=== PATIENT | male | born 1970 | race African-American/Black ===

== ENCOUNTER 2022-05-31 23:26 | Inpatient (IN) | payer MEDICAID ==
[~2022-05-31] VITALS: Ht 175.3 cm; Wt 104.0 kg
[2022-05-31 23:54] LABS: Basophils # (auto) 0.1 10 ^3/uL (0-0.2); Basophils % (auto) 0.9 % (0.0-2.0); Eosinophils # (auto) 0.1 10 ^3/uL (0-0.8); Eosinophils % (auto) 1.3 % (0.0-7.0); Hematocrit 43.2 % (41.0-53.0); Hemoglobin 13.6 g/dL (13.5-17.5); Lymphocytes # (auto) 1.2 10 ^3/uL (0.4-5.4); Mean Corpuscular Hemoglobin 28.4 pg (28.0-32.0); Mean Corpuscular Hgb Conc. 31.5 g/dL (32.0-36.0); Mean Corpuscular Volume 90.3 fL (80.0-100.0); Monocytes # (auto) 0.7 10 ^3/uL (0-1.3); Monocytes % (auto) 11.2 % (0.0-12.0); Neutrophils % (auto) 66.6 % (37.0-80.0); Nucleated Red Blood Cells % 0.3 %; Red Blood Cells 4.78 10^6/uL (4.5-5.90); Red Cell Distribution Width 15.8 % (11.8-14.3)
[2022-06-01 00:12] LABS: Albumin 2.9 g/dL (3.4-5.0); BUN/Creatinine Ratio 11.8; Calcium 8.4 mg/dL (8.5-10.1); Magnesium 2.1 mg/dL (1.6-2.6); Potassium 3.9 mmol/L (3.5-5.1)
[2022-06-01 00:13] LABS: INR 1.19 (0.9-1.15); Partial Thromboplastin Time 27.5 sec (24.6-33.4)
[2022-06-01 00:15] LABS: Bilirubin, Total 0.7 mg/dL (0.2-1.0); Total Protein 6.4 g/dL (6.4-8.2)
[2022-06-01] MEDS ORDERED: ASPirin 81 mg TAB PO ONE (00:45)
[2022-06-01] MEDS ORDERED: HEPARIN SODIUM (PORCINE) 5000 UNITS/ML 1ML VIAL IV ONE (00:45)
[2022-06-01] MEDS ORDERED: HEPARIN DRIP/D5W 100UNITS/ML 250 ML IV SCH ×3 (00:45→21:15)
[2022-06-01] MEDS ORDERED: ALBUTEROL MEDNEB 2.5 mg/3ml NEB ONE ×2 (01:40→21:07)
[2022-06-01] MEDS ORDERED: ALBUTEROL SULF 2.5 MG/0.5ML(0.5%) NEB SOLN NEB ONE (01:45)
[2022-06-01] MEDS ORDERED: methylPREDNISolone SOD SUCC 125 MG/2 ML VL IV ONE (01:45)
[2022-06-01] MEDS ORDERED: IPRATROPIUM BROM 0.5 MG/2.5ML INH SOL NEB ONE (01:45)
[2022-06-01 02:33] LABS: Basophils # (auto) 0.1 10 ^3/uL (0-0.2); Basophils % (auto) 1.8 % (0.0-2.0); Eosinophils # (auto) 0.2 10 ^3/uL (0-0.8); Eosinophils % (auto) 2.9 % (0.0-7.0); Hemoglobin 13.8 g/dL (13.5-17.5); Lymphocytes # (auto) 1.6 10 ^3/uL (0.4-5.4); Lymphocytes % (auto) 24.7 % (10.0-50.0); Mean Corpuscular Hemoglobin 28.9 pg (28.0-32.0); Mean Corpuscular Hgb Conc. 32.1 g/dL (32.0-36.0); Monocytes # (auto) 0.8 10 ^3/uL (0-1.3); Neutrophils # (auto) 3.7 10 ^3/uL (1.6-8.6); Neutrophils % (auto) 58.6 % (37.0-80.0); Nucleated Red Blood Cells % 0.1 %; Red Blood Cells 4.78 10^6/uL (4.5-5.90); Red Cell Distribution Width 15.8 % (11.8-14.3); White Blood Cell 6.3 10^3/uL (4.4-10.8)
[2022-06-01 02:41] LABS: INR 1.17 (0.9-1.15); Partial Thromboplastin Time 27.6 sec (24.6-33.4)
[2022-06-01] MEDS ORDERED: ACETAMINOPHEN 325 MG TAB PO PRN (04:45)
[2022-06-01] MEDS ORDERED: ALBUTEROL SULF 2.5 MG/0.5ML(0.5%) NEB SOLN NEB PRN (04:45)
[2022-06-01] MEDS ORDERED: IPRATROPIUM BROM 0.5 MG/2.5ML INH SOL NEB PRN (04:45)
[2022-06-01] MEDS ORDERED: ONDANSETRON HCL 4 MG/2 ML VIAL IV PRN (04:45)
[2022-06-01 09:15] LABS: INR 1.21 (0.9-1.15)
[2022-06-01] MEDS ORDERED: FUROSEMIDE 40 MG TAB PO SCH (10:00)
[2022-06-01] MEDS: ASPirin 81 mg TAB PO SCH (10:14)
[2022-06-01] MEDS: ISOSORBIDE MONONITRATE ER 60 MG TAB PO SCH (10:16)
[2022-06-01] MEDS: LISINOPRIL 20 MG TAB PO SCH ×2 (10:17→22:15)
[2022-06-01] MEDS: hydrALAZINE HCL 25 MG TAB PO SCH ×2 (10:19→22:19)
[2022-06-01] MEDS: CARVEDILOL 12.5 MG TAB PO SCH ×2 (10:20→22:14)
[2022-06-01] MEDS: PANTOPRAZOLE 40 MG TAB PO SCH (10:21)
[2022-06-01] MEDS ORDERED: LORazepam 2MG/ML-1ML VIAL IV ONE (11:15)
[2022-06-01 19:28] LABS: INR 1.14 (0.9-1.15); Partial Thromboplastin Time 46.7 sec (24.6-33.4)
[2022-06-01] MEDS: LORazepam 2MG/ML-1ML VIAL IV PRN (19:33)
[2022-06-01] MEDS: FUROSEMIDE 40 MG TAB PO SCH (22:15)
[2022-06-01] MEDS: MIRTAZAPINE 30 MG TAB PO SCH (22:19)
[2022-06-02] VITALS (7 sets, daily range): BP systolic 116–148; BP diastolic 67–106
[2022-06-02] MEDS: LORazepam 2MG/ML-1ML VIAL IV PRN ×2 (03:26→09:36)
[2022-06-02 03:47] LABS: Basophils # (auto) 0 10 ^3/uL (0-0.2); Basophils % (auto) 0.7 % (0.0-2.0); Eosinophils # (auto) 0.1 10 ^3/uL (0-0.8); Eosinophils % (auto) 2.6 % (0.0-7.0); Hematocrit 43.3 % (41.0-53.0); Hemoglobin 13.7 g/dL (13.5-17.5); Lymphocytes # (auto) 1.1 10 ^3/uL (0.4-5.4); Lymphocytes % (auto) 21.4 % (10.0-50.0); Mean Corpuscular Hemoglobin 28.5 pg (28.0-32.0); Mean Corpuscular Hgb Conc. 31.6 g/dL (32.0-36.0); Mean Corpuscular Volume 90.2 fL (80.0-100.0); Monocytes # (auto) 0.6 10 ^3/uL (0-1.3); Monocytes % (auto) 11.2 % (0.0-12.0); Neutrophils # (auto) 3.2 10 ^3/uL (1.6-8.6); Neutrophils % (auto) 64.1 % (37.0-80.0); Nucleated Red Blood Cells % 0.1 %; Red Blood Cells 4.81 10^6/uL (4.5-5.90); Red Cell Distribution Width 15.8 % (11.8-14.3)
[2022-06-02 03:59] LABS: Albumin 2.7 g/dL (3.4-5.0); BUN/Creatinine Ratio 12.4; Calcium 8.6 mg/dL (8.5-10.1); Potassium 4.3 mmol/L (3.5-5.1)
[2022-06-02 04:02] LABS: Bilirubin, Total 0.7 mg/dL (0.2-1.0); Total Protein 6.5 g/dL (6.4-8.2)
[2022-06-02 04:06] LABS: INR 1.18 (0.9-1.15); Partial Thromboplastin Time 55.2 sec (24.6-33.4)
[2022-06-02 07:02] LABS: Urine WBC None Seen /hpf (0 - 3)
[2022-06-02 07:24] LABS: Urine Bacteria NONE SEEN /hpf (None Seen); Urine Blood Negative /uL (Negative); Urine Specific Gravity 1.009 (1.001-1.035)
[2022-06-02] MEDS: PANTOPRAZOLE 40 MG TAB PO SCH (09:26)
[2022-06-02] MEDS: ASPirin 81 mg TAB PO SCH (09:26)
[2022-06-02] MEDS: FUROSEMIDE 40 MG TAB PO SCH ×2 (09:27→22:00)
[2022-06-02] MEDS: hydrALAZINE HCL 25 MG TAB PO SCH ×2 (09:27→22:14)
[2022-06-02] MEDS: ISOSORBIDE MONONITRATE ER 60 MG TAB PO SCH (09:27)
[2022-06-02] MEDS: CARVEDILOL 12.5 MG TAB PO SCH ×2 (09:28→22:07)
[2022-06-02] MEDS: LISINOPRIL 20 MG TAB PO SCH ×2 (09:28→22:15)
[2022-06-02 09:52] LABS: INR 1.21 (0.9-1.15); Partial Thromboplastin Time 58.1 sec (24.6-33.4)
[2022-06-02] MEDS ORDERED: LIDOCAINE 2%HCL (LOCAL ANESTH.) INJ 20ML MDV ONE (14:31)
[2022-06-02] MEDS ORDERED: IODIXANOL 320MG/ML 100ML BTL IV ONE (14:31)
[2022-06-02] MEDS ORDERED: ANGIOMAX 250 MG VIAL IV ONE (14:59)
[2022-06-02] MEDS ORDERED: VERAPAMIL 2.5MG/ML INJ 2ML VIAL IV ONE (14:59)
[2022-06-02] MEDS ORDERED: SODIUM CHL 0.9% 0 ML ONE (15:00)
[2022-06-02] MEDS ORDERED: ATORVASTATIN 20 MG TAB PO SCH (22:00)
[2022-06-02] MEDS: MIRTAZAPINE 30 MG TAB PO SCH (22:08)
[2022-06-03 04:54] VITALS: BP 138/83
[2022-06-03] MEDS: LORazepam 2MG/ML-1ML VIAL IV PRN (05:47)
[2022-06-03] MEDS ORDERED: EMPAGLIFLOZIN 10 MG TAB PO SCH (07:00)
[2022-06-03 09:00] VITALS: BP 131/94
[2022-06-03] MEDS: PANTOPRAZOLE 40 MG TAB PO SCH (09:19)
[2022-06-03] MEDS: ASPirin 81 mg TAB PO SCH (09:20)
[2022-06-03] MEDS: FUROSEMIDE 40 MG TAB PO SCH (09:20)
[2022-06-03] MEDS: CARVEDILOL 12.5 MG TAB PO SCH (09:20)
[2022-06-03] MEDS: LISINOPRIL 20 MG TAB PO SCH (09:21)
[2022-06-03] MEDS: hydrALAZINE HCL 25 MG TAB PO SCH (09:21)
[2022-06-03] MEDS ORDERED: ISOSORBIDE MONONITRATE ER 60 MG TAB PO SCH (10:00)
[2022-06-03] MEDS ORDERED: ISO60SRT PO (13:04)
[2022-06-03] MEDS ORDERED: EMPA1TAB PO (13:04)
[2022-06-03] MEDS ORDERED: LISI20TA28 PO (13:04)
[2022-06-03] MEDS ORDERED: FURO40TA4 PO (13:04)
[2022-06-03] MEDS ORDERED: ASPI-325 PO (13:05)
[2022-06-03] MEDS ORDERED: CAR125T PO (13:05)
[2022-06-03] MEDS ORDERED: ATOR20TA50 PO (13:05)
[2022-06-03 13:28] VITALS: BP 131/90
== END 2022-06-03 14:00 | disposition home or self-care (01) | DRG 192 ==
LOC: EDBD 23:26 → EDUNIT# 23:26 → ER 23:33 → TELE 06-01 04:45 → TELE-EAST 06-02 16:08
PROVIDERS: ADMIT Nurse Practitioner; ATTEND Student in an Organized Health Care Education/Training Program
PROC: 4A023N7 Measurement of Cardiac Sampling and Pressure, Left Heart, Percutaneous Approach (ICD-10-PCS; principal; 2022-06-02)
PROC: B211YZZ Fluoroscopy of Multiple Coronary Arteries using Other Contrast (ICD-10-PCS; 2022-06-02)
PROC: B215YZZ Fluoroscopy of Left Heart using Other Contrast (ICD-10-PCS; 2022-06-02)
DX: I13.0 Hypertensive heart and chronic kidney disease with heart failure and stage 1 through stage 4 chronic kidney disease, or unspecified chronic kidney disease (principal); I21.A1 Myocardial infarction type 2; I42.0 Dilated cardiomyopathy; I50.23 Acute on chronic systolic (congestive) heart failure; F17.210 Nicotine dependence, cigarettes, uncomplicated; F20.9 Schizophrenia, unspecified; F41.9 Anxiety disorder, unspecified; J44.9 Chronic obstructive pulmonary disease, unspecified; I25.10 Atherosclerotic heart disease of native coronary artery without angina pectoris; N18.31 Chronic kidney disease, stage 3a; G47.33 Obstructive sleep apnea (adult) (pediatric); Z20.822 Contact with and (suspected) exposure to COVID-19; F10.10 Alcohol abuse, uncomplicated; Z91.14 Patient's other noncompliance with medication regimen; Z95.810 Presence of automatic (implantable) cardiac defibrillator; Z98.61 Coronary angioplasty status
CPT/HCPCS: 36415; 71045; 80053; 81001; 83735; 83880; 84484; 85025; 85610; 85730; 87426; 93005; 93306; 93457; 94640; 96365; 96375; 99152; 99291; G0378; Q9967

== ENCOUNTER 2022-07-05 16:20 | Inpatient (IN) | payer MEDICAID ==
[~2022-07-05] VITALS: Ht 188 cm; Wt 109.7 kg
[~2022-07-05 16:20] MED LIST: ASPI-325 PO; ATOR20TA50 PO; CAR125T PO; EMPA1TAB PO; FURO40TA4 PO; ISO60SRT PO; LISI20TA28 PO
[2022-07-05] MEDS ORDERED: FUROSEMIDE 40 MG/4 ML VIAL IV ONE (17:00)
[2022-07-05 17:56] LABS: Albumin 2.6 g/dL (3.4-5.0); Calcium 8.5 mg/dL (8.5-10.1); Potassium 3.8 mmol/L (3.5-5.1)
[2022-07-05 17:57] LABS: Basophils # (auto) 0 10 ^3/uL (0-0.2); Basophils % (auto) 0.4 % (0.0-2.0); Eosinophils # (auto) 0.1 10 ^3/uL (0-0.8); Eosinophils % (auto) 2.6 % (0.0-7.0); Hematocrit 37.6 % (41.0-53.0); Hemoglobin 12.7 g/dL (13.5-17.5); Lymphocytes # (auto) 1.2 10 ^3/uL (0.4-5.4); Lymphocytes % (auto) 20.5 % (10.0-50.0); Mean Corpuscular Hemoglobin 31.2 pg (28.0-32.0); Mean Corpuscular Hgb Conc. 33.8 g/dL (32.0-36.0); Mean Corpuscular Volume 92.3 fL (80.0-100.0); Monocytes # (auto) 0.8 10 ^3/uL (0-1.3); Monocytes % (auto) 13.2 % (0.0-12.0); Neutrophils # (auto) 3.6 10 ^3/uL (1.6-8.6); Neutrophils % (auto) 63.3 % (37.0-80.0); Nucleated Red Blood Cells % 0.1 %; Red Blood Cells 4.07 10^6/uL (4.5-5.90); Red Cell Distribution Width 16.3 % (11.8-14.3); White Blood Cell 5.7 10^3/uL (4.4-10.8)
[2022-07-05 17:58] LABS: BUN/Creatinine Ratio 10.8
[2022-07-05 18:01] LABS: Bilirubin, Total 0.7 mg/dL (0.2-1.0); Total Protein 6.5 g/dL (6.4-8.2)
[2022-07-05] MEDS ORDERED: ONDANSETRON HCL 4 MG/2 ML VIAL IV PRN (21:30)
[2022-07-05] MEDS ORDERED: NITROGLYCERIN 0.4 MG SL TAB SL PRN (21:30)
[2022-07-05] MEDS ORDERED: MORPHINE SULFATE INJ 2 MG/ml SYRG IV PRN (21:30)
[2022-07-05] MEDS ORDERED: ACETAMINOPHEN 325 MG TAB PO PRN (21:30)
[2022-07-05] MEDS: hydrALAZINE HCL 25 MG TAB PO SCH (22:43)
[2022-07-05] MEDS: CARVEDILOL 12.5 MG TAB PO SCH (22:44)
[2022-07-05] MEDS: ATORVASTATIN 20 MG TAB PO SCH (22:44)
[2022-07-05] MEDS: MIRTAZAPINE 30 MG TAB PO SCH (22:45)
[2022-07-05] MEDS: LISINOPRIL 20 MG TAB PO SCH (22:45)
[2022-07-05 22:51] LABS: Potassium 3.7 mmol/L (3.5-5.1)
[2022-07-06] MEDS: FUROSEMIDE 20 MG/2 ML VIAL IV SCH ×2 (06:48→18:19)
[2022-07-06 08:24] LABS: Urine WBC None Seen /hpf (0 - 3)
[2022-07-06 08:37] LABS: Alcohol, Urine < 3.0 mg/dL (0-10); Amphetamine Screen, Urine POSITIVE (NEGATIVE); Barbiturate Scree,Urine NEGATIVE (NEGATIVE); Benzodiazephine Screen, Urine NEGATIVE (NEGATIVE); Cannabinoid Screen, Urine POSITIVE (NEGATIVE); Cocaine Screen, Urine NEGATIVE (NEGATIVE); Phencyclidine Screen, Urine NEGATIVE (NEGATIVE); Urine Bacteria NONE SEEN /hpf (None Seen); Urine Blood Negative /uL (Negative); Urine Specific Gravity 1.005 (1.001-1.035)
[2022-07-06 08:44] LABS: Opiate Scree,Urine NEGATIVE (NEGATIVE)
[2022-07-06] MEDS: ENOXAPARIN SOD 40 MG/0.4 ML SYRINGE SC SCH (11:48)
[2022-07-06] MEDS: NICOTINE 14 MG/24HR TOPICAL PATCH TD SCH (11:49)
[2022-07-06] MEDS: ASPirin 81 mg TAB PO SCH (11:56)
[2022-07-06] MEDS: ISOSORBIDE MONONITRATE ER 60 MG TAB PO SCH (11:57)
[2022-07-06] MEDS: PANTOPRAZOLE 40 MG TAB PO SCH (11:58)
[2022-07-06] MEDS: LISINOPRIL 20 MG TAB PO SCH ×2 (11:58→21:53)
[2022-07-06] MEDS: CARVEDILOL 12.5 MG TAB PO SCH ×2 (11:59→21:53)
[2022-07-06] MEDS: hydrALAZINE HCL 25 MG TAB PO SCH ×2 (11:59→21:53)
[2022-07-06 17:57] LABS: Basophils # (auto) 0 10 ^3/uL (0-0.2); Basophils % (auto) 0.6 % (0.0-2.0); Eosinophils # (auto) 0.1 10 ^3/uL (0-0.8); Eosinophils % (auto) 2.3 % (0.0-7.0); Hematocrit 39.1 % (41.0-53.0); Lymphocytes # (auto) 1.4 10 ^3/uL (0.4-5.4); Lymphocytes % (auto) 23.6 % (10.0-50.0); Mean Corpuscular Hemoglobin 29.7 pg (28.0-32.0); Mean Corpuscular Hgb Conc. 33.2 g/dL (32.0-36.0); Mean Corpuscular Volume 89.4 fL (80.0-100.0); Monocytes # (auto) 0.7 10 ^3/uL (0-1.3); Monocytes % (auto) 12.8 % (0.0-12.0); Neutrophils # (auto) 3.5 10 ^3/uL (1.6-8.6); Neutrophils % (auto) 60.7 % (37.0-80.0); Red Blood Cells 4.37 10^6/uL (4.5-5.90); Red Cell Distribution Width 16.6 % (11.8-14.3); White Blood Cell 5.7 10^3/uL (4.4-10.8)
[2022-07-06] MEDS: ATORVASTATIN 20 MG TAB PO SCH (21:52)
[2022-07-06] MEDS: MIRTAZAPINE 30 MG TAB PO SCH (21:53)
[2022-07-06 22:57] VITALS: BP 137/83
[2022-07-06 23:10] VITALS: BP 137/83
[2022-07-06] MEDS ORDERED: PERCOT PO (23:28)
[2022-07-07 05:00] VITALS: BP 146/95
[2022-07-07] MEDS: FUROSEMIDE 20 MG/2 ML VIAL IV SCH ×2 (05:25→16:57)
[2022-07-07] MEDS: LISINOPRIL 20 MG TAB PO SCH ×2 (10:52→22:03)
[2022-07-07] MEDS: ASPirin 81 mg TAB PO SCH (10:53)
[2022-07-07] MEDS: CARVEDILOL 12.5 MG TAB PO SCH ×2 (10:53→22:05)
[2022-07-07] MEDS: hydrALAZINE HCL 25 MG TAB PO SCH ×2 (10:53→22:04)
[2022-07-07] MEDS: PANTOPRAZOLE 40 MG TAB PO SCH (10:53)
[2022-07-07] MEDS: ISOSORBIDE MONONITRATE ER 60 MG TAB PO SCH (10:53)
[2022-07-07] MEDS: ENOXAPARIN SOD 40 MG/0.4 ML SYRINGE SC SCH (10:54)
[2022-07-07] MEDS: NICOTINE 14 MG/24HR TOPICAL PATCH TD SCH (10:56)
[2022-07-07] MEDS: OXYCODONE W/ ACETAMINOPHEN 5/325MG TABLET PO PRN ×2 (16:57→23:06)
[2022-07-07 22:00] VITALS: BP 142/90
[2022-07-07] MEDS: ATORVASTATIN 20 MG TAB PO SCH (22:03)
[2022-07-07] MEDS: MIRTAZAPINE 30 MG TAB PO SCH (22:04)
[2022-07-08 05:00] VITALS: BP 132/99
[2022-07-08] MEDS: FUROSEMIDE 20 MG/2 ML VIAL IV SCH (05:56)
[2022-07-08 06:47] LABS: BUN/Creatinine Ratio 13.8; Calcium 8.1 mg/dL (8.5-10.1); Magnesium 2.1 mg/dL (1.6-2.6); Potassium 3.9 mmol/L (3.5-5.1)
[2022-07-08 06:49] LABS: Basophils # (auto) 0 10 ^3/uL (0-0.2); Basophils % (auto) 0.7 % (0.0-2.0); Eosinophils # (auto) 0.1 10 ^3/uL (0-0.8); Eosinophils % (auto) 2.8 % (0.0-7.0); Hematocrit 38.3 % (41.0-53.0); Hemoglobin 12.7 g/dL (13.5-17.5); Lymphocytes # (auto) 1.3 10 ^3/uL (0.4-5.4); Lymphocytes % (auto) 28.2 % (10.0-50.0); Mean Corpuscular Hemoglobin 30.5 pg (28.0-32.0); Mean Corpuscular Hgb Conc. 33.3 g/dL (32.0-36.0); Mean Corpuscular Volume 91.7 fL (80.0-100.0); Monocytes # (auto) 0.6 10 ^3/uL (0-1.3); Monocytes % (auto) 11.8 % (0.0-12.0); Neutrophils # (auto) 2.7 10 ^3/uL (1.6-8.6); Neutrophils % (auto) 56.5 % (37.0-80.0); Nucleated Red Blood Cells % 0.2 %; Red Blood Cells 4.17 10^6/uL (4.5-5.90); Red Cell Distribution Width 16.4 % (11.8-14.3); White Blood Cell 4.7 10^3/uL (4.4-10.8)
[2022-07-08] MEDS: PANTOPRAZOLE 40 MG TAB PO SCH (10:14)
[2022-07-08] MEDS: ISOSORBIDE MONONITRATE ER 60 MG TAB PO SCH (10:14)
[2022-07-08] MEDS: LISINOPRIL 20 MG TAB PO SCH (10:14)
[2022-07-08] MEDS: CARVEDILOL 12.5 MG TAB PO SCH (10:14)
[2022-07-08] MEDS: hydrALAZINE HCL 25 MG TAB PO SCH (10:15)
[2022-07-08] MEDS: ASPirin 81 mg TAB PO SCH (10:15)
[2022-07-08] MEDS: ENOXAPARIN SOD 40 MG/0.4 ML SYRINGE SC SCH (10:15)
[2022-07-08] MEDS: NICOTINE 14 MG/24HR TOPICAL PATCH TD SCH (10:18)
[2022-07-08 12:42] VITALS: BP 144/93
[2022-07-08 14:45] VITALS: BP 152/96
== END 2022-07-08 15:25 | disposition home health service (06) | DRG 194 ==
LOC: ER 16:20 → EDBD 16:20 → TELE 21:28 → TELE-WESTW 22:43
PROVIDERS: ADMIT Nurse Practitioner; ATTEND Internal Medicine
DX: I13.0 Hypertensive heart and chronic kidney disease with heart failure and stage 1 through stage 4 chronic kidney disease, or unspecified chronic kidney disease (principal); N17.0 Acute kidney failure with tubular necrosis; I21.A1 Myocardial infarction type 2; I42.0 Dilated cardiomyopathy; I50.43 Acute on chronic combined systolic (congestive) and diastolic (congestive) heart failure; I42.7 Cardiomyopathy due to drug and external agent; E11.22 Type 2 diabetes mellitus with diabetic chronic kidney disease; F15.10 Other stimulant abuse, uncomplicated; Z20.822 Contact with and (suspected) exposure to COVID-19; E78.5 Hyperlipidemia, unspecified; F20.9 Schizophrenia, unspecified; J44.9 Chronic obstructive pulmonary disease, unspecified; Z91.199 Patient's noncompliance with other medical treatment and regimen due to unspecified reason; Z95.5 Presence of coronary angioplasty implant and graft; Z95.810 Presence of automatic (implantable) cardiac defibrillator; Z72.0 Tobacco use
CPT/HCPCS: 36415; 71046; 74176; 80048; 80053; 80307; 81001; 82962; 83735; 83880; 84484; 85025; 85379; 87426; 93005; 96374; 97163; G0378

== ENCOUNTER 2022-07-10 12:40 | Inpatient (IN) | payer MEDICAID ==
[~2022-07-10] VITALS: Ht 177.8 cm; Wt 108.5 kg
[~2022-07-10 12:40] MED LIST changes: +PERCOT PO
[2022-07-10] MEDS ORDERED: FUROSEMIDE 40 MG/4 ML VIAL IV ONE ×2 (13:15→15:15)
[2022-07-10 13:56] LABS: Basophils # (auto) 0.1 10 ^3/uL (0-0.2); Basophils % (auto) 1.3 % (0.0-2.0); Eosinophils # (auto) 0.1 10 ^3/uL (0-0.8); Eosinophils % (auto) 1.3 % (0.0-7.0); Hematocrit 41.6 % (41.0-53.0); Hemoglobin 13.9 g/dL (13.5-17.5); Lymphocytes # (auto) 1.1 10 ^3/uL (0.4-5.4); Lymphocytes % (auto) 20.6 % (10.0-50.0); Mean Corpuscular Hemoglobin 29.9 pg (28.0-32.0); Mean Corpuscular Hgb Conc. 33.4 g/dL (32.0-36.0); Mean Corpuscular Volume 89.7 fL (80.0-100.0); Monocytes # (auto) 0.7 10 ^3/uL (0-1.3); Monocytes % (auto) 13.5 % (0.0-12.0); Neutrophils # (auto) 3.3 10 ^3/uL (1.6-8.6); Neutrophils % (auto) 63.3 % (37.0-80.0); Nucleated Red Blood Cells % 0.3 %; Red Blood Cells 4.63 10^6/uL (4.5-5.90); Red Cell Distribution Width 16.7 % (11.8-14.3); White Blood Cell 5.1 10^3/uL (4.4-10.8)
[2022-07-10 14:28] LABS: Albumin 3.2 g/dL (3.4-5.0); BUN/Creatinine Ratio 16.6; Bilirubin, Total 0.9 mg/dL (0.2-1.0); Calcium 8.3 mg/dL (8.5-10.1); Magnesium 2.5 mg/dL (1.6-2.6); Potassium 4.3 mmol/L (3.5-5.1)
[2022-07-10] MEDS ORDERED: LORazepam 2MG/ML-1ML VIAL IV ONE (21:00)
[2022-07-10 21:20] LABS: Albumin 2.9 g/dL (3.4-5.0); Calcium 8.3 mg/dL (8.5-10.1); Potassium 4.2 mmol/L (3.5-5.1)
[2022-07-10 21:21] LABS: BUN/Creatinine Ratio 16.3
[2022-07-10 21:24] LABS: Bilirubin, Total 0.8 mg/dL (0.2-1.0); Total Protein 7.4 g/dL (6.4-8.2)
[2022-07-10 21:40] LABS: Basophils # (auto) 0 10 ^3/uL (0-0.2); Basophils % (auto) 0.7 % (0.0-2.0); Eosinophils # (auto) 0.1 10 ^3/uL (0-0.8); Eosinophils % (auto) 2.3 % (0.0-7.0); Hematocrit 42.2 % (41.0-53.0); Lymphocytes # (auto) 1.3 10 ^3/uL (0.4-5.4); Lymphocytes % (auto) 25.7 % (10.0-50.0); Mean Corpuscular Hemoglobin 30.4 pg (28.0-32.0); Mean Corpuscular Hgb Conc. 33.1 g/dL (32.0-36.0); Mean Corpuscular Volume 91.7 fL (80.0-100.0); Monocytes # (auto) 0.9 10 ^3/uL (0-1.3); Neutrophils # (auto) 2.8 10 ^3/uL (1.6-8.6); Neutrophils % (auto) 54.3 % (37.0-80.0); Nucleated Red Blood Cells % 0.1 %; Red Blood Cells 4.61 10^6/uL (4.5-5.90); Red Cell Distribution Width 16.7 % (11.8-14.3); White Blood Cell 5.2 10^3/uL (4.4-10.8)
[2022-07-10 22:08] LABS: Urine Bacteria NONE SEEN /hpf (None Seen); Urine Blood Negative /uL (Negative); Urine Specific Gravity 1.011 (1.001-1.035); Urine WBC <1 /hpf (0 - 3)
[2022-07-10 22:26] LABS: Alcohol, Urine < 3.0 mg/dL (0-10); Amphetamine Screen, Urine POSITIVE (NEGATIVE); Barbiturate Scree,Urine NEGATIVE (NEGATIVE); Benzodiazephine Screen, Urine NEGATIVE (NEGATIVE); Cannabinoid Screen, Urine POSITIVE (NEGATIVE); Cocaine Screen, Urine NEGATIVE (NEGATIVE)
[2022-07-10 22:34] LABS: Opiate Scree,Urine NEGATIVE (NEGATIVE); Phencyclidine Screen, Urine NEGATIVE (NEGATIVE)
[2022-07-11] VITALS (8 sets, daily range): BP systolic 137–153; BP diastolic 53–104
[2022-07-11] MEDS ORDERED: HYDROcodone-ACET 5/325MG TAB PO PRN
[2022-07-11] MEDS ORDERED: NITROGLYCERIN 0.4 MG SL TAB SL PRN
[2022-07-11] MEDS ORDERED: DEXTROSE (50%) 50ML SYRG IV PRN
[2022-07-11] MEDS ORDERED: hydrALAZINE HCL 20 MG/ML VL IV PRN
[2022-07-11] MEDS ORDERED: IBUPROFEN 600 MG TAB PO PRN
[2022-07-11] MEDS ORDERED: MORPHINE SULFATE INJ 2 MG/ml SYRG IV PRN
[2022-07-11] MEDS ORDERED: DOCUSATE SOD 100 MG CAP PO PRN
[2022-07-11] MEDS ORDERED: ONDANSETRON HCL 4 MG/2 ML VIAL IV PRN
[2022-07-11] MEDS: InsuLIN REG 1unit/0.01ml Soln (100units/ml) SC SCH ×4 (07:00→22:12)
[2022-07-11] MEDS: ACCU-CHEK COMFORT CURVE STRIP VI SCH ×4 (07:09→22:11)
[2022-07-11] MEDS: SODIUM CHLOR 0.9% PF (SALINE LOCK) 10ML VIAL/SYR IV SCH ×3 (07:11→23:27)
[2022-07-11 09:13] LABS: Basophils # (auto) 0.1 10 ^3/uL (0-0.2); Eosinophils # (auto) 0.1 10 ^3/uL (0-0.8); Eosinophils % (auto) 1.2 % (0.0-7.0); Hematocrit 43.1 % (41.0-53.0); Hemoglobin 14.2 g/dL (13.5-17.5); Lymphocytes # (auto) 1.3 10 ^3/uL (0.4-5.4); Lymphocytes % (auto) 24.5 % (10.0-50.0); Mean Corpuscular Hemoglobin 29.8 pg (28.0-32.0); Mean Corpuscular Hgb Conc. 32.8 g/dL (32.0-36.0); Mean Corpuscular Volume 90.7 fL (80.0-100.0); Monocytes # (auto) 0.7 10 ^3/uL (0-1.3); Monocytes % (auto) 13.5 % (0.0-12.0); Neutrophils # (auto) 3.3 10 ^3/uL (1.6-8.6); Neutrophils % (auto) 59.8 % (37.0-80.0); Nucleated Red Blood Cells % 0.1 %; Red Blood Cells 4.75 10^6/uL (4.5-5.90); Red Cell Distribution Width 16.8 % (11.8-14.3); White Blood Cell 5.5 10^3/uL (4.4-10.8)
[2022-07-11] MEDS: ASPirin 81 mg TAB PO SCH (09:29)
[2022-07-11 09:32] LABS: Albumin 3.1 g/dL (3.4-5.0); Calcium 8.5 mg/dL (8.5-10.1)
[2022-07-11] MEDS: CARVEDILOL 12.5 MG TAB PO SCH ×2 (09:33→22:09)
[2022-07-11 09:38] LABS: BUN/Creatinine Ratio 14.7; Bilirubin, Total 1.1 mg/dL (0.2-1.0); Total Protein 7.2 g/dL (6.4-8.2)
[2022-07-11] MEDS ORDERED: FUROSEMIDE 40 MG/4 ML VIAL IV SCH ×2 (09:45→10:00)
[2022-07-11] MEDS: HEPARIN SODIUM (PORCINE) 5000 UNITS/ML 1ML VIAL SC SCH ×2 (09:49→22:11)
[2022-07-11] MEDS ORDERED: LISINOPRIL 20 MG TAB PO SCH (10:00)
[2022-07-11] MEDS ORDERED: SPIRONOLACTONE 25 MG TAB PO SCH (10:00)
[2022-07-11] MEDS: LORazepam 2MG/ML-1ML VIAL IV PRN (14:24)
[2022-07-11] MEDS: FUROSEMIDE 40 MG/4 ML VIAL IV SCH (18:38)
[2022-07-11] MEDS ORDERED: ATORVASTATIN 20 MG TAB PO SCH (22:00)
[2022-07-12 05:00] VITALS: BP 138/86
[2022-07-12] MEDS: LORazepam 2MG/ML-1ML VIAL IV PRN (05:03)
[2022-07-12 05:12] LABS: Urine Blood Negative /uL (Negative); Urine Specific Gravity 1.016 (1.001-1.035)
[2022-07-12] MEDS: FUROSEMIDE 40 MG/4 ML VIAL IV SCH ×2 (06:01→18:12)
[2022-07-12] MEDS: SODIUM CHLOR 0.9% PF (SALINE LOCK) 10ML VIAL/SYR IV SCH ×3 (06:01→22:41)
[2022-07-12 06:03] LABS: Protein, Urine 24.9 mg/dL (0.0-11.9)
[2022-07-12] MEDS: InsuLIN REG 1unit/0.01ml Soln (100units/ml) SC SCH ×4 (06:03→21:50)
[2022-07-12] MEDS: ACCU-CHEK COMFORT CURVE STRIP VI SCH ×4 (06:03→21:50)
[2022-07-12 06:15] LABS: BUN/Creatinine Ratio 16.6; Calcium 8.3 mg/dL (8.5-10.1); Phosphorus 4.1 mg/dL (2.5-4.90); Potassium 3.9 mmol/L (3.5-5.1); Uric Acid 10.4 mg/dL (3.5-7.2)
[2022-07-12 07:30] VITALS: BP 166/106
[2022-07-12 08:45] VITALS: BP 166/106
[2022-07-12] MEDS: ASPirin 81 mg TAB PO SCH (09:44)
[2022-07-12] MEDS: metOLazone 5 MG TAB PO SCH (09:45)
[2022-07-12] MEDS: CARVEDILOL 12.5 MG TAB PO SCH ×2 (09:46→21:54)
[2022-07-12] MEDS: HEPARIN SODIUM (PORCINE) 5000 UNITS/ML 1ML VIAL SC SCH ×2 (09:48→21:49)
[2022-07-12 12:59] VITALS: BP 134/92
[2022-07-12] MEDS ORDERED: LORazepam 2MG/ML-1ML VIAL IV PRN (15:30)
[2022-07-12 20:00] VITALS: BP 153/96
[2022-07-12] MEDS: LORazepam 0.5 MG TAB PO SCH (21:50)
[2022-07-12 22:00] VITALS: BP 153/96
[2022-07-13 05:00] VITALS: BP 109/66
[2022-07-13] MEDS: FUROSEMIDE 40 MG/4 ML VIAL IV SCH (06:23)
[2022-07-13] MEDS: SODIUM CHLOR 0.9% PF (SALINE LOCK) 10ML VIAL/SYR IV SCH ×2 (06:24→13:06)
[2022-07-13 06:55] LABS: BUN/Creatinine Ratio 17.1; Calcium 8.4 mg/dL (8.5-10.1); Potassium 3.6 mmol/L (3.5-5.1)
[2022-07-13] MEDS: InsuLIN REG 1unit/0.01ml Soln (100units/ml) SC SCH ×3 (07:00→17:00)
[2022-07-13] MEDS: ACCU-CHEK COMFORT CURVE STRIP VI SCH ×3 (07:00→17:00)
[2022-07-13 08:30] VITALS: BP 145/99
[2022-07-13] MEDS: CARVEDILOL 12.5 MG TAB PO SCH (10:09)
[2022-07-13] MEDS: LORazepam 0.5 MG TAB PO SCH (10:09)
[2022-07-13] MEDS: metOLazone 5 MG TAB PO SCH (10:09)
[2022-07-13] MEDS: ASPirin 81 mg TAB PO SCH (10:09)
[2022-07-13] MEDS: HEPARIN SODIUM (PORCINE) 5000 UNITS/ML 1ML VIAL SC SCH (10:15)
[2022-07-13 14:31] VITALS: BP 125/85
[2022-07-13] MEDS ORDERED: FURO40TA4 PO (15:18)
[2022-07-13] MEDS ORDERED: CAR125T PO (15:18)
[2022-07-13] MEDS ORDERED: SACU1TAB PO (15:18)
[2022-07-13] MEDS ORDERED: EMPA1TAB PO (15:18)
[2022-07-13] MEDS ORDERED: ISO60SRT PO (15:18)
== END 2022-07-13 17:12 | disposition home or self-care (01) | DRG 194 ==
LOC: ER 12:40 → EDUNIT# 12:40 → EDBD 12:40 → TELE 07-11 00:02 → TELE-WESTW 07-11 03:30
PROVIDERS: ADMIT Nurse Practitioner Family; ATTEND Hospitalist
DX: I13.0 Hypertensive heart and chronic kidney disease with heart failure and stage 1 through stage 4 chronic kidney disease, or unspecified chronic kidney disease (principal); N17.0 Acute kidney failure with tubular necrosis; I50.43 Acute on chronic combined systolic (congestive) and diastolic (congestive) heart failure; R09.02 Hypoxemia; E11.22 Type 2 diabetes mellitus with diabetic chronic kidney disease; N18.31 Chronic kidney disease, stage 3a; F15.10 Other stimulant abuse, uncomplicated; Z20.822 Contact with and (suspected) exposure to COVID-19; F41.9 Anxiety disorder, unspecified; R79.89 Other specified abnormal findings of blood chemistry; I42.8 Other cardiomyopathies; E78.5 Hyperlipidemia, unspecified; F17.210 Nicotine dependence, cigarettes, uncomplicated; F20.9 Schizophrenia, unspecified; J44.9 Chronic obstructive pulmonary disease, unspecified; Z82.49 Family history of ischemic heart disease and other diseases of the circulatory system; Z83.3 Family history of diabetes mellitus; I25.2 Old myocardial infarction; Z91.199 Patient's noncompliance with other medical treatment and regimen due to unspecified reason; Z95.0 Presence of cardiac pacemaker
CPT/HCPCS: 36415; 71045; 80048; 80053; 81003; 82306; 82570; 82962; 84100; 84156; 84300; 84443; 84484; 84550; 85025; 87081; 93971; 96374; 96375; G0378; J1815

== ENCOUNTER 2022-08-21 12:48 | Inpatient (IN) | payer MEDICAID ==
[~2022-08-21] VITALS: Ht 175.3 cm; Wt 104.1 kg
[~2022-08-21 12:48] MED LIST changes: -LISI20TA28 PO; +SACU1TAB PO
[2022-08-21 13:13] LABS: Basophils # (auto) 0.1 10 ^3/uL (0-0.2); Basophils % (auto) 1.2 % (0.0-2.0); Eosinophils # (auto) 0.1 10 ^3/uL (0-0.8); Eosinophils % (auto) 1.1 % (0.0-7.0); Hemoglobin 13.9 g/dL (13.5-17.5); Lymphocytes # (auto) 1.3 10 ^3/uL (0.4-5.4); Lymphocytes % (auto) 17.7 % (10.0-50.0); Mean Corpuscular Hemoglobin 29.1 pg (28.0-32.0); Mean Corpuscular Hgb Conc. 32.4 g/dL (32.0-36.0); Mean Corpuscular Volume 89.9 fL (80.0-100.0); Monocytes # (auto) 0.7 10 ^3/uL (0-1.3); Monocytes % (auto) 9.8 % (0.0-12.0); Neutrophils # (auto) 5.1 10 ^3/uL (1.6-8.6); Neutrophils % (auto) 70.2 % (37.0-80.0); Nucleated Red Blood Cells % 0.2 %; Red Blood Cells 4.78 10^6/uL (4.5-5.90); Red Cell Distribution Width 19.1 % (11.8-14.3); White Blood Cell 7.3 10^3/uL (4.4-10.8)
[2022-08-21 13:38] LABS: INR 1.23 (0.9-1.15); Partial Thromboplastin Time 27.8 sec (24.6-33.4)
[2022-08-21 14:13] LABS: Albumin 3.1 g/dL (3.4-5.0); BUN/Creatinine Ratio 12.3 (10.0-20.0); Bilirubin, Total 1.3 mg/dL (0.2-1.0); Calcium 8.5 mg/dL (8.5-10.1); Potassium 4.2 mmol/L (3.5-5.1); Total Protein 6.8 g/dL (6.4-8.2)
[2022-08-21 14:14] LABS: Magnesium 2.2 mg/dL (1.6-2.6)
[2022-08-21] MEDS ORDERED: FUROSEMIDE 100 MG/10ML VIAL IV ONE (14:45)
[2022-08-21] MEDS ORDERED: ASPirin 325 MG TAB PO ONE (14:45)
[2022-08-21] MEDS ORDERED: DEXTROSE (50%) 50ML SYRG IV PRN (18:15)
[2022-08-21] MEDS ORDERED: IPRATROPIUM BROM 0.5 MG/2.5ML INH SOL NEB PRN (18:15)
[2022-08-21] MEDS ORDERED: ALBUTEROL SULF 2.5 MG/0.5ML(0.5%) NEB SOLN NEB PRN (18:15)
[2022-08-21 19:36] VITALS: BP 168/70
[2022-08-21] MEDS ORDERED: ONDANSETRON HCL 4 MG/2 ML VIAL IV PRN (20:15)
[2022-08-21] MEDS ORDERED: NITROGLYCERIN 0.4 MG SL TAB SL PRN (20:15)
[2022-08-21] MEDS ORDERED: MORPHINE SULFATE 4 MG/ML SYR/VIAL IV PRN (20:15)
[2022-08-21] MEDS: FUROSEMIDE 20 MG/2 ML VIAL IV SCH (22:00)
[2022-08-21] MEDS: InsuLIN REG 1unit/0.01ml Soln (100units/ml) SC SCH (22:00)
[2022-08-21] MEDS: SACUBITRIL-VALSARTAN 24mg/26mg TAB PO SCH (22:12)
[2022-08-21] MEDS: ATORVASTATIN 20 MG TAB PO SCH (22:21)
[2022-08-21] MEDS: CARVEDILOL 12.5 MG TAB PO SCH (22:26)
[2022-08-21] MEDS: ACCU-CHEK COMFORT CURVE STRIP VI SCH (22:26)
[2022-08-21] MEDS ORDERED: cloNIDine HCL 0.1 MG TAB PO ONE (23:00)
[2022-08-22 01:29] LABS: Urine Bacteria NONE SEEN /hpf (None Seen); Urine Blood Negative /uL (Negative); Urine Specific Gravity 1.005 (1.001-1.035); Urine WBC <1 /hpf (0 - 3)
[2022-08-22] MEDS: LORazepam 2MG/ML-1ML VIAL IV PRN ×3 (02:12→14:29)
[2022-08-22 04:48] LABS: Basophils # (auto) 0.1 10 ^3/uL (0-0.2); Eosinophils # (auto) 0.2 10 ^3/uL (0-0.8); Eosinophils % (auto) 2.3 % (0.0-7.0); Hematocrit 41.2 % (41.0-53.0); Hemoglobin 13.6 g/dL (13.5-17.5); Lymphocytes # (auto) 1.3 10 ^3/uL (0.4-5.4); Mean Corpuscular Hemoglobin 29.4 pg (28.0-32.0); Mean Corpuscular Hgb Conc. 33.1 g/dL (32.0-36.0); Mean Corpuscular Volume 88.9 fL (80.0-100.0); Monocytes # (auto) 0.9 10 ^3/uL (0-1.3); Monocytes % (auto) 12.8 % (0.0-12.0); Neutrophils # (auto) 4.5 10 ^3/uL (1.6-8.6); Neutrophils % (auto) 64.9 % (37.0-80.0); Nucleated Red Blood Cells % 0.1 %; Red Blood Cells 4.64 10^6/uL (4.5-5.90); Red Cell Distribution Width 18.7 % (11.8-14.3); White Blood Cell 6.9 10^3/uL (4.4-10.8)
[2022-08-22 05:06] LABS: Albumin 2.9 g/dL (3.4-5.0); Calcium 8.6 mg/dL (8.5-10.1); Potassium 3.7 mmol/L (3.5-5.1)
[2022-08-22 05:08] LABS: BUN/Creatinine Ratio 13.4 (10.0-20.0)
[2022-08-22 05:11] LABS: Bilirubin, Total 0.9 mg/dL (0.2-1.0)
[2022-08-22] MEDS: ACCU-CHEK COMFORT CURVE STRIP VI SCH ×4 (07:05→22:33)
[2022-08-22] MEDS: InsuLIN REG 1unit/0.01ml Soln (100units/ml) SC SCH ×4 (07:10→22:00)
[2022-08-22] MEDS: hydrALAZINE HCL 20 MG/ML VL IV PRN ×2 (07:12→17:47)
[2022-08-22 08:00] VITALS: BP 138/86
[2022-08-22 09:00] VITALS: BP 138/86
[2022-08-22] MEDS: PANTOPRAZOLE 40 MG/10 ML VIAL INJ IV SCH ×2 (10:00→10:20)
[2022-08-22] MEDS: ASPirin-EC 81 mg tab PO SCH (10:04)
[2022-08-22] MEDS: FUROSEMIDE 20 MG/2 ML VIAL IV SCH ×2 (10:05→22:00)
[2022-08-22] MEDS: CARVEDILOL 12.5 MG TAB PO SCH ×2 (10:05→22:00)
[2022-08-22] MEDS: ISOSORBIDE MONONITRATE ER 60 MG TAB PO SCH (10:06)
[2022-08-22] MEDS ORDERED: MIRT1TAB40 PO (10:23)
[2022-08-22] MEDS ORDERED: PROM2SYP2 PO (10:23)
[2022-08-22] MEDS ORDERED: ISOS1TAB28 PO (10:23)
[2022-08-22] MEDS ORDERED: LISI20TA28 PO (10:23)
[2022-08-22] MEDS ORDERED: ALBU108A5 PO (10:23)
[2022-08-22] MEDS ORDERED: HYDR50TA15 PO (10:23)
[2022-08-22] MEDS ORDERED: TIOTCAP INH (10:23)
[2022-08-22] MEDS ORDERED: TAMS0.4C36 PO (10:23)
[2022-08-22] MEDS ORDERED: HYDR25TA87 PO (10:23)
[2022-08-22] MEDS ORDERED: FIN5T PO (10:23)
[2022-08-22] MEDS ORDERED: AZIT250T9 PO (10:23)
[2022-08-22] MEDS ORDERED: CARV12.544 PO (10:23)
[2022-08-22] MEDS ORDERED: BENA20TA14 PO (10:23)
[2022-08-22] MEDS ORDERED: [UNRECOGNIZED DRUG - CODE] IN (10:23)
[2022-08-22] MEDS ORDERED: PRED20TA2 PO (10:23)
[2022-08-22] MEDS ORDERED: POTA-264 (10:23)
[2022-08-22] MEDS ORDERED: ASPI1TAB37 PO (10:23)
[2022-08-22] MEDS ORDERED: TRAZ100T3 PO (10:23)
[2022-08-22] MEDS: ENOXAPARIN SOD 40 MG/0.4 ML SYRINGE SC SCH (10:29)
[2022-08-22] MEDS: SACUBITRIL-VALSARTAN 24mg/26mg TAB PO SCH ×2 (10:29→22:00)
[2022-08-22 12:00] VITALS: BP 119/72
[2022-08-22] MEDS ORDERED: ALPR0.5T PO (18:38)
[2022-08-22] MEDS: HYDROcodone-ACET 5/325MG TAB PO PRN (19:37)
[2022-08-22 20:50] LABS: Alcohol, Urine < 3.0 mg/dL (0-10); Amphetamine Screen, Urine POSITIVE (NEGATIVE); Barbiturate Scree,Urine NEGATIVE (NEGATIVE); Benzodiazephine Screen, Urine NEGATIVE (NEGATIVE); Cocaine Screen, Urine POSITIVE (NEGATIVE); Phencyclidine Screen, Urine NEGATIVE (NEGATIVE)
[2022-08-22 20:58] LABS: Cannabinoid Screen, Urine POSITIVE (NEGATIVE); Opiate Scree,Urine NEGATIVE (NEGATIVE)
[2022-08-22 22:00] VITALS: BP 103/47
[2022-08-22] MEDS: ATORVASTATIN 20 MG TAB PO SCH (22:00)
[2022-08-23 05:00] VITALS: BP 120/75
[2022-08-23] MEDS: ACCU-CHEK COMFORT CURVE STRIP VI SCH ×4 (06:06→22:09)
[2022-08-23] MEDS: InsuLIN REG 1unit/0.01ml Soln (100units/ml) SC SCH ×4 (06:06→22:09)
[2022-08-23 06:56] LABS: Anion Gap 9 (5-15); Blood Urea Nitrogen 21 mg/dL (7-18); Calcium 8.5 mg/dL (8.5-10.1); Carbon Dioxide 26 mmol/L (21-32); Chloride 104 mmol/L (98-107); GFR African American 58 mL/min; GFR Non-African American 48 mL/min; Glucose 134 mg/dL (74-106); Potassium 3.5 mmol/L (3.5-5.1); Sodium 139 mmol/L (136-145)
[2022-08-23 09:00] VITALS: BP 148/98
[2022-08-23] MEDS: FUROSEMIDE 20 MG/2 ML VIAL IV SCH (09:35)
[2022-08-23] MEDS: PANTOPRAZOLE 40 MG/10 ML VIAL INJ IV SCH (09:35)
[2022-08-23] MEDS: ISOSORBIDE MONONITRATE ER 60 MG TAB PO SCH (09:36)
[2022-08-23] MEDS: ENOXAPARIN SOD 40 MG/0.4 ML SYRINGE SC SCH (09:36)
[2022-08-23] MEDS: CARVEDILOL 12.5 MG TAB PO SCH ×2 (09:37→22:11)
[2022-08-23] MEDS: SACUBITRIL-VALSARTAN 24mg/26mg TAB PO SCH ×2 (09:37→22:10)
[2022-08-23] MEDS: ASPirin-EC 81 mg tab PO SCH (10:00)
[2022-08-23 13:00] VITALS: BP 124/62
[2022-08-23 17:00] VITALS: BP 145/87
[2022-08-23] MEDS: FUROSEMIDE 40 MG TAB PO SCH (18:01)
[2022-08-23] MEDS: HYDROcodone-ACET 5/325MG TAB PO PRN (20:21)
[2022-08-23 22:00] VITALS: BP 121/78
[2022-08-23] MEDS: LORazepam 2MG/ML-1ML VIAL IV PRN (22:09)
[2022-08-23] MEDS: ATORVASTATIN 20 MG TAB PO SCH (22:10)
[2022-08-24 05:00] VITALS: BP 135/87
[2022-08-24] MEDS: FUROSEMIDE 40 MG TAB PO SCH (06:05)
[2022-08-24] MEDS: ACCU-CHEK COMFORT CURVE STRIP VI SCH ×2 (06:06→11:55)
[2022-08-24] MEDS: LORazepam 2MG/ML-1ML VIAL IV PRN (06:06)
[2022-08-24] MEDS: InsuLIN REG 1unit/0.01ml Soln (100units/ml) SC SCH ×2 (06:08→11:53)
[2022-08-24 07:20] LABS: BUN/Creatinine Ratio 13.5 (10.0-20.0); Calcium 8.5 mg/dL (8.5-10.1)
[2022-08-24 08:00] VITALS: BP 137/97
[2022-08-24 09:00] VITALS: BP 143/99
[2022-08-24] MEDS: ASPirin-EC 81 mg tab PO SCH (09:29)
[2022-08-24] MEDS: CARVEDILOL 12.5 MG TAB PO SCH (09:29)
[2022-08-24] MEDS: HYDROcodone-ACET 5/325MG TAB PO PRN (09:29)
[2022-08-24] MEDS: ISOSORBIDE MONONITRATE ER 60 MG TAB PO SCH (09:30)
[2022-08-24] MEDS: ENOXAPARIN SOD 40 MG/0.4 ML SYRINGE SC SCH (09:30)
[2022-08-24] MEDS: SACUBITRIL-VALSARTAN 24mg/26mg TAB PO SCH (10:14)
[2022-08-24 13:00] VITALS: BP 137/97
[2022-08-24 13:09] VITALS: BP 146/103
== END 2022-08-24 13:00 | disposition home or self-care (01) | DRG 194 ==
LOC: ER 12:48 → TELE 17:53 → TELE-CENTR 08-22 08:45 → CENTRAL 08-23 16:02
PROVIDERS: ADMIT Nurse Practitioner Family; ATTEND Hospitalist
DX: I11.0 Hypertensive heart disease with heart failure (principal); E44.1 Mild protein-calorie malnutrition; N17.9 Acute kidney failure, unspecified; I42.8 Other cardiomyopathies; I24.9 Acute ischemic heart disease, unspecified; F17.210 Nicotine dependence, cigarettes, uncomplicated; F15.10 Other stimulant abuse, uncomplicated; F20.9 Schizophrenia, unspecified; E11.65 Type 2 diabetes mellitus with hyperglycemia; J44.9 Chronic obstructive pulmonary disease, unspecified; I50.43 Acute on chronic combined systolic (congestive) and diastolic (congestive) heart failure; E78.5 Hyperlipidemia, unspecified; R77.8 Other specified abnormalities of plasma proteins; Z20.822 Contact with and (suspected) exposure to COVID-19; Z68.33 Body mass index [BMI] 33.0-33.9, adult; Z95.0 Presence of cardiac pacemaker; Z79.899 Other long term (current) drug therapy
CPT/HCPCS: 36415; 71045; 80048; 80053; 80307; 81001; 82962; 83735; 83880; 84484; 85025; 85610; 85730; 87426; 93005; 96374; 99291; C9113; G0378; J1815; J2405

== ENCOUNTER 2022-10-08 00:39 | Inpatient (IN) | payer MEDICAID ==
[~2022-10-08] VITALS: Ht 175.3 cm; Wt 109.6 kg
[~2022-10-08 00:39] MED LIST changes: +ALBU108A5 PO; +ALPR0.5T PO; +ASPI-628 PO; +BENA-36 PO; +CARV12.544 PO; +FIN5T PO; +HYDR-4297 PO; +HYDR25TA87 PO; +ISOS1TAB28 PO; +LISI20TA56 PO; +MIRT1TAB40 PO; +POTA-264; +PROM2SYP2 PO; +TAMS0.4C36 PO; +TIOTCAP INH; +TRAZ-228 PO; +[UNRECOGNIZED DRUG - CODE] IN
[2022-10-08] MEDS ORDERED: cloNIDine HCL 0.1 MG TAB PO ONE (01:00)
[2022-10-08 01:10] LABS: Basophils # (auto) 0.1 10 ^3/uL (0-0.2); Basophils % (auto) 0.8 % (0.0-2.0); Eosinophils # (auto) 0.1 10 ^3/uL (0-0.8); Eosinophils % (auto) 1.7 % (0.0-7.0); Hematocrit 42.7 % (41.0-53.0); Hemoglobin 14.4 g/dL (13.5-17.5); Lymphocytes # (auto) 1.2 10 ^3/uL (0.4-5.4); Lymphocytes % (auto) 18.1 % (10.0-50.0); Mean Corpuscular Hemoglobin 30.7 pg (28.0-32.0); Mean Corpuscular Hgb Conc. 33.7 g/dL (32.0-36.0); Mean Corpuscular Volume 91.1 fL (80.0-100.0); Monocytes # (auto) 0.8 10 ^3/uL (0-1.3); Neutrophils # (auto) 4.4 10 ^3/uL (1.6-8.6); Neutrophils % (auto) 67.4 % (37.0-80.0); Nucleated Red Blood Cells % 0.1 %; Red Blood Cells 4.69 10^6/uL (4.5-5.90); Red Cell Distribution Width 18.6 % (11.8-14.3); White Blood Cell 6.5 10^3/uL (4.4-10.8)
[2022-10-08 01:31] LABS: BUN/Creatinine Ratio 11.4 (10.0-20.0); Calcium 8.6 mg/dL (8.5-10.1); Potassium 3.6 mmol/L (3.5-5.1)
[2022-10-08 01:33] LABS: Bilirubin, Total 0.9 mg/dL (0.2-1.0)
[2022-10-08] MEDS ORDERED: HEPARIN SODIUM (PORCINE) 5000 UNITS/ML 1ML VIAL IV ONE (03:30)
[2022-10-08] MEDS ORDERED: ASPirin 325 MG TAB PO ONE (03:30)
[2022-10-08 03:47] LABS: INR 1.13 (0.9-1.15); Partial Thromboplastin Time 27.2 sec (24.6-33.4)
[2022-10-08] MEDS ORDERED: HEPARIN DRIP/D5W 100UNITS/ML 250 ML IV SCH (04:00)
[2022-10-08] MEDS ORDERED: MORPHINE SULFATE INJ 2 MG/ml SYRG IV PRN (06:00)
[2022-10-08] MEDS ORDERED: ONDANSETRON HCL 4 MG/2 ML VIAL IV PRN (06:00)
[2022-10-08] MEDS ORDERED: DEXTROSE (50%) 50ML SYRG IV PRN (06:00)
[2022-10-08] MEDS ORDERED: NITROGLYCERIN 0.4 MG SL TAB SL PRN (06:00)
[2022-10-08] MEDS ORDERED: FUROSEMIDE 20 MG/2 ML VIAL IV SCH ×2 (06:00)
[2022-10-08] MEDS ORDERED: ACETAMINOPHEN 325 MG TAB PO PRN (06:00)
[2022-10-08] MEDS: InsuLIN REG 1unit/0.01ml Soln (100units/ml) SC SCH ×4 (07:00→22:00)
[2022-10-08] MEDS: ACCU-CHEK COMFORT CURVE STRIP VI SCH ×4 (07:40→22:00)
[2022-10-08] MEDS: ASPirin 81 mg TAB PO SCH (09:34)
[2022-10-08] MEDS: hydrALAZINE HCL 25 MG TAB PO SCH ×3 (09:34→22:00)
[2022-10-08] MEDS: PANTOPRAZOLE 40 MG TAB PO SCH (09:35)
[2022-10-08] MEDS: ISOSORBIDE MONONITRATE ER 60 MG TAB PO SCH (09:35)
[2022-10-08] MEDS: CARVEDILOL 12.5 MG TAB PO SCH ×2 (09:35→22:00)
[2022-10-08] MEDS ORDERED: SACUBITRIL-VALSARTAN 24mg/26mg TAB PO SCH (10:00)
[2022-10-08 10:20] LABS: Urine Bacteria NONE SEEN /hpf (None Seen); Urine Blood Negative /uL (Negative); Urine Specific Gravity 1.013 (1.001-1.035); Urine WBC 1 /hpf (0 - 3)
[2022-10-08] MEDS ORDERED: ENOXAPARIN SOD 40 MG/0.4 ML SYRINGE SC ONE (11:30)
[2022-10-08 12:06] LABS: Alcohol, Urine < 3.0 mg/dL (0-10); Amphetamine Screen, Urine POSITIVE (NEGATIVE); Barbiturate Scree,Urine NEGATIVE (NEGATIVE); Benzodiazephine Screen, Urine POSITIVE (NEGATIVE); Cannabinoid Screen, Urine POSITIVE (NEGATIVE); Cocaine Screen, Urine POSITIVE (NEGATIVE); Phencyclidine Screen, Urine NEGATIVE (NEGATIVE)
[2022-10-08 12:25] LABS: Opiate Scree,Urine NEGATIVE (NEGATIVE)
[2022-10-08] MEDS: FUROSEMIDE 20 MG/2 ML VIAL IV SCH (18:08)
[2022-10-08] MEDS: TAMSULOSIN HYDROCHLORIDE 0.4 MG CAP PO SCH (18:08)
[2022-10-08 21:55] VITALS: BP 133/91
[2022-10-08] MEDS: ATORVASTATIN 20 MG TAB PO SCH (22:00)
[2022-10-08] MEDS: HYDROcodone-ACET 5/325MG TAB PO PRN (23:12)
[2022-10-09 00:25] VITALS: BP 133/91
[2022-10-09 05:00] VITALS: BP 134/81
[2022-10-09 06:03] LABS: Calcium 8.3 mg/dL (8.5-10.1); Potassium 3.7 mmol/L (3.5-5.1)
[2022-10-09] MEDS: hydrALAZINE HCL 25 MG TAB PO SCH ×3 (06:25→23:00)
[2022-10-09] MEDS: ACCU-CHEK COMFORT CURVE STRIP VI SCH ×4 (06:25→22:00)
[2022-10-09] MEDS: FUROSEMIDE 20 MG/2 ML VIAL IV SCH ×2 (06:25→18:00)
[2022-10-09] MEDS: InsuLIN REG 1unit/0.01ml Soln (100units/ml) SC SCH ×4 (06:33→22:00)
[2022-10-09] MEDS: HYDROcodone-ACET 5/325MG TAB PO PRN ×2 (06:35→23:01)
[2022-10-09 08:53] VITALS: BP 111/84
[2022-10-09] MEDS: PANTOPRAZOLE 40 MG TAB PO SCH (09:56)
[2022-10-09] MEDS: ISOSORBIDE MONONITRATE ER 60 MG TAB PO SCH (09:56)
[2022-10-09] MEDS: ASPirin 81 mg TAB PO SCH (09:56)
[2022-10-09] MEDS: CARVEDILOL 12.5 MG TAB PO SCH ×2 (09:56→22:59)
[2022-10-09] MEDS: ENOXAPARIN SOD 40 MG/0.4 ML SYRINGE SC SCH (09:57)
[2022-10-09 17:10] VITALS: BP 106/55
[2022-10-09] MEDS: TAMSULOSIN HYDROCHLORIDE 0.4 MG CAP PO SCH (18:06)
[2022-10-09 22:00] VITALS: BP 140/90
[2022-10-09] MEDS: ATORVASTATIN 20 MG TAB PO SCH (22:00)
[2022-10-10 05:00] VITALS: BP 130/76
[2022-10-10] MEDS: FUROSEMIDE 20 MG/2 ML VIAL IV SCH (05:38)
[2022-10-10] MEDS: hydrALAZINE HCL 25 MG TAB PO SCH (05:47)
[2022-10-10] MEDS: InsuLIN REG 1unit/0.01ml Soln (100units/ml) SC SCH ×2 (05:47→11:30)
[2022-10-10] MEDS: ACCU-CHEK COMFORT CURVE STRIP VI SCH ×2 (05:47→11:30)
[2022-10-10 08:05] VITALS: BP 139/86
[2022-10-10] MEDS ORDERED: CLON0.2T PO ×2 (09:55)
[2022-10-10] MEDS: ENOXAPARIN SOD 40 MG/0.4 ML SYRINGE SC SCH (10:00)
[2022-10-10] MEDS: ASPirin 81 mg TAB PO SCH (10:25)
[2022-10-10] MEDS: ISOSORBIDE MONONITRATE ER 60 MG TAB PO SCH (10:26)
[2022-10-10] MEDS: CARVEDILOL 12.5 MG TAB PO SCH ×2 (10:27→11:27)
[2022-10-10] MEDS: PANTOPRAZOLE 40 MG TAB PO SCH (10:27)
[2022-10-10 10:29] VITALS: BP 138/63
== END 2022-10-10 11:20 | disposition home or self-care (01) | DRG 194 ==
LOC: ER 00:39 → TELE 06:10 → TELE-WESTW 21:49
PROVIDERS: ADMIT Nurse Practitioner; ATTEND Family Medicine
DX: I13.0 Hypertensive heart and chronic kidney disease with heart failure and stage 1 through stage 4 chronic kidney disease, or unspecified chronic kidney disease (principal); I21.A1 Myocardial infarction type 2; I42.7 Cardiomyopathy due to drug and external agent; I16.0 Hypertensive urgency; I50.43 Acute on chronic combined systolic (congestive) and diastolic (congestive) heart failure; E11.22 Type 2 diabetes mellitus with diabetic chronic kidney disease; E78.00 Pure hypercholesterolemia, unspecified; F14.10 Cocaine abuse, uncomplicated; F15.10 Other stimulant abuse, uncomplicated; F17.210 Nicotine dependence, cigarettes, uncomplicated; J44.9 Chronic obstructive pulmonary disease, unspecified; N40.0 Benign prostatic hyperplasia without lower urinary tract symptoms; Z83.3 Family history of diabetes mellitus; Z91.199 Patient's noncompliance with other medical treatment and regimen due to unspecified reason; Z82.49 Family history of ischemic heart disease and other diseases of the circulatory system; Z95.810 Presence of automatic (implantable) cardiac defibrillator; Z71.6 Tobacco abuse counseling; N18.31 Chronic kidney disease, stage 3a
CPT/HCPCS: 36415; 71045; 80048; 80053; 80307; 81001; 82962; 83880; 84484; 85025; 85610; 85730; 93005; 96374; 96375; 99291; G0378; J1815; J2405

== ENCOUNTER 2022-10-28 14:28 | Inpatient (IN) | payer MEDICAID ==
[~2022-10-28] VITALS: Ht 175.3 cm; Wt 89.0 kg
[~2022-10-28 14:28] MED LIST changes: -ALPR0.5T PO; -BENA-36 PO; -CARV12.544 PO; +CLON0.2T PO; -FIN5T PO; -HYDR25TA87 PO; -ISOS1TAB28 PO
[2022-10-28 15:01] LABS: Basophils # (auto) 0 10 ^3/uL (0-0.2); Basophils % (auto) 0.7 % (0.0-2.0); Eosinophils # (auto) 0.1 10 ^3/uL (0-0.8); Hematocrit 43.4 % (41.0-53.0); Hemoglobin 14.4 g/dL (13.5-17.5); Lymphocytes # (auto) 1.3 10 ^3/uL (0.4-5.4); Lymphocytes % (auto) 21.8 % (10.0-50.0); Mean Corpuscular Hemoglobin 30.1 pg (28.0-32.0); Mean Corpuscular Hgb Conc. 33.1 g/dL (32.0-36.0); Mean Corpuscular Volume 90.8 fL (80.0-100.0); Monocytes # (auto) 0.7 10 ^3/uL (0-1.3); Monocytes % (auto) 12.9 % (0.0-12.0); Neutrophils # (auto) 3.6 10 ^3/uL (1.6-8.6); Neutrophils % (auto) 62.6 % (37.0-80.0); Red Blood Cells 4.78 10^6/uL (4.5-5.90); Red Cell Distribution Width 17.7 % (11.8-14.3); White Blood Cell 5.8 10^3/uL (4.4-10.8)
[2022-10-28 15:24] LABS: Albumin 3.3 g/dL (3.4-5.0); Calcium 7.9 mg/dL (8.5-10.1); Magnesium 2.4 mg/dL (1.6-2.6); Potassium 3.9 mmol/L (3.5-5.1)
[2022-10-28 15:28] LABS: BUN/Creatinine Ratio 9.1 (10.0-20.0); Bilirubin, Total 0.7 mg/dL (0.2-1.0)
[2022-10-28] MEDS ORDERED: ASPirin 325 MG TAB PO ONE ×2 (17:15→21:00)
[2022-10-28] MEDS ORDERED: IPRATROPIUM BROM 0.5 MG/2.5ML INH SOL NEB PRN (21:00)
[2022-10-28] MEDS ORDERED: ALBUTEROL SULF 2.5 MG/0.5ML(0.5%) NEB SOLN NEB PRN (21:00)
[2022-10-28] MEDS ORDERED: NITROGLYCERIN 0.4 MG SL TAB SL PRN (21:00)
[2022-10-28] MEDS ORDERED: ONDANSETRON HCL 4 MG/2 ML VIAL IV PRN (21:00)
[2022-10-28] MEDS ORDERED: MORPHINE SULFATE 4 MG/ML SYR/VIAL IV PRN (21:00)
[2022-10-28] MEDS ORDERED: ACETAMINOPHEN 325 MG TAB PO PRN (21:00)
[2022-10-28] MEDS ORDERED: hydrALAZINE HCL 25 MG TAB PO SCH (22:00)
[2022-10-28] MEDS: FUROSEMIDE 40 MG TAB PO SCH (22:00)
[2022-10-28 22:22] LABS: INR 1.08 (0.9-1.15)
[2022-10-28] MEDS: ALBUTEROL SULF 2.5 MG/0.5ML(0.5%) NEB SOLN NEB SCH (22:23)
[2022-10-28] MEDS: IPRATROPIUM BROM 0.5 MG/2.5ML INH SOL NEB SCH (22:23)
[2022-10-28 22:40] VITALS: BP 147/90
[2022-10-28] MEDS: FUROSEMIDE 100 MG/10ML VIAL IV ONE (23:12)
[2022-10-29] MEDS: IPRATROPIUM BROM 0.5 MG/2.5ML INH SOL NEB SCH ×6 (02:00→22:18)
[2022-10-29] MEDS: ALBUTEROL SULF 2.5 MG/0.5ML(0.5%) NEB SOLN NEB SCH ×6 (02:00→22:18)
[2022-10-29 02:55] LABS: Urine Bacteria NONE SEEN /hpf (None Seen); Urine Blood Negative /uL (Negative); Urine Hyaline Cast FEW /lpf (0 - 2); Urine Specific Gravity 1.014 (1.001-1.035); Urine WBC 1 /hpf (0 - 3)
[2022-10-29 02:57] LABS: Alcohol, Urine < 3.0 mg/dL (0-10); Amphetamine Screen, Urine POSITIVE (NEGATIVE); Barbiturate Scree,Urine NEGATIVE (NEGATIVE); Benzodiazephine Screen, Urine NEGATIVE (NEGATIVE); Cannabinoid Screen, Urine POSITIVE (NEGATIVE); Cocaine Screen, Urine POSITIVE (NEGATIVE)
[2022-10-29 02:58] LABS: Creatinine, Urine 177 mg/dL (30.0-125.0); Sodium Urine 33 mmol/L (40-220)
[2022-10-29 03:06] LABS: Opiate Scree,Urine NEGATIVE (NEGATIVE); Phencyclidine Screen, Urine NEGATIVE (NEGATIVE)
[2022-10-29] MEDS: CARVEDILOL 12.5 MG TAB PO SCH ×4 (03:35→23:42)
[2022-10-29] MEDS: FUROSEMIDE 100 MG/10ML VIAL IV ONE (03:35)
[2022-10-29] MEDS: cloNIDine HCL 0.1 MG TAB PO SCH ×4 (03:36→22:00)
[2022-10-29] MEDS: LISINOPRIL 20 MG TAB PO SCH ×4 (03:36→23:35)
[2022-10-29] MEDS: ATORVASTATIN 20 MG TAB PO SCH ×2 (03:37→23:36)
[2022-10-29] MEDS: InsuLIN REG 1unit/0.01ml Soln (100units/ml) SC SCH ×3 (06:00→18:00)
[2022-10-29] MEDS ORDERED: DEXTROSE (50%) 50ML SYRG IV PRN (06:00)
[2022-10-29] MEDS: ACCU-CHEK COMFORT CURVE STRIP VI SCH ×3 (06:13→18:00)
[2022-10-29] MEDS: traZODone HCL 50 MG TAB PO SCH ×2 (06:15→23:42)
[2022-10-29] MEDS: MIRTAZAPINE 30 MG TAB PO SCH ×2 (06:16→23:39)
[2022-10-29 09:28] LABS: Basophils # (auto) 0.1 10 ^3/uL (0-0.2); Basophils % (auto) 0.9 % (0.0-2.0); Eosinophils # (auto) 0.1 10 ^3/uL (0-0.8); Eosinophils % (auto) 1.7 % (0.0-7.0); Hematocrit 44.2 % (41.0-53.0); Hemoglobin 14.4 g/dL (13.5-17.5); Lymphocytes # (auto) 1.1 10 ^3/uL (0.4-5.4); Lymphocytes % (auto) 19.2 % (10.0-50.0); Mean Corpuscular Hemoglobin 29.7 pg (28.0-32.0); Mean Corpuscular Hgb Conc. 32.6 g/dL (32.0-36.0); Mean Corpuscular Volume 90.9 fL (80.0-100.0); Monocytes # (auto) 0.8 10 ^3/uL (0-1.3); Monocytes % (auto) 13.4 % (0.0-12.0); Neutrophils # (auto) 3.9 10 ^3/uL (1.6-8.6); Neutrophils % (auto) 64.8 % (37.0-80.0); Red Blood Cells 4.86 10^6/uL (4.5-5.90); Red Cell Distribution Width 17.4 % (11.8-14.3)
[2022-10-29 09:55] LABS: Albumin 3.2 g/dL (3.4-5.0); Calcium 8.4 mg/dL (8.5-10.1)
[2022-10-29 10:00] LABS: BUN/Creatinine Ratio 9.4 (10.0-20.0); Bilirubin, Total 1.1 mg/dL (0.2-1.0); Total Protein 6.9 g/dL (6.4-8.2)
[2022-10-29] MEDS: DOCUSATE SOD 100 MG CAP PO SCH ×2 (10:00→11:07)
[2022-10-29] MEDS: POTASSIUM CHL 10 Meq TABLET PO SCH ×2 (10:00→11:07)
[2022-10-29] MEDS: FUROSEMIDE 40 MG TAB PO SCH ×3 (10:00→23:39)
[2022-10-29] MEDS: ASPirin 81 mg TAB PO SCH ×2 (10:00→11:09)
[2022-10-29] MEDS: TAMSULOSIN HYDROCHLORIDE 0.4 MG CAP PO SCH ×2 (10:00→11:07)
[2022-10-29] MEDS: TIOTROPIUM BROMIDE MONOHYDRATE IN SCH (10:00)
[2022-10-29] MEDS: ISOSORBIDE MONONITRATE ER 60 MG TAB PO SCH ×2 (10:00→11:07)
[2022-10-29] MEDS: hydrALAZINE HCL 25 MG TAB PO SCH ×2 (13:16→20:07)
[2022-10-29] MEDS: ALPRAZolam 0.5 MG TAB PO PRN (21:36)
[2022-10-30] MEDS: InsuLIN REG 1unit/0.01ml Soln (100units/ml) SC SCH ×4 (00:02→19:29)
[2022-10-30] MEDS: ACCU-CHEK COMFORT CURVE STRIP VI SCH ×4 (00:02→19:19)
[2022-10-30] MEDS: ALBUTEROL SULF 2.5 MG/0.5ML(0.5%) NEB SOLN NEB SCH ×2 (02:00→06:00)
[2022-10-30] MEDS: IPRATROPIUM BROM 0.5 MG/2.5ML INH SOL NEB SCH ×2 (02:00→06:00)
[2022-10-30] MEDS: hydrALAZINE HCL 25 MG TAB PO SCH ×3 (05:35→20:34)
[2022-10-30 05:52] LABS: BUN/Creatinine Ratio 16.1 (10.0-20.0); Calcium 8.4 mg/dL (8.5-10.1); Potassium 3.9 mmol/L (3.5-5.1)
[2022-10-30] MEDS: cloNIDine HCL 0.1 MG TAB PO SCH ×3 (07:00→22:25)
[2022-10-30] MEDS: TIOTROPIUM BROMIDE MONOHYDRATE IN SCH (10:00)
[2022-10-30] MEDS: CARVEDILOL 12.5 MG TAB PO SCH ×2 (10:06→22:24)
[2022-10-30] MEDS: LISINOPRIL 20 MG TAB PO SCH ×2 (10:07→22:24)
[2022-10-30] MEDS: ISOSORBIDE MONONITRATE ER 60 MG TAB PO SCH (10:07)
[2022-10-30] MEDS: TAMSULOSIN HYDROCHLORIDE 0.4 MG CAP PO SCH (10:07)
[2022-10-30] MEDS: FUROSEMIDE 40 MG TAB PO SCH ×2 (10:07→22:24)
[2022-10-30] MEDS: ALPRAZolam 0.5 MG TAB PO PRN (10:08)
[2022-10-30] MEDS: POTASSIUM CHL 10 Meq TABLET PO SCH (10:08)
[2022-10-30] MEDS: ASPirin 81 mg TAB PO SCH (12:58)
[2022-10-30] MEDS: DOCUSATE SOD 100 MG CAP PO SCH (12:58)
[2022-10-30] MEDS ORDERED: amLODIPine BESYLATE 5 MG TAB PO ONE (13:45)
[2022-10-30] MEDS: ATORVASTATIN 20 MG TAB PO SCH (22:23)
[2022-10-30] MEDS: traZODone HCL 50 MG TAB PO SCH (22:24)
[2022-10-30] MEDS: MIRTAZAPINE 30 MG TAB PO SCH (22:25)
[2022-10-31] MEDS: ACCU-CHEK COMFORT CURVE STRIP VI SCH ×2 (06:44)
[2022-10-31] MEDS: InsuLIN REG 1unit/0.01ml Soln (100units/ml) SC SCH ×3 (06:50→06:55)
[2022-10-31] MEDS: cloNIDine HCL 0.1 MG TAB PO SCH (06:52)
[2022-10-31] MEDS: hydrALAZINE HCL 25 MG TAB PO SCH (06:52)
[2022-10-31 06:59] VITALS: BP 132/74
[2022-10-31 07:28] LABS: Potassium 3.9 mmol/L (3.5-5.1)
[2022-10-31 07:33] LABS: BUN/Creatinine Ratio 15.4 (10.0-20.0)
[2022-10-31] MEDS ORDERED: amLODIPine BESYLATE 5 MG TAB PO SCH (10:00)
== END 2022-10-31 10:49 | disposition left against medical advice (07) | DRG 140 ==
LOC: ER 14:28 → TELE 21:00
PROVIDERS: ADMIT Nurse Practitioner Family; ATTEND Internal Medicine Geriatric Medicine
DX: J44.1 Chronic obstructive pulmonary disease with (acute) exacerbation (principal); N17.9 Acute kidney failure, unspecified; I24.9 Acute ischemic heart disease, unspecified; I13.0 Hypertensive heart and chronic kidney disease with heart failure and stage 1 through stage 4 chronic kidney disease, or unspecified chronic kidney disease; I42.7 Cardiomyopathy due to drug and external agent; I50.9 Heart failure, unspecified; E11.22 Type 2 diabetes mellitus with diabetic chronic kidney disease; E78.5 Hyperlipidemia, unspecified; F20.9 Schizophrenia, unspecified; F31.9 Bipolar disorder, unspecified; F41.9 Anxiety disorder, unspecified; N18.9 Chronic kidney disease, unspecified; Z53.29 Procedure and treatment not carried out because of patient's decision for other reasons; F17.210 Nicotine dependence, cigarettes, uncomplicated; Z95.810 Presence of automatic (implantable) cardiac defibrillator; Z71.6 Tobacco abuse counseling; T50.905A Adverse effect of unspecified drugs, medicaments and biological substances, initial encounter; Y92.89 Other specified places as the place of occurrence of the external cause
CPT/HCPCS: 36415; 71045; 80048; 80053; 80061; 80307; 81001; 82570; 82962; 83605; 83735; 83880; 84300; 84484; 85025; 85610; 93005; 93306; 94640; 99291; G0378; J1815

== ENCOUNTER 2023-04-13 03:02 | Inpatient (IN) | payer MEDICAID ==
[~2023-04-13] VITALS: Ht 175.3 cm; Wt 65.3 kg
[2023-04-13 03:34] LABS: Basophils # (auto) 0 10 ^3/uL (0-0.2); Basophils % (auto) 0.6 % (0.0-2.0); Eosinophils # (auto) 0.1 10 ^3/uL (0-0.8); Eosinophils % (auto) 1.3 % (0.0-7.0); Hemoglobin 14.2 g/dL (13.5-17.5); Lymphocytes # (auto) 0.7 10 ^3/uL (0.4-5.4); Lymphocytes % (auto) 9.9 % (10.0-50.0); Mean Corpuscular Hemoglobin 30.6 pg (28.0-32.0); Mean Corpuscular Hgb Conc. 32.2 g/dL (32.0-36.0); Mean Corpuscular Volume 94.9 fL (80.0-100.0); Monocytes # (auto) 0.6 10 ^3/uL (0-1.3); Monocytes % (auto) 9.4 % (0.0-12.0); Neutrophils # (auto) 5.3 10 ^3/uL (1.6-8.6); Neutrophils % (auto) 78.8 % (37.0-80.0); Red Blood Cells 4.64 10^6/uL (4.5-5.90); Red Cell Distribution Width 16.3 % (11.8-14.3); White Blood Cell 6.7 10^3/uL (4.4-10.8)
[2023-04-13 03:38] LABS: Alanine Aminotransferase 53 U/L (7-40); Albumin 3.8 g/dL (3.2-4.8); Alkaline Phosphatase 169 U/L (46-116); Anion Gap 7 (5-15); Aspartate Aminotransferase 85 U/L (13-40); BUN/Creatinine Ratio 11.2 (10.0-20.0); Blood Urea Nitrogen 19 mg/dL (9-23); Calcium 8.5 mg/dL (8.7-10.4); Carbon Dioxide 25 mmol/L (20-30); Chloride 106 mmol/L (98-107); Sodium 138 mmol/L (136-145)
[2023-04-13 03:39] LABS: Bilirubin, Total 1.2 mg/dL (0.2-1.0); Total Protein 6.9 g/dL (5.7-8.2)
[2023-04-13 03:49] LABS: Glucose 127 mg/dL (74-106)
[2023-04-13] MEDS ORDERED: FUROSEMIDE 100 MG/10ML VIAL IV ONE (04:00)
[2023-04-13] MEDS ORDERED: ASPirin 325 MG TAB PO ONE (04:00)
[2023-04-13] MEDS ORDERED: hydrALAZINE HCL 20 MG/ML VL IV ONE (04:00)
[2023-04-13 04:43] LABS: INR 1.23 (0.9-1.15); Partial Thromboplastin Time 27.4 SEC (24.5-34.5); Prothrombin Time 12.7 sec (9.3-11.8)
[2023-04-13] MEDS ORDERED: MORPHINE SULFATE INJ 2 MG/ml SYRG IV PRN (06:15)
[2023-04-13] MEDS ORDERED: ACETAMINOPHEN 325 MG TAB PO PRN (06:15)
[2023-04-13] MEDS ORDERED: ALBUTEROL MEDNEB 2.5 mg/3ml NEB NEB PRN (06:15)
[2023-04-13] MEDS ORDERED: ONDANSETRON HCL 4 MG/2 ML VIAL IV PRN (06:15)
[2023-04-13] MEDS ORDERED: NITROGLYCERIN 0.4 MG SL TAB SL PRN (06:15)
[2023-04-13] MEDS ORDERED: TEMAZEPAM 15 MG CAP PO PRN (06:15)
[2023-04-13 06:54] VITALS: PULSE 74; RESP 18; O2SAT 100
[2023-04-13 07:36] LABS: Amphetamine Screen, Urine Pos (NEGATIVE); Barbiturate Scree,Urine Neg (NEGATIVE); Benzodiazephine Screen, Urine Neg (NEGATIVE); Cocaine Screen, Urine Neg (NEGATIVE); Opiate Scree,Urine Neg (NEGATIVE); Phencyclidine Screen, Urine Neg (NEGATIVE)
[2023-04-13 07:46] VITALS: PULSE 66; RESP 20; O2SAT 99
[2023-04-13 07:46] LABS: Cannabinoid Screen, Urine Pos (NEGATIVE)
[2023-04-13] MEDS: cloNIDine HCL 0.1 MG TAB PO SCH ×2 (08:39→10:47)
[2023-04-13] MEDS: ISOSORBIDE MONONITRATE ER 60 MG TAB PO SCH (08:39)
[2023-04-13] MEDS ORDERED: SACUBITRIL-VALSARTAN 24mg/26mg TAB PO SCH (10:00)
[2023-04-13] MEDS: CARVEDILOL 12.5 MG TAB PO SCH ×2 (10:46→22:00)
[2023-04-13 14:02] VITALS: BP 111/57; PULSE 81; RESP 18; O2SAT 98
[2023-04-13 18:05] VITALS: O2SAT 96
[2023-04-13] MEDS: FUROSEMIDE 20 MG/2 ML VIAL IV SCH (18:07)
[2023-04-13 20:00] VITALS: PULSE 71; RESP 16; O2SAT 96
[2023-04-13] MEDS: ATORVASTATIN 20 MG TAB PO SCH (22:13)
[2023-04-14 05:35] LABS: Alanine Aminotransferase 46 U/L (7-40); Albumin 3.1 g/dL (3.2-4.8); Alkaline Phosphatase 156 U/L (46-116); Anion Gap 10 (5-15); Aspartate Aminotransferase 47 U/L (13-40); BUN/Creatinine Ratio 15.6 (10.0-20.0); Blood Urea Nitrogen 25 mg/dL (9-23); Carbon Dioxide 27 mmol/L (20-30); Chloride 104 mmol/L (98-107); Magnesium 1.8 mg/dL (1.6-2.6); Sodium 141 mmol/L (136-145)
[2023-04-14 05:36] LABS: Bilirubin, Total 1.2 mg/dL (0.2-1.0); Total Protein 5.6 g/dL (5.7-8.2)
[2023-04-14 05:51] LABS: Basophils # (auto) 0 10 ^3/uL (0-0.2); Basophils % (auto) 0.3 % (0.0-2.0); Eosinophils # (auto) 0.2 10 ^3/uL (0-0.8); Eosinophils % (auto) 2.4 % (0.0-7.0); Hematocrit 41.4 % (41.0-53.0); Hemoglobin 13.6 g/dL (13.5-17.5); Lymphocytes # (auto) 0.8 10 ^3/uL (0.4-5.4); Lymphocytes % (auto) 12.3 % (10.0-50.0); Mean Corpuscular Hemoglobin 30.5 pg (28.0-32.0); Mean Corpuscular Hgb Conc. 32.8 g/dL (32.0-36.0); Monocytes # (auto) 0.8 10 ^3/uL (0-1.3); Monocytes % (auto) 12.7 % (0.0-12.0); Neutrophils # (auto) 4.7 10 ^3/uL (1.6-8.6); Neutrophils % (auto) 72.3 % (37.0-80.0); Nucleated Red Blood Cells % 0.1 %; Red Blood Cells 4.45 10^6/uL (4.5-5.90); Red Cell Distribution Width 15.5 % (11.8-14.3); White Blood Cell 6.4 10^3/uL (4.4-10.8)
[2023-04-14 05:54] LABS: Cholesterol 113 mg/dL (< 200); Glucose 101 mg/dL (74-106)
[2023-04-14 05:55] LABS: Triglycerides 141 mg/dL (< 150)
[2023-04-14 06:00] LABS: LDL Cholesterol 76 mg/dL (< 100)
[2023-04-14] MEDS: FUROSEMIDE 20 MG/2 ML VIAL IV SCH ×2 (06:24→17:54)
[2023-04-14 06:37] LABS: HDL Cholesterol 28 mg/dL (40-59)
[2023-04-14 06:52] VITALS: PULSE 90; RESP 20; O2SAT 99
[2023-04-14 06:57] VITALS: PULSE 80; RESP 20; O2SAT 100
[2023-04-14 08:30] VITALS: BP 135/84; PULSE 91; RESP 17; TEMP 97.7; O2SAT 100
[2023-04-14] MEDS ORDERED: MAGNESIUM SULFATE 1GM/100ML 100 ML IV ONE (09:45)
[2023-04-14] MEDS: CARVEDILOL 12.5 MG TAB PO SCH ×2 (11:16→22:16)
[2023-04-14] MEDS: ENOXAPARIN SOD 30 MG/0.3 ML SYRINGE SC SCH (11:16)
[2023-04-14] MEDS: ISOSORBIDE MONONITRATE ER 60 MG TAB PO SCH (11:16)
[2023-04-14 16:50] VITALS: BP 135/90; PULSE 81; RESP 18; TEMP 97.2; O2SAT 98
[2023-04-14 20:00] VITALS: PULSE 78; RESP 20
[2023-04-14 22:00] VITALS: BP 134/70; PULSE 78; RESP 20; TEMP 98.1; O2SAT 99
[2023-04-14] MEDS: ATORVASTATIN 20 MG TAB PO SCH (22:14)
[2023-04-15 05:00] VITALS: BP 138/76; PULSE 83; RESP 20; TEMP 97.9; O2SAT 99
[2023-04-15] MEDS: FUROSEMIDE 20 MG/2 ML VIAL IV SCH (05:27)
[2023-04-15 06:56] LABS: Basophils # (auto) 0 10 ^3/uL (0-0.2); Basophils % (auto) 0.7 % (0.0-2.0); Eosinophils # (auto) 0.1 10 ^3/uL (0-0.8); Eosinophils % (auto) 1.9 % (0.0-7.0); Hematocrit 41.4 % (41.0-53.0); Hemoglobin 13.4 g/dL (13.5-17.5); Lymphocytes # (auto) 0.9 10 ^3/uL (0.4-5.4); Mean Corpuscular Hemoglobin 30.1 pg (28.0-32.0); Mean Corpuscular Hgb Conc. 32.3 g/dL (32.0-36.0); Mean Corpuscular Volume 93.1 fL (80.0-100.0); Monocytes # (auto) 0.9 10 ^3/uL (0-1.3); Neutrophils # (auto) 4.5 10 ^3/uL (1.6-8.6); Neutrophils % (auto) 69.4 % (37.0-80.0); Red Blood Cells 4.44 10^6/uL (4.5-5.90); Red Cell Distribution Width 15.7 % (11.8-14.3); White Blood Cell 6.5 10^3/uL (4.4-10.8)
[2023-04-15 07:19] LABS: Alanine Aminotransferase 43 U/L (7-40); Alkaline Phosphatase 158 U/L (46-116); Anion Gap 8 (5-15); BUN/Creatinine Ratio 13.2 (10.0-20.0); Blood Urea Nitrogen 22 mg/dL (9-23); Calcium 8.7 mg/dL (8.5-10.1); Carbon Dioxide 27 mmol/L (20-30); Chloride 105 mmol/L (98-107); Glucose 129 mg/dL (74-106); Sodium 140 mmol/L (136-145)
[2023-04-15 07:20] LABS: Albumin 3.4 g/dL (3.2-4.8); Aspartate Aminotransferase 42 U/L (13-40); Bilirubin, Total 0.6 mg/dL (0.2-1.0); Total Protein 6.2 g/dL (5.7-8.2)
[2023-04-15 08:00] VITALS: PULSE 83; RESP 18; O2SAT 98
[2023-04-15] MEDS: ISOSORBIDE MONONITRATE ER 60 MG TAB PO SCH (10:07)
[2023-04-15] MEDS: ENOXAPARIN SOD 30 MG/0.3 ML SYRINGE SC SCH (10:07)
[2023-04-15] MEDS: CARVEDILOL 12.5 MG TAB PO SCH (10:08)
[2023-04-15 12:48] VITALS: BP 123/81; PULSE 75; RESP 19; TEMP 97.4; O2SAT 96
[2023-04-15] MEDS ORDERED: FURO1TAB31 PO (14:28)
[2023-04-15] MEDS ORDERED: EMPA1TAB PO (14:28)
[2023-04-15] MEDS ORDERED: ISO60SRT PO ×2 (14:28)
[2023-04-15] MEDS ORDERED: ATOR40TA52 PO (14:28)
[2023-04-15] MEDS ORDERED: SACU1TAB PO (14:28)
[2023-04-15] MEDS ORDERED: CAR125T PO (14:28)
[2023-04-15] MEDS ORDERED: ASPI1TAB20 PO (14:28)
== END 2023-04-15 14:53 | disposition home or self-care (01) | DRG 194 ==
LOC: ER 03:02 → TELE 06:06 → TELE-CENTR 04-14 08:15 → CENTRAL 04-14 13:00
PROVIDERS: ADMIT Internal Medicine Pulmonary Disease; ATTEND Student in an Organized Health Care Education/Training Program
DX: I13.0 Hypertensive heart and chronic kidney disease with heart failure and stage 1 through stage 4 chronic kidney disease, or unspecified chronic kidney disease (principal); J96.21 Acute and chronic respiratory failure with hypoxia; I21.A1 Myocardial infarction type 2; I27.20 Pulmonary hypertension, unspecified; I42.7 Cardiomyopathy due to drug and external agent; I50.23 Acute on chronic systolic (congestive) heart failure; I42.0 Dilated cardiomyopathy; F12.10 Cannabis abuse, uncomplicated; F14.10 Cocaine abuse, uncomplicated; F15.10 Other stimulant abuse, uncomplicated; I16.0 Hypertensive urgency; R74.01 Elevation of levels of liver transaminase levels; I25.10 Atherosclerotic heart disease of native coronary artery without angina pectoris; F17.210 Nicotine dependence, cigarettes, uncomplicated; F20.9 Schizophrenia, unspecified; E66.9 Obesity, unspecified; E78.5 Hyperlipidemia, unspecified; E83.42 Hypomagnesemia; F19.10 Other psychoactive substance abuse, uncomplicated; N18.31 Chronic kidney disease, stage 3a; T50.905A Adverse effect of unspecified drugs, medicaments and biological substances, initial encounter; E11.22 Type 2 diabetes mellitus with diabetic chronic kidney disease; F31.9 Bipolar disorder, unspecified; J44.9 Chronic obstructive pulmonary disease, unspecified; Z82.49 Family history of ischemic heart disease and other diseases of the circulatory system; Z91.199 Patient's noncompliance with other medical treatment and regimen due to unspecified reason; Z95.810 Presence of automatic (implantable) cardiac defibrillator; Z91.148 Patient's other noncompliance with medication regimen for other reason; Y92.89 Other specified places as the place of occurrence of the external cause; Z68.32 Body mass index [BMI] 32.0-32.9, adult
CPT/HCPCS: 36415; 36600; 70450; 71045; 80053; 80061; 80307; 82805; 83735; 83880; 84443; 84484; 85025; 85610; 85730; 93005; 94640; 96374; 96375; 99291; G0378

== ENCOUNTER 2023-04-29 04:56 | Inpatient (IN) | payer MEDICAID ==
[~2023-04-29] VITALS: Ht 177.8 cm; Wt 116.9 kg
[2023-04-29] VITALS (10 sets, daily range): BP systolic 185; BP diastolic 106; PULSE 96–111; RESP 14–28; TEMP 97.6; O2SAT 96–100
[~2023-04-29 04:56] MED LIST changes: +ASPI1TAB20 PO; +ATOR40TA52 PO; +FURO1TAB31 PO
[2023-04-29] MEDS ORDERED: FUROSEMIDE 40 MG/4 ML VIAL IV ONE (05:00)
[2023-04-29] MEDS ORDERED: NITROGLYCERIN 0.4 MG SL TAB SL ONE (05:00)
[2023-04-29 05:27] LABS: Basophils # (auto) 0 10 ^3/uL (0-0.2); Basophils % (auto) 0.6 % (0.0-2.0); Eosinophils # (auto) 0.1 10 ^3/uL (0-0.8); Eosinophils % (auto) 1.9 % (0.0-7.0); Hematocrit 41.3 % (41.0-53.0); Hemoglobin 13.3 g/dL (13.5-17.5); Lymphocytes # (auto) 0.7 10 ^3/uL (0.4-5.4); Lymphocytes % (auto) 10.7 % (10.0-50.0); Mean Corpuscular Hemoglobin 30.3 pg (28.0-32.0); Mean Corpuscular Hgb Conc. 32.2 g/dL (32.0-36.0); Mean Corpuscular Volume 94.2 fL (80.0-100.0); Monocytes # (auto) 0.7 10 ^3/uL (0-1.3); Monocytes % (auto) 11.2 % (0.0-12.0); Neutrophils % (auto) 75.6 % (37.0-80.0); Nucleated Red Blood Cells % 0.1 %; Red Blood Cells 4.39 10^6/uL (4.5-5.90); Red Cell Distribution Width 16.4 % (11.8-14.3); White Blood Cell 6.5 10^3/uL (4.4-10.8)
[2023-04-29 05:38] LABS: Alanine Aminotransferase 38 U/L (7-40); Alkaline Phosphatase 173 U/L (46-116); Anion Gap 8 (5-15); BUN/Creatinine Ratio 11.3 (10.0-20.0); Blood Urea Nitrogen 15 mg/dL (9-23); Calcium 8.4 mg/dL (8.7-10.4); Carbon Dioxide 24 mmol/L (20-30); Chloride 107 mmol/L (98-107); Glucose 129 mg/dL (74-106); Magnesium 2.1 mg/dL (1.6-2.6); Sodium 139 mmol/L (136-145)
[2023-04-29 05:39] LABS: Albumin 3.7 g/dL (3.2-4.8); Aspartate Aminotransferase 38 U/L (13-40); Bilirubin, Total 1.1 mg/dL (0.2-1.0); Total Protein 6.9 g/dL (5.7-8.2)
[2023-04-29 08:01] LABS: Urine Bacteria NONE SEEN /hpf (None Seen); Urine Blood Negative /uL (Negative); Urine Clarity Clear (Clear); Urine Protein, UAD Negative (Negative); Urine Specific Gravity 1.009 (1.001-1.035); Urine Urobilinogen Normal (Negative); Urine WBC <1 /hpf (0 - 3)
[2023-04-29 08:02] LABS: Urine Color Yellow (Yellow)
[2023-04-29 08:21] LABS: Amphetamine Screen, Urine Pos (NEGATIVE)
[2023-04-29 08:23] LABS: Barbiturate Scree,Urine Neg (NEGATIVE); Benzodiazephine Screen, Urine Neg (NEGATIVE); Cannabinoid Screen, Urine Pos (NEGATIVE); Cocaine Screen, Urine Neg (NEGATIVE); Opiate Scree,Urine Neg (NEGATIVE); Phencyclidine Screen, Urine Neg (NEGATIVE)
[2023-04-29] MEDS ORDERED: DEXTROSE (50%) 50ML SYRG IV PRN (09:15)
[2023-04-29] MEDS ORDERED: NITROGLYCERIN 0.4 MG SL TAB SL PRN (09:15)
[2023-04-29] MEDS ORDERED: ONDANSETRON HCL 4 MG/2 ML VIAL IV PRN (09:15)
[2023-04-29] MEDS ORDERED: ALBUTEROL SULF 2.5 MG/0.5ML(0.5%) NEB SOLN NEB PRN (09:15)
[2023-04-29] MEDS ORDERED: MORPHINE SULFATE INJ 2 MG/ml SYRG IV PRN (09:15)
[2023-04-29] MEDS ORDERED: hydrALAZINE HCL 20 MG/ML VL IV PRN (09:15)
[2023-04-29 09:33] LABS: LDL Cholesterol 76 mg/dL (< 100); Triglycerides 46 mg/dL (< 150)
[2023-04-29 09:34] LABS: HDL Cholesterol 33 mg/dL (40-59)
[2023-04-29 09:35] LABS: Cholesterol 112 mg/dL (< 200)
[2023-04-29] MEDS ORDERED: CARVEDILOL 12.5 MG TAB PO SCH (10:00)
[2023-04-29] MEDS ORDERED: cloNIDine HCL 0.1 MG TAB PO SCH (10:00)
[2023-04-29] MEDS ORDERED: SACUBITRIL-VALSARTAN 24mg/26mg TAB PO SCH ×2 (10:00→22:00)
[2023-04-29] MEDS ORDERED: FUROSEMIDE 20 MG/2 ML VIAL IV SCH (10:00)
[2023-04-29] MEDS: ASPirin-EC 81 mg tab PO SCH (10:00)
[2023-04-29] MEDS ORDERED: LISINOPRIL 20 MG TAB PO SCH (10:00)
[2023-04-29] MEDS: ALBUTEROL SULF 2.5 MG/0.5ML(0.5%) NEB SOLN NEB SCH ×4 (10:13→22:35)
[2023-04-29] MEDS: IPRATROPIUM BROM 0.5 MG/2.5ML INH SOL NEB SCH ×4 (10:13→22:35)
[2023-04-29] MEDS: InsuLIN REG 1unit/0.01ml Soln (100units/ml) SC SCH ×3 (11:30→22:29)
[2023-04-29] MEDS: ACCU-CHEK COMFORT CURVE STRIP VI SCH ×3 (11:30→22:27)
[2023-04-29] MEDS: POTASSIUM CHL 10 Meq TABLET PO SCH (16:47)
[2023-04-29] MEDS: TAMSULOSIN HYDROCHLORIDE 0.4 MG CAP PO SCH (16:47)
[2023-04-29] MEDS: ISOSORBIDE MONONITRATE ER 60 MG TAB PO SCH (16:48)
[2023-04-29] MEDS: EMPAGLIFLOZIN 10 MG TAB PO SCH (16:49)
[2023-04-29] MEDS: FUROSEMIDE 20 MG/2 ML VIAL IV SCH (18:00)
[2023-04-29] MEDS: ALPRAZolam 0.5 MG TAB PO SCH ×2 (20:00→22:00)
[2023-04-29] MEDS: ATORVASTATIN 20 MG TAB PO SCH (22:28)
[2023-04-29] MEDS: CARVEDILOL 12.5 MG TAB PO SCH (22:28)
[2023-04-29 22:30] LABS: COVID19 ANTIGEN SOFIA FIA NEGATIVE (NEGATIVE); Rapid Influenza A Negative (Negative); Rapid Influenza B Negative (Negative)
[2023-04-30] VITALS (17 sets, daily range): BP systolic 115–146; BP diastolic 69–89; PULSE 63–108; RESP 16–24; TEMP 96.5–98.7; O2SAT 91–100
[2023-04-30] MEDS ORDERED: ALPRAZolam 0.5 MG TAB ONE ×2 (03:19→22:09)
[2023-04-30] MEDS: IPRATROPIUM BROM 0.5 MG/2.5ML INH SOL NEB SCH ×6 (03:25→22:47)
[2023-04-30] MEDS: ALBUTEROL SULF 2.5 MG/0.5ML(0.5%) NEB SOLN NEB SCH ×6 (03:26→22:47)
[2023-04-30] MEDS ORDERED: FUROSEMIDE 40 MG/4 ML VIAL ONE (05:53)
[2023-04-30] MEDS: FUROSEMIDE 20 MG/2 ML VIAL IV SCH ×2 (05:56→18:52)
[2023-04-30] MEDS: ACCU-CHEK COMFORT CURVE STRIP VI SCH ×4 (06:00→22:20)
[2023-04-30 06:08] LABS: Basophils # (auto) 0 10 ^3/uL (0-0.2); Basophils % (auto) 0.7 % (0.0-2.0); Eosinophils # (auto) 0.1 10 ^3/uL (0-0.8); Eosinophils % (auto) 2.5 % (0.0-7.0); Hemoglobin 12.3 g/dL (13.5-17.5); Lymphocytes # (auto) 0.6 10 ^3/uL (0.4-5.4); Lymphocytes % (auto) 10.1 % (10.0-50.0); Mean Corpuscular Hemoglobin 30.3 pg (28.0-32.0); Mean Corpuscular Hgb Conc. 32.5 g/dL (32.0-36.0); Mean Corpuscular Volume 93.4 fL (80.0-100.0); Monocytes # (auto) 0.7 10 ^3/uL (0-1.3); Monocytes % (auto) 12.4 % (0.0-12.0); Neutrophils # (auto) 4.2 10 ^3/uL (1.6-8.6); Neutrophils % (auto) 74.3 % (37.0-80.0); Red Blood Cells 4.07 10^6/uL (4.5-5.90); Red Cell Distribution Width 16.3 % (11.8-14.3); White Blood Cell 5.6 10^3/uL (4.4-10.8)
[2023-04-30 06:21] LABS: Alanine Aminotransferase 35 U/L (7-40); Albumin 3.4 g/dL (3.2-4.8); Alkaline Phosphatase 164 U/L (46-116); Anion Gap 7 (5-15); Aspartate Aminotransferase 40 U/L (13-40); BUN/Creatinine Ratio 10.3 (10.0-20.0); Blood Urea Nitrogen 15 mg/dL (9-23); Calcium 8.5 mg/dL (8.5-10.1); Carbon Dioxide 27 mmol/L (20-30); Chloride 106 mmol/L (98-107); Glucose 120 mg/dL (74-106); Sodium 140 mmol/L (136-145)
[2023-04-30 06:22] LABS: Bilirubin, Total 0.9 mg/dL (0.2-1.0); Total Protein 6.2 g/dL (5.7-8.2)
[2023-04-30] MEDS: InsuLIN REG 1unit/0.01ml Soln (100units/ml) SC SCH ×4 (06:56→22:52)
[2023-04-30] MEDS: ASPirin-EC 81 mg tab PO SCH (12:32)
[2023-04-30] MEDS: EMPAGLIFLOZIN 10 MG TAB PO SCH (12:35)
[2023-04-30] MEDS: POTASSIUM CHL 10 Meq TABLET PO SCH (12:35)
[2023-04-30] MEDS: ISOSORBIDE MONONITRATE ER 60 MG TAB PO SCH (12:35)
[2023-04-30] MEDS: TAMSULOSIN HYDROCHLORIDE 0.4 MG CAP PO SCH (12:35)
[2023-04-30] MEDS: CARVEDILOL 12.5 MG TAB PO SCH ×2 (12:37→22:20)
[2023-04-30] MEDS: SPIRONOLACTONE 25 MG TAB PO SCH (12:38)
[2023-04-30] MEDS: ALPRAZolam 0.5 MG TAB PO SCH (22:19)
[2023-04-30] MEDS: ATORVASTATIN 20 MG TAB PO SCH (22:20)
[2023-05-01] VITALS (17 sets, daily range): BP systolic 106–150; BP diastolic 73–92; PULSE 60–99; RESP 16–26; TEMP 97.9–98.8; O2SAT 90–100
[2023-05-01] MEDS: ALBUTEROL SULF 2.5 MG/0.5ML(0.5%) NEB SOLN NEB SCH ×6 (02:50→22:00)
[2023-05-01] MEDS: IPRATROPIUM BROM 0.5 MG/2.5ML INH SOL NEB SCH ×6 (02:50→22:00)
[2023-05-01] MEDS ORDERED: FUROSEMIDE 20 MG/2 ML VIAL ONE (05:44)
[2023-05-01] MEDS: FUROSEMIDE 20 MG/2 ML VIAL IV SCH ×2 (05:49→18:42)
[2023-05-01] MEDS: InsuLIN REG 1unit/0.01ml Soln (100units/ml) SC SCH ×4 (06:09→23:10)
[2023-05-01] MEDS ORDERED: levoFLOXacin 500MG 100 ML IV ONE ×2 (10:15→11:04)
[2023-05-01] MEDS ORDERED: TAMSULOSIN HYDROCHLORIDE 0.4 MG CAP PO ONE (11:02)
[2023-05-01] MEDS ORDERED: SPIRONOLACTONE 25 MG TAB ONE (11:02)
[2023-05-01] MEDS ORDERED: POTASSIUM CHL 10 Meq TABLET PO ONE (11:02)
[2023-05-01] MEDS ORDERED: ISOSORBIDE MONONITRATE ER 60 MG TAB PO ONE (11:03)
[2023-05-01] MEDS ORDERED: ASPirin 81 mg TAB ONE (11:03)
[2023-05-01] MEDS ORDERED: CARVEDILOL 12.5 MG TAB ONE (11:03)
[2023-05-01] MEDS: EMPAGLIFLOZIN 10 MG TAB PO SCH (11:26)
[2023-05-01] MEDS: CARVEDILOL 12.5 MG TAB PO SCH ×2 (11:26→21:02)
[2023-05-01] MEDS: ISOSORBIDE MONONITRATE ER 60 MG TAB PO SCH (11:27)
[2023-05-01] MEDS: POTASSIUM CHL 10 Meq TABLET PO SCH (11:27)
[2023-05-01] MEDS: SPIRONOLACTONE 25 MG TAB PO SCH (11:27)
[2023-05-01] MEDS: TAMSULOSIN HYDROCHLORIDE 0.4 MG CAP PO SCH (11:27)
[2023-05-01] MEDS: ASPirin-EC 81 mg tab PO SCH (11:28)
[2023-05-01] MEDS ORDERED: guaiFENesin-DM 100/10mg/5ml SYR ONE ×2 (14:23→18:08)
[2023-05-01] MEDS: guaiFENesin-DM 100/10mg/5ml SYR PO PRN ×2 (14:31→18:28)
[2023-05-01] MEDS ORDERED: FUROSEMIDE 40 MG/4 ML VIAL ONE (18:07)
[2023-05-01] MEDS ORDERED: MELATONIN 5 MG TAB ONE (20:48)
[2023-05-01] MEDS ORDERED: ALPRAZolam 0.5 MG TAB ONE (20:49)
[2023-05-01] MEDS: MELATONIN 5 MG TAB PO SCH (21:03)
[2023-05-01] MEDS: ACCU-CHEK COMFORT CURVE STRIP VI SCH (21:03)
[2023-05-01] MEDS: ATORVASTATIN 20 MG TAB PO SCH (21:03)
[2023-05-01] MEDS: ALPRAZolam 0.5 MG TAB PO SCH (23:05)
[2023-05-02] VITALS (17 sets, daily range): BP systolic 99–132; BP diastolic 59–79; PULSE 60–92; RESP 18–28; TEMP 97.8–98.8; O2SAT 92–100
[2023-05-02] MEDS: IPRATROPIUM BROM 0.5 MG/2.5ML INH SOL NEB SCH ×6 (02:12→21:52)
[2023-05-02] MEDS: ALBUTEROL SULF 2.5 MG/0.5ML(0.5%) NEB SOLN NEB SCH ×6 (02:12→21:52)
[2023-05-02] MEDS: ACETAMINOPHEN 325 MG TAB PO PRN (05:20)
[2023-05-02] MEDS: FUROSEMIDE 20 MG/2 ML VIAL IV SCH ×2 (05:23→18:00)
[2023-05-02] MEDS: InsuLIN REG 1unit/0.01ml Soln (100units/ml) SC SCH ×4 (06:12→21:17)
[2023-05-02] MEDS: ACCU-CHEK COMFORT CURVE STRIP VI SCH ×4 (06:12→21:15)
[2023-05-02] MEDS: guaiFENesin-DM 100/10mg/5ml SYR PO PRN (09:59)
[2023-05-02] MEDS: TAMSULOSIN HYDROCHLORIDE 0.4 MG CAP PO SCH (10:00)
[2023-05-02] MEDS: ISOSORBIDE MONONITRATE ER 60 MG TAB PO SCH (10:00)
[2023-05-02] MEDS: EMPAGLIFLOZIN 10 MG TAB PO SCH (10:00)
[2023-05-02] MEDS: POTASSIUM CHL 10 Meq TABLET PO SCH (10:00)
[2023-05-02] MEDS: ASPirin-EC 81 mg tab PO SCH (10:00)
[2023-05-02] MEDS: CARVEDILOL 12.5 MG TAB PO SCH ×2 (10:01→21:05)
[2023-05-02] MEDS: levoFLOXacin 500MG 100 ML IV SCH (10:01)
[2023-05-02] MEDS: SPIRONOLACTONE 25 MG TAB PO SCH (10:01)
[2023-05-02] MEDS: ATORVASTATIN 20 MG TAB PO SCH (21:04)
[2023-05-02] MEDS: MELATONIN 5 MG TAB PO SCH (21:04)
[2023-05-02] MEDS: ALPRAZolam 0.5 MG TAB PO SCH (21:04)
[2023-05-03] VITALS (10 sets, daily range): BP systolic 91–109; BP diastolic 40–58; PULSE 63–78; RESP 18–20; TEMP 97.9–98; O2SAT 95–100
[2023-05-03] MEDS: guaiFENesin-DM 100/10mg/5ml SYR PO PRN (00:56)
[2023-05-03] MEDS: ACETAMINOPHEN 325 MG TAB PO PRN (00:57)
[2023-05-03] MEDS: IPRATROPIUM BROM 0.5 MG/2.5ML INH SOL NEB SCH ×3 (02:09→09:42)
[2023-05-03] MEDS: ALBUTEROL SULF 2.5 MG/0.5ML(0.5%) NEB SOLN NEB SCH ×3 (02:09→09:42)
[2023-05-03] MEDS: FUROSEMIDE 20 MG/2 ML VIAL IV SCH (06:00)
[2023-05-03] MEDS: ACCU-CHEK COMFORT CURVE STRIP VI SCH (06:34)
[2023-05-03] MEDS: InsuLIN REG 1unit/0.01ml Soln (100units/ml) SC SCH (06:35)
[2023-05-03] MEDS: CARVEDILOL 12.5 MG TAB PO SCH (10:15)
[2023-05-03] MEDS: SPIRONOLACTONE 25 MG TAB PO SCH (10:15)
[2023-05-03] MEDS: ASPirin-EC 81 mg tab PO SCH (10:15)
[2023-05-03] MEDS: ISOSORBIDE MONONITRATE ER 60 MG TAB PO SCH (10:16)
[2023-05-03] MEDS: EMPAGLIFLOZIN 10 MG TAB PO SCH (10:16)
[2023-05-03] MEDS: POTASSIUM CHL 10 Meq TABLET PO SCH (10:16)
[2023-05-03] MEDS: TAMSULOSIN HYDROCHLORIDE 0.4 MG CAP PO SCH (10:16)
[2023-05-03] MEDS: levoFLOXacin 500MG 100 ML IV SCH (10:17)
[2023-05-03] MEDS ORDERED: LEVO500T91 PO (11:06)
== END 2023-05-03 13:15 | disposition home or self-care (01) | DRG 137 ==
LOC: ER 04:56 → EDBD 04:56 → EDUNIT# 04:56 → TELE 09:03 → TELE-WESTW 09:08
PROVIDERS: ADMIT Nurse Practitioner Family; ATTEND Family Medicine
DX: J15.69 Pneumonia due to other Gram-negative bacteria (principal); I21.A1 Myocardial infarction type 2; I50.23 Acute on chronic systolic (congestive) heart failure; I42.0 Dilated cardiomyopathy; I13.0 Hypertensive heart and chronic kidney disease with heart failure and stage 1 through stage 4 chronic kidney disease, or unspecified chronic kidney disease; E11.22 Type 2 diabetes mellitus with diabetic chronic kidney disease; N18.9 Chronic kidney disease, unspecified; F17.210 Nicotine dependence, cigarettes, uncomplicated; F20.9 Schizophrenia, unspecified; J44.0 Chronic obstructive pulmonary disease with (acute) lower respiratory infection; Z20.822 Contact with and (suspected) exposure to COVID-19; E78.5 Hyperlipidemia, unspecified; E66.01 Morbid (severe) obesity due to excess calories; F15.10 Other stimulant abuse, uncomplicated; F12.10 Cannabis abuse, uncomplicated; I16.0 Hypertensive urgency; Z95.810 Presence of automatic (implantable) cardiac defibrillator; Z91.148 Patient's other noncompliance with medication regimen for other reason; Z68.37 Body mass index [BMI] 37.0-37.9, adult; Z91.199 Patient's noncompliance with other medical treatment and regimen due to unspecified reason; Z83.3 Family history of diabetes mellitus; Z82.49 Family history of ischemic heart disease and other diseases of the circulatory system; J15.9 Unspecified bacterial pneumonia
CPT/HCPCS: 36415; 71045; 78582; 80053; 80061; 80307; 81001; 82962; 83036; 83735; 83880; 84443; 84484; 85025; 85379; 87081; 87426; 87804; 93005; 93306; 94640; 96372; 96374; 99291; G0378; J1815; J1956

== ENCOUNTER 2023-05-03 23:21 | Inpatient (IN) | payer MEDICAID ==
[~2023-05-03] VITALS: Ht 175.3 cm; Wt 102.5 kg
[~2023-05-03 23:21] MED LIST changes: -ASPI-325 PO; -ASPI-628 PO; -ATOR40TA52 PO; +EMPAGLIFLOZIN 10 MG TAB ONE; -FURO40TA4 PO; +InsuLIN REG 1unit/0.01ml Soln (100units/ml) ONE; +LEVO500T91 PO
[2023-05-04] MEDS ORDERED: FUROSEMIDE 40 MG/4 ML VIAL IV ONE ×2 (00:30→10:30)
[2023-05-04] MEDS ORDERED: ASPirin 81 mg TAB PO ONE (00:30)
[2023-05-04] MEDS ORDERED: ONDANSETRON HCL 4 MG/2 ML VIAL IV ONE (00:30)
[2023-05-04 01:08] LABS: Basophils # (auto) 0 10 ^3/uL (0-0.2); Basophils % (auto) 0.7 % (0.0-2.0); Eosinophils # (auto) 0.1 10 ^3/uL (0-0.8); Eosinophils % (auto) 1.6 % (0.0-7.0); Hemoglobin 12.6 g/dL (13.5-17.5); Lymphocytes # (auto) 0.6 10 ^3/uL (0.4-5.4); Mean Corpuscular Hemoglobin 30.9 pg (28.0-32.0); Mean Corpuscular Hgb Conc. 33.1 g/dL (32.0-36.0); Mean Corpuscular Volume 93.3 fL (80.0-100.0); Monocytes # (auto) 0.7 10 ^3/uL (0-1.3); Monocytes % (auto) 12.5 % (0.0-12.0); Neutrophils # (auto) 3.9 10 ^3/uL (1.6-8.6); Neutrophils % (auto) 73.2 % (37.0-80.0); Red Blood Cells 4.08 10^6/uL (4.5-5.90); Red Cell Distribution Width 16.2 % (11.8-14.3); White Blood Cell 5.4 10^3/uL (4.4-10.8)
[2023-05-04 01:19] LABS: Alanine Aminotransferase 40 U/L (7-40); Albumin 3.5 g/dL (3.2-4.8); Alkaline Phosphatase 148 U/L (46-116); Anion Gap 5 (5-15); Aspartate Aminotransferase 36 U/L (13-40); BUN/Creatinine Ratio 9.2 (10.0-20.0); Bilirubin, Total 0.7 mg/dL (0.2-1.0); Blood Urea Nitrogen 16 mg/dL (9-23); Calcium 8.2 mg/dL (8.7-10.4); Carbon Dioxide 27 mmol/L (20-30); Chloride 106 mmol/L (98-107); Glucose 118 mg/dL (74-106); Potassium 4.5 mmol/L (3.5-5.1); Sodium 138 mmol/L (136-145); Total Protein 6.5 g/dL (5.7-8.2)
[2023-05-04 01:38] LABS: INR 1.27 (0.9-1.15); Partial Thromboplastin Time 26.5 SEC (24.5-34.5); Prothrombin Time 13.1 sec (9.3-11.8)
[2023-05-04] MEDS ORDERED: ENOXAPARIN SOD 100 MG/1 ML SYRINGE SC ONE (03:00)
[2023-05-04] MEDS ORDERED: ASPirin-EC 325mg tab PO ONE (03:00)
[2023-05-04 04:05] LABS: Urine WBC None Seen /hpf (0 - 3)
[2023-05-04 04:21] LABS: Amphetamine Screen, Urine Neg (NEGATIVE); Barbiturate Scree,Urine Neg (NEGATIVE); Benzodiazephine Screen, Urine Neg (NEGATIVE); Cannabinoid Screen, Urine Pos (NEGATIVE); Cocaine Screen, Urine Neg (NEGATIVE); Opiate Scree,Urine Neg (NEGATIVE); Phencyclidine Screen, Urine Neg (NEGATIVE)
[2023-05-04 04:29] LABS: Urine Bacteria NONE SEEN /hpf (None Seen); Urine Blood Negative /uL (Negative); Urine Clarity Clear (Clear); Urine Color Colorless (Yellow); Urine Protein, UAD Negative (Negative); Urine Specific Gravity 1.006 (1.001-1.035); Urine Urobilinogen Normal (Negative)
[2023-05-04] MEDS ORDERED: MORPHINE SULFATE INJ 2 MG/ml SYRG IV PRN ×2 (10:30)
[2023-05-04] MEDS ORDERED: METOCLOPRAMIDE HCL 5MG/ml INJ 2ml VIAL IV PRN ×2 (10:30→15:00)
[2023-05-04] MEDS ORDERED: DOCUSATE SOD 100 MG CAP PO PRN (10:30)
[2023-05-04] MEDS ORDERED: TEMAZEPAM 15 MG CAP PO PRN (10:30)
[2023-05-04] MEDS ORDERED: ACETAMINOPHEN 325 MG TAB PO PRN (10:30)
[2023-05-04] MEDS ORDERED: NITROGLYCERIN 0.4 MG SL TAB SL PRN (10:30)
[2023-05-04 11:34] LABS: Basophils # (auto) 0 10 ^3/uL (0-0.2); Basophils % (auto) 0.5 % (0.0-2.0); Eosinophils # (auto) 0.1 10 ^3/uL (0-0.8); Hematocrit 39.4 % (41.0-53.0); Hemoglobin 12.5 g/dL (13.5-17.5); Lymphocytes # (auto) 0.8 10 ^3/uL (0.4-5.4); Lymphocytes % (auto) 18.4 % (10.0-50.0); Mean Corpuscular Hemoglobin 29.5 pg (28.0-32.0); Mean Corpuscular Hgb Conc. 31.6 g/dL (32.0-36.0); Mean Corpuscular Volume 93.3 fL (80.0-100.0); Monocytes # (auto) 0.7 10 ^3/uL (0-1.3); Monocytes % (auto) 16.2 % (0.0-12.0); Neutrophils # (auto) 2.8 10 ^3/uL (1.6-8.6); Neutrophils % (auto) 62.9 % (37.0-80.0); Nucleated Red Blood Cells % 0.1 %; Red Blood Cells 4.22 10^6/uL (4.5-5.90); Red Cell Distribution Width 15.9 % (11.8-14.3); White Blood Cell 4.5 10^3/uL (4.4-10.8)
[2023-05-04 11:50] LABS: Alanine Aminotransferase 40 U/L (7-40); Alkaline Phosphatase 143 U/L (46-116); Anion Gap 5 (5-15); Aspartate Aminotransferase 34 U/L (13-40); Blood Urea Nitrogen 19 mg/dL (9-23); CRP High Sensitivity 0.66 mg/dL (<1.0); Calcium 8.7 mg/dL (8.5-10.1); Carbon Dioxide 28 mmol/L (20-30); Chloride 106 mmol/L (98-107); Glucose 94 mg/dL (74-106); LDL Cholesterol 49 mg/dL (< 100); Potassium 4.4 mmol/L (3.5-5.1); Sodium 139 mmol/L (136-145); Triglycerides 39 mg/dL (< 150)
[2023-05-04 11:51] LABS: Bilirubin, Total 0.7 mg/dL (0.2-1.0); Cholesterol 87 mg/dL (< 200); HDL Cholesterol 32 mg/dL (40-59); Total Protein 6.2 g/dL (5.7-8.2)
[2023-05-04 12:00] LABS: INR 1.29 (0.9-1.15); Prothrombin Time 13.3 sec (9.3-11.8)
[2023-05-04 12:09] LABS: Albumin 3.4 g/dL (3.2-4.8)
[2023-05-04] MEDS ORDERED: PANTOPRAZOLE 40 MG/10 ML VIAL INJ IV ONE (13:15)
[2023-05-04] MEDS: FUROSEMIDE 40 MG/4 ML VIAL IV SCH ×2 (15:39→19:23)
[2023-05-04] MEDS ORDERED: FUROSEMIDE 40 MG/4 ML VIAL IV SCH (18:00)
[2023-05-04] MEDS ORDERED: ERGOCALCIFEROL 50,000 UNIT(1.25MG) CAP PO SCH (20:30)
[2023-05-04] MEDS ORDERED: LORazepam 2MG/ML-1ML VIAL IV ONE (21:00)
[2023-05-04] MEDS ORDERED: ENOXAPARIN SOD 100 MG/1 ML SYRINGE SC SCH (22:00)
[2023-05-04] MEDS: MIRTAZAPINE 30 MG TAB PO SCH (22:30)
[2023-05-04] MEDS: CARVEDILOL 3.125 MG TAB PO SCH (22:31)
[2023-05-04] MEDS: traZODone HCL 50 MG TAB PO SCH (22:32)
[2023-05-04] MEDS: ATORVASTATIN 20 MG TAB PO SCH (22:32)
[2023-05-04 22:50] VITALS: BP 139/89; PULSE 74; RESP 18; RESP 20; TEMP 97.9; O2SAT 90
[2023-05-05] VITALS (7 sets, daily range): BP systolic 116–157; BP diastolic 49–81; PULSE 71–81; RESP 18–22; TEMP 97.5–98.4; O2SAT 94–100
[2023-05-05 06:03] LABS: Hematocrit 39.6 % (41.0-53.0); Mean Corpuscular Hemoglobin 30.3 pg (28.0-32.0); Mean Corpuscular Hgb Conc. 32.9 g/dL (32.0-36.0); Mean Corpuscular Volume 92.1 fL (80.0-100.0); Red Cell Distribution Width 15.6 % (11.8-14.3); White Blood Cell 5.1 10^3/uL (4.4-10.8)
[2023-05-05 06:25] LABS: Alanine Aminotransferase 40 U/L (7-40); Albumin 3.5 g/dL (3.2-4.8); Alkaline Phosphatase 145 U/L (46-116); Anion Gap 6 (5-15); Aspartate Aminotransferase 35 U/L (13-40); BUN/Creatinine Ratio 11.3 (10.0-20.0); Bilirubin, Total 0.7 mg/dL (0.2-1.0); Blood Urea Nitrogen 22 mg/dL (9-23); Calcium 8.4 mg/dL (8.7-10.4); Carbon Dioxide 31 mmol/L (20-30); Chloride 103 mmol/L (98-107); Glucose 106 mg/dL (74-106); Potassium 4.2 mmol/L (3.5-5.1); Sodium 140 mmol/L (136-145); Total Protein 6.4 g/dL (5.7-8.2)
[2023-05-05 06:32] LABS: Band Neutrophils % (manual) 0; Basophils % (manual) 0 (0.0-2.0); Blast Cells 0; Metamyelocytes % 0; Myelocytes % 0; Promyelocytes % 0; Reactive Lymphocytes 0
[2023-05-05] MEDS: EMPAGLIFLOZIN 10 MG TAB PO SCH (06:39)
[2023-05-05] MEDS: FUROSEMIDE 40 MG/4 ML VIAL IV SCH ×4 (06:40→21:50)
[2023-05-05] MEDS: ASPirin 81 mg TAB PO SCH (08:33)
[2023-05-05] MEDS: ENOXAPARIN SOD 40 MG/0.4 ML SYRINGE SC SCH (08:33)
[2023-05-05] MEDS: CARVEDILOL 3.125 MG TAB PO SCH ×2 (08:34→21:50)
[2023-05-05 09:47] LABS: Eosinophils % (manual) 3 (0-7); Lymphocytes % (manual) 19 (10.0-50.0); Monocytes % (manual) 21 (0-12); Platelet Estimate Adequate
[2023-05-05] MEDS ORDERED: ENOXAPARIN SOD 40 MG/0.4 ML SYRINGE SC SCH (10:00)
[2023-05-05] MEDS ORDERED: PANTOPRAZOLE 40 MG/10 ML VIAL INJ IV SCH (10:00)
[2023-05-05] MEDS: TAMSULOSIN HYDROCHLORIDE 0.4 MG CAP PO SCH (17:06)
[2023-05-05] MEDS: MIRTAZAPINE 30 MG TAB PO SCH (21:49)
[2023-05-05] MEDS: traZODone HCL 50 MG TAB PO SCH (21:50)
[2023-05-05] MEDS: ATORVASTATIN 20 MG TAB PO SCH (21:50)
[2023-05-06] VITALS (7 sets, daily range): BP systolic 112–158; BP diastolic 45–77; PULSE 65–86; RESP 16–20; TEMP 97.4–98.6; O2SAT 92–99
[2023-05-06] MEDS: EMPAGLIFLOZIN 10 MG TAB PO SCH (05:51)
[2023-05-06 06:51] LABS: Anion Gap 6 (5-15); Carbon Dioxide 34 mmol/L (20-30); Chloride 101 mmol/L (98-107); Potassium 4.1 mmol/L (3.5-5.1); Sodium 141 mmol/L (136-145)
[2023-05-06 06:52] LABS: Calcium 8.9 mg/dL (8.5-10.1)
[2023-05-06 06:57] LABS: BUN/Creatinine Ratio 10.2 (10.0-20.0); Blood Urea Nitrogen 19 mg/dL (9-23); Glucose 114 mg/dL (74-106)
[2023-05-06] MEDS: ENOXAPARIN SOD 40 MG/0.4 ML SYRINGE SC SCH (08:28)
[2023-05-06] MEDS: ASPirin 81 mg TAB PO SCH (08:28)
[2023-05-06] MEDS: FUROSEMIDE 40 MG/4 ML VIAL IV SCH ×2 (08:28→21:16)
[2023-05-06] MEDS: PANTOPRAZOLE 40 MG TAB PO SCH (08:29)
[2023-05-06] MEDS: CARVEDILOL 3.125 MG TAB PO SCH ×2 (08:29→21:15)
[2023-05-06] MEDS ORDERED: metOLazone 5 MG TAB PO ONE (15:15)
[2023-05-06] MEDS: traZODone HCL 50 MG TAB PO SCH (21:12)
[2023-05-06] MEDS: MIRTAZAPINE 30 MG TAB PO SCH (21:13)
[2023-05-06] MEDS: ATORVASTATIN 20 MG TAB PO SCH (21:13)
[2023-05-07 05:00] VITALS: BP 114/62; PULSE 57; RESP 16; TEMP 98.2; O2SAT 95
[2023-05-07] MEDS: EMPAGLIFLOZIN 10 MG TAB PO SCH (06:29)
[2023-05-07 08:00] VITALS: PULSE 91
[2023-05-07] MEDS: TAMSULOSIN HYDROCHLORIDE 0.4 MG CAP PO SCH (08:23)
[2023-05-07] MEDS: ENOXAPARIN SOD 40 MG/0.4 ML SYRINGE SC SCH (08:34)
[2023-05-07] MEDS: ASPirin 81 mg TAB PO SCH (08:34)
[2023-05-07] MEDS: FUROSEMIDE 40 MG/4 ML VIAL IV SCH (08:34)
[2023-05-07] MEDS: PANTOPRAZOLE 40 MG TAB PO SCH (08:35)
[2023-05-07] MEDS: CARVEDILOL 3.125 MG TAB PO SCH (08:35)
[2023-05-07 08:39] VITALS: BP 109/56; PULSE 69; RESP 16; TEMP 98.1; O2SAT 96
[2023-05-07 13:00] VITALS: BP 100/65; PULSE 74; RESP 18; TEMP 97.6; O2SAT 100
[2023-05-07] MEDS ORDERED: TRAZ-227 PO (13:16)
[2023-05-07] MEDS ORDERED: ATOR20TA50 PO (13:16)
[2023-05-07] MEDS ORDERED: FURO1TAB31 PO (13:16)
[2023-05-07] MEDS ORDERED: ISOS1TAB28 PO (13:16)
[2023-05-07] MEDS ORDERED: TAMS-35 PO (13:16)
[2023-05-07] MEDS ORDERED: ASPI-325 PO (13:16)
[2023-05-07] MEDS ORDERED: HYDR-4297 PO (13:16)
[2023-05-07] MEDS ORDERED: CAR3125T PO (13:16)
[2023-05-07] MEDS ORDERED: ALPR0.5T PO (13:29)
[2023-05-07 17:00] VITALS: BP 131/85; PULSE 88; RESP 18; TEMP 97.8; O2SAT 96
== END 2023-05-07 18:16 | disposition home or self-care (01) | DRG 133 ==
LOC: ER 23:21 → EDBD 23:21 → TELE 05-04 10:21 → TELE-WESTW 05-04 22:02
PROVIDERS: ADMIT Internal Medicine; ATTEND Internal Medicine
DX: J96.00 Acute respiratory failure, unspecified whether with hypoxia or hypercapnia (principal); I21.A1 Myocardial infarction type 2; I50.43 Acute on chronic combined systolic (congestive) and diastolic (congestive) heart failure; I42.9 Cardiomyopathy, unspecified; I13.0 Hypertensive heart and chronic kidney disease with heart failure and stage 1 through stage 4 chronic kidney disease, or unspecified chronic kidney disease; E11.22 Type 2 diabetes mellitus with diabetic chronic kidney disease; F20.9 Schizophrenia, unspecified; E66.9 Obesity, unspecified; E78.5 Hyperlipidemia, unspecified; J44.9 Chronic obstructive pulmonary disease, unspecified; N18.31 Chronic kidney disease, stage 3a; F15.10 Other stimulant abuse, uncomplicated; F17.210 Nicotine dependence, cigarettes, uncomplicated; F19.10 Other psychoactive substance abuse, uncomplicated; Z79.82 Long term (current) use of aspirin; Z99.81 Dependence on supplemental oxygen; Z68.33 Body mass index [BMI] 33.0-33.9, adult; Z79.899 Other long term (current) drug therapy; Z80.9 Family history of malignant neoplasm, unspecified; Z82.49 Family history of ischemic heart disease and other diseases of the circulatory system; Z83.3 Family history of diabetes mellitus; Z91.199 Patient's noncompliance with other medical treatment and regimen due to unspecified reason; Z71.6 Tobacco abuse counseling; Z95.810 Presence of automatic (implantable) cardiac defibrillator
CPT/HCPCS: 36415; 71045; 80048; 80053; 80061; 80307; 81001; 82306; 82607; 83735; 83880; 84443; 84484; 85007; 85025; 85027; 85379; 85610; 85730; 86141; 87081; 96372; 96374; 96375; 99291; C9113; G0378; J2405

== ENCOUNTER 2023-09-20 00:11 | Emergency (ER) | payer MEDICAID ==
[~2023-09-20] VITALS: Ht 175.3 cm; Wt 110.0 kg
[~2023-09-20 00:11] MED LIST changes: +ALPR0.5T PO; +ASPI-325 PO; -CAR125T PO; +CARV-214 PO; +CARV-216 PO; -EMPAGLIFLOZIN 10 MG TAB ONE; -HYDR-4297 PO; +HYDR50TA47 PO; +ISOS1TAB28 PO; -InsuLIN REG 1unit/0.01ml Soln (100units/ml) ONE; +TAMS-35 PO; +TRAZ-227 PO
[2023-09-20 00:35] VITALS: BP 156/93; PULSE 90; RESP 18; O2SAT 98
[2023-09-20 02:43] LABS: Basophils # (auto) 0.1 10 ^3/uL (0-0.2); Basophils % (auto) 0.7 % (0.0-2.0); Eosinophils # (auto) 0.1 10 ^3/uL (0-0.8); Eosinophils % (auto) 1.8 % (0.0-7.0); Hematocrit 38.8 % (41.0-53.0); Hemoglobin 12.6 g/dL (13.5-17.5); Lymphocytes # (auto) 0.8 10 ^3/uL (0.4-5.4); Lymphocytes % (auto) 10.8 % (10.0-50.0); Mean Corpuscular Hemoglobin 28.7 pg (28.0-32.0); Mean Corpuscular Hgb Conc. 32.4 g/dL (32.0-36.0); Mean Corpuscular Volume 88.5 fL (80.0-100.0); Monocytes % (auto) 12.5 % (0.0-12.0); Neutrophils # (auto) 5.8 10 ^3/uL (1.6-8.6); Neutrophils % (auto) 74.2 % (37.0-80.0); Red Blood Cells 4.39 10^6/uL (4.5-5.90); Red Cell Distribution Width 15.9 % (11.8-14.3); White Blood Cell 7.8 10^3/uL (4.4-10.8)
[2023-09-20 03:30] LABS: Chloride 107 mmol/L (98-107); Potassium 3.5 mmol/L (3.5-5.1); Sodium 140 mmol/L (136-145)
[2023-09-20 03:31] LABS: Anion Gap 7 (5-15); Carbon Dioxide 26 mmol/L (20-30)
[2023-09-20 03:32] LABS: Calcium 8.7 mg/dL (8.5-10.1)
[2023-09-20 03:36] LABS: Glucose 155 mg/dL (74-106)
[2023-09-20 03:37] LABS: BUN/Creatinine Ratio 8.9 (10.0-20.0); Blood Urea Nitrogen 14 mg/dL (9-23)
[2023-09-20] MEDS ORDERED: FUROSEMIDE 100 MG/10ML VIAL IV ONE (03:45)
== END 2023-09-20 06:26 | disposition left against medical advice (07) ==
LOC: ER 00:11
DX: E11.22 Type 2 diabetes mellitus with diabetic chronic kidney disease (principal); I13.0 Hypertensive heart and chronic kidney disease with heart failure and stage 1 through stage 4 chronic kidney disease, or unspecified chronic kidney disease; N18.9 Chronic kidney disease, unspecified; R60.1 Generalized edema; R79.89 Other specified abnormal findings of blood chemistry; R60.0 Localized edema; F17.210 Nicotine dependence, cigarettes, uncomplicated; F12.10 Cannabis abuse, uncomplicated; F15.10 Other stimulant abuse, uncomplicated; F14.10 Cocaine abuse, uncomplicated; E78.5 Hyperlipidemia, unspecified
CPT/HCPCS: 36415; 71045; 80048; 83880; 84484; 85025

== ENCOUNTER 2023-12-07 23:39 | Inpatient (IN) | payer MEDICAID, OTHER ==
[~2023-12-07] VITALS: Ht 175.3 cm; Wt 104.5 kg
[~2023-12-07 23:39] MED LIST changes: +FURO40TA4 PO; -LISI20TA56 PO
[2023-12-08] VITALS (13 sets, daily range): BP systolic 104–205; BP diastolic 61–135; PULSE 99–132; RESP 19–31; O2SAT 93–100
[2023-12-08 00:08] LABS: Basophils # (auto) 0 10 ^3/uL (0-0.2); Basophils % (auto) 0.9 % (0.0-2.0); Eosinophils # (auto) 0.1 10 ^3/uL (0-0.8); Eosinophils % (auto) 1.7 % (0.0-7.0); Hematocrit 38.2 % (41.0-53.0); Hemoglobin 12.4 g/dL (13.5-17.5); Lymphocytes # (auto) 1.2 10 ^3/uL (0.4-5.4); Lymphocytes % (auto) 20.8 % (10.0-50.0); Mean Corpuscular Hemoglobin 28.8 pg (28.0-32.0); Mean Corpuscular Hgb Conc. 32.4 g/dL (32.0-36.0); Mean Corpuscular Volume 88.9 fL (80.0-100.0); Monocytes # (auto) 0.8 10 ^3/uL (0-1.3); Monocytes % (auto) 13.7 % (0.0-12.0); Neutrophils # (auto) 3.6 10 ^3/uL (1.6-8.6); Neutrophils % (auto) 62.9 % (37.0-80.0); Nucleated Red Blood Cells % 0.2 %; Red Cell Distribution Width 19.1 % (11.8-14.3); White Blood Cell 5.7 10^3/uL (4.4-10.8)
[2023-12-08 00:26] LABS: Blood Alcohol < 3.0 mg/dL (<10)
[2023-12-08] MEDS: LORazepam 2MG/ML-1ML VIAL IV ONE ×2 (00:27→01:42)
[2023-12-08] MEDS: FUROSEMIDE 40 MG/4 ML VIAL IV ONE (00:29)
[2023-12-08 00:30] LABS: INR 1.34 (0.9-1.15); Partial Thromboplastin Time 25.8 SEC (24.5-34.5); Prothrombin Time 13.9 sec (9.3-11.8)
[2023-12-08] MEDS: diphenhdrAMINE HCL 50 MG/1 ML VL IM ONE (01:42)
[2023-12-08] MEDS: HALOPERIDOL LACTATE 5 MG/ML INJ VIAL IM ONE (01:43)
[2023-12-08 01:52] LABS: Urine Bacteria None Seen /hpf (None Seen); Urine WBC None Seen /hpf (0 - 3)
[2023-12-08 02:14] LABS: Amphetamine Screen, Urine Pos (NEGATIVE); Barbiturate Scree,Urine Neg (NEGATIVE); Benzodiazephine Screen, Urine Neg (NEGATIVE); Cannabinoid Screen, Urine Pos (NEGATIVE); Cocaine Screen, Urine Neg (NEGATIVE); Opiate Scree,Urine Neg (NEGATIVE); Phencyclidine Screen, Urine Pos (NEGATIVE)
[2023-12-08 02:22] LABS: Urine Blood Negative /uL (Negative); Urine Clarity Clear (Clear); Urine Color Light-Yellow (Yellow); Urine Hyaline Cast FEW /lpf (0 - 2); Urine Mucus FEW (None Seen); Urine Protein, UAD TRACE (Negative); Urine Specific Gravity 1.011 (1.001-1.035); Urine Urobilinogen Normal (Negative); Urine pH 5.5 (5.0-9.0)
[2023-12-08 02:58] LABS: Base Excess -2.1 mmol/L (-2.0-2.0)
[2023-12-08] MEDS: IOHEXOL 350 MG/ML 100ML IJ ONE (04:56)
[2023-12-08 06:09] LABS: Alanine Aminotransferase 52 U/L (7-40); Albumin 3.4 g/dL (3.2-4.8); Alkaline Phosphatase 193 U/L (46-116); Anion Gap 10 (5-15); Aspartate Aminotransferase 49 U/L (13-40); BUN/Creatinine Ratio 10.1 (10.0-20.0); Bilirubin, Total 0.9 mg/dL (0.2-1.0); Blood Urea Nitrogen 17 mg/dL (9-23); Calcium 8.3 mg/dL (8.7-10.4); Carbon Dioxide 21 mmol/L (20-30); Chloride 108 mmol/L (98-107); Glucose 106 mg/dL (74-106); Potassium 3.8 mmol/L (3.5-5.1); Sodium 139 mmol/L (136-145); Total Protein 6.5 g/dL (5.7-8.2)
[2023-12-08] MEDS: NALOXONE HCL 1MG/ML 2ML SYRINGE IV ONE (09:02)
[2023-12-08] MEDS: MIDAZOLAM HCL 5 MG/ML-1ML VIAL IV ONE (09:12)
[2023-12-08] MEDS ORDERED: NITROGLYCERIN 0.4 MG SL TAB SL PRN (09:15)
[2023-12-08] MEDS ORDERED: MORPHINE SULFATE INJ 2 MG/ml SYRG IV PRN (09:15)
[2023-12-08] MEDS ORDERED: ACETAMINOPHEN 325 MG TAB PO PRN (09:15)
[2023-12-08] MEDS: SUCCINYLCHOLINE CHLORIDE 20 MG/ML 10ML VIAL IV ONE ×2 (09:19→09:20)
[2023-12-08 09:20] LABS: Base Excess -1.6 mmol/L (-2.0-2.0)
[2023-12-08] MEDS: MIDAZOLAM DRIP 50 mg/50mL 50 ML IV SCH (09:45)
[2023-12-08] MEDS ORDERED: DEXTROSE (50%) 50ML SYRG IV PRN (09:45)
[2023-12-08] MEDS: ALBUTEROL SULF 2.5 MG/0.5ML(0.5%) NEB SOLN NEB SCH (10:01)
[2023-12-08] MEDS: IPRATROPIUM BROM 0.5 MG/2.5ML INH SOL NEB SCH (10:01)
[2023-12-08 10:37] LABS: Lactic Acid w/Reflex 5.4 mmol/L (0.4-2.0)
[2023-12-08 11:09] LABS: Triglycerides 55 mg/dL (< 150)
[2023-12-08 11:10] LABS: LDL Cholesterol 101 mg/dL (< 100)
[2023-12-08 11:11] LABS: Cholesterol 147 mg/dL (< 200); HDL Cholesterol 43 mg/dL (40-59)
[2023-12-08] MEDS: InsuLIN REG 1unit/0.01ml Soln (100units/ml) SC SCH (11:30)
[2023-12-08] MEDS: ACCU-CHEK COMFORT CURVE STRIP VI SCH (11:49)
[2023-12-08] MEDS: ENOXAPARIN SOD 100 MG/1 ML SYRINGE SC ONE (11:51)
[2023-12-08] MEDS: PROPOFOL 100 ML IV SCH (12:39)
[2023-12-08] MEDS: FUROSEMIDE INJECTION 100 MG in SODIUM CHL 0.9% 100 ML IV SCH (12:56)
[2023-12-08] MEDS: NITROGLYCERIN 50MG/250ML 250 ML IV SCH (12:56)
[2023-12-08] MEDS: NALOXONE HCL 1MG/ML 2ML SYRINGE ONE (12:57)
[2023-12-08] MEDS: MIDAZOLAM HCL 5 MG/ML-1ML VIAL ONE (12:57)
[2023-12-08] MEDS ORDERED: AMIODARONE BOLUS KIT 100 ML IV ONE (13:30)
[2023-12-08] MEDS ORDERED: AMIODARONE 450mg/250ml AE 250 ML IV SCH ×2 (13:30→19:30)
[2023-12-08] MEDS ORDERED: LABETALOL HCL 20 MG/4 ML VL IV PRN (13:30)
[2023-12-08] MEDS: LIDOCAINE 1% (LOCAL ANESTH.) PF 5ml SDV ID ONE (14:09)
[2023-12-08] MEDS: fentaNYL Drip 2500mCg/250mlNS 250 ML IV SCH (15:00)
[2023-12-08 15:33] LABS: Base Excess -1.8 mmol/L (-2.0-2.0)
[2023-12-08] MEDS: PANTOPRAZOLE 40 MG/10 ML VIAL INJ IV ONE (16:03)
[2023-12-08] MEDS: cefTRIAXone 1GM/50ML D5W 50 ML IV ONE (16:03)
[2023-12-08 16:16] LABS: Urine Bacteria None Seen /hpf (None Seen)
[2023-12-08 16:30] LABS: Urine Blood TRACE /uL (Negative); Urine Clarity Clear (Clear); Urine Color Yellow (Yellow); Urine Hyaline Cast FEW /lpf (0 - 2); Urine Mucus FEW (None Seen); Urine Protein, UAD 2+ (Negative); Urine Specific Gravity 1.015 (1.001-1.035); Urine Urobilinogen Normal (Negative); Urine WBC 3 /hpf (0 - 3); Urine pH 5.5 (5.0-9.0)
[2023-12-08] MEDS ORDERED: AZITHROMYCIN 500MG/ 250ML 250 ML IV ONE (17:45)
[2023-12-08] MEDS ORDERED: ENOXAPARIN SOD 60 MG/0.6 ML SYRINGE SC ONE (18:00)
[2023-12-08] MEDS ORDERED: DOXYCYCLINE 100MG/250ML 250 ML IV ONE (18:00)
[2023-12-08] MEDS: FUROSEMIDE 40 MG/4 ML VIAL IV SCH (18:10)
[2023-12-08] MEDS: DOXYCYCLINE 100MG/250ML 250 ML IV SCH (18:10)
[2023-12-08 20:07] LABS: COVID19 ANTIGEN SOFIA FIA NEGATIVE (NEGATIVE)
[2023-12-08 20:10] LABS: Rapid Influenza A Positive (Negative); Rapid Influenza B Negative (Negative)
[2023-12-08] MEDS ORDERED: ENOXAPARIN SOD 100 MG/1 ML SYRINGE SC SCH (22:00)
[2023-12-08 22:26] LABS: Protein, Urine 43.9 mg/dL (0.0-11.9)
[2023-12-08 22:29] LABS: Creatinine, Urine 80.52 mg/dL (30.0-125.0)
[2023-12-08] MEDS: SODIUM CHLOR 0.9% PF (SALINE LOCK) 10ML VIAL/SYR IV SCH (22:36)
[2023-12-09] VITALS (14 sets, daily range): BP systolic 119–168; BP diastolic 62–99; PULSE 123–127; RESP 16–20; O2SAT 98–100
[2023-12-09] MEDS: OSELTAMIVIR 75 MG CAP PO ONE (00:15)
[2023-12-09 05:33] LABS: Basophils # (auto) 0 10 ^3/uL (0-0.2); Basophils % (auto) 0.5 % (0.0-2.0); Eosinophils # (auto) 0.1 10 ^3/uL (0-0.8); Eosinophils % (auto) 1.3 % (0.0-7.0); Hematocrit 39.1 % (41.0-53.0); Hemoglobin 12.9 g/dL (13.5-17.5); Lymphocytes # (auto) 0.8 10 ^3/uL (0.4-5.4); Lymphocytes % (auto) 11.6 % (10.0-50.0); Mean Corpuscular Hemoglobin 29.7 pg (28.0-32.0); Mean Corpuscular Volume 90.1 fL (80.0-100.0); Monocytes # (auto) 0.8 10 ^3/uL (0-1.3); Monocytes % (auto) 12.1 % (0.0-12.0); Neutrophils % (auto) 74.5 % (37.0-80.0); Red Blood Cells 4.34 10^6/uL (4.5-5.90); Red Cell Distribution Width 18.9 % (11.8-14.3); White Blood Cell 6.7 10^3/uL (4.4-10.8)
[2023-12-09 05:38] LABS: Alanine Aminotransferase 52 U/L (7-40); Albumin 3.1 g/dL (3.2-4.8); Alkaline Phosphatase 168 U/L (46-116); Anion Gap 10 (5-15); Aspartate Aminotransferase 48 U/L (13-40); BUN/Creatinine Ratio 12.3 (10.0-20.0); Bilirubin, Total 1.1 mg/dL (0.2-1.0); Blood Urea Nitrogen 21 mg/dL (9-23); Calcium 8.3 mg/dL (8.7-10.4); Carbon Dioxide 27 mmol/L (20-30); Chloride 106 mmol/L (98-107); Glucose 90 mg/dL (74-106); Magnesium 1.9 mg/dL (1.6-2.6); Potassium 3.9 mmol/L (3.5-5.1); Sodium 143 mmol/L (136-145); Total Protein 5.9 g/dL (5.7-8.2); Uric Acid 7.9 mg/dL (3.7-9.2)
[2023-12-09 05:40] LABS: Folate (Folic Acid) 13.9 ng/mL (>5.38); Free T3 2.21 pg/mL (2.3-4.2); Free T4 (Free Thyroxine) 1.22 ng/dL (0.89-1.76)
[2023-12-09 06:39] LABS: Base Excess 1.3 mmol/L (-2.0-2.0)
[2023-12-09] MEDS: IOHEXOL 350 MG/ML 100ML IJ ONE (08:21)
[2023-12-09 08:49] LABS: Hepatitis B Surface Antigen Negative (Negative)
[2023-12-09 09:09] LABS: Hepatitis A Ab IgM Negative
[2023-12-09 09:10] LABS: Hepatitis B Core IgM Negative
[2023-12-09 09:11] LABS: Hepatitis C Antibody Negative (Negative)
[2023-12-09] MEDS: cefTRIAXone 1GM/50ML D5W 50 ML IV SCH (09:17)
[2023-12-09] MEDS ORDERED: AZITHROMYCIN 500MG/ 250ML 250 ML IV SCH (10:00)
[2023-12-09] MEDS ORDERED: ENOXAPARIN SOD 30 MG/0.3 ML SYRINGE SC SCH (10:00)
[2023-12-09] MEDS ORDERED: OSELTAMIVIR 75 MG CAP PO SCH (10:00)
[2023-12-09] MEDS: ENOXAPARIN SOD 40 MG/0.4 ML SYRINGE SC SCH (10:08)
[2023-12-09] MEDS: PANTOPRAZOLE 40 MG/10 ML VIAL INJ IV SCH (10:08)
[2023-12-09] MEDS: OSELTAMIVIR 75MG/5ML ORAL SUSP GT SCH (11:07)
[2023-12-09] MEDS: hydrALAZINE HCL 20 MG/ML VL IV PRN (14:06)
[2023-12-09] MEDS ORDERED: Jevity 1.2 Cal/Fiber 1 Liter GT SCH (16:00)
[2023-12-09] MEDS: OSELTAMIVIR 30MG/5ML ORAL SUSP GT SCH (22:00)
[2023-12-10] VITALS (14 sets, daily range): BP systolic 131–149; BP diastolic 74–95; PULSE 117–125; RESP 15–23; O2SAT 92–100
[2023-12-10 05:20] LABS: Basophils # (auto) 0 10 ^3/uL (0-0.2); Basophils % (auto) 0.6 % (0.0-2.0); Eosinophils # (auto) 0.1 10 ^3/uL (0-0.8); Eosinophils % (auto) 1.3 % (0.0-7.0); Hematocrit 37.2 % (41.0-53.0); Hemoglobin 12.6 g/dL (13.5-17.5); Lymphocytes # (auto) 0.7 10 ^3/uL (0.4-5.4); Lymphocytes % (auto) 12.3 % (10.0-50.0); Mean Corpuscular Hemoglobin 30.5 pg (28.0-32.0); Mean Corpuscular Hgb Conc. 33.9 g/dL (32.0-36.0); Mean Corpuscular Volume 90.1 fL (80.0-100.0); Monocytes % (auto) 16.8 % (0.0-12.0); Nucleated Red Blood Cells % 0.3 %; Red Blood Cells 4.13 10^6/uL (4.5-5.90); Red Cell Distribution Width 19.2 % (11.8-14.3); White Blood Cell 5.8 10^3/uL (4.4-10.8)
[2023-12-10 05:33] LABS: Alanine Aminotransferase 43 U/L (7-40); Alkaline Phosphatase 151 U/L (46-116); Anion Gap 8 (5-15); Aspartate Aminotransferase 44 U/L (13-40); Blood Urea Nitrogen 17 mg/dL (9-23); Calcium 8.4 mg/dL (8.7-10.4); Carbon Dioxide 30 mmol/L (20-30); Chloride 102 mmol/L (98-107); Glucose 89 mg/dL (74-106); Magnesium 1.9 mg/dL (1.6-2.6); Potassium 3.6 mmol/L (3.5-5.1); Sodium 140 mmol/L (136-145)
[2023-12-10 05:34] LABS: Bilirubin, Total 0.9 mg/dL (0.2-1.0); Total Protein 5.8 g/dL (5.7-8.2)
[2023-12-10 06:53] LABS: Base Excess 5.3 mmol/L (-2.0-2.0)
[2023-12-10] MEDS: fentaNYL CITRATE 100 MCG/2 ML VL IV ONE ×2 (09:30)
[2023-12-10] MEDS: fentaNYL CITRATE 5 ML ONE (09:31)
[2023-12-10 13:56] LABS: Base Excess 6.3 mmol/L (-2.0-2.0)
[2023-12-10] MEDS: CARVEDILOL 3.125 MG TAB PO SCH (22:00)
[2023-12-10] MEDS: OSELTAMIVIR 75MG/5ML ORAL SUSP GT SCH (22:00)
[2023-12-10] MEDS: LORazepam 2MG/ML-1ML VIAL IV PRN (22:45)
[2023-12-11] VITALS (9 sets, daily range): BP systolic 135–154; BP diastolic 77–106; PULSE 120–126; RESP 16–24; TEMP 98.3; O2SAT 94–100
[2023-12-11] MEDS ORDERED: METOPROLOL TARTRATE 1MG/1ML-5ML VIAL IV PRN
[2023-12-11] MEDS: METOPROLOL TARTRATE 1MG/1ML-5ML VIAL IV ONE (00:07)
[2023-12-11 05:58] LABS: Basophils # (auto) 0 10 ^3/uL (0-0.2); Basophils % (auto) 0.7 % (0.0-2.0); Eosinophils # (auto) 0.1 10 ^3/uL (0-0.8); Eosinophils % (auto) 1.2 % (0.0-7.0); Hematocrit 39.6 % (41.0-53.0); Hemoglobin 13.3 g/dL (13.5-17.5); Lymphocytes # (auto) 0.8 10 ^3/uL (0.4-5.4); Lymphocytes % (auto) 14.4 % (10.0-50.0); Mean Corpuscular Hemoglobin 30.5 pg (28.0-32.0); Mean Corpuscular Hgb Conc. 33.7 g/dL (32.0-36.0); Mean Corpuscular Volume 90.4 fL (80.0-100.0); Monocytes # (auto) 0.9 10 ^3/uL (0-1.3); Monocytes % (auto) 15.4 % (0.0-12.0); Neutrophils # (auto) 3.8 10 ^3/uL (1.6-8.6); Neutrophils % (auto) 68.3 % (37.0-80.0); Nucleated Red Blood Cells % 0.2 %; Red Blood Cells 4.38 10^6/uL (4.5-5.90); Red Cell Distribution Width 18.3 % (11.8-14.3); White Blood Cell 5.6 10^3/uL (4.4-10.8)
[2023-12-11 06:17] LABS: Alanine Aminotransferase 40 U/L (7-40); Alkaline Phosphatase 157 U/L (46-116); Anion Gap 12 (5-15); BUN/Creatinine Ratio 10.5 (10.0-20.0); Blood Urea Nitrogen 14 mg/dL (9-23); Calcium 8.9 mg/dL (8.7-10.4); Carbon Dioxide 30 mmol/L (20-30); Chloride 100 mmol/L (98-107); Glucose 90 mg/dL (74-106); Magnesium 1.8 mg/dL (1.6-2.6); Potassium 3.2 mmol/L (3.5-5.1); Sodium 142 mmol/L (136-145)
[2023-12-11 06:19] LABS: Albumin 3.3 g/dL (3.2-4.8); Aspartate Aminotransferase 45 U/L (13-40); Bilirubin, Total 1.3 mg/dL (0.2-1.0); Total Protein 6.5 g/dL (5.7-8.2)
[2023-12-11] MEDS: MORPHINE SULFATE 4 MG/ML SYR/VIAL IV PRN (06:19)
[2023-12-11] MEDS: POTASSIUM CHL 20MEQ/100ML 100 ML IV SCH (09:30)
[2023-12-11] MEDS: MAGNESIUM SULFATE 1GM/100ML 100 ML IV ONE (09:30)
[2023-12-11] MEDS: FUROSEMIDE 20 MG/2 ML VIAL IV ONE (12:22)
[2023-12-11] MEDS ORDERED: LORazepam 2MG/ML-1ML VIAL IV PRN (13:15)
[2023-12-11] MEDS ORDERED: NITROGLYCERIN 50MG/250ML 250 ML IV SCH (13:15)
[2023-12-11] MEDS ORDERED: HALOPERIDOL LACTATE 5 MG/ML INJ VIAL IV PRN (13:15)
[2023-12-11] MEDS: cloNIDine 0.1 mg/24hr 7 DAY PATCH TD ONE (13:49)
[2023-12-11] MEDS: cloNIDine HCL 0.1 MG TAB PO PRN (16:44)
[2023-12-11] MEDS: FUROSEMIDE 100 MG/10ML VIAL IV SCH (17:50)
[2023-12-11] MEDS: ATORVASTATIN 20 MG TAB PO SCH (22:56)
[2023-12-11] MEDS: hydrALAZINE HCL 25 MG TAB PO SCH (22:56)
[2023-12-12] VITALS (8 sets, daily range): BP systolic 132–157; BP diastolic 72–116; PULSE 60–124; RESP 18–24; TEMP 98–98.7; O2SAT 95–100
[2023-12-12 09:59] LABS: Anion Gap 7 (5-15); Carbon Dioxide 33 mmol/L (20-30); Chloride 100 mmol/L (98-107); Potassium 3.4 mmol/L (3.5-5.1); Sodium 140 mmol/L (136-145)
[2023-12-12 10:00] LABS: Calcium 9.3 mg/dL (8.7-10.4)
[2023-12-12 10:05] LABS: BUN/Creatinine Ratio 10.9 (10.0-20.0); Blood Urea Nitrogen 15 mg/dL (9-23); Glucose 155 mg/dL (74-106); Magnesium 1.6 mg/dL (1.6-2.6)
[2023-12-12] MEDS ORDERED: LISI20TA56 PO (10:23)
[2023-12-12] MEDS: EMPAGLIFLOZIN 10 MG TAB PO SCH (10:31)
[2023-12-12] MEDS: LISINOPRIL 20 MG TAB PO SCH (10:31)
[2023-12-12] MEDS: ASPirin-EC 81 mg tab PO SCH (10:31)
[2023-12-13] MEDS ORDERED: FUROSEMIDE 100 MG/10ML VIAL IV SCH (10:00)
[2023-12-18] MEDS ORDERED: cloNIDine 0.1 mg/24hr 7 DAY PATCH TD SCH (13:15)
== END 2023-12-12 12:48 | disposition left against medical advice (07) | DRG 194 ==
LOC: ER 23:39 → EDUNIT# 12-08 09:08 → TELE 12-08 09:08 → TELE-EAST 12-11 22:07
PROVIDERS: ADMIT Internal Medicine Pulmonary Disease; ATTEND Internal Medicine Pulmonary Disease
PROC: 5A1945Z Respiratory Ventilation, 24-96 Consecutive Hours (ICD-10-PCS; principal; 2023-12-08)
PROC: 0BH17EZ Insertion of Endotracheal Airway into Trachea, Via Natural or Artificial Opening (ICD-10-PCS; 2023-12-08)
PROC: 02HV33Z Insertion of Infusion Device into Superior Vena Cava, Percutaneous Approach (ICD-10-PCS; 2023-12-08)
PROC: B548ZZA Ultrasonography of Superior Vena Cava, Guidance (ICD-10-PCS; 2023-12-08)
PROC: 5A09357 Assistance with Respiratory Ventilation, Less than 24 Consecutive Hours, Continuous Positive Airway Pressure (ICD-10-PCS; 2023-12-08)
PROC: B24BZZ4 Ultrasonography of Heart with Aorta, Transesophageal (ICD-10-PCS; 2023-12-10)
DX: I13.0 Hypertensive heart and chronic kidney disease with heart failure and stage 1 through stage 4 chronic kidney disease, or unspecified chronic kidney disease (principal); J96.01 Acute respiratory failure with hypoxia; N17.0 Acute kidney failure with tubular necrosis; I21.A1 Myocardial infarction type 2; J11.00 Influenza due to unidentified influenza virus with unspecified type of pneumonia; D68.8 Other specified coagulation defects; E87.20 Acidosis, unspecified; I50.43 Acute on chronic combined systolic (congestive) and diastolic (congestive) heart failure; I42.0 Dilated cardiomyopathy; R18.8 Other ascites; I42.7 Cardiomyopathy due to drug and external agent; E11.22 Type 2 diabetes mellitus with diabetic chronic kidney disease; Z53.29 Procedure and treatment not carried out because of patient's decision for other reasons; E66.01 Morbid (severe) obesity due to excess calories; F15.10 Other stimulant abuse, uncomplicated; F20.9 Schizophrenia, unspecified; F41.9 Anxiety disorder, unspecified; D64.9 Anemia, unspecified; N18.32 Chronic kidney disease, stage 3b; K74.60 Unspecified cirrhosis of liver; I25.10 Atherosclerotic heart disease of native coronary artery without angina pectoris; F17.210 Nicotine dependence, cigarettes, uncomplicated; E78.5 Hyperlipidemia, unspecified; J44.0 Chronic obstructive pulmonary disease with (acute) lower respiratory infection; I48.91 Unspecified atrial fibrillation; T50.995A Adverse effect of other drugs, medicaments and biological substances, initial encounter; Z98.61 Coronary angioplasty status; Z95.810 Presence of automatic (implantable) cardiac defibrillator; Z91.199 Patient's noncompliance with other medical treatment and regimen due to unspecified reason; Z79.84 Long term (current) use of oral hypoglycemic drugs; Z68.34 Body mass index [BMI] 34.0-34.9, adult; Y92.89 Other specified places as the place of occurrence of the external cause
CPT/HCPCS: 36415; 36569; 36600; 70450; 71045; 71275; 76705; 80048; 80053; 80061; 80074; 80307; 80320; 81001; 82140; 82570; 82607; 82746; 82805; 82962; 83036; 83605; 83735; 83880; 83930; 84156; 84300; 84439; 84443; 84481; 84484; 84550; 85025; 85379; 85610; 85730; 86703; 87070; 87081; 87086; 87205; 87426; 87804; 92610; 93005; 93306; 93312; 93970; 94002; 94003; 94640; 94660; 96372; 96374; 96375; 96376; 97163; 99291; G0378; G9035; J0330; J2250; J2470; J2704; J3480; J3490; J7060

== ENCOUNTER 2023-12-13 19:41 | Inpatient (IN) | payer MEDICAID ==
[~2023-12-13] VITALS: Ht 175.3 cm; Wt 95.4 kg
[~2023-12-13 19:41] MED LIST changes: +LISI20TA56 PO
[2023-12-13 19:58] LABS: Basophils # (auto) 0.1 10 ^3/uL (0-0.2); Basophils % (auto) 1.5 % (0.0-2.0); Eosinophils # (auto) 0.2 10 ^3/uL (0-0.8); Eosinophils % (auto) 4.2 % (0.0-7.0); Hematocrit 40.6 % (41.0-53.0); Hemoglobin 13.4 g/dL (13.5-17.5); Lymphocytes # (auto) 1.3 10 ^3/uL (0.4-5.4); Mean Corpuscular Hemoglobin 28.9 pg (28.0-32.0); Mean Corpuscular Volume 87.6 fL (80.0-100.0); Monocytes # (auto) 0.6 10 ^3/uL (0-1.3); Monocytes % (auto) 13.7 % (0.0-12.0); Neutrophils # (auto) 2.2 10 ^3/uL (1.6-8.6); Neutrophils % (auto) 50.6 % (37.0-80.0); Nucleated Red Blood Cells % 0.2 %; Red Blood Cells 4.63 10^6/uL (4.5-5.90); Red Cell Distribution Width 18.2 % (11.8-14.3); White Blood Cell 4.3 10^3/uL (4.4-10.8)
[2023-12-13 20:08] LABS: Chloride 103 mmol/L (98-107); Sodium 141 mmol/L (136-145)
[2023-12-13 20:09] LABS: Anion Gap 7 (5-15); Calcium 8.6 mg/dL (8.7-10.4); Carbon Dioxide 31 mmol/L (20-30)
[2023-12-13 20:14] LABS: Glucose 152 mg/dL (74-106)
[2023-12-13 20:15] LABS: Blood Urea Nitrogen 16 mg/dL (9-23); Magnesium 1.8 mg/dL (1.6-2.6)
[2023-12-13] MEDS: POTASSIUM CHL 20 Meq TABLET PO ONE (21:00)
[2023-12-13] MEDS ORDERED: ACETAMINOPHEN 325 MG TAB PO PRN (21:00)
[2023-12-13] MEDS ORDERED: DEXTROSE (50%) 50ML SYRG IV PRN (21:00)
[2023-12-13] MEDS ORDERED: DOCUSATE SOD 100 MG CAP PO PRN (21:00)
[2023-12-13] MEDS ORDERED: hydrALAZINE HCL 20 MG/ML VL IV PRN (21:00)
[2023-12-13] MEDS ORDERED: MORPHINE SULFATE INJ 2 MG/ml SYRG IV PRN ×2 (21:00→22:15)
[2023-12-13] MEDS ORDERED: ONDANSETRON HCL 4 MG/2 ML VIAL IV PRN (21:00)
[2023-12-13] MEDS ORDERED: ALBUTEROL SULF 2.5 MG/0.5ML(0.5%) NEB SOLN NEB PRN (21:15)
[2023-12-13 21:21] VITALS: BP 156/110; PULSE 107; RESP 20; TEMP 99.1; O2SAT 97
[2023-12-13] MEDS: ACCU-CHEK COMFORT CURVE STRIP VI SCH (22:00)
[2023-12-13] MEDS: ATORVASTATIN 20 MG TAB PO SCH (22:00)
[2023-12-13] MEDS: InsuLIN REG 1unit/0.01ml Soln (100units/ml) SC SCH (22:00)
[2023-12-13] MEDS: SODIUM CHLOR 0.9% PF (SALINE LOCK) 10ML VIAL/SYR IV SCH (22:00)
[2023-12-13] MEDS: CARVEDILOL 12.5 MG TAB PO SCH (22:00)
[2023-12-13] MEDS ORDERED: NITROGLYCERIN 0.4 MG SL TAB SL PRN (22:15)
[2023-12-13] MEDS: ASPirin 81 mg TAB PO ONE (23:12)
[2023-12-13 23:57] VITALS: PULSE 108; RESP 17; O2SAT 100
[2023-12-14] VITALS (12 sets, daily range): BP systolic 101–143; BP diastolic 72–99; PULSE 76–86; RESP 16–20; TEMP 97.5–98.2; O2SAT 94–100
[2023-12-14 02:01] LABS: Amphetamine Screen, Urine Pos (NEGATIVE); Barbiturate Scree,Urine Neg (NEGATIVE); Benzodiazephine Screen, Urine Pos (NEGATIVE); Cannabinoid Screen, Urine Pos (NEGATIVE); Cocaine Screen, Urine Neg (NEGATIVE); Opiate Scree,Urine Neg (NEGATIVE); Phencyclidine Screen, Urine Pos (NEGATIVE)
[2023-12-14] MEDS ORDERED: ALPR2TAB2 PO (03:33)
[2023-12-14] MEDS ORDERED: GUAI100S6 PO (03:33)
[2023-12-14 06:33] LABS: Basophils # (auto) 0 10 ^3/uL (0-0.2); Basophils % (auto) 1.1 % (0.0-2.0); Eosinophils # (auto) 0.2 10 ^3/uL (0-0.8); Eosinophils % (auto) 4.5 % (0.0-7.0); Hematocrit 40.8 % (41.0-53.0); Hemoglobin 12.9 g/dL (13.5-17.5); Lymphocytes % (auto) 24.2 % (10.0-50.0); Mean Corpuscular Hemoglobin 28.7 pg (28.0-32.0); Mean Corpuscular Hgb Conc. 31.7 g/dL (32.0-36.0); Mean Corpuscular Volume 90.6 fL (80.0-100.0); Monocytes # (auto) 0.5 10 ^3/uL (0-1.3); Monocytes % (auto) 13.4 % (0.0-12.0); Neutrophils # (auto) 2.3 10 ^3/uL (1.6-8.6); Neutrophils % (auto) 56.8 % (37.0-80.0); Nucleated Red Blood Cells % 0.2 %; Red Cell Distribution Width 19.2 % (11.8-14.3); White Blood Cell 4.1 10^3/uL (4.4-10.8)
[2023-12-14 06:34] LABS: Alanine Aminotransferase 31 U/L (7-40); Albumin 3.2 g/dL (3.2-4.8); Alkaline Phosphatase 132 U/L (46-116); Anion Gap 9 (5-15); Aspartate Aminotransferase 43 U/L (13-40); BUN/Creatinine Ratio 10.4 (10.0-20.0); Bilirubin, Total 0.8 mg/dL (0.2-1.0); Blood Urea Nitrogen 15 mg/dL (9-23); Calcium 8.8 mg/dL (8.7-10.4); Carbon Dioxide 26 mmol/L (20-30); Chloride 104 mmol/L (98-107); Glucose 127 mg/dL (74-106); Potassium 3.7 mmol/L (3.5-5.1); Sodium 139 mmol/L (136-145)
[2023-12-14] MEDS: ASPirin 81 mg TAB PO SCH (10:21)
[2023-12-14 12:17] LABS: Urine Bacteria None Seen /hpf (None Seen)
[2023-12-14 12:34] LABS: Urine Blood 3+ /uL (Negative); Urine Clarity Ex.Turbid (Clear); Urine Color Dark-Brown (Yellow); Urine Protein, UAD 2+ (Negative); Urine Specific Gravity 1.031 (1.001-1.035); Urine Urobilinogen 2 mg/dL (Negative); Urine WBC 2 /hpf (0 - 3); Urine pH 5.5 (5.0-9.0)
[2023-12-14] MEDS: POTASSIUM CHL 10 Meq TABLET PO ONE (12:45)
[2023-12-14] MEDS: MAGNESIUM OXIDE 400 MG TAB PO ONE (12:45)
[2023-12-14] MEDS: SPIRONOLACTONE 25 MG TAB PO ONE (12:46)
[2023-12-14] MEDS: FUROSEMIDE 40 MG TAB PO SCH (22:09)
[2023-12-14] MEDS: traZODone HCL 50 MG TAB PO SCH (22:09)
[2023-12-14] MEDS: SACUBITRIL-VALSARTAN 24mg/26mg TAB PO SCH (22:18)
[2023-12-15] VITALS (10 sets, daily range): BP systolic 125–139; BP diastolic 61–100; PULSE 77–83; RESP 18–24; TEMP 97.5–98.4; O2SAT 93–100
[2023-12-15 06:53] LABS: Basophils # (auto) 0 10 ^3/uL (0-0.2); Eosinophils # (auto) 0.2 10 ^3/uL (0-0.8); Eosinophils % (auto) 4.3 % (0.0-7.0); Hematocrit 40.2 % (41.0-53.0); Hemoglobin 13.1 g/dL (13.5-17.5); Lymphocytes # (auto) 1.4 10 ^3/uL (0.4-5.4); Lymphocytes % (auto) 28.5 % (10.0-50.0); Mean Corpuscular Hemoglobin 28.8 pg (28.0-32.0); Mean Corpuscular Hgb Conc. 32.6 g/dL (32.0-36.0); Mean Corpuscular Volume 88.4 fL (80.0-100.0); Monocytes # (auto) 0.7 10 ^3/uL (0-1.3); Monocytes % (auto) 14.6 % (0.0-12.0); Neutrophils # (auto) 2.5 10 ^3/uL (1.6-8.6); Neutrophils % (auto) 51.6 % (37.0-80.0); Nucleated Red Blood Cells % 0.1 %; Red Blood Cells 4.55 10^6/uL (4.5-5.90); Red Cell Distribution Width 18.1 % (11.8-14.3); White Blood Cell 4.8 10^3/uL (4.4-10.8)
[2023-12-15 07:10] LABS: INR 1.22 (0.9-1.15); Partial Thromboplastin Time 26.4 SEC (24.5-34.5); Prothrombin Time 12.7 sec (9.3-11.8)
[2023-12-15 07:14] LABS: Alanine Aminotransferase 44 U/L (7-40); Alkaline Phosphatase 132 U/L (46-116); Anion Gap 10 (5-15); BUN/Creatinine Ratio 14.3 (10.0-20.0); Blood Urea Nitrogen 21 mg/dL (9-23); Calcium 8.9 mg/dL (8.7-10.4); Carbon Dioxide 28 mmol/L (20-30); Chloride 100 mmol/L (98-107); Glucose 125 mg/dL (74-106); Potassium 3.3 mmol/L (3.5-5.1); Sodium 138 mmol/L (136-145)
[2023-12-15 07:15] LABS: Albumin 3.3 g/dL (3.2-4.8); Aspartate Aminotransferase 49 U/L (13-40); Bilirubin, Total 0.8 mg/dL (0.2-1.0); Total Protein 6.3 g/dL (5.7-8.2)
[2023-12-15] MEDS: EMPAGLIFLOZIN 10 MG TAB PO SCH (10:10)
[2023-12-15] MEDS: ISOSORBIDE MONONITRATE ER 60 MG TAB PO SCH (10:12)
[2023-12-15] MEDS: SPIRONOLACTONE 25 MG TAB PO SCH (10:13)
[2023-12-15] MEDS: HYDROcodone-ACET 5/325MG TAB PO PRN (10:23)
[2023-12-15] MEDS ORDERED: ASPI81CH59 PO (12:05)
[2023-12-15] MEDS ORDERED: TRAZ-228 PO (12:14)
[2023-12-15] MEDS: NICOTINE 21MG/24 HR TOPICAL PATCH TD ONE (12:28)
[2023-12-15] MEDS ORDERED: POTA1080 PO (13:58)
[2023-12-15] MEDS ORDERED: DOCU-94 PO (13:58)
[2023-12-15] MEDS ORDERED: GABA-1250 PO (14:02)
[2023-12-15] MEDS: POTASSIUM CHL 20 Meq TABLET PO ONE (16:09)
[2023-12-16 00:17] VITALS: O2SAT 98
[2023-12-16 01:00] VITALS: BP 129/80; PULSE 75; RESP 20; TEMP 97.9; O2SAT 97
[2023-12-16 05:00] VITALS: BP 107/71; PULSE 70; RESP 20; TEMP 97.4; O2SAT 99
[2023-12-16 06:43] LABS: Basophils # (auto) 0 10 ^3/uL (0-0.2); Basophils % (auto) 0.8 % (0.0-2.0); Eosinophils # (auto) 0.1 10 ^3/uL (0-0.8); Eosinophils % (auto) 2.6 % (0.0-7.0); Hematocrit 39.3 % (41.0-53.0); Hemoglobin 12.8 g/dL (13.5-17.5); Lymphocytes # (auto) 1.2 10 ^3/uL (0.4-5.4); Lymphocytes % (auto) 24.5 % (10.0-50.0); Mean Corpuscular Hemoglobin 28.8 pg (28.0-32.0); Mean Corpuscular Hgb Conc. 32.5 g/dL (32.0-36.0); Mean Corpuscular Volume 88.6 fL (80.0-100.0); Monocytes # (auto) 0.7 10 ^3/uL (0-1.3); Monocytes % (auto) 14.2 % (0.0-12.0); Neutrophils # (auto) 2.7 10 ^3/uL (1.6-8.6); Neutrophils % (auto) 57.9 % (37.0-80.0); Red Blood Cells 4.44 10^6/uL (4.5-5.90); Red Cell Distribution Width 18.2 % (11.8-14.3); White Blood Cell 4.7 10^3/uL (4.4-10.8)
[2023-12-16 06:48] LABS: Alanine Aminotransferase 45 U/L (7-40); Alkaline Phosphatase 132 U/L (46-116); Anion Gap 6 (5-15); Aspartate Aminotransferase 44 U/L (13-40); BUN/Creatinine Ratio 14.9 (10.0-20.0); Blood Urea Nitrogen 23 mg/dL (9-23); Calcium 8.6 mg/dL (8.7-10.4); Carbon Dioxide 29 mmol/L (20-30); Chloride 103 mmol/L (98-107); Glucose 107 mg/dL (74-106); Potassium 4.1 mmol/L (3.5-5.1); Sodium 138 mmol/L (136-145)
[2023-12-16 06:49] LABS: Albumin 3.3 g/dL (3.2-4.8); Bilirubin, Total 0.7 mg/dL (0.2-1.0); Total Protein 6.1 g/dL (5.7-8.2)
[2023-12-16 08:26] VITALS: BP 127/76; PULSE 79; RESP 20; TEMP 97.9; O2SAT 97
[2023-12-16] MEDS ORDERED: NICOTINE 21MG/24 HR TOPICAL PATCH TD SCH (10:00)
== END 2023-12-16 09:09 | disposition left against medical advice (07) | DRG 812 ==
LOC: ER 19:41 → EDBD 19:41 → TELE 22:01 → TELE-WESTW 12-14 01:55
PROVIDERS: ADMIT Internal Medicine Pulmonary Disease; ATTEND Emergency Medicine
DX: T40.411A Poisoning by fentanyl or fentanyl analogs, accidental (unintentional), initial encounter (principal); I21.A1 Myocardial infarction type 2; D68.9 Coagulation defect, unspecified; I42.8 Other cardiomyopathies; I13.0 Hypertensive heart and chronic kidney disease with heart failure and stage 1 through stage 4 chronic kidney disease, or unspecified chronic kidney disease; I50.22 Chronic systolic (congestive) heart failure; N17.9 Acute kidney failure, unspecified; T42.4X1A Poisoning by benzodiazepines, accidental (unintentional), initial encounter; T40.721A Poisoning by synthetic cannabinoids, accidental (unintentional), initial encounter; T40.991A Poisoning by other psychodysleptics [hallucinogens], accidental (unintentional), initial encounter; E11.22 Type 2 diabetes mellitus with diabetic chronic kidney disease; E11.65 Type 2 diabetes mellitus with hyperglycemia; E87.6 Hypokalemia; N18.2 Chronic kidney disease, stage 2 (mild); R31.9 Hematuria, unspecified; Z53.29 Procedure and treatment not carried out because of patient's decision for other reasons; F14.10 Cocaine abuse, uncomplicated; J44.9 Chronic obstructive pulmonary disease, unspecified; E78.5 Hyperlipidemia, unspecified; F17.210 Nicotine dependence, cigarettes, uncomplicated; F15.10 Other stimulant abuse, uncomplicated; F12.10 Cannabis abuse, uncomplicated; I25.10 Atherosclerotic heart disease of native coronary artery without angina pectoris; K74.60 Unspecified cirrhosis of liver; Z79.899 Other long term (current) drug therapy; Y92.89 Other specified places as the place of occurrence of the external cause; Z79.82 Long term (current) use of aspirin; Z82.49 Family history of ischemic heart disease and other diseases of the circulatory system; Z83.3 Family history of diabetes mellitus; Z95.810 Presence of automatic (implantable) cardiac defibrillator; Z79.84 Long term (current) use of oral hypoglycemic drugs; Z91.199 Patient's noncompliance with other medical treatment and regimen due to unspecified reason
CPT/HCPCS: 36415; 71045; 76775; 80048; 80053; 80307; 81001; 82962; 83735; 83880; 84443; 84484; 85025; 85610; 85730; 87081; 87086; 93005; 99291; G0378; J1815

== ENCOUNTER 2024-04-27 11:29 | Inpatient (IN) | payer MEDICAID ==
[~2024-04-27] VITALS: Ht 180.3 cm; Wt 113.6 kg
[~2024-04-27 11:29] MED LIST changes: +ALBU108A5 INH; +ALPR1TAB7 PO; +ALPR2TAB2 PO; -ASPI1TAB20 PO; +ASPI81CH59 PO; -CARV-214 PO; +CARV12.544 PO; +DOCU-265 PO; +DOCU-94 PO; -FURO1TAB31 PO; +GABA-1250 PO; +GUAI-41 PO; +GUAI100S6 PO; -ISOS1TAB28 PO; -LEVO500T91 PO; +OXYC15TA PO; -POTA-264; +POTA-264 PO; +POTA1080 PO; +SILV1CRE TOP; -TAMS-35 PO; -TAMS0.4C36 PO; +TAMS0.4C39 PO; -TRAZ-227 PO
--- NOTE | 2024-04-27 12:21 | ED.PDOC ---
SOB-HPI HPI Comments 54y M who presents to the ED via EMS for chief complaint of flu-like symptoms. Pt states he has been having fever, cough, chills, congestion, body aches and headache for the past 2 days. Pt states he called EMS after he started having exacerbation of his symptoms with new associated chest pain. Pt states the chest pain is constant, L side of chest, non-radiating, with no associated exacerbating or relieving factors. Pt otherwise has noted history of COPD and is currently on 2 L via ok, with associated history of CHF, HTN, Dm and prior MS. Pt states he is drug user and states he recently has taken marijuana, PCP, and METH and states he is daily vodka drinker. Pt otherwise has noted temp of 100.1F and BP of 163/81 with normal 02 sat of 97% on room air and all other vitals in normal range. Pt otherwise denies any other symptoms at this time. 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 Information Source: Patient, Emergency Med Personnel Mode of Arrival: EMS Brought in by: EMS Severity: Moderate Timing: Days Duration: Since onset Context: At Rest, With Light Exertion PE Risk Factors: None History of: COPD, CHF Prehospital treatment: None Modifying Factors: Nothing Associated Signs and Symptoms: Cough Quality: Pressure Radiation: No Radiation Location: Chest (L) If cough with SOB: Non-Productive Past Medical History PAST MEDICAL HISTORY: CHF, CKF, COPD, DM, High Lipids, HTN, MS, Schizophrenia Surgical History: Pacemaker, PTCA Family History Family History: Family hx of DM, Family hx of Cancer, Family hx of heart navid, Family hx of HTN Social History Smoker: Cigarettes Alcohol: Occasionally Drugs: Cocaine, Marijuana, Methamphetamine Lives In: Home Constitutional: reports: chills, fatigue, weakness; denies: diaphoresis, fever, malaise, sweats, others EENTM: denies: blurred vision, double vision, ear bleeding, ear discharge, ear drainage, ear pain, ear ringing, eye pain, eye redness, hearing loss, mouth pain, mouth swelling, nasal discharge, nose bleeding, nose congestion, nose pain, photophobia, tearing, throat pain, throat swelling, voice changes, others Respiratory: reports: shortness of breath; denies: cough, hemoptysis, orthopnea, SOB at rest, SOB with excertion, stridor, wheezing, others Cardiovascular: reports: chest pain; denies: dizzy spells, diaphoresis, Dyspnea on exertion, edema, irregular heart beat, left arm pain, lightheadedness, palpitations, PND, syncope, others Gastrointestinal: denies: abdomen distended, abdominal pain, blood streaked bowels, constipated, diarrhea, dysphagia, difficulty swallowing, hematemesis, melena, nausea, poor appetite, poor fluid intake, rectal bleeding, rectal pain, vomiting, others Genitourinary: denies: burning, dysuria, flank pain, frequency, hematuria, i ncontinence, penile discharge, penile sore, pain, testicle pain, testicle swelling, urgency, others Neurological: denies: dizziness, fainting, headache, left sided numbness, left sided weakness, numbness, paresthesia, pre-existing deficit, right sided numbness, right sided weakness, seizure, speech problems, tingling, tremors, weakness, others Musculoskeletal: denies: back pain, gout, joint pain, joint swelling, muscle pain, muscle stiffness, neck pain, others Integumetry: denies: bruises, change in color, change in hair/nails, dryness, laceration, lesions, lumps, rash, wounds, others Allergic/Immunocompromised: denies: Difficulty Healing, Frequent Infections, Hives, Itching, others Hematologic/Lymphatic: denies: anemia, blood clots, easy bleeding, easy bruising, swollen glands, others Endocrine: denies: excessive hunger, excessive sweating, excessive thirst, excessive urination, flushing, intolerance to cold, intolerance to heat, unexplained weight gain, unexplained weight loss, others Psychiatric: denies: anxiety, bipolar disorder, depression, hopeless, panic disorder, schizophrenia, sleepless, suicidal, others All Other Systems: Reviewed and Negative Physical Exam General Appearance: Moderate Distress HEENT: Normal ENT Inspection, Pharynx Normal, TMs Normal Neck: Full Range of Motion, Non-Tender, Normal, Normal Inspection Respiratory: Chest Non-Tender, Lungs Clear, No Accessory Muscle Use, No Respiratory Distress, Normal Breath Sounds Cardiovascular: No Edema, No JVD, No Murmur, No Gallop, Normal Peripheral Pulses, Regular Rate/Rhythm Breast Exam: Deferred Gastrointestinal: No Organomegaly, Non Tender, No Pulsatile Mass, Normal Bowel Sounds, Soft Genitalia: Deferred Pelvic: Deferred Rectal: Deferred Extremities: No calf tenderness, Normal capillary refill, Pedal edema Musculoskeletal : Apperance: Normal Neurologic: Alert, framing specialist II-XII nml as Tested, Motor Weakness, Normal Affect, Normal Mood, No Sensory Deficits Cerebellar Function: Normal Reflexes: Normal Skin: Dry, Normal Color, Warm Lymphatic: No Adenopathy EKG EKG : Pulse Rate (adult): 67 [place]: Normal Cardiac Rhythm: NSR Block: None Hypertrophy: None ST: Normal Was a procedure done? Was a procedure done?: No Differential Dx Differential Diagnosis: Asthma, Bronchitis, CHF, COPD, Myocardial infarction, Pneumonia, Pulmonary Embolism, Respiratory Distress, URI X-Ray, Labs, Meds, VS Vital Signs Date Time Temp Pulse Resp B/P (MAP) Pulse Ox O2 Delivery O2 Flow Rate FiO2 04/27/24 12:24 68 18 100 Room Air 04/27/24 12:24 68 18 140/92 (108) 100 04/27/24 12:21 67 04/27/24 11:37 67 04/27/24 11:31 97.1 79 24 162/107 (125) 98 Lab Test 04/27/24 12:37 04/27/24 12:03 Range/Units Troponin I High Sensitivity 48 48 </=54 ng/L White Blood Count 5.2 4.4-10.8 10^3/uL Red Blood Count 4.24 L 4.5-5.90 10^6/uL Hemoglobin 11.8 L 13.5-17.5 g/dL Hematocrit 36.9 L 41.0-53.0 % Mean Corpuscular Volume 86.9 80.0-100.0 fL Mean Corpuscular Hemoglobin 27.8 L 28.0-32.0 pg Mean Corpuscular Hemoglobin Concent 32.0 32.0-36.0 g/dL Red Cell Distribution Width 20.1 H 11.8-14.3 % Platelet Count 159 140-450 10^3/uL Mean Platelet Volume 8.3 6.9-10.8 fL Neutrophils (%) (Auto) 71.6 37.0-80.0 % Lymphocytes (%) (Auto) 14.8 10.0-50.0 % Monocytes (%) (Auto) 11.3 0.0-12.0 % Eosinophils (%) (Auto) 1.6 0.0-7.0 % Basophils (%) (Auto) 0.7 0.0-2.0 % Neutrophils # (Auto) 3.7 1.6-8.6 10 ^3/uL Lymphocytes # (Auto) 0.8 0.4-5.4 10 ^3/uL Monocytes # (Auto) 0.6 0-1.3 10 ^3/uL Eosinophils # (Auto) 0.1 0-0.8 10 ^3/uL Basophils # (Auto) 0 0-0.2 10 ^3/uL Nucleated Red Blood Cells 0.1 % Sodium Level 142 136-145 mmol/L Potassium Level 4.1 3.5-5.1 mmol/L Chloride Level 108 H 98-107 mmol/L Carbon Dioxide Level 29 20-31 mmol/L Anion Gap 5 5-15 Blood Urea Nitrogen 19 9-23 mg/dL Creatinine 1.38 H 0.700-1.30 mg/dL Glomerular Filtration Rate Calc 61 >90 mL/min BUN/Creatinine Ratio 13.8 10.0-20.0 Serum Glucose 170 H 74-106 mg/dL Calcium Level 8.9 8.7-10.4 mg/dL B-Type Natriuretic Peptide 737.78 0-100 pg/mL PROCEDURE(s): CXRP - CHEST PORTABLE IMPRESSION: Mild cardiomegaly with very mild prominence of the central pulmonary vasculature. The patient's CBC is within normal limits The chemistry panel is within normal limits. The BNP is elevated at 737.78 The patient was being placed on Lasix 40 mg IV push At this time, the patient was being admitted to the hospitalist A cardiology consult will be obtained Images Reviewed?: Images reviewed and evaluated by me Time of 1ST Reevaluation: 12:45 Reevaluation 1ST: Unchanged Patient Education/Counseling: Diagnosis, Treatment Family Education/Counseling: No Family Present Additional Information - I reviewed the following notes from patient's past medical encounters: - The following tests were ordered, and results were reviewed by me: CBC, chest x-ray, BNP, troponin x3, EKG x3, BMP, - Additional information was gathered from interviewing the following independe nt Historian: EMS - I reviewed and agreed with the following test results read by other provider: radiologist - I discussed treatments and results with medical personnel and: patient Departure 1 Departure Time of Disposition: 13:18 Impression: Primary Impression: Acute coronary syndrome Additional Impressions: Acute on chronic diastolic heart failure Methamphetamine use Poorly-controlled hypertension Disposition: ADMITTED INPATIENT Admit to: Tele Condition: Fair Critical Care Note Critical Care Time?: Yes (35 min-critical care time only) Stability Stability form required: Yes Unstable for transfer: Telemetry monitoring (Telemetry monitoring required), ED Physician Assesment (Clinical assesment) Heart Score Heart Score: Heart Score Response (Comments) Value History Moderate Suspicious 1 EKG Normal 0 Age 45-64 1 Risk Factors >3 or Hx ASHD 2 Troponin Normal limit 0 Total 4 I personally scribed for MEY MATTSON MD ([email or web address]) on 04/27/24 at 12:21. Electronically submitted by Zayda Rothman ([email or web address]). I personally scribed for MEY MATTSON MD ([email or web address]) on 04/27/24 at 13:02. Electronically submitted by Zayda Rothman ([email or web address]). MEY MATTSON MD Apr 27, 2024 12:21
--- NOTE | 2024-04-27 12:33 | DVH ---
EXAM: XY CHEST PORTABLE CLINICAL HISTORY: cp TECHNIQUE: Single AP view of the chest WID: COMPARISON: XY CHEST PORTABLE on DOS: 12/13/23 FINDINGS: Lines and tubes: Left-sided single lead AICD Chest: Cardiomegaly with mild prominence of the central pulmonary vasculature. No pleural effusion, pneumothorax, or consolidation. The osseous structures are grossly intact. Mild degenerative changes of the bilateral shoulders. IMPRESSION: Mild cardiomegaly with very mild prominence of the central pulmonary vasculature.
[2024-04-27 12:36] LABS: Basophils # (auto) 0 10 ^3/uL (0-0.2); Basophils % (auto) 0.7 % (0.0-2.0); Eosinophils # (auto) 0.1 10 ^3/uL (0-0.8); Eosinophils % (auto) 1.6 % (0.0-7.0); Hematocrit 36.9 % (41.0-53.0); Hemoglobin 11.8 g/dL (13.5-17.5); Lymphocytes # (auto) 0.8 10 ^3/uL (0.4-5.4); Lymphocytes % (auto) 14.8 % (10.0-50.0); Mean Corpuscular Hemoglobin 27.8 pg (28.0-32.0); Mean Corpuscular Volume 86.9 fL (80.0-100.0); Monocytes # (auto) 0.6 10 ^3/uL (0-1.3); Monocytes % (auto) 11.3 % (0.0-12.0); Neutrophils # (auto) 3.7 10 ^3/uL (1.6-8.6); Neutrophils % (auto) 71.6 % (37.0-80.0); Nucleated Red Blood Cells % 0.1 %; Platelet Count (auto) 159 10^3/uL (140-450); Red Blood Cells 4.24 10^6/uL (4.5-5.90); Red Cell Distribution Width 20.1 % (11.8-14.3); White Blood Cell 5.2 10^3/uL (4.4-10.8)
[2024-04-27 12:46] LABS: Potassium 4.1 mmol/L (3.5-5.1); Sodium 142 mmol/L (136-145)
[2024-04-27 12:47] LABS: Anion Gap 5 (5-15); Carbon Dioxide 29 mmol/L (20-31)
[2024-04-27 12:48] LABS: Calcium 8.9 mg/dL (8.7-10.4)
[2024-04-27 12:53] LABS: BUN/Creatinine Ratio 13.8 (10.0-20.0); Blood Urea Nitrogen 19 mg/dL (9-23)
[2024-04-27 12:55] LABS: Chloride 108 mmol/L (98-107); Glucose 170 mg/dL (74-106)
[2024-04-27] MEDS: FUROSEMIDE 40 MG/4 ML VIAL IV ONE (13:30)
[2024-04-27] MEDS ORDERED: ALBUTEROL SULF 2.5 MG/0.5ML(0.5%) NEB SOLN NEB PRN (16:15)
[2024-04-27] MEDS ORDERED: TEMAZEPAM 15 MG CAP PO PRN (16:15)
[2024-04-27] MEDS ORDERED: IPRATROPIUM BROM 0.5 MG/2.5ML INH SOL NEB PRN (16:15)
[2024-04-27] MEDS: LORazepam 2MG/ML-1ML VIAL IV SCH (16:15)
[2024-04-27] MEDS ORDERED: ACETAMINOPHEN 325 MG TAB PO PRN (16:15)
[2024-04-27] MEDS ORDERED: DEXTROSE (50%) 50ML SYRG IV PRN (16:15)
[2024-04-27] MEDS ORDERED: LORazepam 2MG/ML-1ML VIAL IV PRN (16:15)
[2024-04-27] MEDS ORDERED: HYDROcodone-ACET 5/325MG TAB PO PRN (16:15)
[2024-04-27] MEDS ORDERED: HALOPERIDOL LACTATE 5 MG/ML INJ VIAL IM PRN (16:15)
[2024-04-27] MEDS ORDERED: DOCUSATE SOD 100 MG CAP PO PRN (16:15)
[2024-04-27] MEDS ORDERED: ONDANSETRON HCL 4 MG/2 ML VIAL IV PRN (16:15)
[2024-04-27] MEDS ORDERED: MORPHINE SULFATE INJ 2 MG/ml SYRG IV PRN (16:15)
--- NOTE | 2024-04-27 16:45 | DVHHP2 ---
History of Present Illness Reason for Visit: Shortness of pain History of Present Illness 54-year-old obese patient with a past medical history of COPD CHF CKD diabetes hypertension hyperlipidemia and schizophrenia patient comes in today with multiple complaints including flu-like symptoms for the past 2 days patient states due to this he also has associated chest pain shortness of breath in his main complaint includes the fact that breathing has become more difficult normally the patient is on 2 L of oxygen at home however he stating that he required more oxygen than he normally has patient does have a history of using polysubstance is including math marijuana PCP and a daily drinker with vodka patient was recommended for further evaluation and management on inpatient basis we will admit for continued care Cardiovascular: CAD, CHF Renal/: Chronic renal insuff, Chronic renal failure ALCOHOL: heavy Drugs: Marijuana, Other (Methamphetamine) Review of Systems Constitutional: Yes: Fever, Weakness, Malaise; No: Chills, Sweats, Other Eyes: No: Pain, Vision change, Conjunctivae inflammation, Eyelid inflammation, Other, Redness ENT: No: Ear pain, Ear discharge, Nose pain, Nose discharge, Nose congestion, Mouth pain, Mouth swelling, Throat pain, Throat swelling, Other Respiratory: Cough, Shortness of breath, SOB with excertion; No: Dry, Wheezing, Hemoptysis, Pleuritic Pain, Sputum, Wheezing, Other Cardiovascular: Chest Pain, Palpitations; No: Orthopnea, Paroxysmal Noc. Dyspnea, Edema, Lt Headedness, Other Gastrointestinal: Nausea, Vomiting; No: Abdominal Pain, Diarrhea, Constipation, Melena, Hematochezia, Other Genitourinary: No Dysuria, No Frequency, No Incontinence, No Hematuria, No Retention, No Other Musculoskeletal: No: other, neck pain, shoulder pain, arm pain, back pain, hand pain, leg pain, foot pain Skin: No: Rash, Lesions, Jaundice, Bruising, Other Neurological: No: Weakness, Numbness, Incoordination, Change in speech, Confusion, Seizures, Other Allergies: Coded Allergies: NO KNOWN ALLERGIES (Unverified , 01/15/15) Medications Current Medications Medications Dose Ordered Sig/Chente Route Start Time Stop Time Status Last Admin Dose Admin Furosemide 40 mg BID IV 04/27/24 22:00 UNV Albuterol 2.5 mg Q4HPRN PRN NEB 04/27/24 16:15 UNV Ipratropium [place] 0.5 mg Q4HR PRN NEB 04/27/24 16:15 UNV Ceftriaxone Sodium 50 ml @ 100 mls/hr DAILY IV 04/27/24 16:15 UNV Azithromycin 500 mg DAILY PO 04/28/24 10:00 UNV Methylprednisolone Sodium Succinate 40 mg BID IV 04/27/24 22:00 UNV Chlordiazepoxide HCl 25 mg DAILY PO 04/28/24 10:00 UNV Haloperidol Lactate 10 mg Q6HPRN PRN IM 04/27/24 16:15 UNV Thiamine HCl 100 mg DAILY PO 04/28/24 10:00 UNV Folic Acid 1 mg DAILY PO 04/28/24 10:00 UNV Multivitamins 1 tab DAILY PO 04/28/24 10:00 UNV Lorazepam 2 mg Q15M IV 04/27/24 16:15 UNV Lorazepam 2 mg Q3H IV 04/27/24 16:15 UNV Diagnostic Test (Pha) 1 strip IQ4HR 04/27/24 20:00 UNV Insulin Human Regular IQ4HR SC 04/27/24 20:00 UNV Dextrose 50 ml UD PRN IV 04/27/24 16:15 UNV Lorazepam 0.5 mg Q6HP PRN PO 04/27/24 16:15 UNV Docusate Sodium 100 mg BIDPRN PRN PO 04/27/24 16:15 UNV Acetaminophen 650 mg Q6HP PRN PO 04/27/24 16:15 UNV Temazepam 15 mg QHSP PRN PO 04/27/24 16:15 UNV Acetaminophen/ Hydrocodone Bitart 1 tab Q4HP PRN PO 04/27/24 16:15 UNV Ondansetron HCl 4 mg Q4HP PRN IV 04/27/24 16:15 UNV Morphine Sulfate 2 mg Q4HPRN PRN IV 04/27/24 16:15 UNV Exam Vital Signs Vital Signs Date Time Temp Pulse Resp B/P (MAP) Pulse Ox O2 Delivery O2 Flow Rate FiO2 04/27/24 12:24 68 18 100 Room Air 04/27/24 12:24 140/92 (108) 04/27/24 11:31 97.1 General Appearance: Alert, Oriented X3, Cooperative, moderate distress HEENT: Atraumatic, PERRLA, EOMI Respiratory: Clear to auscultation (Bilateral crackles), Normal air movement Cardiovascular: Regular rate, Normal S1, Normal S2 Abdominal: Normal bowel sounds, Soft, No tenderness Extremities: No clubbing, No cyanosis, No edema (Bilateral trace edema) Skin: No rashes, No breakdown Neuro: Normal gait, Normal speech Psych/Mental Status: Mood NL Labs/Xrays Labs Test 04/27/24 12:37 04/27/24 12:03 Range/Units Troponin I High Sensitivity 48 </=54 ng/L White Blood Count 5.2 4.4-10.8 10^3/uL Red Blood Count 4.24 L 4.5-5.90 10^6/uL Hemoglobin 11.8 L 13.5-17.5 g/dL Hematocrit 36.9 L 41.0-53.0 % Mean Corpuscular Volume 86.9 80.0-100.0 fL Mean Corpuscular Hemoglobin 27.8 L 28.0-32.0 pg Mean Corpuscular Hemoglobin Concent 32.0 32.0-36.0 g/dL Red Cell Distribution Width 20.1 H 11.8-14.3 % Platelet Count 159 140-450 10^3/uL Mean Platelet Volume 8.3 6.9-10.8 fL Neutrophils (%) (Auto) 71.6 37.0-80.0 % Lymphocytes (%) (Auto) 14.8 10.0-50.0 % Monocytes (%) (Auto) 11.3 0.0-12.0 % Eosinophils (%) (Auto) 1.6 0.0-7.0 % Basophils (%) (Auto) 0.7 0.0-2.0 % Neutrophils # (Auto) 3.7 1.6-8.6 10 ^3/uL Lymphocytes # (Auto) 0.8 0.4-5.4 10 ^3/uL Monocytes # (Auto) 0.6 0-1.3 10 ^3/uL Eosinophils # (Auto) 0.1 0-0.8 10 ^3/uL Basophils # (Auto) 0 0-0.2 10 ^3/uL Nucleated Red Blood Cells 0.1 % Sodium Level 142 136-145 mmol/L Potassium Level 4.1 3.5-5.1 mmol/L Chloride Level 108 H 98-107 mmol/L Carbon Dioxide Level 29 20-31 mmol/L Anion Gap 5 5-15 Blood Urea Nitrogen 19 9-23 mg/dL Creatinine 1.38 H 0.700-1.30 mg/dL Glomerular Filtration Rate Calc 61 >90 mL/min BUN/Creatinine Ratio 13.8 10.0-20.0 Serum Glucose 170 H 74-106 mg/dL Calcium Level 8.9 8.7-10.4 mg/dL B-Type Natriuretic Peptide 737.78 0-100 pg/mL Assessment/Plan Assessment/Plan Admit to [facility] [place] Acute on chronic CHF exacerbation believed to be diastolic in nature History of COPD exacerbation History of polysubstance abuse and addiction History of uncontrolled hypertension Acute CHF exacerbation management Diuretics BNP greater than 700 COPD management including treating acute COPD exacerbation possibly secondary to bacteria versus viral forms of infection IV antibiotics P.o. antibiotics Steroids b.i.d. P.r.n. breathing treatments for continued care and management History of daily alcohol abuse and drug abuse Patient will need to be monitored closely for signs of severe or possible impending alcohol withdrawal Daily management with vitamins and withdrawal like protocol Plan discussed with: Patient My Orders Orders - PILAR VARGHESE MD Procedure Category Date Status Time Furosemide Injection PHA 04/27/24 Logged (Lasix Injection) 22:00 Albuterol Medneb PHA 04/27/24 Logged (Ventolin Medneb) 16:15 Ipratropium Medneb PHA 04/27/24 Logged (Atrovent Medneb) 16:15 Med Neb Initial RT 04/27/24 Logged Treatment 16:08 Ceftriaxone 1gm/50ml PHA 04/27/24 Logged D5w (Rocephin) 16:15 Azithromycin Tablet PHA 04/28/24 Logged (Zithromax Tablet) 10:00 Urinalysis LAB 04/27/24 Logged 16:08 Drug Screen LAB 04/27/24 Logged 16:08 Urine Ethanol LAB 04/27/24 Logged 16:08 Methylprednisolone PHA 04/27/24 Logged Sod Succ (Solu Medrol 22:00 Chlordiazepoxide Hcl PHA 04/28/24 Logged Capsule (Librium Ca 10:00 Haloperidol Lactate PHA 04/27/24 Logged Injection (Haldol) 16:15 Thiamine Tab PHA 04/28/24 Logged 10:00 Folic Acid Tablet PHA 04/28/24 Logged 10:00 Multiple Vitamin PHA 04/28/24 Logged Tablet (Mvi Tab) 10:00 Thiamine Tab PHA 04/27/24 Logged 16:15 Multiple Vitamin PHA 04/27/24 Logged Tablet (Mvi Tab) 16:15 Folic Acid Tablet PHA 04/27/24 Logged 16:15 Lorazepam 2mg/Ml Inj PHA 04/27/24 Logged (Ativan Inj) 16:15 Lorazepam 2mg/Ml Inj PHA 04/27/24 Logged (Ativan Inj) 16:15 Etoh Withdrawal LATIA 04/27/24 In Process Assessment 16:08 Etoh Withdrawal LATIA 04/27/24 In Process Assessment 16:08 Glucose Blood PHA 04/27/24 Logged (Accu-Chek Comfort 20:00 Insulin R (Human) PHA 04/27/24 Logged (Insulin R) 20:00 Dextrose 50% Syringe PHA 04/27/24 Logged 16:15 Admit ADMIT 04/27/24 Transmitted 16:08 Code Status CODE 04/27/24 Transmitted 16:08 Vital Signs LATIA 04/27/24 In Process 16:08 Review Orders With [facility] 04/27/24 In Process Adm. 16:08 Consistent DIET 04/27/24 Transmitted Carb(Ccho)Diabetes Dinner Lorazepam Tablet PHA 04/27/24 Logged (Ativan Tablet) 16:15 Docusate Sodium PHA 04/27/24 Logged Capsule (Colace 16:15 Acetaminophen Tablet PHA 04/27/24 Logged (Tylenol Tablet) 16:15 Temazepam (Restoril) PHA 04/27/24 Logged 16:15 Notify Md Of Changes LATIA 04/27/24 In Process From Base 16:08 Advance Directive LATIA 04/27/24 In Process 16:08 Patient Condition ORDERS 04/27/24 Transmitted 16:08 Allergies LATIA 04/27/24 In Process 16:08 Hydrocodone-Acet PHA 04/27/24 Logged 5/325mg Tab ([place] 16:15 Ondansetron Hcl PHA 04/27/24 Logged (Zofran) 16:15 Morphine Sulfate PHA 04/27/24 Logged Injection 16:15 Rn Relief Charge For LATIA 04/27/24 In Process 24 Hours 16:08 Oxygen By Nasal RT 04/27/24 Transmitted Cannula 16:08 Notify Of Changes [facility] 04/27/24 In Process From Base 16:08 Problem List: (1) Methamphetamine use (2) Poorly-controlled hypertension (3) Acute on chronic diastolic heart failure (4) Medical non-compliance (5) Cannabis abuse (6) Cocaine abuse (7) Generalized weakness Date of Service: Apr 27, 2024 Billing Provider: PILAR VARGHESE MD Common Visit Codes: [id number] INP/OBS CARE (HIGH) PILAR VARGHESE MD Apr 27, 2024 16:45
--- NOTE | 2024-04-27 19:14 | ECG ---
[facility] [place] Test Date: 2024-04-27 Test Time: 11:36:43 Pat Name: [facility] Department: ED Room: 0212T Gender: M [employer] Supervisor: LENNY : 1970 Requested By: MEY MATTSON Order Number: [id number] Reading MD: Mariano Franco Measurements Intervals [place] Rate: 67 P: 69 OK: 178 QRS: 189 QRSD: 130 T: 1 QT: 435 QTc: 460 Interpretive Statements Sinus rhythm Nonspecific intraventricular conduction delay Anteroseptal infarct, old Minimal ST depression Borderline ST elevation, lateral leads Baseline wander in lead(s) II,III,aVF Electronically Signed On 04-28-2024 12:50:20 PST by Mariano Franco Please click the below link to view image of tracing.
[2024-04-27 19:19] VITALS: O2SAT 89
[2024-04-27] MEDS: FOLIC ACID 1 MG TAB PO ONE (19:24)
[2024-04-27] MEDS: MULTIPLE VITAMIN TAB PO ONE (19:25)
[2024-04-27] MEDS: LORazepam 0.5 MG TAB PO PRN (19:25)
[2024-04-27] MEDS: THIAMINE HCL 100 MG TAB PO ONE (19:25)
[2024-04-27] MEDS: FUROSEMIDE 40 MG/4 ML VIAL IV SCH (19:31)
[2024-04-27] MEDS: cefTRIAXone 1GM/50ML D5W 50 ML IV SCH (19:31)
[2024-04-27] MEDS: ACCU-CHEK COMFORT CURVE STRIP VI SCH (20:00)
[2024-04-27] MEDS: InsuLIN REG 1unit/0.01ml Soln (100units/ml) SC SCH (20:00)
[2024-04-27] MEDS: methylPREDNISolone SOD SUCC 40 MG/ML VL IV SCH (22:00)
[2024-04-27 23:32] VITALS: BP 163/98; PULSE 85; RESP 20; TEMP 98.5; O2SAT 97
[2024-04-27 23:50] VITALS: PULSE 78; RESP 18; O2SAT 95
[2024-04-28] VITALS (8 sets, daily range): BP systolic 164–185; BP diastolic 102–112; PULSE 77–104; RESP 18–21; TEMP 97–98.9; O2SAT 93–100
[2024-04-28] MEDS: MULTIPLE VITAMIN TAB PO SCH (08:28)
[2024-04-28] MEDS: FOLIC ACID 1 MG TAB PO SCH (08:28)
[2024-04-28] MEDS: AZITHROMYCIN 250 MG TAB PO SCH (08:29)
[2024-04-28] MEDS: chlordiazePOXIDE HCL 25 MG CAP PO SCH (08:29)
[2024-04-28] MEDS: THIAMINE HCL 100 MG TAB PO SCH (08:29)
[2024-04-28 09:36] LABS: Basophils # (auto) 0.1 10 ^3/uL (0-0.2); Basophils % (auto) 1.2 % (0.0-2.0); Eosinophils # (auto) 0.1 10 ^3/uL (0-0.8); Eosinophils % (auto) 2.9 % (0.0-7.0); Hematocrit 39.8 % (41.0-53.0); Hemoglobin 12.5 g/dL (13.5-17.5); Mean Corpuscular Hgb Conc. 31.3 g/dL (32.0-36.0); Mean Corpuscular Volume 89.2 fL (80.0-100.0); Monocytes # (auto) 0.7 10 ^3/uL (0-1.3); Monocytes % (auto) 13.6 % (0.0-12.0); Neutrophils % (auto) 61.3 % (37.0-80.0); Nucleated Red Blood Cells % 0.3 %; Platelet Count (auto) 168 10^3/uL (140-450); Red Blood Cells 4.46 10^6/uL (4.5-5.90); Red Cell Distribution Width 20.5 % (11.8-14.3); White Blood Cell 4.9 10^3/uL (4.4-10.8)
[2024-04-28 09:55] LABS: Alanine Aminotransferase 28 U/L (7-40); Anion Gap 8 (5-15); Aspartate Aminotransferase 32 U/L (13-40); BUN/Creatinine Ratio 11.6 (10.0-20.0); Blood Urea Nitrogen 18 mg/dL (9-23); Calcium 9.4 mg/dL (8.7-10.4); Carbon Dioxide 28 mmol/L (20-31); Chloride 106 mmol/L (98-107); Potassium 4.1 mmol/L (3.5-5.1); Sodium 142 mmol/L (136-145)
[2024-04-28 09:56] LABS: Total Protein 7.2 g/dL (5.7-8.2)
[2024-04-28] MEDS ORDERED: ALPR1TAB7 PO (09:56)
[2024-04-28] MEDS ORDERED: PANT40T PO (09:56)
[2024-04-28] MEDS ORDERED: ATOR40TA52 PO (09:56)
[2024-04-28] MEDS ORDERED: DILT120T13 PO (09:56)
[2024-04-28] MEDS ORDERED: APIX2.5T PO (09:56)
[2024-04-28] MEDS ORDERED: FOLI-119 PO (09:56)
[2024-04-28] MEDS ORDERED: OXYC325T14 PO (09:56)
[2024-04-28 09:57] LABS: Alkaline Phosphatase 201 U/L (46-116); Glucose 110 mg/dL (74-106)
[2024-04-28 10:09] LABS: Bilirubin, Total 0.7 mg/dL (0.2-1.0)
[2024-04-28] MEDS: hydrALAZINE HCL 20 MG/ML VL IV ONE (10:11)
[2024-04-28 12:02] LABS: Base Excess -0.9 mmol/L (-2.0-3.0)
[2024-04-28] MEDS: hydrALAZINE HCL 25 MG TAB PO SCH (14:00)
--- NOTE | 2024-04-28 14:38 | DVH ---
EXAM: CT HEAD WITHOUT CONTRAST INDICATION: CONFUSION TECHNIQUE: CT of the head without intravenous contrast. Radiation dose : Head: CT Dose: CTDI volume is 49 mGy. Dose-length product is 970 mGy*cm The dose indicators for CT are the volume computed tomography (CT) dose index (CTDIvol) and the dose length product (DLP), and are measured in units of mGy and mGy-cm, respectively. These indicators are not patient dose, but values generated from the CT scanner acquisition factors. The report includes radiation exposure data for exposures received during this examination. COMPARISON: CT HEAD WITHOUT CONTRAST on DOS: 04/13/23, CT ABD PELVIS WO CONTRAST on DOS: 07/07/22 FINDINGS: There is no evidence of acute intracranial hemorrhage, extra-axial collection, mass effect, midline s hift, herniation or hydrocephalus. The ventricles, sulci and cisterns are age appropriate. The solares-white differentiation is intact. The visualized paranasal sinuses and mastoid air cells are clear. The surrounding soft tissues and osseous structures are unremarkable. IMPRESSION: 1. No acute intracranial abnormality. Radiation optimization: All CT scans at this facility use at least one of these dose optimization jennifer hniques: Automated exposure control mA and/or kV adjustment per patient size (includes targeted exams where dose is matched to clinical indication) or iterative reconstruction. HS:Y
[2024-04-28 15:08] LABS: Urine Bacteria None Seen /hpf (None Seen)
[2024-04-28 15:29] LABS: Benzodiazephine Screen, Urine Neg (NEGATIVE)
[2024-04-28 15:34] LABS: Amphetamine Screen, Urine Pos (NEGATIVE); Barbiturate Scree,Urine Neg (NEGATIVE); Cannabinoid Screen, Urine Pos (NEGATIVE); Cocaine Screen, Urine Neg (NEGATIVE); Opiate Scree,Urine Neg (NEGATIVE); Phencyclidine Screen, Urine Pos (NEGATIVE)
[2024-04-28 15:41] LABS: Urine Blood Negative /uL (Negative); Urine Clarity Clear (Clear); Urine Color Yellow (Yellow); Urine Mucus FEW (None Seen); Urine Protein, UAD 1+ (Negative); Urine Specific Gravity 1.026 (1.001-1.035); Urine Urobilinogen 8 mg/dL (Negative); Urine WBC 1 /hpf (0 - 3); Urine pH 5.5 (5.0-9.0)
--- NOTE | 2024-04-28 16:18 | DVHPNRES ---
Progress Note Date Seen: Apr 28, 2024 Resident Creating Document: CLARIBEL MOHAMUD RESIDENT Medical Necessity Reason Pt with a Central, PICC or Fol: No Subjective Review of Systems This is a 54-year-old obese patient with a past medical history significant for COPD, CHF, CKD ,diabetes, hypertension ,hyperlipidemia and schizophrenia who presented to the ED with multiple complaints with the main one being shortness of breath, chest pain. He is usually on 2L of oxygen at home and of late, he seem to be having more demand for oxygen. He also mentioned having a flu like symptoms. Patient also uses polysubstances, Marijuana, Other (Methamphetamine) and drinks a gallon of vodka a day per patient. with multiple flu-like symptoms for the past 2 days. Patient also patient states due to this he also has associated chest pain shortness of breath in his main complaint includes the fact that breathing has become more difficult normally the patient is on 2 L of oxygen at home however he stating that he required more oxygen than he normally has patient does have a history of using polysubstance is including math marijuana PCP and a daily drinker with vodka patient was recommended for further evaluation and management on inpatient basis we will admit for continued care Cardiovascular: CAD, CHF Renal/: Chronic renal insuff, Chronic renal failure ALCOHOL: heavy Drugs: Marijuana, Other (Methamphetamine) Objective vital signs Vital Sign Date Time Temp Pulse Resp B/P (MAP) Pulse Ox O2 Delivery O2 Flow Rate FiO2 04/28/24 10:11 172/111 04/28/24 09:00 97.0 78 21 93 97.0 04/28/24 08:00 Nasal Cannula* 3 32 Total Intake and Output 04/27/24 04/27/24 04/28/24 15:00 23:00 07:00 Intake Total 200 ml Output Total 400 ml Balance -200 ml medications Current Medications Medications Dose Ordered Sig/Chente Route Start Time Stop Time Status Last Admin Dose Admin Furosemide 40 mg BIDD IV 04/27/24 18:00 04/27/24 19:31 40 MG Albuterol 2.5 mg Q4HPRN PRN NEB 04/27/24 16:15 Ipratropium [place] 0.5 mg Q4HR PRN NEB 04/27/24 16:15 Ceftriaxone Sodium 50 ml @ 100 mls/hr DAILY IV 04/27/24 16:15 04/27/24 19:31 100 MLS/HR Azithromycin 500 mg DAILY PO 04/28/24 10:00 04/28/24 08:29 500 MG Methylprednisolone Sodium Succinate 40 mg BID IV 04/27/24 22:00 04/28/24 08:29 40 MG Haloperidol Lactate 10 mg Q6HPRN PRN IM 04/27/24 16:15 Thiamine HCl 100 mg DAILY PO 04/28/24 10:00 04/28/24 08:29 100 MG Folic Acid 1 mg DAILY PO 04/28/24 10:00 04/28/24 08:28 1 MG Multivitamins 1 tab DAILY PO 04/28/24 10:00 04/28/24 08:28 1 TAB Lorazepam 2 mg Q15M PRN IV 04/27/24 16:15 Lorazepam 2 mg Q3H IV 04/27/24 16:15 04/28/24 08:30 2 MG Diagnostic Test (Pha) 1 strip IQ4HR 04/27/24 20:00 04/28/24 12:00 1 STRIP Insulin Human Regular IQ4HR SC 04/27/24 20:00 Dextrose 50 ml UD PRN IV 04/27/24 16:15 Lorazepam 0.5 mg Q6HP PRN PO 04/27/24 16:15 04/27/24 19:25 0.5 MG Docusate Sodium 100 mg BIDPRN PRN PO 04/27/24 16:15 Acetaminophen 650 mg Q6HP PRN PO 04/27/24 16:15 Acetaminophen/ Hydrocodone Bitart 1 tab Q4HP PRN PO 04/27/24 16:15 Ondansetron HCl 4 mg Q4HP PRN IV 04/27/24 16:15 Morphine Sulfate 2 mg Q4HPRN PRN IV 04/27/24 16:15 Hydralazine HCl 10 mg Q6HP PRN IV 04/28/24 09:45 Isosorbide Mononitrate 60 mg DAILY PO 04/29/24 10:00 Hydralazine HCl 50 mg TID PO 04/28/24 14:00 Examination General Appearance: confused, drowsy, noncorporate, and verbally abusive HEENT: N/A Respiratory: Unable to obtain Cardiovascular: unable to obtain Abdominal: Distended, unable to obtain Extremities: Unable to obtain Skin: tattoo simeon on his upper extremies, Neuro: Unable to obtain Psych/Mental Status: laboratory and microbiology Laboratory Tests 04/28/24 08:40 Test 04/28/24 08:40 Range/Units Serum Glucose 110 H 74-106 mg/dL Problem List/Assessment/Plan Problem List/Assessment/Plan Acute on chronic CHF exacerbation --> Echo 11/2023: 20% --> Repeat Echo today: pending -->BNP: 737 --> IV Furosemide 40 mg ( Patient refused today) Confused/Drowsy CT head: No acute intracranial abnormality ABG:Mild respiratory alkalosis likely due to hyperventilation Ammonia 30 Acute COPD exacerbation possibly secondary to bacteria versus viral forms of infection --> Continue antibiotics --> Steroids b.i.d. --> P.r.n. breathing treatments for continued care and management Acute on chronic respiratory failure --> On 3 L of oxygen via nasal cannula Polysubstance abuse and addiction --> UDS positive for cannabis, amphetamines, and PCP Uncontrolled hypertension --> Continue home medication --> Hydralazine 10 mg prn Uncontrolled Diabetes --> HgbA1C: 7.2 --> SS mild sliding scale CKD --> Baseline cr: 1.66 Patient is refusing medicaiton Home Medications Carvedilol Jardiance Entresto Isosorbide mononitrate Furosemide Case discussed for more than 40 minutes Case and plan discussed with Dr. Garcia Plan discussed with: Other (Nurse) My Orders My Orders Orders - CLARIBEL MOHAMUD Procedure Category Date Status Time Hydralazine Injection PHA 04/28/24 In Process (Apresoline Inject 09:45 Abg W/ Co-Ox RT 04/28/24 Logged 11:[address] 04/28/24 Resulted 11:34 Ammonia LAB 04/28/24 Logged 11:34 Date of Service: Apr 28, 2024 Billing Provider: TIMMY DE GUZMAN MD Common Visit Codes: [id number] INP/OBS CARE(HIGH) CLARIBEL MOHAMUD Apr 28, 2024 16:18 TIMMY DE GUZMAN MD May 01, 2024 09:08
[2024-04-28] MEDS: hydrALAZINE HCL 20 MG/ML VL IV PRN (16:58)
[2024-04-28 19:52] LABS: Rapid Influenza A Negative (Negative); Rapid Influenza B Negative (Negative)
[2024-04-28 19:54] LABS: COVID19 ANTIGEN SOFIA FIA NEGATIVE (NEGATIVE)
[2024-04-29] VITALS (7 sets, daily range): BP systolic 134–157; BP diastolic 84–97; PULSE 86–98; RESP 18–21; TEMP 98.1–98.3; O2SAT 95–100
[2024-04-29] MEDS: CARVEDILOL 3.125 MG TAB PO SCH (10:05)
[2024-04-29] MEDS: ISOSORBIDE MONONITRATE ER 60 MG TAB PO SCH (10:05)
[2024-04-29] MEDS ORDERED: AZITTAB PO (10:35)
[2024-04-29] MEDS ORDERED: CEPH250C PO (10:35)
--- NOTE | 2024-04-29 13:16 | DVHSR ---
APPROVED REPORT EXAM: Two-dimensional and M-mode echocardiogram with Doppler and color Doppler. Blood Pressure: 134/84 mmHg INDICATION SOB CHF RISK FACTORS Height: 5' 11", Weight: 250 DIMENSIONS LVDd6.4 (3.8-5.7cm)LA (2D)4.5 (1.9-4.0cm)Aortic Root3.3 (2.0-3.7cm) LVDs5.8 (2.5-4.0cm)LA (MM) (1.9-4.0cm)Aortic Cusp Exc1.7 (1.5-2.0cm) EF (%) 20.0 (55-70%)Rt. Atrium5.3 (1.9-4.0cm)Asc. Aorta cm IVSd1.1 (0.7-1.1cm)RV (D) (1.8-2.4cm) PWd1.2 (0.7-1.1cm) Mitral Valve MitralMitral Stenosis E wave1.10m/sMV Mean GR.mmHg A wave0.70m/sMV Peak GR.mmHg E/A ratio1.62D MVAcm2 Aortic Valve Aortic ValveAortic Stenosis V10.50m/Macy Mean GR.4mmHg V21.40m/Macy Peak GR.8mmHg LVOT Diameter2.2 (1.8-2.4cm)Doppler AVA1.36cm2 Pulmonic Valve V20.70m/s Tricuspid Valve TR Velocity2.50m/s [id number] Conclusion lvef 10-15% by visual estimate dilated LV RV pacing lead present RV dysfunction severe tricuspid regug mild mitral regurg (not well visualized could be worse) trivial to small pericardial effusion noted
--- NOTE | 2024-04-29 15:01 | DVHDSRES ---
Discharge Summary Date of Admission Resident Creating Document: BREA العلي RESIDENT Apr 27, 2024 at 16:08 Date of Discharge: Apr 29, 2024 Admitting Diagnosis CHF exacerbation Labs/Diagnostic Data: Laboratory Results Test 04/29/24 12:28 04/28/24 18:48 04/28/24 16:19 04/28/24 14:05 POC Glucose 138 mg/dl (70-106) Influenza Type A Antigen Negative (Negative) Influenza Type B Antigen Negative (Negative) SARS-CoV-2 Antigen (Rapid) Negative (NEGATIVE) Ammonia 30 umol/L (11-32) Urine Color Yellow (Yellow) Urine Clarity Clear (Clear) Urine pH 5.5 (5.0-9.0) Urine Specific [place] 1.026 (1.001-1.035) Urine Protein 1+ (Negative) Urine Ketones Negative (Negative) Urine Blood Negative /uL (Negative) Urine Nitrite Negative (Negative) Urine Bilirubin Negative (Negative) Urine Urobilinogen 8 mg/dL (Negative) Urine Leukocyte Esterase Negative /uL (Negative) Urine RBC 1 /hpf (0 - 3) Urine WBC 1 /hpf (0 - 3) Urine Squamous Epithelial Cells Few /hpf (<5) Urine Bacteria None seen /hpf (None Seen) Urine Mucus Few (None Seen) Urine Glucose Normal mg/dL (Normal) Urine Opiates Screen Neg (NEGATIVE) Urine Fentanyl Screen Neg (NEGATIVE) Urine Barbiturates Screen Neg (NEGATIVE) Urine Phencyclidine Screen Pos (NEGATIVE) Urine Amphetamines Screen Pos (NEGATIVE) Urine Benzodiazepines Screen Neg (NEGATIVE) Urine Cocaine Screen Neg (NEGATIVE) Urine Cannabinoids Screen Pos (NEGATIVE) Test 04/28/24 11:50 04/28/24 08:40 04/27/24 16:57 04/27/24 12:03 Blood Gas Specimen Type Arterial Blood Gas Sample Site Right radial Blood Gas Patient Temperature 37.0 Arterial Blood Date Drawn [id number] Arterial Blood pH 7.462 (7.350-7.450) Arterial Blood Partial Pressure CO2 31.5 mmHg (35.0-48.0) Arterial Blood Partial Pressure O2 103.4 mmHg (83.0-108.0) Arterial Blood HCO3 22.0 mmol/L (21.0-28.0) Arterial Blood Oxygen Saturation 97.8 % (94.0-98.0) Arterial Blood Base Excess -0.9 mmol/L (-2.0-3.0) Arterial Blood Oxyhemoglobin 96.6 % (94.0-98.0) Arterial Blood Carboxyhemoglobin 0.9 % (0.5-1.5) Arterial Blood Methemoglobin 0.3 % (0.0-1.5) Garrett Test Yes Blood Gas Total Hemoglobin 13.40 g/dL (13.5-17.5) Blood Gas Liter Flow 3.00 Blood Gas Modality Nasal cannula FiO2 % 32.0 White Blood Count 4.9 10^3/uL (4.4-10.8) Red Blood Count 4.46 10^6/uL (4.5-5.90) Hemoglobin 12.5 g/dL (13.5-17.5) Hematocrit 39.8 % (41.0-53.0) Mean Corpuscular Volume 89.2 fL (80.0-100.0) Mean Corpuscular Hemoglobin 28.0 pg (28.0-32.0) Mean Corpuscular Hemoglobin Concent 31.3 g/dL (32.0-36.0) Red Cell Distribution Width 20.5 % (11.8-14.3) Platelet Count 168 10^3/uL (140-450) Mean Platelet Volume 8.1 fL (6.9-10.8) Neutrophils (%) (Auto) 61.3 % (37.0-80.0) Lymphocytes (%) (Auto) 21.0 % (10.0-50.0) Monocytes (%) (Auto) 13.6 % (0.0-12.0) Eosinophils (%) (Auto) 2.9 % (0.0-7.0) Basophils (%) (Auto) 1.2 % (0.0-2.0) Neutrophils # (Auto) 3.0 10 ^3/uL (1.6-8.6) Lymphocytes # (Auto) 1.0 10 ^3/uL (0.4-5.4) Monocytes # (Auto) 0.7 10 ^3/uL (0-1.3) Eosinophils # (Auto) 0.1 10 ^3/uL (0-0.8) Basophils # (Auto) 0.1 10 ^3/uL (0-0.2) Nucleated Red Blood Cells 0.3 % Sodium Level 142 mmol/L (136-145) Potassium Level 4.1 mmol/L (3.5-5.1) Chloride Level 106 mmol/L (98-107) Carbon Dioxide Level 28 mmol/L (20-31) Anion Gap 8 (5-15) Blood Urea Nitrogen 18 mg/dL (9-23) Creatinine 1.55 mg/dL (0.700-1.30) Glomerular Filtration Rate Calc 53 mL/min (>90) BUN/Creatinine Ratio 11.6 (10.0-20.0) Serum Glucose 110 mg/dL (74-106) Hemoglobin A1c 7.2 % A1C (<5.7) Calcium Level 9.4 mg/dL (8.7-10.4) Total Bilirubin 0.7 mg/dL (0.2-1.0) Aspartate Amino Transferase (AST) 32 U/L (13-40) Alanine Aminotransferase (ALT) 28 U/L (7-40) Alkaline Phosphatase 201 U/L (46-116) Total Protein 7.2 g/dL (5.7-8.2) Albumin 4.0 g/dL (3.2-4.8) Troponin I High Sensitivity 49 ng/L (</=54) Plasma/Serum Blood Alcohol < 3.0 mg/dL (<10) B-Type Natriuretic Peptide 737.78 pg/mL (0-100) Other Laboratory Tests 04/28/24 08:40 Brief Hx & Hospital Course: This is a 54-year-old obese patient with a past medical history significant for COPD, CHF, CKD ,diabetes, hypertension ,hyperlipidemia and schizophrenia who presented to the ED with multiple complaints with the main one being shortness of breath, chest pain. He is usually on 2L of oxygen at home and of late, he seem to be having more demand for oxygen. He also mentioned having a flu like symptoms. Patient also uses polysubstances, Marijuana, Other (Methamphetamine) and drinks a gallon of vodka a day per patient. Cardiovascular: CAD, CHF Renal/: Chronic renal insuff, Chronic renal failure ALCOHOL: heavy Drugs: Marijuana, Other (Methamphetamine) On initial examination, patient stated having multiple flu-like symptoms for the past 2 days. Patient also patient states due to this he also has associated chest pain shortness of breath in his main complaint includes the fact that breathing has become more difficult normally the patient is on 2 L of oxygen at home however he stating that he required more oxygen than he normally has patient does have a history of using polysubstance is including math marijuana PCP and a daily drinker with vodka patient was recommended for further evaluation and management on inpatient basis we will admit for continued care Patient has had significant clinical improvement during his hospitalization, he is currently unusual oxygen requirement setting of 2 L nasal cannula. He got diuresed, patient was counseled on cessation of illicit drugs. Echocardiogram demonstrated reduced ejection fraction of 10-15%, patient was restarted on GDM T. patient currently denies any significant chest pain, shortness of breath, abdominal pain, nausea, vomiting, dizziness, lightheadedness. He is currently tolerating diet, ambulatory. Physical examination as below: General: Awake, alert, comfortable appearing, in no acute distress. HEENT: Head is normocephalic and atraumatic. Pupils are equal, round, and reactive to light. Extraocular muscles are intact. No nasal discharge. No facial trauma. Intraoral exam shows moist mucous membranes with no tonsillar enlargement or exudate. Neck: Supple with no cervical lymphadenopathy No meningismus. No goiter. Heart: Regular rate without murmur, rub, or gallop. Lungs: Scattered crackles Abdomen: No external sign of injury. Bowel sounds are present. Abdomen is soft, nontender. No rebound, no guarding, no rigidity. There are no palpable masses. There is no flank pain on exam. Extremities: Strong peripheral pulses. There is no clubbing, no cyanosis, and no edema. Skin: No rash. Neurologic: Cranial nerves II-XII intact without motor, sensory, or cerebellar deficit, no asterixis. Discharge Plan: Patient will be DC home on continue home medications as prescribed. We will continue GDM T. Follow up in this clinic in one week. Follow with PCP within 1-2 weeks. Patient was counseled on lifestyle modification, avoid illicit drugs, smoking, alcohol. Patient will continue Zithromax and Keflex as prescribed Patient verbalized understanding and agree with this plan, we spent over 30 minutes explaining the plan. Case and plan discussed with Dr. Fay Operations or Procedures [address] [address] Ph: [phone] DIAGNOSTIC IMAGING Diagnostic Imaging Report : [id number] Signed PATIENT: ALON MCCRACKEN ACCT: [id number] UNIT: [id number] : 1970 LOC: ER ROOM / BED: / AGE / SEX: 54 / M ADM STATUS: REG ER SERVICE 1149 ORDERING PHYSICIAN: MEY MATTSON MD PROCEDURE(s): CXRP - CHEST PORTABLE REASON: cp ORDER NUMBER(s): [id number], ACCESSION NUMBER(s): [id number] EXAM: XY CHEST PORTABLE CLINICAL HISTORY: cp TECHNIQUE: Single AP view of the chest WID: COMPARISON: XY CHEST PORTABLE on DOS: 12/13/23 FINDINGS: Lines and tubes: Left-sided single lead AICD Chest: Cardiomegaly with mild prominence of the central pulmonary vasculature. No pleural effusion, pneumothorax, or consolidation. The osseous structures are grossly intact. Mild degenerative changes of the bilateral shoulders. IMPRESSION: Mild cardiomegaly with very mild prominence of the central pulmonary vasculature. ATED BY: WILLIAM PALMA MD DICTATED DATE/TIME: 04/27/24 1231 SIGNED BY: WILLIAM PALMA MD SIGNED DATE/TIME: 04/27/24 1231 CC: [place] [id number] Ph: [phone] DIAGNOSTIC IMAGING Diagnostic Imaging Report : [id number] Signed PATIENT: ALON MCCRACKEN ACCT: [id number] UNIT: [id number] : 1970 LOC: TELE-CENTR ROOM / BED: 0212T / A AGE / SEX: 54 / M ADM STATUS: ADM IN SERVICE 1134 ORDERING PHYSICIAN: CLARIBEL MOHAMUD PROCEDURE(s): HWOCT - HEAD WITHOUT CONTRAST REASON: CONFUSION ORDER NUMBER(s): [id number], ACCESSION NUMBER(s): [id number] EXAM: CT HEAD WITHOUT CONTRAST INDICATION: CONFUSION TECHNIQUE: CT of the head without intravenous contrast. Radiation dose : Head: CT Dose: CTDI volume is 49 mGy. Dose-length product is 970 mGy*cm The dose indicators for CT are the volume computed tomography (CT) dose index (CTDIvol) and the dose length product (DLP), and are measured in units of mGy and mGy-cm, respectively. These indicators are not patient dose, but values generated from the CT scanner acquisition factors. The report includes radiation exposure data for exposures received during this examination. COMPARISON: CT HEAD WITHOUT CONTRAST on DOS: 04/13/23, CT ABD PELVIS WO CONTRAST on DOS: 07/07/22 FINDINGS: There is no evidence of acute intracranial hemorrhage, extra-axial collection, mass effect, midline shift, herniation or hydrocephalus. The ventricles, sulci and cisterns are age appropriate. The solares-white differentiation is intact. The visualized paranasal sinuses and mastoid air cells are clear. The surrounding soft tissues and osseous structures are unremarkable. IMPRESSION: 1. No acute intracranial abnormality. Radiation optimization: All CT scans at this facility use at least one of these dose optimization techniques: Automated exposure control mA and/or kV adjustment per patient size (includes targeted exams where dose is matched to clinical indication) or iterative reconstruction. HS:Y ATED BY: NEGRO SINHA MD DICTATED DATE/TIME: 04/28/241434 SIGNED BY: NEGRO SINHA MD SIGNED DATE/TIME: 04/28/241434 CC: [place] [id number] Ph: [phone] DIAGNOSTIC IMAGING Diagnostic Imaging Report : [id number] Signed PATIENT: ALON MCCRACKEN ACCT: [id number] UNIT: [id number] : 1970 LOC: TELE[facility] ROOM / BED: [address] [place] [address] A AGE / SEX: 54 / M ADM STATUS: ADM IN SERVICE 23 ORDERING PHYSICIAN: CLARIBEL MOHAMUD RESIDENT PROCEDURE(s): ECIDC - ECHO 2D MODE CARDIAC DOP REASON: Shortness of breath, chf ORDER NUMBER(s): [id number], ACCESSION NUMBER(s): [id number] APPROVED REPORT EXAM: Two-dimensional and M-mode echocardiogram with Doppler and color Doppler. Blood Pressure: 134/84 mmHg INDICATION SOB CHF RISK FACTORS Height: 5' 11", Weight: 250 DIMENSIONS LVDd 6.4 (3.8-5.7cm) LA (2D) 4.5 (1.9-4.0cm) Aortic Root 3.3 (2.0- 3.7cm) LVDs 5.8 (2.5-4.0cm) LA (MM) (1.9-4.0cm) Aortic Cusp Exc 1.7 (1.5- 2.0cm) EF (%) 20.0 (55-70%) Rt. Atrium 5.3 (1.9-4.0cm) Asc. Aorta cm IVSd 1.1 (0.7-1.1cm) RV (D) (1.8-2.4cm) PWd 1.2 (0.7-1.1cm) Mitral Valve Mitral Mitral Stenosis E wave 1.10m/s MV Mean GR. mmHg A wave 0.70m/s MV Peak GR. mmHg E/A ratio 1.6 2D MVA cm2 Aortic Valve Aortic Valve Aortic Stenosis V1 0.50m/s AO Mean GR. 4mmHg V2 1.40m/s AO Peak GR. 8mmHg LVOT Diameter 2.2 (1.8-2.4cm) Doppler CHARLES 1.36cm2 Pulmonic Valve V2 0.70m/s Tricuspid Valve TR Velocity 2.50m/s RVSP 28mmHg Conclusion lvef 10-15% by visual estimate dilated LV RV pacing lead present RV dysfunction severe tricuspid regug mild mitral regurg (not well visualized could be worse) trivial to small pericardial effusion noted SIGNED BY: MARLENE CRUZ MD SIGNED DATE/TIME: 04/29/24 4643 CC: Condition at Discharge: Guarded Final Diagnosis/Problems List Acute on chronic CHF exacerbation Schizophrenia Acute COPD exacerbation possibly secondary to pneumonia bacteria versus viral forms of infection Acute on chronic respiratory failure Polysubstance abuse and addiction Uncontrolled hypertension Uncontrolled Diabetes CKD Discharge Disposition: Home Discharge Instruct/Medications Diet: Cardiac 2g Na,low cholest Activity: No Restrictions, As Tolerated Follow Up/Referral: fu with pcp in 1 week Medications: continue home meds as prescibed in emr Discharge Statement: "Patient was advised to return to the ER or call 911 if any headaches, dizziness, shortness of breath, chest pain, abdominal pain, bleeding, fevers, or worsening of medical condition. Patient was counseled about treatment plan, medications, possible side effects, patientverbalized understanding. All questions were answered to the best of my ability. This discharge took greater then 30 minutes in planning, reviewing documentation, counseling the patient, and discussing with other team members." ASSESSMENT ASSESSMENT Assessment CHF exacerbation Date of Service: Apr 29, 2024 Billing Provider: MAGO FAY MD Common Visit Codes: [id number] DISCH DAY >30min BREA العلي RESIDENT Apr 29, 2024 15:01 MAGO FAY MD Apr 29, 2024 20:04
== END 2024-04-29 18:30 | disposition home or self-care (01) | DRG 133 ==
LOC: ER 11:29 → EDBD 11:29 → TELE 16:08 → TELE-CENTR 23:05
PROVIDERS: ADMIT Student in an Organized Health Care Education/Training Program; ATTEND Student in an Organized Health Care Education/Training Program
DX: J96.20 Acute and chronic respiratory failure, unspecified whether with hypoxia or hypercapnia (principal); I50.23 Acute on chronic systolic (congestive) heart failure; I24.9 Acute ischemic heart disease, unspecified; J15.9 Unspecified bacterial pneumonia; J12.9 Viral pneumonia, unspecified; J44.0 Chronic obstructive pulmonary disease with (acute) lower respiratory infection; I13.0 Hypertensive heart and chronic kidney disease with heart failure and stage 1 through stage 4 chronic kidney disease, or unspecified chronic kidney disease; Z20.822 Contact with and (suspected) exposure to COVID-19; J44.1 Chronic obstructive pulmonary disease with (acute) exacerbation; E11.22 Type 2 diabetes mellitus with diabetic chronic kidney disease; E78.5 Hyperlipidemia, unspecified; F20.9 Schizophrenia, unspecified; N18.9 Chronic kidney disease, unspecified; F17.210 Nicotine dependence, cigarettes, uncomplicated; F15.90 Other stimulant use, unspecified, uncomplicated; I25.10 Atherosclerotic heart disease of native coronary artery without angina pectoris; I25.2 Old myocardial infarction; Z82.49 Family history of ischemic heart disease and other diseases of the circulatory system; Z83.3 Family history of diabetes mellitus
CPT/HCPCS: 36415; 36600; 70450; 71045; 80048; 80053; 80307; 80320; 81001; 82140; 82805; 82962; 83036; 83880; 84484; 85025; 87426; 87804; 93005; 93306; 99291; G0378; J1815

== ENCOUNTER 2024-07-12 16:19 | Emergency (ER) | payer MEDICAID ==
[~2024-07-12] VITALS: Ht 175.3 cm; Wt 85.0 kg
[~2024-07-12 16:19] MED LIST changes: -ALBU108A5 INH; -ALPR0.5T PO; -ALPR2TAB2 PO; +APIX2.5T PO; -ASPI-325 PO; -ATOR20TA50 PO; +ATOR40TA52 PO; +AZITTAB PO; -CARV-216 PO; +CEPH250C PO; +DILT120T13 PO; -DOCU-94 PO; +FOLI-119 PO; -GUAI-41 PO; -GUAI100S6 PO; -MIRT1TAB40 PO; -OXYC15TA PO; +OXYC325T14 PO; +PANT40T PO; -PERCOT PO; -PROM2SYP2 PO; -SACU1TAB PO; -SILV1CRE TOP; -[UNRECOGNIZED DRUG - CODE] IN
--- NOTE | 2024-07-12 16:56 | DVH ---
EXAM: XR Chest, 1 View CLINICAL INDICATION: AICD discharge TECHNIQUE: Frontal view of the chest. COMPARISON: XY CHEST PORTABLE on DOS: 04/27/24, XY CHEST PORTABLE on DOS: 12/13/23, XY CHEST PORTABL E on DOS: 09/20/23, XY CHEST PORTABLE on DOS: 05/06/23, XY CHEST PORTABLE on DOS: 05/04/23 FINDINGS: LUNGS AND PLEURAL SPACES: Mild pulmonary congestion. No pneumothorax. HEART: Unremarkable. No cardiomegaly. MEDIASTINUM: Unremarkable. Normal mediastinal contour. BONES/JOINTS: Unremarkable. No acute fracture. TUBES, LINES AND DEVICES: Left-sided cardiac pacemaker. OTHER FINDINGS: . IMPRESSION: 1. No pneumothorax. 2. Mild pulmonary congestion.
[2024-07-12 17:13] LABS: Basophils # (auto) 0.1 10 ^3/uL (0-0.2); Basophils % (auto) 1.4 % (0.0-2.0); Eosinophils # (auto) 0.2 10 ^3/uL (0-0.8); Eosinophils % (auto) 2.8 % (0.0-7.0); Hematocrit 43.8 % (41.0-53.0); Hemoglobin 13.9 g/dL (13.5-17.5); Lymphocytes % (auto) 15.6 % (10.0-50.0); Mean Corpuscular Hemoglobin 27.4 pg (28.0-32.0); Mean Corpuscular Hgb Conc. 31.9 g/dL (32.0-36.0); Mean Corpuscular Volume 85.9 fL (80.0-100.0); Monocytes # (auto) 0.8 10 ^3/uL (0-1.3); Monocytes % (auto) 12.3 % (0.0-12.0); Neutrophils # (auto) 4.3 10 ^3/uL (1.6-8.6); Neutrophils % (auto) 67.9 % (37.0-80.0); Nucleated Red Blood Cells % 0.1 %; Platelet Count (auto) 167 10^3/uL (140-450); Red Blood Cells 5.09 10^6/uL (4.5-5.90); White Blood Cell 6.3 10^3/uL (4.4-10.8)
[2024-07-12 17:14] LABS: Red Cell Distribution Width 20.1 % (11.8-14.3)
[2024-07-12 17:26] LABS: Potassium 3.8 mmol/L (3.5-5.1); Sodium 143 mmol/L (136-145)
[2024-07-12 17:27] LABS: Anion Gap 10 (5-15); Calcium 9.3 mg/dL (8.7-10.4); Carbon Dioxide 25 mmol/L (20-31)
[2024-07-12 17:32] LABS: BUN/Creatinine Ratio 10.1 (10.0-20.0); Blood Urea Nitrogen 16 mg/dL (9-23); Magnesium 1.9 mg/dL (1.6-2.6)
[2024-07-12 17:33] LABS: Chloride 108 mmol/L (98-107); Glucose 140 mg/dL (74-106)
[2024-07-12 18:01] VITALS: BP 129/78; PULSE 60; RESP 16; TEMP 98; O2SAT 99
[2024-07-12] MEDS: ASPirin 81 mg TAB PO ONE (18:06)
[2024-07-12] MEDS: LORazepam 0.5 MG TAB PO ONE (18:31)
[2024-07-12 19:36] VITALS: PULSE 68
--- NOTE | 2024-07-12 19:36 | ED.PDOC ---
History of Present Illness HPI Comments This is a 54-year-old male who comes in with chief complaint of possible AICD discharge time three starting yesterday and today. The patient does have a history of cardiomyopathy with the AICD. The patient also admits to using methamphetamines and a significant amount of marijuana today. The paramedics arrived and found the patient having normal heart rate with normal blood pressure. He is complaining of some left-sided chest pain that he rates as a 2/10 but it was somewhat centering around his AICD site. Chief Complaint: Palpitations Time Seen by MD: 16:26 Primary Care Provider: KIMBERLY Reviewed Notes: Nurses Notes, Hedis Analyst Notes, Medications, Allergies (No allergies to medications) Allergies: Coded Allergies: NO KNOWN ALLERGIES (Unverified , 01/15/15) Home Meds Active Scripts Cephalexin (KEFLEX CAPSULE) 250 Mg Cp, 2 CAP PO BID for 5 Days, #28 CAP Prov:BREA العلي RESIDENT 04/29/24 Azithromycin (Zithromax Z-Bubba) 250 Mg Tab, 250 MG PO DAILY for 5 Days, #5 TAB Prov:BREA العلي RESIDENT 04/29/24 Reported Medications Apixaban Base (ELIQUIS) 2.5 Mg Tab, 2.5 MG PO BID, TAB 04/28/24 Folic Acid (Folic Acid) 1 Mg Tab, 1 MG PO DAILY, MG 04/28/24 Pantoprazole Sodium Sesquihydr (Pantoprazole Sodium) 40 Mg Tab, 40 MG PO DAILY, TAB 04/28/24 Diltiazem HCl (Diltiazem Hydrochloride) 120 Mg Tab, 120 MG PO DAILY, TAB 04/28/24 Alprazolam (Alprazolam) 1 Mg Tab, 1 MG PO BID for 15 Days, #30 TAB 04/28/24 Atorvastatin Calcium (ATORVASTATIN CALCIUM) 40 Mg Tab, 40 MG PO DAILY, TAB 04/28/24 Oxycodone W/ Acetaminophen (Apap/Oxycodone) 1 Tab Tab, 1 TAB PO QID PRN for PAIN SCALE 1 THRU 6 for 15 Days, #60 TAB CHRONIC PAIN MEDICATION OXYCODONE-ACETAMINOPHEN 10MG-325MG 04/28/24 Aspirin (Aspirin Low Dose) 81 Mg Chw, 1 TAB PO DAILY 12/15/23 Gabapentin (Gabapentin) 300 Mg Cap, 1 CAP PO TID 12/08/23 Docusate Sodium (Docusate Sodium) 100 Mg Cap, 1 CAP PO DAILY 12/08/23 Tiotropium [place] Monohydrate (Spiriva Handihaler) 18 Mcg Cap, 1 CAP INH DAILY 12/08/23 Furosemide (Furosemide) 40 Mg Tab, 1 TAB PO DAILY 12/08/23 Empagliflozin (Jardiance) 10 Mg Tab, 1 TAB PO DAILY 12/08/23 Tamsulosin Hcl (Tamsulosin Hcl) 0.4 Mg Cap, 1 PO DAILY 12/08/23 Trazodone Hcl (Trazodone Hcl) 100 Mg Tab, 1 TAB PO HS 12/08/23 Hydralazine Hcl (Hydralazine Hcl) 50 Mg Tab, 1 TAB PO TID 12/08/23 Potassium Citrate (Potassium Citrate) 1,080 Mg Tab, 1 TAB PO BID 12/08/23 Clonidine Hydrochloride (Clonidine Hcl) 0.2 Mg Tab, 1 PO DAILY 12/08/23 Carvedilol (Carvedilol) 12.5 Mg Tab, 1 TAB PO BID 12/08/23 Isosorbide Mononitrate (Isosorbide Mononitrate ER) 60 Mg Tab, 1 TAB PO DAILY 12/08/23 Lisinopril (Lisinopril) 20 Mg Tab, 1 TAB PO DAILY 08/22/22 Potassium Chloride (K-Tabs) 10 Meq Tab, 1 TAB PO DAILY 08/22/22 Albuterol Sulfate (Albuterol Sulfate Hfa) 108 Mcg/Act Aer, 2 PUFF PO Q4H 08/22/22 Information Source: Patient, Emergency Med Personnel Mode of Arrival: EMS Severity: Moderate Timing: Days Duration: Since onset Prehospital treatment: 12 Lead EKG, ASA, Nursing Home Physician Location: Left-sided chest pain Past Medical History PAST MEDICAL HISTORY: CHF, CKF, COPD, DM, High Lipids, HTN, TN, Schizophrenia Surgical History: Pacemaker, PTCA Family History Family History: Family hx of DM, Family hx of Cancer, Family hx of heart navid, Family hx of HTN Social History Smoker: Cigarettes Alcohol: Occasionally Drugs: Cocaine, Marijuana, Methamphetamine Lives In: Home Constitutional: denies: chills, diaphoresis, fatigue, fever, malaise, sweats, weakness, others EENTM: denies: blurred vision, double vision, ear bleeding, ear discharge, ear drainage, ear pain, ear ringing, eye pain, eye redness, hearing loss, mouth pain, mouth swelling, nasal discharge, nose bleeding, nose congestion, nose pain, photophobia, tearing, throat pain, throat swelling, voice changes, others Respiratory: denies: cough, hemoptysis, orthopnea, SOB at rest, shortness of breath, SOB with excertion, stridor, wheezing, others Cardiovascular: reports: chest pain; denies: dizzy spells, diaphoresis, Dyspnea on exertion, edema, irregular heart beat, left arm pain, lightheadedness, palpitations, PND, syncope, others Gastrointestinal: denies: abdomen distended, abdominal pain, blood streaked bowels, constipated, diarrhea, dysphagia, difficulty swallowing, hematemesis, melena, nausea, poor appetite, poor fluid intake, rectal bleeding, rectal pain, vomiting, others Genitourinary: denies: burning, dysuria, flank pain, frequency, hematuria, inco ntinence, penile discharge, penile sore, pain, testicle pain, testicle swelling, urgency, others Neurological: denies: dizziness, fainting, headache, left sided numbness, left sided weakness, numbness, paresthesia, pre-existing deficit, right sided numbness, right sided weakness, seizure, speech problems, tingling, tremors, weakness, others Musculoskeletal: denies: back pain, gout, joint pain, joint swelling, muscle pain, muscle stiffness, neck pain, others Integumetry: denies: bruises, change in color, change in hair/nails, dryness, laceration, lesions, lumps, rash, wounds, others Allergic/Immunocompromised: denies: Difficulty Healing, Frequent Infections, Hives, Itching, others Hematologic/Lymphatic: denies: anemia, blood clots, easy bleeding, easy bruising, swollen glands, others Endocrine: denies: excessive hunger, excessive sweating, excessive thirst, excessive urination, flushing, intolerance to cold, intolerance to heat, unexplained weight gain, unexplained weight loss, others Psychiatric: denies: anxiety, bipolar disorder, depression, hopeless, panic disorder, schizophrenia, sleepless, suicidal, others Physical Exam General Appearance: Mild Distress, Other (The patient has an odor of marijuana) HEENT: Normal ENT Inspection, Pharynx Normal, TMs Normal Neck: Full Range of Motion, Non-Tender, Normal, Normal Inspection Respiratory: Chest Non-Tender, Lungs Clear, No Accessory Muscle Use, No Respiratory Distress, Normal Breath Sounds Cardiovascular: No Edema, No JVD, No Murmur, No Gallop, Normal Peripheral Pulses, Regular Rate/Rhythm, Other (AICD in place) Breast Exam: Deferred Gastrointestinal: No Organomegaly, Non Tender, No Pulsatile Mass, Normal Bowel Sounds, Soft Genitalia: Deferred Pelvic: Deferred Rectal: Deferred Extremities: No calf tenderness, Normal capillary refill, Normal inspection, Normal range of motion, Non-tender, No pedal edema Musculoskeletal : Apperance: Normal Neurologic: Alert, skilled nursing case manager II-XII nml as Tested, No Motor Deficits, Normal Affect, Normal Mood, No Sensory Deficits Cerebellar Function: Normal Reflexes: Normal Skin: Dry, Normal Color, Warm Lymphatic: No Adenopathy Was a procedure done? Was a procedure done?: No EKG EKG : Pulse Rate (adult): 68 [place]: Normal Cardiac Rhythm: NSR Hypertrophy: LVH ST: Nonsp Differential Dx Considerations may include: ACS, TN, AICD discharged X-Ray, Labs, Meds, VS Vital Signs Date Time Temp Pulse Resp B/P (MAP) Pulse Ox O2 Delivery O2 Flow Rate FiO2 07/12/24 18:01 98.0 60 16 129/78 (95) 99 98.0 07/12/24 18:01 60 16 99 Nasal Cannula* 2 28 07/12/24 17:37 69 07/12/24 16:35 98.2 70 16 124/65 (84) 98 07/12/24 16:22 68 Lab Test 07/12/24 17:48 07/12/24 16:50 Range/Units Troponin I High Sensitivity 49 51 </=54 ng/L White Blood Count 6.3 4.4-10.8 10^3/uL Red Blood Count 5.09 4.5-5.90 10^6/uL Hemoglobin 13.9 13.5-17.5 g/dL Hematocrit 43.8 41.0-53.0 % Mean Corpuscular Volume 85.9 80.0-100.0 fL Mean Corpuscular Hemoglobin 27.4 L 28.0-32.0 pg Mean Corpuscular Hemoglobin Concent 31.9 L 32.0-36.0 g/dL Red Cell Distribution Width 20.1 H 11.8-14.3 % Platelet Count 167 140-450 10^3/uL Mean Platelet Volume 7.7 6.9-10.8 fL Neutrophils (%) (Auto) 67.9 37.0-80.0 % Lymphocytes (%) (Auto) 15.6 10.0-50.0 % Monocytes (%) (Auto) 12.3 H 0.0-12.0 % Eosinophils (%) (Auto) 2.8 0.0-7.0 % Basophils (%) (Auto) 1.4 0.0-2.0 % Neutrophils # (Auto) 4.3 1.6-8.6 10 ^3/uL Lymphocytes # (Auto) 1.0 0.4-5.4 10 ^3/uL Monocytes # (Auto) 0.8 0-1.3 10 ^3/uL Eosinophils # (Auto) 0.2 0-0.8 10 ^3/uL Basophils # (Auto) 0.1 0-0.2 10 ^3/uL Nucleated Red Blood Cells 0.1 % Sodium Level 143 136-145 mmol/L Potassium Level 3.8 3.5-5.1 mmol/L Chloride Level 108 H 98-107 mmol/L Carbon Dioxide Level 25 20-31 mmol/L Anion Gap 10 5-15 Blood Urea Nitrogen 16 9-23 mg/dL Creatinine 1.58 H 0.700-1.30 mg/dL Glomerular Filtration Rate Calc 52 >90 mL/min BUN/Creatinine Ratio 10.1 10.0-20.0 Serum Glucose 140 H 74-106 mg/dL Calcium Level 9.3 8.7-10.4 mg/dL Magnesium Level 1.9 1.6-2.6 mg/dL Current Medications Medications (Trade) Dose Ordered Sig/Chente Route Start Time Stop Time Status Last Admin Aspirin 162 mg ONCE ONCE PO 07/12/24 16:45 07/12/24 16:46 DC 07/12/24 18:06 Lorazepam (Ativan Tablet) 1 mg ONCE ONCE PO 07/12/24 18:30 07/12/24 18:31 DC 07/12/24 18:31 IV Hep-Lock was established The patient was given Ativan 1 mg by mouth The patient was given aspirin 162 mg by mouth The patient's CBC is within normal limits The chemistry panel shows a creatinine of 1.58 The troponin level is within normal range at 49 and 51 The patient is being admitted at this time We will have the nurse unit manager consulted We also are going to interrogate the patient's AICD The patient was admitted Images Reviewed?: Images reviewed and evaluated by me Time of 1ST Reevaluation: 19:34 Reevaluation 1ST: Improved Patient Education/Counseling: Diagnosis, Treatment, Prognosis Family Education/Counseling: No Family Present Departure 1 Departure Time of Disposition: 19:35 Impression: Primary Impression: AICD discharge Additional Impression: Acute chest pain Disposition: 09 ADMITTED INPATIENT Admit to: Tele Condition: Fair Critical Care Note Critical Care Time?: Yes (45 min-critical care time only) Stability Stability form required: Yes Unstable for transfer: Telemetry monitoring (Telemetry monitoring required), ED Physician Assesment (Clinical assesment) Heart Score Heart Score: Heart Score Response (Comments) Value History Moderate Suspicious 1 EKG Repolarization Disturb 1 Age 45-64 1 Risk Factors >3 or Hx ASHD 2 Troponin Normal limit 0 Total 5 MEY MATTSON MD Jul 12, 2024 19:36
--- NOTE | 2024-07-13 08:37 | ECG ---
[facility] Test Date: 2024-07-12 Test Time: 16:22:25 Pat Name: [facility] Department: ER Room: Gender: Director Corporate: RAMBO : 1970 Requested By: MEY MATTSON Order Number: [id number] Reading MD: Mariano Franco Measurements Intervals [place] Rate: 68 P: -56 WV: 178 QRS: -65 QRSD: 134 T: 108 QT: 416 QTc: 443 Interpretive Statements Sinus or ectopic atrial rhythm Nonspecific IVCD with LAD Left ventricular hypertrophy Anterior Q waves, possibly due to LVH Abnormal T, consider ischemia, lateral leads Electronically Signed On 07-15-2024 17:39:57 PST by Mariano Franco Please click the below link to view image of tracing.
--- NOTE | 2024-07-13 08:38 | ECG ---
[facility] Test Date: 2024-07-12 Test Time: 17:37:31 Pat Name: [facility] Department: er Room: Gender: Automatic Lehr Operator: marjorie : 1970 Requested By: MEY MATTSON Order Number: [id number] Reading MD: Mariano Franco Measurements Intervals [place] Rate: 69 P: -43 [place]: 158 QRS: -61 QRSD: 134 T: 92 QT: 428 QTc: 459 Interpretive Statements Sinus rhythm Nonspecific IVCD with LAD Left ventricular hypertrophy Anterior infarct, old Abnormal T, consider ischemia, lateral leads Electronically Signed On 07-15-2024 17:40:22 PST by Mariano Franco Please click the below link to view image of tracing.
== END 2024-07-12 22:33 | disposition left against medical advice (07) ==
LOC: EDBD 16:19 → ER 16:19
DX: T82.897A Other specified complication of cardiac prosthetic devices, implants and grafts, initial encounter (principal); R07.89 Other chest pain; I13.0 Hypertensive heart and chronic kidney disease with heart failure and stage 1 through stage 4 chronic kidney disease, or unspecified chronic kidney disease; E11.22 Type 2 diabetes mellitus with diabetic chronic kidney disease; N18.9 Chronic kidney disease, unspecified; I50.9 Heart failure, unspecified; J44.9 Chronic obstructive pulmonary disease, unspecified; F20.9 Schizophrenia, unspecified; I25.2 Old myocardial infarction; E78.5 Hyperlipidemia, unspecified; F17.210 Nicotine dependence, cigarettes, uncomplicated; F15.90 Other stimulant use, unspecified, uncomplicated; Z98.890 Other specified postprocedural states; Z79.01 Long term (current) use of anticoagulants; Z79.82 Long term (current) use of aspirin; Z79.84 Long term (current) use of oral hypoglycemic drugs; Z79.899 Other long term (current) drug therapy; Y92.89 Other specified places as the place of occurrence of the external cause
CPT/HCPCS: 36415; 71045; 80048; 83735; 84484; 85025; 93005

== ENCOUNTER 2024-07-23 18:50 | Inpatient (IN) | payer MEDICAID ==
[~2024-07-23] VITALS: Ht 175.3 cm; Wt 192.7 kg
--- NOTE | 2024-07-23 19:06 | ECG ---
[facility] Test Date: 2024-07-23 Test Time: 19:00:18 Pat Name: [facility] Department: ED Room: Gender: M Gastroenterology Teacher: : 1970 Requested By: JOSELYN PRASAD Order Number: [id number] Reading MD: Measurements Intervals [place] Rate: 122 P: 0 [place]: 0 QRS: -54 QRSD: 127 T: 113 QT: 364 QTc: 519 Interpretive Statements Atrial flutter with predominant 2:1 AV block Left bundle branch block Baseline wander in lead(s) I,V1,V2,V3,V4,V5,V6 Please click the below link to view image of tracing.
[2024-07-23] MEDS ORDERED: SODIUM CHLORIDE 0.9% 1,000 ML IV ONE (19:15)
[2024-07-23 19:31] LABS: Basophils # (auto) 0.1 10 ^3/uL (0-0.2); Basophils % (auto) 0.9 % (0.0-2.0); Eosinophils # (auto) 0.1 10 ^3/uL (0-0.8); Eosinophils % (auto) 1.6 % (0.0-7.0); Hemoglobin 16.3 g/dL (13.5-17.5); Lymphocytes # (auto) 1.1 10 ^3/uL (0.4-5.4); Lymphocytes % (auto) 16.4 % (10.0-50.0); Mean Corpuscular Hemoglobin 28.1 pg (28.0-32.0); Mean Corpuscular Hgb Conc. 32.6 g/dL (32.0-36.0); Mean Corpuscular Volume 86.1 fL (80.0-100.0); Monocytes # (auto) 0.8 10 ^3/uL (0-1.3); Monocytes % (auto) 11.8 % (0.0-12.0); Neutrophils # (auto) 4.8 10 ^3/uL (1.6-8.6); Neutrophils % (auto) 69.3 % (37.0-80.0); Nucleated Red Blood Cells % 0.1 %; Platelet Count (auto) 179 10^3/uL (140-450); Red Blood Cells 5.81 10^6/uL (4.5-5.90); Red Cell Distribution Width 18.3 % (11.8-14.3); White Blood Cell 6.9 10^3/uL (4.4-10.8)
[2024-07-23 19:50] LABS: Alanine Aminotransferase 29 U/L (7-40); Albumin 4.2 g/dL (3.2-4.8); Alkaline Phosphatase 114 U/L (46-116); Anion Gap 15 (5-15); BUN/Creatinine Ratio 17.2 (10.0-20.0); Calcium 9.9 mg/dL (8.7-10.4); Carbon Dioxide 23 mmol/L (20-31); Chloride 104 mmol/L (98-107); Potassium 3.6 mmol/L (3.5-5.1); Sodium 142 mmol/L (136-145); Total Protein 6.5 g/dL (5.7-8.2)
[2024-07-23 19:51] LABS: Bilirubin, Total 1.1 mg/dL (0.2-1.0)
[2024-07-23 19:52] LABS: Aspartate Aminotransferase 44 U/L (13-40); Blood Urea Nitrogen 35 mg/dL (9-23); Glucose 152 mg/dL (74-106)
[2024-07-23] MEDS: ASPirin 81 mg TAB PO ONE (19:52)
[2024-07-23] MEDS: MORPHINE SULFATE INJ 2 MG/ml SYRG IV ONE (19:53)
--- NOTE | 2024-07-23 20:07 | DVH ---
XY CHEST XRAY 1 VIEW, HISTORY: cp COMPARISON: XY CHEST PORTABLE on DOS: 07/12/24, XY CHEST PORTABLE on DOS: 04/27/24, XY CHEST PORTABLE on DOS: 12/13/23 XY CHEST PORTABLE on DOS: 07/12/24, XY CHEST PORTABLE on DOS: 04/27/24, XY CHEST PORTABLE on DOS: 12/12 TECHNICAL DATA: 1 view of the chest was obtained. FINDINGS: Lines and tubes: There is a cardiac defibrillator. Cardiomediastinal silhouette: normal Pulmonary vasculature: normal Lung expansion: normal Lung airspace: normal Lung interstitium: normal Pleura: normal Pneumothorax: no Bones: Unremarkable Other: no IMPRESSION: No acute intrathoracic abnormality.
[2024-07-23] MEDS: AMIODARONE BOLUS KIT 100 ML IV ONE (20:09)
[2024-07-23 20:28] LABS: Lactic Acid w/Reflex 2.4 mmol/L (0.4-2.0)
[2024-07-23] MEDS: AMIODARONE 360mg/200mL PREMIX 200 ML IV SCH (20:39)
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
[2024-07-23 21:00] VITALS: PULSE 115; RESP 17; O2SAT 94
[2024-07-23] MEDS: HEPARIN SODIUM (PORCINE) 5000 UNITS/ML 1ML VIAL IV ONE (21:19)
[2024-07-23 21:35] LABS: INR 1.12 (0.9-1.15); Partial Thromboplastin Time 26.9 SEC (24.5-34.5); Prothrombin Time 11.7 sec (9.3-11.8)
[2024-07-23] MEDS ORDERED: NITROGLYCERIN 0.4 MG SL TAB SL PRN (23:00)
[2024-07-23] MEDS ORDERED: DEXTROSE (50%) 50ML SYRG IV PRN (23:00)
[2024-07-23] MEDS ORDERED: ONDANSETRON HCL 4 MG/2 ML VIAL IV PRN (23:00)
[2024-07-23] MEDS ORDERED: MORPHINE SULFATE INJ 2 MG/ml SYRG IV PRN (23:00)
--- NOTE | 2024-07-23 23:09 | DVHHP2 ---
History of Present Illness Reason for Visit: Shortness for breath History of Present Illness 54-year-old male presents for evaluation of shortness for breath. Patient reports a one day history of worsening shortness for breath. He reports feeling his pacemaker discharge 3 times today. Patient continues to use amphetamine l ast time being yesterday. He uses marijuana on a daily basis. Denies chest pain at the moment. Reports palpitations. On arrival patient's heart rate was noted to be in AFib with RVR. Patient was placed on a heparin drip and amiodarone drip by ER provider. Past Medical History Hypertension, mi, COPD, CHF, chronic kidney disease, Past Surgical History Pacemaker, PTCA Family History Heart disease, hypertension, diabetes mellitus Smoke: <1 pack per day ALCOHOL: occassional Drugs: Cocaine, Marijuana, Other (Amphetamine) Lives: with Family Review of Systems Review of Systems Review of systems are currently negative otherwise addressed in HPI. Allergies: Coded Allergies: NO KNOWN ALLERGIES (Unverified , 01/15/15) Medications Current Medications Medications Dose Ordered Sig/Chente Route Start Time Stop Time Status Last Admin Dose Admin Heparin Sodium/ Dextrose 250 ml @ 10 mls/hr Q24H IV 07/23/24 21:00 Apixaban 2.5 mg BID PO 07/24/24 10:00 UNV Aspirin 162 mg DAILY PO 07/24/24 10:00 Atorvastatin Calcium 40 mg HS PO 07/24/24 22:00 Carvedilol 12.5 mg Q12HR PO 07/24/24 10:00 Diltiazem HCl 120 mg DAILY PO 07/24/24 10:00 Empaglifozin 10 mg DAILY PO 07/24/24 10:00 Furosemide 40 mg DAILY PO 07/24/24 10:00 Diagnostic Test (Pha) 1 strip ACHS 07/24/24 07:00 Insulin Human Regular ACHS SC 07/24/24 07:00 Dextrose 50 ml UD PRN IV 07/23/24 23:00 Ondansetron HCl 4 mg Q4HP PRN IV 07/23/24 23:00 Acetaminophen 650 mg Q6HP PRN PO 07/23/24 23:00 Nitroglycerin 0.4 mg Q5MINP PRN SL 07/23/24 23:00 Morphine Sulfate 2 mg Q30M PRN IV 07/23/24 23:00 Exam Vital Signs Vital Signs Date Time Temp Pulse Resp B/P (MAP) Pulse Ox O2 Delivery O2 Flow Rate FiO2 07/23/24 21:00 115 17 94 Nasal Cannula* 2 28 07/23/24 20:46 116/79 07/23/24 20:00 98.1 98.1 Exam Gen: 54-year-old male in mild distress Skin: Warm, dry, normal color and texture, no rash. HEENT: Normocephalic atraumatic, mucous membranes moist and pink. Neck: Cervical and supraclavicular nodes normal without enlargement, trachea is midline, thyroid gland is normal without masses. Pulmonary: Clear to auscultation and percussion bilaterally. Cardiac: Regular rate and rhythm. No murmur Abdomen: Soft, nontender, nondistended, bowel sounds present all 4 quadrants, no guarding, no rigidity, no organomegaly. Extremities: No cyanosis, clubbing, no edema Neuro: Cranial nerves II through XII grossly intact, normal affect and speech, no focal motor deficits. Labs/Xrays AGE / SEX: 54 / M ADM STATUS: ADM IN SERVICE 23 ORDERING PHYSICIAN: CLARIBEL MOHAMUD RESIDENT PROCEDURE(s): ECIDC - ECHO 2D MODE CARDIAC DOP REASON: Shortness of breath, chf ORDER NUMBER(s): [id number], ACCESSION NUMBER(s): [id number] APPROVED REPORT EXAM: Two-dimensional and M-mode echocardiogram with Doppler and color Doppler. Blood Pressure: 134/84 mmHg INDICATION SOB CHF RISK FACTORS Height: 5' 11", Weight: 250 DIMENSIONS LVDd 6.4 (3.8-5.7cm) LA (2D) 4.5 (1.9-4.0cm) Aortic Root 3.3 (2.0- 3.7cm) LVDs 5.8 (2.5-4.0cm) LA (MM) (1.9-4.0cm) Aortic Cusp Exc 1.7 (1.5- 2.0cm) EF (%) 20.0 (55-70%) Rt. Atrium 5.3 (1.9-4.0cm) Asc. Aorta cm IVSd 1.1 (0.7-1.1cm) RV (D) (1.8-2.4cm) PWd 1.2 (0.7-1.1cm) Mitral Valve Mitral Mitral Stenosis E wave 1.10m/s MV Mean GR. mmHg A wave 0.70m/s MV Peak GR. mmHg E/A ratio 1.6 2D MVA cm2 Aortic Valve Aortic Valve Aortic Stenosis V1 0.50m/s AO Mean GR. 4mmHg V2 1.40m/s AO Peak GR. 8mmHg LVOT Diameter 2.2 (1.8-2.4cm) Doppler CHARLES 1.36cm2 Pulmonic Valve V2 0.70m/s Tricuspid Valve TR Velocity 2.50m/s RVSP 28mmHg Conclusion lvef 10-15% by visual estimate dilated LV RV pacing lead present RV dysfunction severe tricuspid regug mild mitral regurg (not well visualized could be worse) trivial to small pericardial effusion noted SIGNED BY: MARLENE CRUZ MD SIGNED DATE/TIME: 04/29/24 2162 CC: ORDERING PHYSICIAN: JOSELYN PRASAD MD PROCEDURE(s): CXR1 - CHEST XRAY 1 VIEW REASON: cp ORDER NUMBER(s): [id number], ACCESSION NUMBER(s): [id number] XY CHEST XRAY 1 VIEW, HISTORY: cp COMPARISON: XY CHEST PORTABLE on DOS: 07/12/24, XY CHEST PORTABLE on DOS: 04/27/24, XY CHEST PORTABLE on DOS: 12/13/23 XY CHEST PORTABLE on DOS: 07/12/24, XY CHEST PORTABLE on DOS: 04/27/24, XY CHEST PORTABLE on DOS: 12/13/23 TECHNICAL DATA: 1 view of the chest was obtained. FINDINGS: Lines and tubes: There is a cardiac defibrillator. Cardiomediastinal silhouette: normal Pulmonary vasculature: normal Lung expansion: normal Lung airspace: normal Lung interstitium: normal Pleura: normal Pneumothorax: no Bones: Unremarkable Other: no IMPRESSION: No acute intrathoracic abnormality. Labs Test 07/23/24 22:10 07/23/24 21:17 07/23/24 19:15 Range/Units Troponin I High Sensitivity 344 *H </=54 ng/L Lactic Acid Level 0.9 0.4-2.0 mmol/L White Blood Count 6.9 4.4-10.8 10^3/uL Red Blood Count 5.81 4.5-5.90 10^6/uL Hemoglobin 16.3 13.5-17.5 g/dL Hematocrit 50.0 41.0-53.0 % Mean Corpuscular Volume 86.1 80.0-100.0 fL Mean Corpuscular Hemoglobin 28.1 28.0-32.0 pg Mean Corpuscular Hemoglobin Concent 32.6 32.0-36.0 g/dL Red Cell Distribution Width 18.3 H 11.8-14.3 % Platelet Count 179 140-450 10^3/uL Mean Platelet Volume 8.1 6.9-10.8 fL Neutrophils (%) (Auto) 69.3 37.0-80.0 % Lymphocytes (%) (Auto) 16.4 10.0-50.0 % Monocytes (%) (Auto) 11.8 0.0-12.0 % Eosinophils (%) (Auto) 1.6 0.0-7.0 % Basophils (%) (Auto) 0.9 0.0-2.0 % Neutrophils # (Auto) 4.8 1.6-8.6 10 ^3/uL Lymphocytes # (Auto) 1.1 0.4-5.4 10 ^3/uL Monocytes # (Auto) 0.8 0-1.3 10 ^3/uL Eosinophils # (Auto) 0.1 0-0.8 10 ^3/uL Basophils # (Auto) 0.1 0-0.2 10 ^3/uL Nucleated Red Blood Cells 0.1 % Prothrombin Time 11.7 9.3-11.8 sec Prothrombin Time INR 1.12 0.9-1.15 Activated Partial Thromboplast Time 26.9 24.5-34.5 SEC Sodium Level 142 136-145 mmol/L Potassium Level 3.6 3.5-5.1 mmol/L Chloride Level 104 98-107 mmol/L Carbon Dioxide Level 23 20-31 mmol/L Anion Gap 15 5-15 Blood Urea Nitrogen 35 H 9-23 mg/dL Creatinine 2.03 H 0.700-1.30 mg/dL Glomerular Filtration Rate Calc 38 >90 mL/min BUN/Creatinine Ratio 17.2 10.0-20.0 Serum Glucose 152 H 74-106 mg/dL Calcium Level 9.9 8.7-10.4 mg/dL Total Bilirubin 1.1 H 0.2-1.0 mg/dL Aspartate Amino Transferase (AST) 44 H 13-40 U/L Alanine Aminotransferase (ALT) 29 7-40 U/L Alkaline Phosphatase 114 46-116 U/L B-Type Natriuretic Peptide 354.71 0-100 pg/mL Total Protein 6.5 5.7-8.2 g/dL Albumin 4.2 3.2-4.8 g/dL Assessment/Plan Assessment/Plan Assessment AFib with RVR Elevated troponin secondary to the above Acute on chronic kidney disease Hypertension Noncompliant Amphetamine abuse Diabetes mellitus Secondary coagulopathy Plan Admit the patient to telemetry to the hospitalist Cardiology consultation Continue amiodarone and heparin drip started by ER provider Resume home medications Continue treatment per orders. Plan discussed with: Patient My Orders Orders - ROMANA CARMICHAEL Procedure Category Date Status Time * Cardiology Consult CONS 07/23/24 Transmitted 22:48 Apixaban (Eliquis) PHA 07/24/24 Pending 10:00 Aspirin Tablet PHA 07/24/24 In Process 10:00 Atorvastatin (Lipitor) PHA 07/24/24 In Process 22:00 Carvedilol Tablet PHA 07/24/24 In Process (Coreg Tablet) 10:00 Diltiazem Er Capsule PHA 07/24/24 In Process (Cardizem Er Capsul 10:00 Empagliflozin PHA 07/24/24 In Process (Jardiance) 10:00 Furosemide Tablet PHA 07/24/24 In Process (Lasix Tablet) 10:00 Basic Metabolic Panel LAB 07/24/24 Verified 04:00 Glucose Blood PHA 07/24/24 In Process (Accu-Chek Comfort 07:00 Insulin R (Human) PHA 07/24/24 In Process (Insulin R) 07:00 Dextrose 50% Syringe PHA 07/23/24 In Process 23:00 Admit ADMIT 07/23/24 Transmitted 22:48 Ondansetron Hcl PHA 07/23/24 In Process (Zofran) 23:00 Cardiac DIET 07/24/24 Transmitted Diet-2gna,Lofat,Lochol Breakfast Condition: Fair [facility] 07/23/24 In Process 22:48 Acetaminophen Tablet PHA 07/23/24 In Process (Tylenol Tablet) 23:00 Bedrest With Bathroom [facility] 07/23/24 In Process Privileg 22:48 Nitroglycerin PHA 07/23/24 In Process Sublingual (Ntrostat 23:00 Morphine Sulfate [facility] 07/23/24 In Process Injection 23:00 Notify Of Changes [facility] 07/23/24 In Process From Base 22:48 Open Hearth Furnace Operator For [facility] 07/23/24 In Process 24 Hours 22:48 Emergency Dysrhythmia [facility] 07/23/24 In Process Protocol 22:48 Rhythm Strips Once [facility] 07/23/24 In Process Every Shift 22:48 Oxygen By Nasal RT 07/23/24 Transmitted Cannula 22:48 Date of Service: Jul 23, 2024 Billing Provider: ROMANA CARMICHAEL Common Visit Codes: [id number] INP/OBS CARE (HIGH) ROMANA CARMICHAEL Jul 23, 2024 23:09
[2024-07-23] MEDS: HEPARIN DRIP/D5W 100UNITS/ML 250 ML IV SCH (23:46)
[2024-07-24] VITALS (11 sets, daily range): BP systolic 105–138; BP diastolic 60–82; PULSE 18–123; RESP 16–19; TEMP 97.3–98.8; O2SAT 94–100
--- NOTE | 2024-07-24 03:36 | ECG ---
[facility] Test Date: 2024-07-23 Test Time: 18:59:37 Pat Name: [facility] Department: ED Room: [address] [place] [address] Gender: M Sample Card Maker: : [id number] Requested By: JOSELYN PRASAD Order Number: [id number] Reading MD: Measurements Intervals Hurricane Rate: 122 P: 0 DC: 0 QRS: -54 QRSD: 134 T: 114 QT: 376 QTc: 536 Interpretive Statements Atrial fibrillation Left bundle branch block Baseline wander in lead(s) II,III,aVR,aVF,V3,V5,V6 Please click the below link to view image of tracing.
[2024-07-24] MEDS: ACETAMINOPHEN 325 MG TAB PO PRN (05:16)
[2024-07-24] MEDS: InsuLIN REG 1unit/0.01ml Soln (100units/ml) SC SCH (07:00)
[2024-07-24] MEDS: ACCU-CHEK COMFORT CURVE STRIP VI SCH (07:03)
[2024-07-24] MEDS ORDERED: IPRATROPIUM BROM 0.5 MG/2.5ML INH SOL NEB SCH (08:15)
[2024-07-24] MEDS ORDERED: LEVALBUTEROL HCL 1.25 MG/3 ML NEB NEB SCH (08:15)
[2024-07-24] MEDS: dilTIAZem 120MG ER CAP PO SCH (09:34)
[2024-07-24] MEDS: EMPAGLIFLOZIN 10 MG TAB PO SCH (09:34)
[2024-07-24] MEDS: ASPirin 81 mg TAB PO SCH (09:35)
[2024-07-24] MEDS: FUROSEMIDE 40 MG TAB PO SCH (09:36)
[2024-07-24] MEDS: CARVEDILOL 12.5 MG TAB PO SCH (09:37)
[2024-07-24] MEDS ORDERED: APIXABAN 2.5 MG TAB PO SCH (10:00)
--- NOTE | 2024-07-24 10:30 | DVHINCON2 ---
[facility] 07/24/24 1030: Date Seen: Jul 24, 2024 Referring Physician MAC Rosenbaum Reason for Consultation A-fib History of Present Illness This is a 54-year-old man who presented to the emergency room via EMS with a chief complaint of shortness of breath. The patient presented with shortness of breath associated with PND, MACKAY, and reported ICD device discharges x4. Time of assessment, he only complaint of "brain pain." Denies following up in the outpatient setting with a primary hi teacher neither taking any home me dications. Underwent multiple 12 lead electrocardiograms revealing an atrial fibrillation rhythm with rapid ventricular rate. Serial troponin levels are trending up with latest >300 ng/L. Significant medical history includes end- stage cardiomyopathy with history of hospice care, nonischemic/drug- induced/dilated cardiomyopathy, status post single-lead internal cardioverter defibrillator ([employer]), chronic kidney disease, schizophrenia, polysubstance abuse, a smoking history x40 pack years, and obesity. Of note, previous providers reported history of CAD with PTCA including three ADAN which patient denies. Past Medical History Past medical history reviewed. No other significant than mentioned above. Past Surgical History AICD implantation ([employer]) Family History: Cardiovascular disease G8 MOTHER G8 FATHER Hypertension G8 MOTHER G8 FATHER Family History Family history reviewed. Social History Denies the use of illicit drugs, alcohol, or tobacco use. Per records, recent history of methamphetamine and cannabinoid use. Allergies: Coded Allergies: NO KNOWN ALLERGIES (Unverified , 01/15/15) Home Meds Active Scripts Cephalexin (KEFLEX CAPSULE) 250 Mg Cp, 2 CAP PO BID for 5 Days, #28 CAP Prov:BREA العلي RESIDENT 04/29/24 Azithromycin (Zithromax Z-Bubba) 250 Mg Tab, 250 MG PO DAILY for 5 Days, #5 TAB Prov:BREA العلي RESIDENT 04/29/24 Reported Medications Apixaban Base (ELIQUIS) 2.5 Mg Tab, 2.5 MG PO BID, TAB 04/28/24 Folic Acid (Folic Acid) 1 Mg Tab, 1 MG PO DAILY, MG 04/28/24 Pantoprazole Sodium Sesquihydr (Pantoprazole Sodium) 40 Mg Tab, 40 MG PO DAILY, TAB 04/28/24 Diltiazem HCl (Diltiazem Hydrochloride) 120 Mg Tab, 120 MG PO DAILY, TAB 04/28/24 Alprazolam (Alprazolam) 1 Mg Tab, 1 MG PO BID for 15 Days, #30 TAB 04/28/24 Atorvastatin Calcium (ATORVASTATIN CALCIUM) 40 Mg Tab, 40 MG PO DAILY, TAB 04/28/24 Oxycodone W/ Acetaminophen (Apap/Oxycodone) 1 Tab Tab, 1 TAB PO QID PRN for PAIN SCALE 1 THRU 6 for 15 Days, #60 TAB CHRONIC PAIN MEDICATION OXYCODONE-ACETAMINOPHEN 10MG-325MG 04/28/24 Aspirin (Aspirin Low Dose) 81 Mg Chw, 1 TAB PO DAILY 12/15/23 Gabapentin (Gabapentin) 300 Mg Cap, 1 CAP PO TID 12/08/23 Docusate Sodium (Docusate Sodium) 100 Mg Cap, 1 CAP PO DAILY 12/08/23 Tiotropium Banning Monohydrate (Spiriva Handihaler) 18 Mcg Cap, 1 CAP INH DAILY 12/08/23 Furosemide (Furosemide) 40 Mg Tab, 1 TAB PO DAILY 12/08/23 Empagliflozin (Jardiance) 10 Mg Tab, 1 TAB PO DAILY 12/08/23 Tamsulosin Hcl (Tamsulosin Hcl) 0.4 Mg Cap, 1 PO DAILY 12/08/23 Trazodone Hcl (Trazodone Hcl) 100 Mg Tab, 1 TAB PO HS 12/08/23 Hydralazine Hcl (Hydralazine Hcl) 50 Mg Tab, 1 TAB PO TID 12/08/23 Potassium Citrate (Potassium Citrate) 1,080 Mg Tab, 1 TAB PO BID 12/08/23 Clonidine Hydrochloride (Clonidine Hcl) 0.2 Mg Tab, 1 PO DAILY 12/08/23 Carvedilol (Carvedilol) 12.5 Mg Tab, 1 TAB PO BID 12/08/23 Isosorbide Mononitrate (Isosorbide Mononitrate ER) 60 Mg Tab, 1 TAB PO DAILY 12/08/23 Lisinopril (Lisinopril) 20 Mg Tab, 1 TAB PO DAILY 08/22/22 Potassium Chloride (K-Tabs) 10 Meq Tab, 1 TAB PO DAILY 08/22/22 Albuterol Sulfate (Albuterol Sulfate Hfa) 108 Mcg/Act Aer, 2 PUFF PO Q4H 08/22/22 Home Meds Home medications reviewed. Current Medications Current Medications Medications (Trade) Dose Ordered Sig/Chente Route PRN Reason Start Time Stop Time Status Last Admin Heparin Sodium/ Dextrose 250 ml @ 10 mls/hr Q24H IV 07/23/24 21:00 07/23/24 23:46 Apixaban (Eliquis) 2.5 mg BID PO 07/24/24 10:00 07/23/24 23:05 DC Aspirin 162 mg DAILY PO 07/24/24 10:00 07/24/24 09:35 Atorvastatin Calcium (Lipitor) 40 mg HS PO 07/24/24 22:00 Carvedilol (Coreg Tablet) 12.5 mg Q12HR PO 07/24/24 10:00 07/24/24 09:37 Diltiazem HCl (Cardizem ER Capsule) 120 mg DAILY PO 07/24/24 10:00 07/24/24 09:34 Empaglifozin (Jardiance) 10 mg DAILY PO 07/24/24 10:00 07/24/24 09:34 Furosemide (Lasix Tablet) 40 mg DAILY PO 07/24/24 10:00 07/24/24 09:36 Diagnostic Test (Pha) (Accu-Chek Comfort Curve T) 1 strip ACHS 07/24/24 07:00 07/24/24 07:03 Insulin Human Regular (InsuLIN R) ACHS SC 07/24/24 07:00 Dextrose 50 ml UD PRN IV Blood Sugar LESS THAN 60 07/23/24 23:00 Ondansetron HCl (Zofran) 4 mg Q4HP PRN IV NAUSEA / VOMITING 07/23/24 23:00 Acetaminophen (Tylenol Tablet) 650 mg Q6HP PRN PO PAIN SCALE 1-3 OR TEMP>100.4 07/23/24 23:00 07/24/24 05:16 Nitroglycerin (Ntrostat Sublingual) 0.4 mg Q5MINP PRN SL FOR CHEST PAIN 07/23/24 23:00 Morphine Sulfate 2 mg Q30M PRN IV FOR CHEST PAIN 07/23/24 23:00 Levalbuterol HCl (Xopenex Medneb) 1.25 mg Q6HR NEB 07/24/24 08:15 07/24/24 09:16 DC Ipratropium Banning (Atrovent Medneb) 0.5 mg Q6HR NEB 07/24/24 08:15 07/24/24 09:16 DC Ipratropium Banning (Atrovent Medneb) 0.5 mg Q6HR NEB 07/24/24 12:00 UNV Levalbuterol HCl (Xopenex Medneb) 1.25 mg Q6HR NEB 07/24/24 12:00 UNV Review of Systems Constitutional: No symptom reported Ears, Nose, & Throat: No symptom reported Eyes: No symptom reported Neurological: No symptoms reported Pulmonary/Respiratory: SOB Cardiovascular: No symptom reported Gastrointestinal: No symptom reported Genitourinary: No symptom reported Musculoskeletal: No symptom reported Skin: No symptom reported Psychiatric: No symptom reported Endocrine: No symptom reported Hemotologic/Lymphatic: No symptom reported Vital Signs Vital Signs Date Time Temp Pulse Resp B/P (MAP) Pulse Ox O2 Delivery O2 Flow Rate FiO2 07/24/24 09:37 66 130/75 07/24/24 09:15 98.1 98 0.0 21 98.1 07/24/24 05:50 18 07/24/24 05:50 Room Air* Physical Exam General Appearance: Cooperative. Well developed. Well nourished. In no acute distress Head Exam: Normal inspection Neck Exam: Normal inspection. Non-tender. Normal alignment Pulmonary/Respiratory: Chest non-tender. Clear bilateral breath sounds Cardiovascular/Chest: Regular rate and rhythm. S1, S2. SR with LBBB. No murmurs. No JVD. Peripheral Pulses: 2+ Radial (R). 2+ Radial (L). 2+ Pedal (R). 2+ Pedal (L) Abdominal Exam: Normal bowel sounds. Soft. Nontender. No hepatospenomegaly. No masses Ankle Exam: Negative ankle edema Lower extremities: Negative lower extremity edema Neuro/Mental Status: A&O x4. Coherent Thoughts/Psych: Normal thought pattern. Anxious. Somewhat agitated Appearance: In no acute distress Skin Exam: Normal inspection. Normal color. Warm. Dry Labs/Diagnostic Data Labs Test 07/23/24 22:10 07/23/24 21:17 07/23/24 19:15 Range/Units Troponin I High Sensitivity 344 *H </=54 ng/L Lactic Acid Level 0.9 0.4-2.0 mmol/L White Blood Count 6.9 4.4-10.8 10^3/uL Red Blood Count 5.81 4.5-5.90 10^6/uL Hemoglobin 16.3 13.5-17.5 g/dL Hematocrit 50.0 41.0-53.0 % Mean Corpuscular Volume 86.1 80.0-100.0 fL Mean Corpuscular Hemoglobin 28.1 28.0-32.0 pg Mean Corpuscular Hemoglobin Concent 32.6 32.0-36.0 g/dL Red Cell Distribution Width 18.3 H 11.8-14.3 % Platelet Count 179 140-450 10^3/uL Mean Platelet Volume 8.1 6.9-10.8 fL Neutrophils (%) (Auto) 69.3 37.0-80.0 % Lymphocytes (%) (Auto) 16.4 10.0-50.0 % Monocytes (%) (Auto) 11.8 0.0-12.0 % Eosinophils (%) (Auto) 1.6 0.0-7.0 % Basophils (%) (Auto) 0.9 0.0-2.0 % Neutrophils # (Auto) 4.8 1.6-8.6 10 ^3/uL Lymphocytes # (Auto) 1.1 0.4-5.4 10 ^3/uL Monocytes # (Auto) 0.8 0-1.3 10 ^3/uL Eosinophils # (Auto) 0.1 0-0.8 10 ^3/uL Basophils # (Auto) 0.1 0-0.2 10 ^3/uL Nucleated Red Blood Cells 0.1 % Prothrombin Time 11.7 9.3-11.8 sec Prothrombin Time INR 1.12 0.9-1.15 Activated Partial Thromboplast Time 26.9 24.5-34.5 SEC Sodium Level 142 136-145 mmol/L Potassium Level 3.6 3.5-5.1 mmol/L Chloride Level 104 98-107 mmol/L Carbon Dioxide Level 23 20-31 mmol/L Anion Gap 15 5-15 Blood Urea Nitrogen 35 H 9-23 mg/dL Creatinine 2.03 H 0.700-1.30 mg/dL Glomerular Filtration Rate Calc 38 >90 mL/min BUN/Creatinine Ratio 17.2 10.0-20.0 Serum Glucose 152 H 74-106 mg/dL Calcium Level 9.9 8.7-10.4 mg/dL Total Bilirubin 1.1 H 0.2-1.0 mg/dL Aspartate Amino Transferase (AST) 44 H 13-40 U/L Alanine Aminotransferase (ALT) 29 7-40 U/L Alkaline Phosphatase 114 46-116 U/L B-Type Natriuretic Peptide 354.71 0-100 pg/mL Total Protein 6.5 5.7-8.2 g/dL Albumin 4.2 3.2-4.8 g/dL Assessment Acute on chronic decompensated HFrEF with EF 10-15% Paroxysmal atrial fibrillation with RVR, now NSR with LBBB NSTEMI, likely type II secondary to above Non-ischemic/drug-induced/end-stage dilated cardiomyopathy Hx of hospice care for end-stage cardiomyopathy Tricuspid regurgitation, severe Presence of AICD (single lead) Chronic kidney disease [id number] diabetes mellitus Medical noncompliance/suboptimal therapy Polysubstance abuse with suspected acute intoxication Plan/Recommendation (Dr. Cruz) Echocardiogram from 04/29/24 revealed EF 10-15%. Dilated LV. RV dysfunction. Severe tricuspid regurgitation. We will continue medical management with GDMT for HFrEF as renal function permits, up-titrate as tolerated. Transition to antiarrhythmic therapy p.o. with amiodarone. Discontinue heparin drip and transition to Eliquis BID. [id number] Score 3 points, HAS-BLED Score 2 points. Complete AICD interrogation. Obtain UDS. Rest of plan per clinical course. Thank you for allowing us to participate in this patient's care. Please call if you have any questions or concerns. This medical document was created using an electronic medical record system with voice recognition software and computerized dictation system. Although this document has been carefully reviewed, there might still be some phonetic and typographical errors. Occasional wrong-word or ``sound-alike substitutions may have occurred due to the inherent limitations of voice recognition software. These areas are purely typographical due to imperfections of the software programs and do not reflect any compromise in the patient's medical care. Please read the chart carefully and recognize, using context, where these substitutions have occurred. Plan discussed with: Patient, Other NYHA Physical activity limitations: Class3(Marked) ordinary Date of Service: Jul 24, 2024 Billing Provider: KEVIN GRUBER DETAIL TECHNICIAN Cardiology Common Codes: [id number] INP/OBS CARE (High) MARLENE CRUZ MD 07/24/24 1624: Family History: Cardiovascular disease G8 MOTHER G8 FATHER Hypertension G8 MOTHER G8 FATHER Allergies: Coded Allergies: NO KNOWN ALLERGIES (Unverified , 01/15/15) Home Meds Active Scripts Cephalexin (KEFLEX CAPSULE) 250 Mg Cp, 2 CAP PO BID for 5 Days, #28 CAP Prov:BREA العلي RESIDENT 04/29/24 Azithromycin (Zithromax Z-Bubba) 250 Mg Tab, 250 MG PO DAILY for 5 Days, #5 TAB Prov:JUANJOSE WEEMS,BREA RESIDENT 04/29/24 Reported Medications Apixaban Base (ELIQUIS) 2.5 Mg Tab, 2.5 MG PO BID, TAB 04/28/24 Folic Acid (Folic Acid) 1 Mg Tab, 1 MG PO DAILY, MG 04/28/24 Pantoprazole Sodium Sesquihydr (Pantoprazole Sodium) 40 Mg Tab, 40 MG PO DAILY, TAB 04/28/24 Diltiazem HCl (Diltiazem Hydrochloride) 120 Mg Tab, 120 MG PO DAILY, TAB 04/28/24 Alprazolam (Alprazolam) 1 Mg Tab, 1 MG PO BID for 15 Days, #30 TAB 04/28/24 Atorvastatin Calcium (ATORVASTATIN CALCIUM) 40 Mg Tab, 40 MG PO DAILY, TAB 04/28/24 Oxycodone W/ Acetaminophen (Apap/Oxycodone) 1 Tab Tab, 1 TAB PO QID PRN for PAIN SCALE 1 THRU 6 for 15 Days, #60 TAB CHRONIC PAIN MEDICATION OXYCODONE-ACETAMINOPHEN 10MG-325MG 04/28/24 Aspirin (Aspirin Low Dose) 81 Mg Chw, 1 TAB PO DAILY 12/15/23 Gabapentin (Gabapentin) 300 Mg Cap, 1 CAP PO TID 12/08/23 Docusate Sodium (Docusate Sodium) 100 Mg Cap, 1 CAP PO DAILY 12/08/23 Tiotropium Banning Monohydrate (Spiriva Handihaler) 18 Mcg Cap, 1 CAP INH DAILY 12/08/23 Furosemide (Furosemide) 40 Mg Tab, 1 TAB PO DAILY 12/08/23 Empagliflozin (Jardiance) 10 Mg Tab, 1 TAB PO DAILY 12/08/23 Tamsulosin Hcl (Tamsulosin Hcl) 0.4 Mg Cap, 1 PO DAILY 12/08/23 Trazodone Hcl (Trazodone Hcl) 100 Mg Tab, 1 TAB PO HS 12/08/23 Hydralazine Hcl (Hydralazine Hcl) 50 Mg Tab, 1 TAB PO TID 12/08/23 Potassium Citrate (Potassium Citrate) 1,080 Mg Tab, 1 TAB PO BID 12/08/23 Clonidine Hydrochloride (Clonidine Hcl) 0.2 Mg Tab, 1 PO DAILY 12/08/23 Carvedilol (Carvedilol) 12.5 Mg Tab, 1 TAB PO BID 12/08/23 Isosorbide Mononitrate (Isosorbide Mononitrate ER) 60 Mg Tab, 1 TAB PO DAILY 12/08/23 Lisinopril (Lisinopril) 20 Mg Tab, 1 TAB PO DAILY 08/22/22 Potassium Chloride (K-Tabs) 10 Meq Tab, 1 TAB PO DAILY 08/22/22 Albuterol Sulfate (Albuterol Sulfate Hfa) 108 Mcg/Act Aer, 2 PUFF PO Q4H 08/22/22 Plan/Recommendation cath reviewed, was - he is NICM check icd to see if shock from afib or vt or none at all poor prognosis, was on hospice refuses meds high risk for Plan discussed with: Patient GRUBERARIANA YINJesus HEBERT Jul 24, 2024 10:30 MARLENE CRUZ MD Jul 24, 2024 16:24
[2024-07-24] MEDS: APIXABAN 5 MG TAB PO ONE (11:09)
[2024-07-24] MEDS: AMIODARONE HCL 200 MG TAB PO ONE (11:10)
[2024-07-24 11:53] LABS: Potassium 3.8 mmol/L (3.5-5.1); Sodium 140 mmol/L (136-145)
[2024-07-24 11:54] LABS: Anion Gap 7 (5-15); Calcium 8.8 mg/dL (8.7-10.4); Carbon Dioxide 26 mmol/L (20-31)
[2024-07-24 11:56] LABS: Chloride 107 mmol/L (98-107)
[2024-07-24 11:59] LABS: BUN/Creatinine Ratio 19.8 (10.0-20.0)
[2024-07-24 12:00] LABS: INR 1.08 (0.9-1.15); Prothrombin Time 11.4 sec (9.3-11.8)
[2024-07-24] MEDS: IPRATROPIUM BROM 0.5 MG/2.5ML INH SOL NEB SCH (12:00)
[2024-07-24] MEDS: LEVALBUTEROL HCL 1.25 MG/3 ML NEB NEB SCH (12:00)
[2024-07-24 12:01] LABS: Blood Urea Nitrogen 34 mg/dL (9-23); Glucose 115 mg/dL (74-106)
[2024-07-24 12:21] LABS: Urine Bacteria None Seen /hpf (None Seen)
--- NOTE | 2024-07-24 12:25 | DVHPNRES ---
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 He reports that he got shocked and dropped to the floor but denies hitting his head or losing consciousness.Underwent multiple 12 lead electrocardiograms revealing an atrial fibrillation rhythm with rapid ventricular rate. Patient was started on IV heparin drip and IV amiodarone by the ER, troponins trending up with the later has been greater than 400. On arrival, patient's creatinine was 2.0, BUN 35, BNP 354, lactic acidosis a 2.4. Chest x-ray reviewed, showed mild pulmonary vascular congestion. Cardiology was consulted, IV switched to p.o., IV heparin switched to Eliquis Past medical/surgical history: See above Home medications: Furosemide 40 mg, isosorbide mononitrate , apixaban 2 point, aspirin, Coreg, diltiazem Social history: Has a place to live, has a girlfriend, smokes, last use amphetamine 4 days back Patient seen and examined at the bedside. AICD interrogation pending Objective vital signs Vital Sign Date Time Temp Pulse Resp B/P (MAP) Pulse Ox O2 Delivery O2 Flow Rate FiO2 07/24/24 09:37 66 130/75 07/24/24 09:15 98.1 98 0.0 21 98.1 07/24/24 08:50 19 07/24/24 05:50 Room Air* Total Intake and Output 07/23/24 07/23/24 07/24/24 15:00 23:00 07:00 Intake Total 66.666 ml 156.659 ml Balance 66.666 ml 156.659 ml medications Current Medications Medications Dose Ordered Sig/Chente Route Start Time Stop Time Status Last Admin Dose Admin Atorvastatin Calcium 40 mg HS PO 07/24/24 22:00 Carvedilol 12.5 mg Q12HR PO 07/24/24 10:00 07/24/24 09:37 12.5 MG Empaglifozin 10 mg DAILY PO 07/24/24 10:00 07/24/24 09:34 10 MG Furosemide 40 mg DAILY PO 07/24/24 10:00 07/24/24 09:36 40 MG Diagnostic Test (Pha) 1 strip ACHS 07/24/24 07:00 07/24/24 11:31 1 STRIP Insulin Human Regular ACHS SC 07/24/24 07:00 Dextrose 50 ml UD PRN IV 07/23/24 23:00 Ondansetron HCl 4 mg Q4HP PRN IV 07/23/24 23:00 Acetaminophen 650 mg Q6HP PRN PO 07/23/24 23:00 07/24/24 05:16 650 MG Nitroglycerin 0.4 mg Q5MINP PRN SL 07/23/24 23:00 Morphine Sulfate 2 mg Q30M PRN IV 07/23/24 23:00 Ipratropium [place] 0.5 mg Q6HR NEB 07/24/24 12:00 Levalbuterol HCl 1.25 mg Q6HR NEB 07/24/24 12:00 Amiodarone HCl 200 mg Q12HR PO 07/24/24 22:00 Apixaban 5 mg BID PO 07/24/24 22:00 Examination Patient lying in bed, in no acute distress General: Obese, afebrile, palor, mucosae are moist Cardiovascular: Tachycardia and irregular S1 and S2. No murmurs, gallops or rubs. No JVD elevation. No pedal edema Respiratory: Normal B/L air entry on room air. Clear lung sounds on auscultation Abdomen: Soft, nontender, nondistended, normoactive bowel sounds, no rebound tenderness, no organomegaly, no masses Genitourinary: Deferred MSK/skin: Mobilizes 4 limbs. Skin is dry and warm Neurological: No motor, no sensitive deficits, normal speech. Pupils are isocoric and reactive. Psych/Mental Status: A/Ox3 laboratory and microbiology Laboratory Tests 07/24/24 11:24 07/23/24 19:15 Test 07/24/24 11:24 Range/Units Serum Glucose 115 H 74-106 mg/dL Labs and/or images reviewed: Labs reviewed by me, Image(s) reviewed by me Problem List/Assessment/Plan Problem List/Assessment/Plan Chest pain secondary to AICD discharge x4 Acute on chronic systolic heart failure with ejection fraction exacerbation-EF 10-15% Paroxysmal atrial fibrillation with a RVR-new onset- Elevated troponin, likely NSTEMI II Drug induced cardiomyopathy methamphetamine Severe tricuspid regurgitation Lactic acidosis Medtronic AICD BNP 354, troponins 483 and up trending Cardiology- We will continue medical management with GDMT for HFrEF as renal function permits, up-titrate as tolerated. Transition to antiarrhythmic therapy p.o. with amiodarone. Discontinue heparin drip and transition to Eliquis BID. [id number] Score 3 points, HAS-BLED Score 2 points. Complete AICD interrogation. GIOVANY, likely vasomotor superimposed on CKD Creatinine 2.03 on arrival, baseline creatinine 1.38 NS 250 bolus administered 07/24 Type 2 diabetes mellitus-hemoglobin A1c 6.9 On ISS Polysubstance use dependence Noncompliance Counseled for more than 28 minutes Vitamin-D deficiency Supplemented Plan discussed with patient in which all questions have been answered Goals of care discussed for more than 27 minutes, full code status Case discussed with Dr. Samuel Plan discussed with: Patient My Orders My Orders Orders - NEW HAMM RESIDENT Procedure Category Date Status Time Covid19 Antigen Sindhu LAB 07/24/24 Logged 07:53 Rapid Influenza A&B LAB 07/24/24 Logged 07:53 Vitamin D, 25-Hydroxy LAB 07/24/24 In Process 07:53 Vitamin B12 LAB 07/24/24 In Process 07:53 Urinalysis LAB 07/24/24 Logged 07:53 Thyroid Stimulating LAB 07/24/24 In Process Hormone 07:53 Drug Screen LAB 07/24/24 Logged 07:53 Hemoglobin A1c LAB 07/24/24 In Process 07:53 Magnesium LAB 07/24/24 In Process 07:53 Troponin-I Hs LAB 07/24/24 Logged 09:06 Troponin-I Hs LAB 07/24/24 Logged 11:06 Ipratropium Medneb PHA 07/24/24 In Process (Atrovent Medneb) 12:00 Levalbuterol Hcl PHA 07/24/24 In Process (Xopenex Medneb) 12:00 Creatine Kinase LAB 07/24/24 In Process 10:48 Date of Service: Jul 24, 2024 Billing Provider: JAIMEE SAMUEL MD Common Visit Codes: [id number] INP/OBS CARE(HIGH) NEW HAMM RESIDENT Jul 24, 2024 12:25 JAIMEE SAMUEL MD Jul 24, 2024 20:00
[2024-07-24 13:05] LABS: Urine Blood Negative /uL (Negative); Urine Clarity Clear (Clear); Urine Color Yellow (Yellow); Urine Protein, UAD TRACE (Negative); Urine Specific Gravity 1.023 (1.001-1.035); Urine Squamous Epithelial Cell None Seen /hpf (<5); Urine Urobilinogen 12 mg/dL (Negative); Urine WBC < 1 /HPF (0-3)
[2024-07-24 13:11] LABS: Amphetamine Screen, Urine Pos (NEGATIVE); Barbiturate Scree,Urine Neg (NEGATIVE); Benzodiazephine Screen, Urine Neg (NEGATIVE); Cannabinoid Screen, Urine Pos (NEGATIVE); Cocaine Screen, Urine Neg (NEGATIVE); Opiate Scree,Urine Neg (NEGATIVE); Phencyclidine Screen, Urine Neg (NEGATIVE)
[2024-07-24] MEDS: ERGOCALCIFEROL 50,000 UNIT(1.25MG) CAP PO SCH (14:48)
[2024-07-24] MEDS: SODIUM CHLORIDE 0.9% 250 ML IV ONE (14:48)
[2024-07-24] MEDS: ATORVASTATIN 20 MG TAB PO SCH (22:07)
[2024-07-24] MEDS: traZODone HCL 50 MG TAB PO PRN (22:08)
[2024-07-24] MEDS: APIXABAN 5 MG TAB PO SCH (22:08)
[2024-07-24] MEDS: AMIODARONE HCL 200 MG TAB PO SCH (22:08)
[2024-07-24] MEDS: ALPRAZolam 0.5 MG TAB PO PRN (22:08)
[2024-07-25] VITALS (8 sets, daily range): BP systolic 103–132; BP diastolic 53–87; PULSE 55–70; RESP 17–19; TEMP 37; O2SAT 93–98
[2024-07-25 09:34] LABS: Rapid Influenza A Negative (Negative)
[2024-07-25 09:35] LABS: COVID19 ANTIGEN SOFIA FIA NEGATIVE (NEGATIVE); Rapid Influenza B Negative (Negative)
[2024-07-25 15:31] LABS: Basophils # (auto) 0 10 ^3/uL (0-0.2); Basophils % (auto) 0.5 % (0.0-2.0); Eosinophils # (auto) 0.1 10 ^3/uL (0-0.8); Eosinophils % (auto) 1.3 % (0.0-7.0); Hematocrit 48.7 % (41.0-53.0); Hemoglobin 15.8 g/dL (13.5-17.5); Lymphocytes # (auto) 0.5 10 ^3/uL (0.4-5.4); Lymphocytes % (auto) 5.6 % (10.0-50.0); Mean Corpuscular Hemoglobin 27.8 pg (28.0-32.0); Mean Corpuscular Hgb Conc. 32.4 g/dL (32.0-36.0); Mean Corpuscular Volume 85.8 fL (80.0-100.0); Monocytes # (auto) 0.8 10 ^3/uL (0-1.3); Monocytes % (auto) 10.3 % (0.0-12.0); Neutrophils # (auto) 6.6 10 ^3/uL (1.6-8.6); Neutrophils % (auto) 82.3 % (37.0-80.0); Platelet Count (auto) 161 10^3/uL (140-450); Red Blood Cells 5.68 10^6/uL (4.5-5.90); Red Cell Distribution Width 18.5 % (11.8-14.3)
--- NOTE | 2024-07-25 15:46 | DVHDSRES ---
Discharge Summary Date of Admission Resident Creating Document: NEW HAMM RESIDENT Jul 23, 2024 at 22:48 Date of Discharge: Jul 25, 2024 Labs/Diagnostic Data: Laboratory Results Test 07/25/24 15:13 07/25/24 11:19 07/25/24 09:00 07/24/24 16:44 POC Glucose 122 mg/dl (70-106) Influenza Type A Antigen Negative (Negative) Influenza Type B Antigen Negative (Negative) SARS-CoV-2 Antigen (Rapid) Negative (NEGATIVE) Troponin I High Sensitivity 323 ng/L (</=54) Test 07/24/24 11:30 07/24/24 11:24 07/23/24 21:17 07/23/24 19:15 Urine Color Yellow (Yellow) Urine Clarity Clear (Clear) Urine pH 6.0 (5.0-9.0) Urine Specific [place] 1.023 (1.001-1.035) Urine Protein Trace (Negative) Urine Ketones Negative (Negative) Urine Blood Negative /uL (Negative) Urine Nitrite Negative (Negative) Urine Bilirubin Negative (Negative) Urine Urobilinogen 12 mg/dL (Negative) Urine Leukocyte Esterase Negative /uL (Negative) Urine RBC None seen /hpf (0 - 3) Urine Microscopic WBC < 1 /HPF (0-3) Urine Squamous Epithelial Cells None seen /hpf (<5) Urine Bacteria None seen /hpf (None Seen) Urine Glucose Normal mg/dL (Normal) Urine Opiates Screen Neg (NEGATIVE) Urine Fentanyl Screen Neg (NEGATIVE) Urine Barbiturates Screen Neg (NEGATIVE) Urine Phencyclidine Screen Neg (NEGATIVE) Urine Amphetamines Screen Pos (NEGATIVE) Urine Benzodiazepines Screen Neg (NEGATIVE) Urine Cocaine Screen Neg (NEGATIVE) Urine Cannabinoids Screen Pos (NEGATIVE) Prothrombin Time 11.4 sec (9.3-11.8) Prothrombin Time INR 1.08 (0.9-1.15) Activated Partial Thromboplast Time 43.0 SEC (24.5-34.5) Hemoglobin A1c 6.9 % A1C (<5.7) Magnesium Level 2.0 mg/dL (1.6-2.6) Creatine Kinase 328 U/L (46-171) Vitamin B12 Level 436 pg/mL (211-911) Vitamin D 25-Hydroxy 21.8 ng/mL (30.0-100) Thyroid Stimulating Hormone (TSH) 0.85 uIU/mL (0.55-4.78) Lactic Acid Level 0.9 mmol/L (0.4-2.0) Eosinophils (%) (Auto) 1.6 % (0.0-7.0) Eosinophils # (Auto) 0.1 10 ^3/uL (0-0.8) Basophils # (Auto) 0.1 10 ^3/uL (0-0.2) Nucleated Red Blood Cells 0.1 % B-Type Natriuretic Peptide 354.71 pg/mL (0-100) Brief Hx & Hospital Course: Mr. 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 He reports that he got shocked and dropped to the floor but denies hitting his head or losing consciousness.Underwent multiple 12 lead electrocardiograms revealing an atrial fibrillation rhythm with rapid ventricular rate. Patient was started on IV heparin drip and IV amiodarone by the ER, troponins trending up with the later has been greater than 400. On arrival, Past medical/surgical history: See above Home medications: Furosemide 40 mg, isosorbide mononitrate , apixaban 2 point, aspirin, Coreg, diltiazem Social history: Has a place to live, has a girlfriend, smokes, last use amphetamine 4 days back During the hospitalization, patient was diagnosed with new onset atrial fibrillation with RVR. patient's creatinine was 2.0, BUN 35, BNP 354, lactic acidosis a 2.4. Troponins were 483, started to trend down. Chest x-ray reviewed, showed mild pulmonary vascular congestion. Cardiology was consulted, IV amiodarone switched to p.o., IV heparin switched to Eliquis. Patient had elevated troponin, likely NSTEMI type 2. AICD interrogation was completed 07/25. NS 250 cc bolus with a administered, creatinine started to downtrend. Patient refused blood draws multiple times during the hospitalization, he was advised regarding the importance of blood work. He was counseled regarding polysubstance use and noncompliance. 07/25/24 patient is hemodynamically stable, vitally stable, refusing blood work, repeat creatinine trending down 1.45, denies active chest pain and with the entire acute distress, therefore patient is being discharged home with the recommendations to follow up with Cardiology within 7 days, primary care physician within 7 days, discharge clinic appointment, he was strongly counseled regarding the adverse effects of polysubstance use and the need of medication compliance including new discharge medications Eliquis 5 mg b.i.d. and amiodarone 200 mg b.i.d.. Discharge diagnosis: Chest pain secondary to AICD discharge x4 Acute on chronic systolic heart failure with ejection fraction exacerbation-EF 10-15% Paroxysmal atrial fibrillation with a RVR-new onset- Elevated troponin, likely NSTEMI II Drug induced cardiomyopathy methamphetamine Severe tricuspid regurgitation Lactic acidosis Medtronic AICD GIOVANY, likely vasomotor superimposed on CKD Type 2 diabetes mellitus-hemoglobin A1c 6.9 Polysubstance use dependence Noncompliance Vitamin-D deficiency Consults/Reason for consult Cardiology consulted for NSTEMI Condition at Discharge: Poor Final Diagnosis/Problems List Chest pain secondary to AICD discharge x4 Acute on chronic systolic heart failure with ejection fraction exacerbation-EF 10-15% Paroxysmal atrial fibrillation with a RVR-new onset- Elevated troponin, likely NSTEMI II Drug induced cardiomyopathy methamphetamine Severe tricuspid regurgitation Lactic acidosis Medtronic AICD GIOVANY, likely vasomotor superimposed on CKD Type 2 diabetes mellitus-hemoglobin A1c 6.9 Polysubstance use dependence Noncompliance Vitamin-D deficiency Discharge Disposition: Home Discharge Instruct/Medications Diet: Cardiac 2g Na,low cholest (2 gm sodium, low cholesterol) Activity: Light activity Follow Up/Referral: Follow up with cable installation manager as outpatient within 2 weeks, follow up with primary care physician within 7 days, follow up with the clinic appointment within 7 days Medications: Per EMR Discharge Statement: "Patient was advised to return to the ER or call 911 if any headaches, dizziness, shortness of breath, chest pain, abdominal pain, bleeding, fevers, or worsening of medical condition. Patient was counseled about treatment plan, medications, possible side effects, patientverbalized understanding. All questions were answered to the best of my ability. This discharge took greater then 30 minutes in planning, reviewing documentation, counseling the patient, and discussing with other team members." ASSESSMENT ASSESSMENT Assessment Date of Service: Jul 26, 2024 Billing Provider: JAIMEE SAMUEL MD Common Visit Codes: [id number] INP/OBS CARE(HIGH) NORISNEW RESIDENT Jul 25, 2024 15:46 JAIMEE SAMUEL MD Jul 26, 2024 22:13
[2024-07-25 15:52] LABS: Alanine Aminotransferase 20 U/L (7-40); Albumin 4.1 g/dL (3.2-4.8); Alkaline Phosphatase 116 U/L (46-116); Anion Gap 8 (5-15); Aspartate Aminotransferase 32 U/L (13-40); BUN/Creatinine Ratio 12.4 (10.0-20.0); Bilirubin, Total 0.8 mg/dL (0.2-1.0); Blood Urea Nitrogen 18 mg/dL (9-23); Calcium 9.7 mg/dL (8.7-10.4); Carbon Dioxide 27 mmol/L (20-31); Chloride 100 mmol/L (98-107); Potassium 3.8 mmol/L (3.5-5.1); Total Protein 6.6 g/dL (5.7-8.2)
[2024-07-25 15:54] LABS: Glucose 126 mg/dL (74-106); Sodium 135 mmol/L (136-145)
[2024-07-25] MEDS ORDERED: AMIO200T33 PO (16:09)
[2024-07-25] MEDS ORDERED: APIX5TAB PO (16:09)
--- NOTE | 2024-07-26 22:15 | PRN ---
Misceleneous Note Note Note Clarify: Date of discharge 07/25/2024 Date of Service: Jul 25, 2024 Billing Provider: AJIMEE SAMUEL MD Common Visit Codes: [id number] DISCH DAY >30min JAIMEE SAMUEL MD Jul 26, 2024 22:15
== END 2024-07-25 18:10 | disposition home or self-care (01) | DRG 201 ==
LOC: EDBD 18:50 → EDUNIT# 18:50 → ER 18:50 → OVERFLOW 22:48 → TELE-EAST 07-24 04:22
PROVIDERS: ADMIT Internal Medicine; ATTEND Emergency Medicine
PROC: 4B02XTZ Measurement of Cardiac Defibrillator, External Approach (ICD-10-PCS; principal; 2024-07-25)
DX: I48.0 Paroxysmal atrial fibrillation (principal); J96.00 Acute respiratory failure, unspecified whether with hypoxia or hypercapnia; I21.A1 Myocardial infarction type 2; I50.23 Acute on chronic systolic (congestive) heart failure; D68.9 Coagulation defect, unspecified; E87.20 Acidosis, unspecified; N17.9 Acute kidney failure, unspecified; I13.0 Hypertensive heart and chronic kidney disease with heart failure and stage 1 through stage 4 chronic kidney disease, or unspecified chronic kidney disease; I42.7 Cardiomyopathy due to drug and external agent; T43.655A Adverse effect of methamphetamines, initial encounter; I42.0 Dilated cardiomyopathy; Z20.822 Contact with and (suspected) exposure to COVID-19; E11.22 Type 2 diabetes mellitus with diabetic chronic kidney disease; J44.9 Chronic obstructive pulmonary disease, unspecified; N18.9 Chronic kidney disease, unspecified; I07.1 Rheumatic tricuspid insufficiency; F20.9 Schizophrenia, unspecified; F15.10 Other stimulant abuse, uncomplicated; E66.9 Obesity, unspecified; Z68.32 Body mass index [BMI] 32.0-32.9, adult; F19.20 Other psychoactive substance dependence, uncomplicated; I44.7 Left bundle-branch block, unspecified; I25.10 Atherosclerotic heart disease of native coronary artery without angina pectoris; F17.210 Nicotine dependence, cigarettes, uncomplicated; F12.90 Cannabis use, unspecified, uncomplicated; E78.5 Hyperlipidemia, unspecified; Z98.61 Coronary angioplasty status; Z95.810 Presence of automatic (implantable) cardiac defibrillator; Z91.199 Patient's noncompliance with other medical treatment and regimen due to unspecified reason; Z83.3 Family history of diabetes mellitus; Z82.49 Family history of ischemic heart disease and other diseases of the circulatory system; Z79.84 Long term (current) use of oral hypoglycemic drugs; Y92.89 Other specified places as the place of occurrence of the external cause; E55.9 Vitamin D deficiency, unspecified
CPT/HCPCS: 36415; 71045; 80048; 80053; 80307; 81001; 82306; 82550; 82607; 82962; 83036; 83605; 83735; 83880; 84443; 84484; 85025; 85610; 85730; 87040; 87426; 87804; 93005; 94640; G0378; J1815

== ENCOUNTER 2024-10-02 19:35 | Inpatient (IN) | payer MEDICAID ==
[~2024-10-02] VITALS: Ht 175.3 cm; Wt 96.7 kg
[2024-10-02] MEDS: hydrALAZINE HCL 25 MG TAB PO SCH (01:00)
[~2024-10-02 19:35] MED LIST changes: +AMIO200T33 PO; -APIX2.5T PO; +APIX5TAB PO; -AZITTAB PO; -CEPH250C PO; -CLON0.2T PO
[2024-10-02 20:03] LABS: Basophils # (auto) 0 10 ^3/uL (0-0.2); Basophils % (auto) 0.8 % (0.0-2.0); Eosinophils # (auto) 0.1 10 ^3/uL (0-0.8); Eosinophils % (auto) 1.8 % (0.0-7.0); Hemoglobin 13.7 g/dL (13.5-17.5); Lymphocytes % (auto) 17.8 % (10.0-50.0); Mean Corpuscular Hemoglobin 29.2 pg (28.0-32.0); Mean Corpuscular Hgb Conc. 32.8 g/dL (32.0-36.0); Mean Corpuscular Volume 89.2 fL (80.0-100.0); Monocytes # (auto) 0.7 10 ^3/uL (0-1.3); Monocytes % (auto) 13.5 % (0.0-12.0); Neutrophils # (auto) 3.7 10 ^3/uL (1.6-8.6); Neutrophils % (auto) 66.1 % (37.0-80.0); Nucleated Red Blood Cells % 0.1 %; Platelet Count (auto) 168 10^3/uL (140-450); Red Blood Cells 4.71 10^6/uL (4.5-5.90); White Blood Cell 5.5 10^3/uL (4.4-10.8)
[2024-10-02 20:19] LABS: Chloride 107 mmol/L (98-107); Sodium 141 mmol/L (136-145)
[2024-10-02 20:20] LABS: Anion Gap 7 (5-15); Calcium 9.4 mg/dL (8.7-10.4); Carbon Dioxide 27 mmol/L (20-31); Potassium 3.5 mmol/L (3.5-5.1)
[2024-10-02 20:25] LABS: BUN/Creatinine Ratio 10.3 (10.0-20.0); Blood Urea Nitrogen 15 mg/dL (9-23)
[2024-10-02] MEDS: IPRATROPIUM BROM 0.5 MG/2.5ML INH SOL NEB ONE (20:26)
[2024-10-02] MEDS: ALBUTEROL SULF 2.5 MG/0.5ML(0.5%) NEB SOLN NEB ONE (20:26)
[2024-10-02 21:06] LABS: Glucose 124 mg/dL (74-106)
--- NOTE | 2024-10-02 21:31 | ED.PDOC ---
History of Present Illness HPI Comments 54 year-old male with history of AFib, CHF w/systolic-EF 10-15%, CKF, COPD w/home O2, DM II, HLD, HTN, STEMI II s/p PTCA, drug-induced cardiomyopathy status post Medtronic ICD, tricuspid regurg, and polysubstance use BIBA from home complaining of shortness of breath for the last 3-4 days, associated with left parasternal pressure-like chest pain and lightheadedness. He denies having any cough, congestion, nausea, vomiting, palpitations, leg swelling, or associated symptoms. EMS reports finding the patient hypertensive on scene and administering 324 ASA and 2x NTG dosage en route. Pt states chest pain improved from 8/10 to 3/10 after administration of nitroglycerin. Chief Complaint: Chest Pain Time Seen by MD: 19:40 Primary Care Provider: KIMBERLY Reviewed Notes: Nurses Notes, Taxation Accountant Notes, Medications, Allergies Allergies: Coded Allergies: NO KNOWN ALLERGIES (Unverified , 01/15/15) Home Meds Active Scripts Apixaban Base (ELIQUIS) 5 Mg Tab, 5 MG PO BID for 30 Days, #60 TAB 0 Refills Prov:NEW H[facility] RESIDENT 07/25/24 Amiodarone Hcl (Amiodarone Hcl) 200 Mg Tab, 200 MG PO BID for 30 Days, #60 TAB 0 Refills Prov:NEW [place] RESIDENT 07/25/24 Reported Medications Folic Acid (Folic Acid) 1 Mg Tab, 1 MG PO DAILY, MG 04/28/24 Pantoprazole Sodium Sesquihydr (Pantoprazole Sodium) 40 Mg Tab, 40 MG PO DAILY, TAB 04/28/24 Diltiazem HCl (Diltiazem Hydrochloride) 120 Mg Tab, 120 MG PO DAILY, TAB 04/28/24 Alprazolam (Alprazolam) 1 Mg Tab, 1 MG PO BID for 15 Days, #30 TAB 04/28/24 Atorvastatin Calcium (ATORVASTATIN CALCIUM) 40 Mg Tab, 40 MG PO DAILY, TAB 04/28/24 Oxycodone W/ Acetaminophen (Apap/Oxycodone) 1 Tab Tab, 1 TAB PO QID PRN for PAIN SCALE 1 THRU 6 for 15 Days, #60 TAB CHRONIC PAIN MEDICATION OXYCODONE-ACETAMINOPHEN 10MG-325MG 04/28/24 Aspirin (Aspirin Low Dose) 81 Mg Chw, 1 TAB PO DAILY 12/15/23 Gabapentin (Gabapentin) 300 Mg Cap, 1 CAP PO TID 12/08/23 Docusate Sodium (Docusate Sodium) 100 Mg Cap, 1 CAP PO DAILY 12/08/23 Tiotropium [place] Monohydrate (Spiriva Handihaler) 18 Mcg Cap, 1 CAP INH DAILY 12/08/23 Furosemide (Furosemide) 40 Mg Tab, 1 TAB PO DAILY 12/08/23 Empagliflozin (Jardiance) 10 Mg Tab, 1 TAB PO DAILY 12/08/23 Tamsulosin Hcl (Tamsulosin Hcl) 0.4 Mg Cap, 1 PO DAILY 12/08/23 Trazodone Hcl (Trazodone Hcl) 100 Mg Tab, 1 TAB PO HS 12/08/23 Hydralazine Hcl (Hydralazine Hcl) 50 Mg Tab, 1 TAB PO TID 12/08/23 Potassium Citrate (Potassium Citrate) 1,080 Mg Tab, 1 TAB PO BID 12/08/23 Carvedilol (Carvedilol) 12.5 Mg Tab, 1 TAB PO BID 12/08/23 Isosorbide Mononitrate (Isosorbide Mononitrate ER) 60 Mg Tab, 1 TAB PO DAILY 12/08/23 Lisinopril (Lisinopril) 20 Mg Tab, 1 TAB PO DAILY 08/22/22 Potassium Chloride (K-Tabs) 10 Meq Tab, 1 TAB PO DAILY 08/22/22 Albuterol Sulfate (Albuterol Sulfate Hfa) 108 Mcg/Act Aer, 2 PUFF PO Q4H 08/22/22 Information Source: Patient, Emergency Med Personnel Mode of Arrival: EMS Severity: Moderate Timing: Days Duration: Since onset Prehospital treatment: 12 Lead EKG, ASA, Technology Architect, NTG Past Medical History PAST MEDICAL HISTORY: AFIB (Paroxysmal atrial fibrillation with a RVR), CHF (systolic-EF 10-15%), CKF, COPD (w/home O2), DM (type 2), High Lipids, HTN, VA (NSTEMI II), Schizophrenia Past Medical History (Other): GIOVANY drug-induced cardiomyopathy status post Medtronic ICD severe tricuspid regurgitation Polysubstance use dependence Surgical History: PTCA Surgical History (Other): AICD Family History Family History: Family hx of DM, Family hx of Cancer, Family hx of heart navid, Family hx of HTN Social History Smoker: Cigarettes Alcohol: Occasionally Drugs: Cocaine, Marijuana, Methamphetamine Lives In: Home All Other Systems: Reviewed and Negative (Comprehensive systems review obtained and negative except for what is stated in the HPI.) Physical Exam General Appearance: No Apparent Distress HEENT: Other (Pupils and face symmetric. Moist mucous membranes.) Neck: Full Range of Motion, Normal Inspection Respiratory: Lungs Clear, No Accessory Muscle Use, No Respiratory Distress, Normal Breath Sounds Cardiovascular: No Edema, No JVD, Regular Rate/Rhythm Breast Exam: Deferred Gastrointestinal: Non Tender, Soft Genitalia: Deferred Pelvic: Deferred Rectal: Deferred Extremities: Normal inspection, Normal range of motion, Non-tender, No pedal edema Neurologic: Alert (Oriented x4), Other (Ambulatory) Cerebellar Function: NOT DONE Reflexes: NOT DONE Skin: Dry, Normal Color, Warm Lymphatic: NOT DONE Was a procedure done? Was a procedure done?: No EKG EKG : Comments Sinus rhythm, rate 70, normal LA interval, QRS prolonged at 145, normal QTC interval, left axis deviation, left bundle branch block, lateral T-wave inversion Differential Dx Considerations may include: VA, unstable angina/ACS, CHF, URI, PNA, viral syndrome, COPD/asthma, gastritis, ulcer disease, pericarditis, anxiety, among others X-Ray, Labs, Meds, VS Vital Signs Date Time Temp Pulse Resp B/P (MAP) Pulse Ox O2 Delivery O2 Flow Rate FiO2 10/02/24 22:06 98.2 84 20 174/96 (122) 98 98.2 10/02/24 20:29 18 97 Room Air* 0 21 10/02/24 20:07 98.3 80 22 186/116 (139) 97 98.3 10/02/24 19:37 70 Lab Test 10/02/24 20:53 10/02/24 19:47 Range/Units Troponin I High Sensitivity 76 *H 76 *H </=54 ng/L White Blood Count 5.5 4.4-10.8 10^3/uL Red Blood Count 4.71 4.5-5.90 10^6/uL Hemoglobin 13.7 13.5-17.5 g/dL Hematocrit 42.0 41.0-53.0 % Mean Corpuscular Volume 89.2 80.0-100.0 fL Mean Corpuscular Hemoglobin 29.2 28.0-32.0 pg Mean Corpuscular Hemoglobin Concent 32.8 32.0-36.0 g/dL Red Cell Distribution Width 19.0 H 11.8-14.3 % Platelet Count 168 140-450 10^3/uL Mean Platelet Volume 7.9 6.9-10.8 fL Neutrophils (%) (Auto) 66.1 37.0-80.0 % Lymphocytes (%) (Auto) 17.8 10.0-50.0 % Monocytes (%) (Auto) 13.5 H 0.0-12.0 % Eosinophils (%) (Auto) 1.8 0.0-7.0 % Basophils (%) (Auto) 0.8 0.0-2.0 % Neutrophils # (Auto) 3.7 1.6-8.6 10 ^3/uL Lymphocytes # (Auto) 1.0 0.4-5.4 10 ^3/uL Monocytes # (Auto) 0.7 0-1.3 10 ^3/uL Eosinophils # (Auto) 0.1 0-0.8 10 ^3/uL Basophils # (Auto) 0 0-0.2 10 ^3/uL Nucleated Red Blood Cells 0.1 % Sodium Level 141 136-145 mmol/L Potassium Level 3.5 3.5-5.1 mmol/L Chloride Level 107 98-107 mmol/L Carbon Dioxide Level 27 20-31 mmol/L Anion Gap 7 5-15 Blood Urea Nitrogen 15 9-23 mg/dL Creatinine 1.45 H 0.700-1.30 mg/dL Glomerular Filtration Rate Calc 57 >90 mL/min BUN/Creatinine Ratio 10.3 10.0-20.0 Serum Glucose 124 H 74-106 mg/dL Calcium Level 9.4 8.7-10.4 mg/dL B-Type Natriuretic Peptide 237.64 0-100 pg/mL Current Medications Medications (Trade) Dose Ordered Sig/Chente Route Start Time Stop Time Status Last Admin Albuterol (Ventolin Medneb) 5 mg ONCE ONCE [facility] 10/02/24 20:00 10/02/24 20:16 DC 10/02/24 20:26 Ipratropium [place] (Atrovent Medneb) 0.5 mg ONCE ONCE [facility] 10/02/24 20:00 5/19/25 20:16 DC 10/02/24 20:26 PROCEDURE(s): CXRP - CHEST PORTABLE REASON: cp sob ORDER NUMBER(s): [id number], ACCESSION NUMBER(s): [id number] CHEST RADIOGRAPH Indication: cp sob Technique: Single frontal view of the chest was obtained COMPARISON: XY CHEST XRAY 1 VIEW on DOS: 07/23/24 FINDINGS: Lines and Tubes: Single-lead AICD again noted overlying left chest wall. Lungs: Atelectasis/consolidation at left lung base which was not present on the prior chest X-ray from 07/23/24. Right lung is clear. No evidence of pulmonary edema. Pleura: No significant pleural effusion. No pneumothorax. Cardiomediastinal contours: Unremarkable. IMPRESSION: Atelectasis/consolidation at left lung base. X-Ray, Labs, Meds, VS Comment 54 year-old male with history of AFib, CHF w/systolic-EF 10-15%, CKF, COPD w/home O2, DM II, HLD, HTN, STEMI II s/p PTCA, drug-induced cardiomyopathy status post Medtronic ICD, tricuspid regurg, and polysubstance use complaining of shortness of breath, dizziness and chest pain Vitals remarkable for BP 186/116, respiratory rate 22 Exam unremarkable Rhythm strip independently interpreted by me: Sinus rhythm, rate 70, no ectopy. Chest x-ray IMPRESSION: Atelectasis/consolidation at left lung base. CBC and metabolic panel unremarkable, BNP 237.64, serial troponins 76 and 76 Patient treated with the following in the ED: Nitro patch 0.4 mg to chest wall, morphine 4 mg IV, Zofran 4 mg IV, albuterol 5 mg/5 mg nebulized, Solu-Medrol 125 mg IV On re-evaluation, chest pain has improved. Vitals were stable. Patient does not appear short of breath at rest. Plan is to admit the patient for Cardiology evaluation and respiratory support Time of 1ST Reevaluation: 20:10 Reevaluation 1ST: Unchanged Time of 2ND Reevaluation: 22:37 Reevaluation 2ND: Improved Patient Education/Counseling: Treatment Family Education/Counseling: No Family Present Departure 1 Departure Time of Disposition: 22:37 Impression: Primary Impression: Unstable angina Additional Impressions: Iwzvs-[id number] respiratory failure Qualified Codes: J96.20 - Acute and chronic respiratory failure, unspecified whether with hypoxia or hypercapnia COPD exacerbation Disposition: ADMITTED INPATIENT Admit to: Tele Condition: Guarded Critical Care Note Critical Care Time?: No Stability Stability form required: No Heart Score Heart Score: Heart Score Response (Comments) Value History Highly Suspicious [address]-Deviation 2 Age 45-64 1 Risk Factors >3 or Hx ASHD 2 Troponin 1-2 x's Normal limit 1 Total 8 I personally scribed for LEANDRO VALLE MD ([email or web address]) on 10/02/24 at 21:31. Electronically submitted by Jeferson Finn [email or web address]). LEANDRO VALLE MD October 02, 2024 21:31
--- NOTE | 2024-10-02 21:54 | DVH ---
CHEST RADIOGRAPH Indication: cp sob Technique: Single frontal view of the chest was obtained COMPARISON: XY CHEST XRAY 1 VIEW on DOS: 07/23/24 FINDINGS: Lines and Tubes: Single-lead AICD again noted overlying left chest wall. Lungs: Atelectasis/consolidation at left lung base which was not present on the prior chest X-ray fro m 07/23/24. Right lung is clear. No evidence of pulmonary edema. Pleura: No significant pleural effusion. No pneumothorax. Cardiomediastinal contours: Unremarkable. IMPRESSION: Atelectasis/consolidation at left lung base.
[2024-10-02] MEDS ORDERED: MORPHINE SULFATE INJ 2 MG/ml SYRG IV PRN (22:15)
[2024-10-02] MEDS ORDERED: NITROGLYCERIN 0.4 MG SL TAB SL PRN (22:15)
[2024-10-02] MEDS ORDERED: ACETAMINOPHEN 325 MG TAB PO PRN (22:15)
--- NOTE | 2024-10-02 23:40 | DVH ---
Carotid Duplex Clinical History: syncope Comparison: None Technique: Duplex Doppler evaluation of the extracranial carotid and vertebral arteries including color Doppler and spectral/pulsed waveform analysis was performed. Findings: RIGHT SIDE: No atherosclerotic plaque noted. The peak systolic velocities are 65 cm/s in the CCA, 64 cm/s in the ICA. The ICA/CCA ratio is 1.0. The external carotid artery is patent with peak systolic velocity of 93 cm/s proximally. There is appropriate antegrade flow in the right vertebral artery. LEFT SIDE: No atherosclerotic plaque noted. The peak systolic velocities are 76 cm/s in the CCA, 51 cm/s in the ICA. The ICA/CCA ratio is 0.7. The external carotid artery is patent with peak systolic velocity of 83 cm/s proximally. There is appropriate antegrade flow in the left vertebral artery. IMPRESSION: No evidence of hemodynamically significant carotid stenosis. Reference: Radiology 2003; 229:340-346 Normal ICA PSV is <125 cm/sec and no plaque or intimal thickening is visible sonographically addition al criteria include ICA/CCA PSV ratio <2.0 and ICA EDV <40 cm/sec <50% ICA stenosis ICA PSV is <125 cm/sec and plaque or intimal thickening is visible sonographically additional criteria include ICA/CCA PSV ratio <2.0 and ICA EDV <40 cm/sec 50-69% ICA stenosis ICA PSV is 125-230 cm/sec and plaque is visible sonographically additional criter ia include ICA/CCA PSV ratio of 2.0-4.0 and ICA EDV of 40-100 cm/sec 70% ICA stenosis but less than near occlusion ICA PSV is >230 cm/sec and visible plaque and luminal narrowing are seen at solares-scale and color Doppler ultrasound (the higher the Doppler parameters lie above the threshold of 230 cm/sec, the greater the likelihood of severe disease) additional criteria include ICA/CCA PSV ratio >4 and ICA EDV >100 cm/sec
--- NOTE | 2024-10-02 23:48 | DVH ---
EXAM: CT HEAD WITHOUT CONTRAST INDICATION: syncope TECHNIQUE: CT of the head without intravenous contrast. Radiation Dose : 1. Head: CT Dose: CTDI volume is 62.04 mGy. Dose-length product is 1118.47 mGy*cm The dose indicators for CT are the volume Computed Tomography (CT) Dose Index (CTDIvol) and the Dose Length Product (DLP), and are measured in units of mGy and mGy-cm, respectively. These indicators are not patient dose, but values generated from the CT scanner acquisition factors. The report includes radiation exposure data for exposures received during this examination. COMPARISON: CT HEAD WITHOUT CONTRAST on DOS: 04/28/24, CT HEAD WITHOUT CONTRAST on DOS: 04/13/23 FINDINGS: There is no evidence of acute intracranial hemorrhage, extra-axial collection, mass effect, midline s hift, herniation or hydrocephalus. The ventricles, sulci and cisterns are age appropriate. The solares-white differentiation is intact. Patchy periventricular and subcortical white matter hypoattenuation is nonspecific but may be related to small vessel ischemic disease. The visualized paranasal sinuses and mastoid air cells are clear. The surrounding soft tissues and osseous structures are unremarkable. IMPRESSION: 1. No acute intracranial abnormality. Radiation optimization: All CT scans at this facility use at least one of these dose optimization jennifer hniques: automated exposure control mA and/or kV adjustment per patient size (includes targeted exam s where dose is matched to clinical indication) or iterative reconstruction.
[2024-10-02 23:50] VITALS: BP 174/96; PULSE 84; RESP 20; TEMP 98.2; O2SAT 98
--- NOTE | 2024-10-02 23:51 | ECG ---
[facility] Test Date: 2024-10-02 Test Time: 19:37:35 Pat Name: [facility] Department: ER Room: 0281T Gender: M Hospice Volunteer: : 1970 Requested By: LEANDRO SPENCER Order Number: [id number] Reading MD: Mariano Franco Measurements Intervals Ovalo Rate: 70 P: 58 UT: 190 QRS: -63 QRSD: 145 T: 97 QT: 421 QTc: 455 Interpretive Statements Sinus rhythm Probable left atrial enlargement Left bundle branch block Electronically Signed On 10-09-2024 11:11:38 PDT by Mariano Franco Please click the below link to view image of tracing.
[2024-10-02] MEDS: NITROGLYCERIN 0.4MG/HR TOPICAL PATCH TD ONE (23:55)
[2024-10-02] MEDS: ISOSORBIDE MONONITRATE ER 60 MG TAB PO SCH (23:59)
[2024-10-03] VITALS (16 sets, daily range): BP systolic 141–189; BP diastolic 69–113; PULSE 63–84; RESP 16–20; TEMP 97.5–98; O2SAT 18–100
[2024-10-03] MEDS: methylPREDNISolone SOD SUCC 125 MG/2 ML VL IV ONE (00:01)
[2024-10-03] MEDS: FUROSEMIDE 40 MG/4 ML VIAL IV SCH (00:02)
[2024-10-03] MEDS: ONDANSETRON HCL 4 MG/2 ML VIAL IV ONE (00:02)
[2024-10-03] MEDS: MORPHINE SULFATE 4 MG/ML SYR/VIAL IV ONE (00:03)
[2024-10-03] MEDS: LISINOPRIL 20 MG TAB PO SCH (00:04)
[2024-10-03] MEDS: ASPirin 81 mg TAB PO SCH (00:04)
[2024-10-03] MEDS: ATORVASTATIN 20 MG TAB PO SCH (00:05)
[2024-10-03] MEDS: AMIODARONE HCL 200 MG TAB PO SCH (01:00)
[2024-10-03] MEDS: ENOXAPARIN SOD 40 MG/0.4 ML SYRINGE SC SCH (01:00)
--- NOTE | 2024-10-03 02:43 | DVHHP2 ---
History of Present Illness Reason for Visit: syncope/ chest pain History of Present Illness A 54-year-old male with PMH of paroxysmal atrial fibrillation, systolic CHF (EF 1015%), COPD, DM II, HLD, HTN, drug-induced cardiomyopathy (methamphetamine), tricuspid regurgitation, Medtronic AICD, CKD, and polysubstance use (including meth and cannabis), presents after a syncopal episode with associated head trauma two days ago, with head trauma. Patient states he had pre-syncopal chest pain and lightheadedness. Today, he re-developed chest pain described as pressure-like, rated 8/10 initially, improving to 2/10 after EMS-administered nitroglycerin. He denies fevers, chills, cough, nausea, vomiting, palpitations, or leg swelling. Very poor historian. No current oxygen requirement. BNP noted at ~200. ROS: Limited due to poor historical reliability. Denies active bleeding, abdominal pain, diarrhea, or focal weakness. PMHx: paroxysmal atrial fibrillation, systolic CHF (EF 1015%), COPD, DM II, HLD, HTN, s/p PTCA, drug-induced cardiomyopathy (methamphetamine), tricuspid regurgitation, Medtronic AICD, CKD, and polysubstance use Review of Systems Allergies: Coded Allergies: NO KNOWN ALLERGIES (Unverified , 01/15/15) Medications Current Medications Medications Dose Ordered Sig/Chente Route Start Time Stop Time Status Last Admin Dose Admin Acetaminophen 650 mg Q6HP PRN PO 10/02/24 22:15 Nitroglycerin 0.4 mg Q5MINP PRN SL 10/02/24 22:15 Morphine Sulfate 2 mg Q30M PRN IV 10/02/24 22:15 Lisinopril 20 mg DAILY PO 10/02/24 22:15 10/03/24 00:04 20 MG Hydralazine HCl 50 mg TID PO 10/02/24 22:15 10/02/24 01:00 50 MG Isosorbide Mononitrate 60 mg DAILY PO 10/02/24 22:15 10/02/24 23:59 60 MG Enoxaparin Sodium 90 mg BID SC 10/02/24 22:30 10/03/24 01:00 90 MG Amiodarone HCl 200 mg Q12HR PO 10/02/24 22:30 10/03/24 01:00 200 MG Atorvastatin Calcium 40 mg HS PO 10/02/24 22:30 10/03/24 00:05 40 MG Carvedilol 12.5 mg Q12HR PO 10/03/24 10:00 Furosemide 40 mg DAILY IV 10/02/24 22:30 10/03/24 00:02 40 MG Prednisone 40 mg DAILY PO 10/03/24 10:00 Pantoprazole Sodium 40 mg DAILY IV 10/03/24 10:00 Albuterol 2.5 mg Q8HR NEB 10/03/24 06:00 Ipratropium [place] 0.5 mg Q8HR NEB 10/03/24 06:00 Aspirin 81 mg DAILY PO 10/02/24 23:15 10/03/24 00:04 81 MG Exam Vital Signs Vital Signs Date Time Temp Pulse Resp B/P (MAP) Pulse Ox O2 Delivery O2 Flow Rate FiO2 10/03/24 00:29 97.6 84 19 189/113 (138) 94 97.6 10/03/24 00:08 Room Air* 0 21 General Appearance: Alert, mild distress HEENT: Atraumatic, PERRLA Respiratory: Other (mild bibasalr crakles ) Cardiovascular: Regular rate, Normal S1 Abdominal: Normal bowel sounds Extremities: No clubbing, Other (edema 1+) Skin: No rashes Neuro: Normal gait, Normal speech Psych/Mental Status: Mental status NL, Mood NL Labs/Xrays Labs Test 10/02/24 22:45 10/02/24 19:47 Range/Units Troponin I High Sensitivity 85 *H </=54 ng/L White Blood Count 5.5 4.4-10.8 10^3/uL Red Blood Count 4.71 4.5-5.90 10^6/uL Hemoglobin 13.7 13.5-17.5 g/dL Hematocrit 42.0 41.0-53.0 % Mean Corpuscular Volume 89.2 80.0-100.0 fL Mean Corpuscular Hemoglobin 29.2 28.0-32.0 pg Mean Corpuscular Hemoglobin Concent 32.8 32.0-36.0 g/dL Red Cell Distribution Width 19.0 H 11.8-14.3 % Platelet Count 168 140-450 10^3/uL Mean Platelet Volume 7.9 6.9-10.8 fL Neutrophils (%) (Auto) 66.1 37.0-80.0 % Lymphocytes (%) (Auto) 17.8 10.0-50.0 % Monocytes (%) (Auto) 13.5 H 0.0-12.0 % Eosinophils (%) (Auto) 1.8 0.0-7.0 % Basophils (%) (Auto) 0.8 0.0-2.0 % Neutrophils # (Auto) 3.7 1.6-8.6 10 ^3/uL Lymphocytes # (Auto) 1.0 0.4-5.4 10 ^3/uL Monocytes # (Auto) 0.7 0-1.3 10 ^3/uL Eosinophils # (Auto) 0.1 0-0.8 10 ^3/uL Basophils # (Auto) 0 0-0.2 10 ^3/uL Nucleated Red Blood Cells 0.1 % Sodium Level 141 136-145 mmol/L Potassium Level 3.5 3.5-5.1 mmol/L Chloride Level 107 98-107 mmol/L Carbon Dioxide Level 27 20-31 mmol/L Anion Gap 7 5-15 Blood Urea Nitrogen 15 9-23 mg/dL Creatinine 1.45 H 0.700-1.30 mg/dL Glomerular Filtration Rate Calc 57 >90 mL/min BUN/Creatinine Ratio 10.3 10.0-20.0 Serum Glucose 124 H 74-106 mg/dL Calcium Level 9.4 8.7-10.4 mg/dL C-Reactive Protein High Sensitivity 1.40 H <1.0 mg/dL B-Type Natriuretic Peptide 237.64 0-100 pg/mL Assessment/Plan Assessment/Plan #Syncope, rule out cardiac etiology #Chest pain, less likely ACS #Acute on chronic systolic heart failure with ejection fraction exacerbation-EF 10-15% #Hypertensive urgency #COPD exacerbation? #Paroxysmal atrial fibrillation #Elevated troponin, likely NSTEMI II #Drug induced cardiomyopathy methamphetamine #Severe tricuspid regurgitation #Medtronic AICD #GIOVANY, likely vasomotor superimposed on CKD #Type 2 diabetes mellitus-hemoglobin A1c 6.9 #Polysubstance use dependence #Noncompliance Admit Telemetry Normal head ct scan Normal carotid duplex Pending device interrogation EKG: LBB, NSR Troponin mildly elevated Albuterol Amiodarone Aspirin Atorvastatin Carvedilol Enoxaparin 90 mg SC BID Furosemide 40 mg IV Hydralazine TID PO Isosorbide PO Lisinopril 20 mg Protonix IV Prednisone PO Breathing treatments q8h ISS Morphine and nitrates PRN Case discussed with Dr Madrigal Full code Plan discussed with: Patient, Other My Orders Orders - HUY DOZIER RESIDENT Procedure Category Date Status Time Admit ADMIT 10/02/24 Transmitted 22:12 Code Status CODE 10/02/24 Transmitted 22:12 Vital Signs LATIA 10/02/24 In Process 22:12 Review Orders With LATIA 10/02/24 In Process Adm.Md 22:12 Consistent DIET 10/03/24 Transmitted Carb(Ccho)Diabetes Breakfast Acetaminophen Tablet PHA 10/02/24 In Process (Tylenol Tablet) 22:15 Notify Of Changes [facility] 10/02/24 In Process From Base 22:12 Advance Directive LATIA 10/02/24 In Process 22:12 Patient Condition ORDERS 10/02/24 Transmitted 22:12 Allergies LATIA 10/02/24 In Process 22:12 Nitroglycerin PHA 10/02/24 In Process Sublingual (Ntrostat 22:15 Morphine Sulfate PHA 10/02/24 In Process Injection 22:15 Oxygen By Nasal RT 10/02/24 Transmitted Cannula 22:12 Stat Ekg For Chest [facility]IA 10/02/24 In Process Pain 22:12 Notify Of Changes [facility] 10/02/24 In Process From Base 22:12 [employer] Finishing Supervisor For [facility] 10/02/24 In Process 24 Hours 22:12 Emergency Dysrhythmia [facility] 10/02/24 In Process Protocol 22:12 Rhythm Strips Once [facility]IA 10/02/24 In Process Every Shift 22:12 Lisinopril Tablet PHA 10/02/24 In Process (Zestril Tablet) 22:15 Hydralazine Hcl PHA 10/02/24 In Process Tablet (Apresoline 22:15 Isosorbide PHA 10/02/24 In Process Mononitrate Tablet 22:15 Enoxaparin Sodium PHA 10/02/24 In Process (Lovenox) 22:30 Amiodarone Tablet PHA 10/02/24 In Process (Cordarone Tablet) 22:30 Atorvastatin (Lipitor) PHA 10/02/24 In Process 22:30 Carvedilol Tablet PHA 10/03/24 In Process (Coreg Tablet) 10:00 Furosemide Injection PHA 10/02/24 In Process (Lasix Injection) 22:30 Prednisone Tablet PHA 10/03/24 In Process 10:00 Pantoprazole PHA 10/03/24 In Process (Protonix) 10:00 Albuterol Medneb PHA 10/03/24 In Process (Ventolin Medneb) 06:00 Ipratropium Medneb PHA 10/03/24 In Process (Atrovent Medneb) 06:[address] 10/02/24 Resulted 22:18 Carotid Duplx W Color US 10/02/24 Resulted DOP 22:18 Assess Pacemaker LATIA 10/02/24 In Process Function 22:18 Communication Order ORDERS 10/02/24 Transmitted 22:18 Drug Screen LAB 10/02/24 Logged 22:28 Aspirin Tablet PHA 10/02/24 In Process 23:15 Date of Service: October 02, 2024 Billing Provider: LISSY MADRIGAL MD Common Visit Codes: [id number] INP/OBS CARE (HIGH) Secondary Visit Codes: [id number] CARE PLAN 30 MINUTES HUY DOZIER RESIDENT October 03, 2024 02:43
[2024-10-03] MEDS ORDERED: DEXTROSE (50%) 50ML SYRG IV PRN (02:45)
[2024-10-03] MEDS: NIFEdipine ER 30 MG TAB PO SCH (02:45)
[2024-10-03 03:04] LABS: Urine Bacteria None Seen /hpf (None Seen)
[2024-10-03 03:12] LABS: Urine Blood Negative /uL (Negative); Urine Clarity Clear (Clear); Urine Color Colorless (Yellow); Urine Protein, UAD Negative (Negative); Urine Specific Gravity 1.005 (1.001-1.035); Urine Squamous Epithelial Cell FEW /hpf (<5); Urine Urobilinogen Normal (Negative)
[2024-10-03 03:22] LABS: Cannabinoid Screen, Urine Pos (NEGATIVE); Opiate Scree,Urine Neg (NEGATIVE)
[2024-10-03 03:33] LABS: Urine WBC < 1 /HPF (0-3)
[2024-10-03 03:34] LABS: Amphetamine Screen, Urine Pos (NEGATIVE); Barbiturate Scree,Urine Neg (NEGATIVE); Benzodiazephine Screen, Urine Neg (NEGATIVE); Cocaine Screen, Urine Neg (NEGATIVE); Phencyclidine Screen, Urine Neg (NEGATIVE)
[2024-10-03] MEDS: ACCU-CHEK COMFORT CURVE STRIP VI SCH (06:20)
[2024-10-03] MEDS: InsuLIN REG 1unit/0.01ml Soln (100units/ml) SC SCH (06:24)
[2024-10-03] MEDS: IPRATROPIUM BROM 0.5 MG/2.5ML INH SOL NEB SCH (06:46)
[2024-10-03] MEDS: ALBUTEROL SULF 2.5 MG/0.5ML(0.5%) NEB SOLN NEB SCH (06:46)
[2024-10-03] MEDS: PANTOPRAZOLE 40 MG/10 ML VIAL INJ IV SCH (09:57)
[2024-10-03] MEDS: APIXABAN 5 MG TAB PO SCH (09:59)
[2024-10-03] MEDS ORDERED: ENOXAPARIN SOD 40 MG/0.4 ML SYRINGE SC SCH (10:00)
[2024-10-03] MEDS: predniSONE 20 MG TAB PO SCH (10:00)
[2024-10-03 10:50] LABS: Basophils # (auto) 0 10 ^3/uL (0-0.2); Basophils % (auto) 0.2 % (0.0-2.0); Eosinophils # (auto) 0 10 ^3/uL (0-0.8); Eosinophils % (auto) 0.1 % (0.0-7.0); Hematocrit 46.5 % (41.0-53.0); Lymphocytes # (auto) 0.3 10 ^3/uL (0.4-5.4); Lymphocytes % (auto) 5.1 % (10.0-50.0); Mean Corpuscular Hemoglobin 29.1 pg (28.0-32.0); Mean Corpuscular Hgb Conc. 32.3 g/dL (32.0-36.0); Mean Corpuscular Volume 90.1 fL (80.0-100.0); Monocytes # (auto) 0.1 10 ^3/uL (0-1.3); Monocytes % (auto) 0.8 % (0.0-12.0); Neutrophils # (auto) 6.2 10 ^3/uL (1.6-8.6); Neutrophils % (auto) 93.8 % (37.0-80.0); Platelet Count (auto) 94 10^3/uL (140-450); Red Blood Cells 5.17 10^6/uL (4.5-5.90); Red Cell Distribution Width 18.8 % (11.8-14.3); White Blood Cell 6.6 10^3/uL (4.4-10.8)
[2024-10-03] MEDS: CARVEDILOL 12.5 MG TAB PO SCH (11:22)
[2024-10-03 12:14] LABS: Anion Gap 7 (5-15)
[2024-10-03 12:15] LABS: Calcium 10.4 mg/dL (8.7-10.4); Carbon Dioxide 30 mmol/L (20-31); Chloride 102 mmol/L (98-107); Potassium 4.2 mmol/L (3.5-5.1); Sodium 139 mmol/L (136-145)
[2024-10-03 12:20] LABS: Alkaline Phosphatase 119 U/L (46-116); Glucose 141 mg/dL (74-106)
[2024-10-03 12:21] LABS: Albumin 4.5 g/dL (3.2-4.8); Aspartate Aminotransferase 35 U/L (13-40); Total Protein 7.3 g/dL (5.7-8.2)
[2024-10-03 12:22] LABS: Bilirubin, Total 0.5 mg/dL (0.2-1.0)
[2024-10-03 12:54] LABS: Alanine Aminotransferase 41 U/L (7-40); BUN/Creatinine Ratio 10.6 (10.0-20.0); Blood Urea Nitrogen 17 mg/dL (9-23)
--- NOTE | 2024-10-03 13:42 | DVHPNRES ---
Progress Note Date Seen: October 03, 2024 Resident Creating Document: TONIO BYRD RESIDENT Medical Necessity Reason Pt with a Central, PICC or Fol: No Subjective Review of Systems Patient seen and examined at bedside Patient had syncopal episode two days ago No complaint at this point No active chest pain No fever, chills, sputum production No shortness of breath Objective vital signs Vital Sign Date Time Temp Pulse Resp B/P (MAP) Pulse Ox O2 Delivery O2 Flow Rate FiO2 10/03/24 11:22 76 155/81 10/03/24 10:07 98 Room Air* 0 21 10/03/24 09:00 98.0 18 98.0 Total Intake and Output 10/02/24 10/02/24 10/03/24 15:00 23:00 07:00 Intake Total 600 ml Output Total 1200 ml Balance -600 ml medications Current Medications Medications Dose Ordered Sig/Chente Route Start Time Stop Time Status Last Admin Dose Admin Acetaminophen 650 mg Q6HP PRN PO 10/02/24 22:15 Nitroglycerin 0.4 mg Q5MINP PRN SL 10/02/24 22:15 Morphine Sulfate 2 mg Q30M PRN IV 10/02/24 22:15 Lisinopril 20 mg DAILY PO 10/02/24 22:15 10/03/24 10:00 20 MG Hydralazine HCl 50 mg TID PO 10/02/24 22:15 10/03/24 06:20 50 MG Isosorbide Mononitrate 60 mg DAILY PO 10/02/24 22:15 10/03/24 09:58 60 MG Amiodarone HCl 200 mg Q12HR PO 10/02/24 22:30 10/03/24 11:22 200 MG Atorvastatin Calcium 40 mg HS PO 10/02/24 22:30 10/03/24 00:05 40 MG Carvedilol 12.5 mg Q12HR PO 10/03/24 10:00 10/03/24 11:22 12.5 MG Furosemide 40 mg DAILY IV 10/02/24 22:30 10/03/24 09:57 40 MG Prednisone 40 mg DAILY PO 10/03/24 10:00 10/03/24 10:00 40 MG Pantoprazole Sodium 40 mg DAILY IV 10/03/24 10:00 10/03/24 09:57 40 MG Albuterol 2.5 mg Q8HR NEB 10/03/24 06:00 10/03/24 06:46 2.5 MG Ipratropium [place] 0.5 mg Q8HR NEB 10/03/24 06:00 10/03/24 06:46 0.5 MG Aspirin 81 mg DAILY PO 10/02/24 23:15 10/03/24 09:59 81 MG Diagnostic Test (Pha) 1 strip ACHS 10/03/24 07:00 10/03/24 11:23 1 STRIP Insulin Human Regular ACHS SC 10/03/24 07:00 10/03/24 12:50 2 UNITS Dextrose 50 ml UD PRN IV 10/03/24 02:45 Apixaban 5 mg BID PO 10/03/24 10:00 10/03/24 09:59 5 MG Hydroxyzine Pamoate 25 mg Q12HP PRN PO 10/03/24 11:45 Spironolactone 25 mg DAILY PO 10/04/24 10:00 Empaglifozin 10 mg DAILY PO 10/04/24 10:00 Examination General Appearance: Cooperative. Well developed. Well nourished. NAD Head Exam: Normal inspection Neck Exam: Normal inspection. Non-tender. Normal alignment Pulmonary/Respiratory: Chest non-tender. Clear bilateral breath sounds Cardiovascular/Chest: Regular rate and rhythm. No murmurs. No JVD. Peripheral Pulses: 2+ Radial (R). 2+ Radial (L). 2+ Pedal (R). 2+ Pedal (L) Abdominal Exam: Normal bowel sounds. Soft. Nontender. No hepatospenomegaly. No masses Ankle Exam: Negative ankle edema Lower extremities: Negative lower extremity edema Neuro/Mental Status: A&O x4. Coherent Thoughts/Psych: Normal thought pattern. Appropriate mood and affect. Good judgement and insight Appearance: In no acute distress Skin Exam: Normal inspection. Normal color. Warm. Dry laboratory and microbiology Laboratory Tests 10/03/24 11:49 10/03/24 10:18 Test 10/03/24 11:49 Range/Units Serum Glucose 141 H 74-106 mg/dL Problem List/Assessment/Plan Problem List/Assessment/Plan Syncope, rule out cardiac etiology Chest pain, less likely ACS Acute on chronic systolic heart failure with ejection fraction exacerbation-EF 10-15%, presence of Medtronic AICD NSTEMI type 2 likely due to above Drug induced cardiomyopathy methamphetamine Paroxysmal atrial fibrillation , sinus rhythm GIOVANY due to VMN, on CKD stage 3 Hypertensive urgency COPD, no exacerbation Severe tricuspid regurgitation Type 2 diabetes mellitus-hemoglobin A1c 6.9 Polysubstance use dependence Methamphetamine abuse Chronic cigarette smoker Noncompliance Plan/recommendation -reviewed head CT scan and carotid Doppler study, no acute abnormality. -cardiologic consultation has been: Plan for AICD interrogation -echocardiogram from 04/29/2024 revealed ejection fraction 10-15%. Dilated LV and RV dysfunction with severe tricuspid regurgitation. -up titrate guideline directed therapy: Furosemide 40 mg IV daily, hydralazine 50 mg p.o. t.i.d., isosorbide mononitrate 60 mg p.o. daily, lisinopril 20 mg p.o. daily, spironolactone 25 mg p.o. daily, Jardiance 10 mg p.o. daily. Coreg 12.5 mg p.o. b.i.d.. -amiodarone 200 mg p.o. b.i.d. and Eliquis 5 mg p.o. b.i.d.. EKG sinus rhythm without significant ST elevation or depression And LBB. -continue aspirin 81 mg p.o. daily and atorvastatin 40 mg p.o. daily. -mild insulin sliding scale -PUD prophylaxis Protonix 40 mg daily -DVT prophylaxis with Eliquis Goals of care discussed greater than 24 minutes, full code status. Plan discussed with Dr. Nathan Plan discussed with: Patient, Other (RN) My Orders My Orders Orders - TONIO BYRD Procedure Category Date Status Time * Cardiology Consult CONS 10/03/24 Transmitted 09:01 Apixaban (Eliquis) PHA 10/03/24 In Process 10:00 Hydroxyzine Oral PHA 10/03/24 In Process (Vistaril Oral) 11:45 Spironolactone PHA 10/04/24 In Process (Aldactone) 10:00 Empagliflozin PHA 10/04/24 In Process (Jardiance) 10:00 Date of Service: October 03, 2024 Billing Provider: RASHARD NATHAN MD Common Visit Codes: [id number] INP/OBS CARE(HIGH) TONIO BYRD October 03, 2024 13:42 RASHARD NATHAN MD October 03, 2024 15:19
[2024-10-03] MEDS: hydrOXYzine 25 MG TAB or CAP PO PRN (13:50)
[2024-10-03] MEDS: SPIRONOLACTONE 25 MG TAB PO ONE (13:50)
--- NOTE | 2024-10-03 14:43 | DVHINCON2 ---
Date Seen: October 03, 2024 Referring Physician MD Bo resident Reason for Consultation AICD interrogation and CHF History of Present Illness This is a 54-year-old male patient who presents to the emergency room with chief complaint of syncopal episode. The patient reports that three days prior to emergency room arrival he sustained a syncopal event in which he did not lose consciousness. He states he was also having worsening shortness of breath and dizziness so he decided to come to the emergency room a few days later for further evaluation. Cardiology has been consulted at this time for patient's history of CHF. Initial twelve lead electrocardiogram reveals normal sinus rhythm with left bundle branch block. Significant medical history includes end- stage cardiomyopathy with history of hospice care, nonischemic/drug- induced/dilated cardiomyopathy, status post single-lead internal cardioverter defibrillator (Medtronic), paroxysmal atrial fibrillation (on Eliquis), chronic kidney disease, schizophrenia, polysubstance abuse, a smoking history x40 pack years, and obesity. The patient does not follow up with a structural engineering technician in the outpatient setting. He also admits to recent methamphetamine use, dietary indiscretions, and medication noncompliance. Past Medical History Past medical history reviewed. No other significant than mentioned above. Past Surgical History AICD (Medtronic) Family History: Cardiovascular disease G8 MOTHER G8 FATHER Hypertension G8 MOTHER G8 FATHER Family History Family history reviewed. Social History Patient has a 40 pack-year history Patient admits to recent methamphetamine use, approximately one week ago was last time Patient admits to drinking approximately half a bottle of vodka per day Allergies: Coded Allergies: NO KNOWN ALLERGIES (Unverified , 01/15/15) Home Meds Active Scripts Spironolactone (Aldactone) 25 Mg Tab, 25 MG PO DAILY for 20 Days, #20 TAB Prov:TONIO BYRD RESIDENT 10/03/24 Apixaban Base (ELIQUIS) 5 Mg Tab, 5 MG PO BID for 30 Days, #60 TAB 0 Refills Prov:TONIO BYRD RESIDENT 10/03/24 Amiodarone Hcl (Amiodarone Hcl) 200 Mg Tab, 200 MG PO BID for 30 Days, #60 TAB 0 Refills Prov:TONIO BYRD 10/03/24 Pantoprazole Sodium Sesquihydr (Pantoprazole Sodium) 40 Mg Tab, 40 MG PO DAILY for 20 Days, #20 TAB Prov:DEBBIEKAMIROHAN PATELEN [facility] 10/03/24 Atorvastatin Calcium (ATORVASTATIN CALCIUM) 40 Mg Tab, 40 MG PO DAILY for 20 Days, #20 TAB Prov:DEBBIETONIO OZUNA [facility] 10/03/24 Aspirin (Aspirin Low Dose) 81 Mg Chw, 1 TAB PO DAILY for 30 Days, #30 TAB.CHEW Prov:DEBBIETONIO OZUNA [facility] 10/03/24 Gabapentin (Gabapentin) 300 Mg Cap, 1 CAP PO TID for 20 Days, #20 CAP Prov:[facility] 10/03/24 Furosemide (Furosemide) 40 Mg Tab, 1 TAB PO DAILY for 20 Days, #20 TAB Prov:DEBBIENJAMANDATONIO [facility] 10/03/24 Empagliflozin (Jardiance) 10 Mg Tab, 1 TAB PO DAILY for 20 Days, #20 TAB Prov:TONIO BYRD [facility] 10/03/24 Hydralazine Hcl (Hydralazine Hcl) 50 Mg Tab, 1 TAB PO TID for 20 Days, #60 TAB Prov:TONIO BYRD [facility] 10/03/24 Carvedilol (Carvedilol) 12.5 Mg Tab, 1 TAB PO BID for 20 Days, #40 TAB Prov:BOTONIO [facility] 10/03/24 Isosorbide Mononitrate (Isosorbide Mononitrate ER) 60 Mg Tab, 1 TAB PO DAILY for 20 Days, #20 TAB Prov:TONIO BYRD [facility] 10/03/24 Lisinopril (Lisinopril) 20 Mg Tab, 1 TAB PO DAILY for 20 Days, #20 TAB Prov:TONIO BYRD [facility] 10/03/24 Albuterol Sulfate (Albuterol Sulfate Hfa) 108 Mcg/Act Aer, 2 PUFF PO Q4H for 20 Days, #10 AER Prov:TONIO BYRD [facility] 10/03/24 Reported Medications Folic Acid (Folic Acid) 1 Mg Tab, 1 MG PO DAILY, MG 04/28/24 Diltiazem HCl (Diltiazem Hydrochloride) 120 Mg Tab, 120 MG PO DAILY, TAB 04/28/24 Alprazolam (Alprazolam) 1 Mg Tab, 1 MG PO BID for 15 Days, #30 TAB 04/28/24 Oxycodone W/ Acetaminophen (Apap/Oxycodone) 1 Tab Tab, 1 TAB PO QID PRN for PAIN SCALE 1 THRU 6 for 15 Days, #60 TAB CHRONIC PAIN MEDICATION OXYCODONE-ACETAMINOPHEN 10MG-325MG 04/28/24 Docusate Sodium (Docusate Sodium) 100 Mg Cap, 1 CAP PO DAILY 12/08/23 Tiotropium Bayard Monohydrate (Spiriva Handihaler) 18 Mcg Cap, 1 CAP INH DAILY 12/08/23 Tamsulosin Hcl (Tamsulosin Hcl) 0.4 Mg Cap, 1 PO DAILY 12/08/23 Trazodone Hcl (Trazodone Hcl) 100 Mg Tab, 1 TAB PO HS 12/08/23 Potassium Citrate (Potassium Citrate) 1,080 Mg Tab, 1 TAB PO BID 12/08/23 Potassium Chloride (K-Tabs) 10 Meq Tab, 1 TAB PO DAILY 08/22/22 Home Meds Home medications reviewed. Current Medications Current Medications Medications (Trade) Dose Ordered Sig/Chente Route PRN Reason Start Time Stop Time Status Last Admin Acetaminophen (Tylenol Tablet) 650 mg Q6HP PRN PO PAIN SCALE 1-3 OR TEMP>100.4 10/02/24 22:15 Enoxaparin Sodium (Lovenox) 40 mg DAILY SC 10/03/24 10:00 10/02/24 22:18 DC Nitroglycerin (Ntrostat Sublingual) 0.4 mg Q5MINP PRN SL FOR CHEST PAIN 10/02/24 22:15 Morphine Sulfate 2 mg Q30M PRN IV FOR CHEST PAIN 10/02/24 22:15 Lisinopril (Zestril Tablet) 20 mg DAILY PO 10/02/24 22:15 10/03/24 10:00 Hydralazine HCl (Apresoline Tablet) 50 mg TID PO 10/02/24 22:15 10/03/24 13:50 Isosorbide Mononitrate (Imdur Er Tablet) 60 mg DAILY PO 10/02/24 22:15 10/03/24 09:58 Enoxaparin Sodium (Lovenox) 90 mg BID SC 10/02/24 22:30 10/03/24 13:23 DC 10/03/24 10:05 Amiodarone HCl (Cordarone Tablet) 200 mg Q12HR PO 10/02/24 22:30 10/03/24 11:22 Atorvastatin Calcium (Lipitor) 40 mg HS PO 10/02/24 22:30 10/03/24 00:05 Carvedilol (Coreg Tablet) 12.5 mg Q12HR PO 10/03/24 10:00 10/03/24 11:22 Furosemide (Lasix Injection) 40 mg DAILY IV 10/02/24 22:30 10/03/24 09:57 Prednisone 40 mg DAILY PO 10/03/24 10:00 10/03/24 14:09 DC 10/03/24 10:00 Pantoprazole Sodium (Protonix) 40 mg DAILY IV 10/03/24 10:00 10/03/24 09:57 Albuterol (Ventolin Medneb) 2.5 mg Q8HR NEB 10/03/24 06:00 10/03/24 14:24 Ipratropium Bayard (Atrovent Medneb) 0.5 mg Q8HR NEB 10/03/24 06:00 10/03/24 14:24 Aspirin 81 mg DAILY PO 10/02/24 23:15 10/03/24 09:59 Nifedipine (Procardia Xl (Time-Release)) 60 mg DAILY PO 10/03/24 02:45 10/03/24 09:18 DC Diagnostic Test (Pha) (Accu-Chek Comfort Curve T) 1 strip ACHS 10/03/24 07:00 10/03/24 11:23 Insulin Human Regular (InsuLIN R) ACHS SC 10/03/24 07:00 10/03/24 12:50 Dextrose 50 ml UD PRN IV Blood Sugar LESS THAN 60 10/03/24 02:45 Apixaban (Eliquis) 5 mg BID PO 10/03/24 10:00 10/03/24 09:59 Hydroxyzine Pamoate (Vistaril Oral) 25 mg Q12HP PRN PO ANXIETY 10/03/24 11:45 10/03/24 13:50 Spironolactone (Aldactone) 25 mg DAILY PO 10/04/24 10:00 Empaglifozin (Jardiance) 10 mg DAILY PO 10/04/24 10:00 Review of Systems Constitutional: No symptom reported Ears, Nose, & Throat: No symptom reported Eyes: No symptom reported Neurological: Syncope Pulmonary/Respiratory: No symptoms reported Cardiovascular: No symptom reported Gastrointestinal: No symptom reported Genitourinary: No symptom reported Musculoskeletal: No symptom reported Skin: No symptom reported Psychiatric: No symptom reported Endocrine: No symptom reported Hematologic/Lymphatic: No symptom reported Vital Signs Vital Signs Date Time Temp Pulse Resp B/P (MAP) Pulse Ox O2 Delivery O2 Flow Rate FiO2 10/03/24 14:30 75 16 100 10/03/24 14:24 Room Air 10/03/24 14:24 0 21 10/03/24 13:50 135/80 10/03/24 09:00 98.0 98.0 Labs/Diagnostic Data Labs Test 10/03/24 11:49 10/03/24 10:18 10/03/24 02:37 10/02/24 22:45 Range/Units Sodium Level 139 136-145 mmol/L Potassium Level 4.2 3.5-5.1 mmol/L Chloride Level 102 98-107 mmol/L Carbon Dioxide Level 30 20-31 mmol/L Anion Gap 7 5-15 Blood Urea Nitrogen 17 9-23 mg/dL Creatinine 1.60 H 0.700-1.30 mg/dL Glomerular Filtration Rate Calc 51 >90 mL/min BUN/Creatinine Ratio 10.6 10.0-20.0 Serum Glucose 141 H 74-106 mg/dL Calcium Level 10.4 8.7-10.4 mg/dL Total Bilirubin 0.5 0.2-1.0 mg/dL Aspartate Amino Transferase (AST) 35 13-40 U/L Alanine Aminotransferase (ALT) 41 H 7-40 U/L Alkaline Phosphatase 119 H 46-116 U/L Total Protein 7.3 5.7-8.2 g/dL Albumin 4.5 3.2-4.8 g/dL White Blood Count 6.6 4.4-10.8 10^3/uL Red Blood Count 5.17 4.5-5.90 10^6/uL Hemoglobin 15.0 13.5-17.5 g/dL Hematocrit 46.5 # 41.0-53.0 % Mean Corpuscular Volume 90.1 80.0-100.0 fL Mean Corpuscular Hemoglobin 29.1 28.0-32.0 pg Mean Corpuscular Hemoglobin Concent 32.3 32.0-36.0 g/dL Red Cell Distribution Width 18.8 H 11.8-14.3 % Platelet Count 94 L 140-450 10^3/uL Mean Platelet Volume 8.0 6.9-10.8 fL Neutrophils (%) (Auto) 93.8 H 37.0-80.0 % Lymphocytes (%) (Auto) 5.1 L 10.0-50.0 % Monocytes (%) (Auto) 0.8 0.0-12.0 % Eosinophils (%) (Auto) 0.1 0.0-7.0 % Basophils (%) (Auto) 0.2 0.0-2.0 % Neutrophils # (Auto) 6.2 1.6-8.6 10 ^3/uL Lymphocytes # (Auto) 0.3 L 0.4-5.4 10 ^3/uL Monocytes # (Auto) 0.1 0-1.3 10 ^3/uL Eosinophils # (Auto) 0 0-0.8 10 ^3/uL Basophils # (Auto) 0 0-0.2 10 ^3/uL Nucleated Red Blood Cells 0.0 % Urine Color Colorless Yellow Urine Clarity Clear Clear Urine pH 6.0 5.0-9.0 Urine Specific [place] 1.005 1.001-1.035 Urine Protein Negative Negative Urine Ketones Negative Negative Urine Blood Negative Negative /uL Urine Nitrite Negative Negative Urine Bilirubin Negative Negative Urine Urobilinogen Normal Negative mg/dL Urine Leukocyte Esterase Negative Negative /uL Urine RBC None seen 0 - 3 /hpf Urine Microscopic WBC < 1 0-3 /HPF Urine Squamous Epithelial Cells Few <5 /hpf Urine Bacteria None seen None Seen /hpf Urine Glucose Normal Normal mg/dL Urine Opiates Screen Neg NEGATIVE Urine Fentanyl Screen Neg NEGATIVE Urine Barbiturates Screen Neg NEGATIVE Urine Phencyclidine Screen Neg NEGATIVE Urine Amphetamines Screen Pos NEGATIVE Urine Benzodiazepines Screen Neg NEGATIVE Urine Cocaine Screen Neg NEGATIVE Urine Cannabinoids Screen Pos NEGATIVE Troponin I High Sensitivity 85 *H </=54 ng/L Test 10/02/24 19:47 Range/Units C-Reactive Protein High Sensitivity 1.40 H <1.0 mg/dL B-Type Natriuretic Peptide 237.64 0-100 pg/mL Assessment Syncope, rule out cardiac etiology Acute on chronic decompensated HFrEF, NYHA class III Paroxysmal atrial fibrillation (on Eliquis), now NSR with LBBB NSTEMI, likely type II secondary to above Non-ischemic/drug-induced/end-stage dilated cardiomyopathy Hx of hospice care for end-stage cardiomyopathy Tricuspid regurgitation, severe Presence of AICD, Medtronic (single lead) Chronic kidney disease [id number] type 2 diabetes mellitus Medical noncompliance Polysubstance abuse Plan/Recommendation We will continue with the following plan/recommendations (Dr. Franco): * Transthoracic echocardiogram from 04/29/2024 reveals an EF of 10-15% * Initiate guideline directed medical therapy for CHF as renal function permits * Strict intake and output, daily weights, maintain fluid restriction * Bilateral carotid ultrasound shows no evidence of significant carotid stenosis * Orthostatic vital signs * ICD interrogation * Close Cardiac surveillance * Risk factor modifications, counseled * Adherence to medications * Cessation of polysubstance use * Dietary and lifestyle changes Thank you for allowing us to care for this patient. Please call with any questions or concerns. Critical care time spent: 41 minutes This medical document was created using an electronic medical record system with voice recognition software and computerized dictation system. Although this document has been carefully reviewed, there might still be some phonetic and typographical errors. Occasional wrong-word or ``sound-alike substitutions may have occurred due to the inherent limitations of voice recognition software. These areas are purely typographical due to imperfections of the software programs and do not reflect any compromise in the patient's medical care. Plea se read the chart carefully and recognize, using context, where these substitutions have occurred. Plan discussed with: Patient NYHA Physical activity limitations: Class3(Marked) ordinary (activity causes symtoms) Date of Service: October 03, 2024 Billing Provider: JOE HAMILTON Cardiology Common Codes: 17727-PBMSDDL INP/OBS CARE (High) Cardiology Consultation Codes: 99275-[id number] CONSULT <45MIN JOE HAMILTON October 03, 2024 14:43
[2024-10-03] MEDS ORDERED: ASPI81CH59 PO (15:13)
[2024-10-03] MEDS ORDERED: CARV12.544 PO (15:13)
[2024-10-03] MEDS ORDERED: AMIO200T33 PO (15:13)
[2024-10-03] MEDS ORDERED: SPIR25TA PO (15:13)
[2024-10-03] MEDS ORDERED: FURO40TA4 PO (15:13)
[2024-10-03] MEDS ORDERED: ATOR40TA52 PO (15:13)
[2024-10-03] MEDS ORDERED: ALBU108A5 PO (15:13)
[2024-10-03] MEDS ORDERED: GABA-1250 PO (15:13)
[2024-10-03] MEDS ORDERED: EMPA1TAB PO (15:13)
[2024-10-03] MEDS ORDERED: ISO60SRT PO (15:13)
[2024-10-03] MEDS ORDERED: PANT40T PO (15:13)
[2024-10-03] MEDS ORDERED: APIX5TAB PO (15:13)
[2024-10-03] MEDS ORDERED: HYDR50TA47 PO (15:13)
[2024-10-03] MEDS ORDERED: LISI20TA56 PO (15:13)
--- NOTE | 2024-10-03 15:19 | DVHDSRES ---
Discharge Summary Date of Admission Resident Creating Document: TONIO BYRD RESIDENT October 02, 2024 at 22:12 Date of Discharge: October 03, 2024 Admitting Diagnosis syncope Labs/Diagnostic Data: Laboratory Results Test 10/03/24 11:49 10/03/24 10:18 10/03/24 02:37 10/02/24 22:45 Sodium Level 139 mmol/L (136-145) Potassium Level 4.2 mmol/L (3.5-5.1) Chloride Level 102 mmol/L (98-107) Carbon Dioxide Level 30 mmol/L (20-31) Anion Gap 7 (5-15) Blood Urea Nitrogen 17 mg/dL (9-23) Creatinine 1.60 mg/dL (0.700-1.30) Glomerular Filtration Rate Calc 51 mL/min (>90) BUN/Creatinine Ratio 10.6 (10.0-20.0) Serum Glucose 141 mg/dL (74-106) Calcium Level 10.4 mg/dL (8.7-10.4) Total Bilirubin 0.5 mg/dL (0.2-1.0) Aspartate Amino Transferase (AST) 35 U/L (13-40) Alanine Aminotransferase (ALT) 41 U/L (7-40) Alkaline Phosphatase 119 U/L (46-116) Total Protein 7.3 g/dL (5.7-8.2) Albumin 4.5 g/dL (3.2-4.8) White Blood Count 6.6 10^3/uL (4.4-10.8) Red Blood Count 5.17 10^6/uL (4.5-5.90) Hemoglobin 15.0 g/dL (13.5-17.5) Hematocrit 46.5 % (41.0-53.0) Mean Corpuscular Volume 90.1 fL (80.0-100.0) Mean Corpuscular Hemoglobin 29.1 pg (28.0-32.0) Mean Corpuscular Hemoglobin Concent 32.3 g/dL (32.0-36.0) Red Cell Distribution Width 18.8 % (11.8-14.3) Platelet Count 94 10^3/uL (140-450) Mean Platelet Volume 8.0 fL (6.9-10.8) Neutrophils (%) (Auto) 93.8 % (37.0-80.0) Lymphocytes (%) (Auto) 5.1 % (10.0-50.0) Monocytes (%) (Auto) 0.8 % (0.0-12.0) Eosinophils (%) (Auto) 0.1 % (0.0-7.0) Basophils (%) (Auto) 0.2 % (0.0-2.0) Neutrophils # (Auto) 6.2 10 ^3/uL (1.6-8.6) Lymphocytes # (Auto) 0.3 10 ^3/uL (0.4-5.4) Monocytes # (Auto) 0.1 10 ^3/uL (0-1.3) Eosinophils # (Auto) 0 10 ^3/uL (0-0.8) Basophils # (Auto) 0 10 ^3/uL (0-0.2) Nucleated Red Blood Cells 0.0 % Urine Color Colorless (Yellow) Urine Clarity Clear (Clear) Urine pH 6.0 (5.0-9.0) Urine Specific [place] 1.005 (1.001-1.035) Urine Protein Negative (Negative) Urine Ketones Negative (Negative) Urine Blood Negative /uL (Negative) Urine Nitrite Negative (Negative) Urine Bilirubin Negative (Negative) Urine Urobilinogen Normal mg/dL (Negative) Urine Leukocyte Esterase Negative /uL (Negative) Urine RBC None seen /hpf (0 - 3) Urine Microscopic WBC < 1 /HPF (0-3) Urine Squamous Epithelial Cells Few /hpf (<5) Urine Bacteria None seen /hpf (None Seen) Urine Glucose Normal mg/dL (Normal) Urine Opiates Screen Neg (NEGATIVE) Urine Fentanyl Screen Neg (NEGATIVE) Urine Barbiturates Screen Neg (NEGATIVE) Urine Phencyclidine Screen Neg (NEGATIVE) Urine Amphetamines Screen Pos (NEGATIVE) Urine Benzodiazepines Screen Neg (NEGATIVE) Urine Cocaine Screen Neg (NEGATIVE) Urine Cannabinoids Screen Pos (NEGATIVE) Troponin I High Sensitivity 85 ng/L (</=54) Test 10/02/24 19:47 C-Reactive Protein High Sensitivity 1.40 mg/dL (<1.0) B-Type Natriuretic Peptide 237.64 pg/mL (0-100) Other Laboratory Tests 10/03/24 11:49 10/03/24 10:18 Brief Hx & Hospital Course: Patient is 54-year-old male with past medical history of HFpEF 10% ejection fraction with Medtronic AICD, atrial fibrillation, drug-induced cardiomyopathy, hypertension, Chronic obstructive pulmonary disease, type 2 diabetes mellitus, polysubstance drug abuse, severe tricuspid regurgitation who came to the hospital with a chief complaint of syncopal episode, patient did not pass out, not confused before after syncopal episode. As per patient he was not compliant with medications. During hospitalization patient evaluated for syncope including AICD interrogation, CT scan of the head and carotid Doppler study, unremarkable investigation. Patient is optimized on guideline directed medical therapy for heart failure, given IV Lasix, losartan, Jardiance, spironolactone, Coreg, hydralazine, isosorbide mononitrate. Patient was extensively counseled on cessation of methamphetamine use given UDS came back positive for meth, also counseled on smoking cessation, advanced to continue taking prescribed medication, cardiac diet and advised to follow with rn picu and primary care physician in outpatient setting. Patient agreed with discharge plan, patient will be discharged home and advised to follow up in DC clinic in one week. Condition at Discharge: Stable Final Diagnosis/Problems List Syncope likely cardiogenic Chest pain ruled out acs Acute on chronic systolic heart failure with ejection fraction exacerbation-EF 10-15%, presence of Medtronic AICD NSTEMI type 2 likely due to above Drug induced cardiomyopathy methamphetamine Paroxysmal atrial fibrillation , sinus rhythm GIOVANY due to VMN, on CKD stage 3 Hypertensive urgency COPD, no exacerbation Severe tricuspid regurgitation Type 2 diabetes mellitus-hemoglobin A1c 6.9 Polysubstance use dependence Methamphetamine abuse Chronic cigarette smoker Noncompliance Discharge Disposition: Home Discharge Instruct/Medications Diet: Cardiac 2g Na,low cholest Activity: No Restrictions, As Tolerated Follow Up/Referral: follow up in dc clinic in 1 week Medications: see prescription Discharge Statement: "Patient was advised to return to the ER or call 911 if any headaches, dizziness, shortness of breath, chest pain, abdominal pain, bleeding, fevers, or worsening of medical condition. Patient was counseled about treatment plan, medications, possible side effects, patientverbalized understanding. All questions were answered to the best of my ability. This discharge took greater then 30 minutes in planning, reviewing documentation, counseling the patient, and discussing with other team members." ASSESSMENT ASSESSMENT Assessment cardiogenic syncope Date of Service: October 03, 2024 Billing Provider: RASHARD NATHAN MD Common Visit Codes: 35459-GQI/OBS DISCH DAY >30min TONIO BYRD RESIDENT October 03, 2024 15:19 RASHARD NATHAN MD October 03, 2024 16:06
[2024-10-04] MEDS ORDERED: EMPAGLIFLOZIN 10 MG TAB PO SCH (10:00)
[2024-10-04] MEDS ORDERED: SPIRONOLACTONE 25 MG TAB PO SCH (10:00)
== END 2024-10-03 18:38 | disposition home or self-care (01) | DRG 203 ==
LOC: EDBD 19:35 → ER 19:42 → OVERFLOW 22:12 → TELE-WESTW 10-03 00:25
PROVIDERS: ADMIT Student in an Organized Health Care Education/Training Program; ATTEND Student in an Organized Health Care Education/Training Program
DX: M94.0 Chondrocostal junction syndrome [Tietze] (principal); N17.0 Acute kidney failure with tubular necrosis; I21.A1 Myocardial infarction type 2; I50.23 Acute on chronic systolic (congestive) heart failure; I42.0 Dilated cardiomyopathy; I13.0 Hypertensive heart and chronic kidney disease with heart failure and stage 1 through stage 4 chronic kidney disease, or unspecified chronic kidney disease; I16.0 Hypertensive urgency; I07.1 Rheumatic tricuspid insufficiency; I48.0 Paroxysmal atrial fibrillation; F17.210 Nicotine dependence, cigarettes, uncomplicated; I42.7 Cardiomyopathy due to drug and external agent; T43.655A Adverse effect of methamphetamines, initial encounter; F15.10 Other stimulant abuse, uncomplicated; N18.30 Chronic kidney disease, stage 3 unspecified; E11.22 Type 2 diabetes mellitus with diabetic chronic kidney disease; E66.9 Obesity, unspecified; J44.89 Other specified chronic obstructive pulmonary disease; E78.5 Hyperlipidemia, unspecified; F20.9 Schizophrenia, unspecified; I44.7 Left bundle-branch block, unspecified; Z98.61 Coronary angioplasty status; Z91.148 Patient's other noncompliance with medication regimen for other reason; Z95.810 Presence of automatic (implantable) cardiac defibrillator; Z68.31 Body mass index [BMI] 31.0-31.9, adult; Z79.01 Long term (current) use of anticoagulants; Z79.899 Other long term (current) drug therapy; Z79.82 Long term (current) use of aspirin; Z79.84 Long term (current) use of oral hypoglycemic drugs; Z82.49 Family history of ischemic heart disease and other diseases of the circulatory system; Z83.3 Family history of diabetes mellitus; Y92.89 Other specified places as the place of occurrence of the external cause
CPT/HCPCS: 36415; 70450; 71045; 80048; 80053; 80307; 81001; 82962; 83880; 84484; 85025; 86141; 93005; 93886; 94640; G0378; J1815; J2405; J2470

== ENCOUNTER 2025-05-08 18:29 | Emergency (ER) | payer MEDICAID ==
[~2025-05-08] VITALS: Ht 175.3 cm; Wt 95.8 kg
[~2025-05-08 18:29] MED LIST changes: +SPIR25TA PO
[2025-05-08 19:27] LABS: Hematocrit 51.5 % (41.0-53.0); Hemoglobin 17.2 g/dL (13.5-17.5); Mean Corpuscular Hemoglobin 30.4 pg (28.0-32.0); Mean Corpuscular Volume 91.1 fL (80.0-100.0); Nucleated Red Blood Cells % 0.1 %
--- NOTE | 2025-05-08 19:27 | ED.PDOC ---
HPI (NEURO) HPI Comments Discharge diagnosis from 10/03/24 Syncope likely cardiogenic Chest pain ruled out acs Acute on chronic systolic heart failure with ejection fraction exacerbation-EF 10-15%, presence of Medtronic AICD NSTEMI type 2 likely due to above Drug induced cardiomyopathy methamphetamine Paroxysmal atrial fibrillation , sinus rhythm GIOVANY due to VMN, on CKD stage 3 Hypertensive urgency COPD, no exacerbation Severe tricuspid regurgitation Type 2 diabetes mellitus-hemoglobin A1c 6.9 Polysubstance use dependence Methamphetamine abuse Chronic cigarette smoker Noncompliance HPI: 55 year old male presents to the emergency department for chief complaint of headache and dizziness onset 2 weeks ago. He began experiencing intermittent dizziness 2 weeks ago, has been constant for the past week. Pt reports they were seen today at [facility] urgent care and told to come to ER for further evaluation. Pt describes migraine as a stabbing sensation that radiates across from RT temporal to RT orbital region, is also experiencing dizziness that is provoked when standing up. Denies any other symptoms at this time. Denies chills, fever, N/V/D, SOB, CP. Denies any other associated symptom's, modifiers, or recent injuries or sick contact at this time. Initial Vitals BP: 115/99 HR: 68 RR:18 O2 Sat: 98 Temp: 97.4 F Past Medical history: HTN, Afib, CHF, COPD, Diabetes type II, MS, Schizophrenia, HLD, polysubstance abuse, CKD Past Surgical history: cardiac stent x1 Medications: Albuterol, Amiodarone, Atorvastatin, Lisinopril, Carvedilol, Aspirin Social History: Smokes marijuana. Methamphetamine abuse Allergies: NKDA HPI: Poor Historian. brenden: POWER Right periorbital zygomatic temporal area pain. Constant nonradiating. Neurologically intact. Ambulating. Right eye corneal injury/blurriness chronic Denies any other acute symptoms. REVIEW OF SYSTEMS: CONSTITUTIONAL: Denies acute: fever, diaphoresis, chills, generalized weakness. HEAD: Denies acute: photophobia Eyes: Denies acute: Double vision, vision loss, eye pain, eye discharge. EARS: Denies acute: tinnitus, hearing loss, ear discharge, ear pain, THROAT: Denies acute: sore throat, swelling, difficulty swallowing , pain with swallowing, change in voice. NECK: Denies acute: neck pain, neck swelling, stiff neck. HEART: Denies acute : chest pain, palpitations, LUNGS: Denies acute: SOB, wheezing, cough, hemoptysis ABDOMEN: Denies acute: abdominal pain, Nausea, Vomiting, diarrhea, melena , hematemesis, hematochezia SKIN: Denies acute: rash, redness, lesions, itchiness. EXTREMITIES: Denies acute: calf pain, numbness, tingling, weakness, denies pain in extremity. Denies acute: Low back pain. Neuro: Denies acute: focal neurological deficit, motor or sensory focal neurological deficit, tremors, seizure like activity, confusion, dizziness, change in mental status, loss of bowel or bladder function, cauda equina like symptoms. : Denies acute: dysuria, hematuria, flank pain, increase in urinary frequency. PSYCH: Denies acute: hallucination, suicidal ideation, homicidal ideation. PHYSICAL EXAM: General: ---mild-----acute distress, awake and alert. Head: normocephalic, atraumatic. No raccoon's eyes, no sarabia sign. Neck: supple, trachea is midline, no swelling. Throat: Normal phonation. Eyes:, no erythema, no purulent discharge, no proptosis, no icterus. Heart: regular rate, regular rhythm, no significant murmur appreciated. Lungs: no apparent respiratory distress, Able to speak in full sentences. No wheezing, no rhonchi, no crackles. No stridors Clear to auscultation bilaterally. Abdomen: non tender to palpation, non distended, soft, no guarding, no rebound, + bowel sounds. Neuro: Awake, Alert, oriented to name, self, situation, follows commands GCS=15. Speech is normal. Skin: no petechia, no purpura, no cyanosis, non-pale, not jaundice. Lower extremities: --no - Pitting edema no deformity, no focal swelling, no calf TTP. Makes eye contact. moves all four extremities. Face: no apparent facial droop. Ambulating in the ED independently. Has his dog with him VELVET, EOM-I CN 2-12 are grossly intact, No nystagmus. ED COURSE: DISCLAIMER: This medical document was created using an electronic medical record system with voice recognition software and computerized dictation system. Although this document has been carefully reviewed, there might still be some phonetic and typographical errors. Occasional wrong-word or "sound-alike" substitutions may have occurred due to the inherent limitations of voice recognition software. These areas are purely typographical due to imperfections of the software programs and do not reflect any compromise in the patient's medical care. Please read the chart carefully and recognize, using context, where these substitutions have occurred. Chief Complaint: Headache Time Seen by MD: 19:20 Primary Care Provider: KIMBERLY Reviewed Notes: Nurses Notes, Medications, Allergies Information Source: Patient, Spouse Mode of Arrival: Ambulatory Timing: Days Duration: Since onset Prehospital treatment: None Past Medical History PAST MEDICAL HISTORY: AFIB, CHF, CKF, COPD, DM, High Lipids, HTN, MS, Schizophrenia Surgical History: PTCA Family History Family History: Family hx of DM, Family hx of Cancer, Family hx of heart navid, Family hx of HTN Social History Smoker: Cigarettes Alcohol: Occasionally Drugs: Cocaine, Marijuana, Methamphetamine Lives In: Home Was a procedure done? Was a procedure done?: No X-Ray, Labs, Meds, VS Vital Signs Date Time Temp Pulse Resp B/P (MAP) Pulse Ox O2 Delivery O2 Flow Rate FiO2 05/08/25 18:41 50 05/08/25 18:30 97.4 68 18 115/99 98 97.4 Lab Test 05/08/25 19:10 Range/Units White Blood Count 4.9 4.4-10.8 10^3/uL Red Blood Count 5.66 4.5-5.90 10^6/uL Hemoglobin 17.2 13.5-17.5 g/dL Hematocrit 51.5 41.0-53.0 % Mean Corpuscular Volume 91.1 80.0-100.0 fL Mean Corpuscular Hemoglobin 30.4 28.0-32.0 pg Mean Corpuscular Hemoglobin Concent 33.4 32.0-36.0 g/dL Red Cell Distribution Width 17.6 H 11.8-14.3 % Platelet Count 196 140-450 10^3/uL Mean Platelet Volume 7.6 6.9-10.8 fL Neutrophils (%) (Auto) 66.9 37.0-80.0 % Lymphocytes (%) (Auto) 19.2 10.0-50.0 % Monocytes (%) (Auto) 11.6 0.0-12.0 % Eosinophils (%) (Auto) 1.8 0.0-7.0 % Basophils (%) (Auto) 0.5 0.0-2.0 % Neutrophils # (Auto) 3.3 1.6-8.6 10 ^3/uL Lymphocytes # (Auto) 0.9 0.4-5.4 10 ^3/uL Monocytes # (Auto) 0.6 0-1.3 10 ^3/uL Eosinophils # (Auto) 0.1 0-0.8 10 ^3/uL Basophils # (Auto) 0 0-0.2 10 ^3/uL Nucleated Red Blood Cells 0.1 % Erythrocyte Sedimentation Rate 2 0-20 mm/hr Sodium Level 141 136-145 mmol/L Potassium Level 3.8 3.5-5.1 mmol/L Chloride Level 104 98-107 mmol/L Carbon Dioxide Level 29 20-31 mmol/L Anion Gap 8 5-15 Blood Urea Nitrogen 10 9-23 mg/dL Creatinine 1.40 H 0.700-1.30 mg/dL Glomerular Filtration Rate Calc 59 >90 mL/min BUN/Creatinine Ratio 7.1 L 10.0-20.0 Serum Glucose 101 74-106 mg/dL Calcium Level 9.2 8.7-10.4 mg/dL Total Bilirubin 0.6 0.2-1.0 mg/dL Aspartate Amino Transferase (AST) 39 13-40 U/L Alanine Aminotransferase (ALT) 30 7-40 U/L Alkaline Phosphatase 95 46-116 U/L Troponin I High Sensitivity 50 </=54 ng/L Total Protein 7.1 5.7-8.2 g/dL Albumin 4.4 3.2-4.8 g/dL [address] [address] Ph: [phone] DIAGNOSTIC IMAGING Diagnostic Imaging Report : [id number] Signed PATIENT: ALON MCCRACKEN ACCT: [id number] UNIT: [id number] : 1970 LOC: ER ROOM / BED: / AGE / SEX: 55 / M ADM STATUS: REG ER SERVICE [id number] ORDERING PHYSICIAN: JORGE MCCABE DO PROCEDURE(s): HWOCT - HEAD WITHOUT CONTRAST REASON: POWER ORDER NUMBER(s): [id number], ACCESSION NUMBER(s): [id number] EXAM: CT HEAD WITHOUT CONTRAST INDICATION: POWER TECHNIQUE: CT of the head without intravenous contrast. Radiation Dose : 1. Head: CT Dose: CTDI volume is 66.3 mGy. Dose-length product is 1290.0 mGy*cm The dose indicators for CT are the volume Computed Tomography (CT) Dose Index (CTDIvol) and the Dose Length Product (DLP), and are measured in units of mGy and mGy-cm, respectively. These indicators are not patient dose, but values generated from the CT scanner acquisition factors. The report includes radiation exposure data for exposures received during this examination. COMPARISON: CT HEAD WITHOUT CONTRAST on DOS: 10/02/24, CT HEAD WITHOUT CONTRAST on DOS: 04/28/24, CT HEAD WITHOUT CONTRAST on DOS: 12/09/23, CT HEAD WITHOUT CONTRAST on DOS: 04/13/23 FINDINGS: Motion artifact degrades fine detail. The cerebral parenchyma appears to be normal configuration and attenuation. The ventricles, cisterns, and sulci appear age-appropriate. There is no evidence for acute territorial infarct, hemorrhage, or mass effect. The orbits are normal. The visualized paranasal sinuses and mastoid air cells are clear. The soft tissues and osseous structures appear within normal limits. IMPRESSION: 1. No acute territorial infarct, intracranial hemorrhage, or mass effect. If clinical symptoms persist, MRI may be beneficial in further evaluation. Radiation optimization: All CT scans at this facility use at least one of these dose optimization techniques: automated exposure control mA and/or kV adjustment per patient size (includes targeted exams where dose is matched to clinical indication) or iterative reconstruction. ATED BY: VERONA HUTSON MD DICTATED DATE/TIME: 05/08/251924 SIGNED BY: VERONA HUTSON MD SIGNED DATE/TIME: 05/08/251924 CC: Time of 1ST Reevaluation: 19:50 Reevaluation 1ST: Unchanged Patient Education/Counseling: Diagnosis, Treatment, Need For Follow Up Family Education/Counseling: Diagnosis, Treatment, Need For Follow Up Departure 1 Departure Time of Disposition: 20:35 Impression: Primary Impression: Right sided temporal headache Disposition: 01 HOME / SELF CARE / HOMELESS Condition: Stable Additional Instructions: Additional instructions: Please read all instructions provided in this packet carefully. You MUST follow-up with your primary care/family doctor in 1 to 2 days. If you are unable to see your primary care/family doctor, please return to our emergency room for re-assessment and re-evaluation in 1 to 2 days. Return to the emergency room here in our facility or to the nearest ER [facility] if your symptoms change or worsen. CONSULTATIONS: you MUST Follow-up for consultation as soon as possible with: -neurology in 1-2 days. Please call for appointment. You MUST call the consultants office yourself to make an appointment. You may need to arrange that through your insurance and/or your primary/family doctor. If you are unable to see the devops consultant in 1 to 2 days, you must return to our emergency room (or any other ER of your choice) for re-assessment and re- evaluation. Adequate fluid hydration. Although you have been discharged from the Emergency Department, this does not mean that you have a "clean bill of health". No definitive diagnosis for your symptoms has been made today. It is possible that you are in the process of developing a serious illness. This is why you must return to the ED without fail if any new or worsening symptoms develop. Monitoring blood pressure at home. Below is a copy of your radiological report for follow up: [place] [address] Ph: [phone] DIAGNOSTIC IMAGING Diagnostic Imaging Report : [id number] Signed PATIENT: ALON MCCRACKEN ACCT: [id number] UNIT: [id number] : 1970 LOC: ER ROOM / BED: / AGE / SEX: 55 / M ADM STATUS: REG ER SERVICE 0730 ORDERING PHYSICIAN: JORGE MCCABE DO PROCEDURE(s): HWOCT - HEAD WITHOUT CONTRAST REASON: POWER ORDER NUMBER(s): [id number], ACCESSION NUMBER(s): [id number] EXAM: CT HEAD WITHOUT CONTRAST INDICATION: POWER TECHNIQUE: CT of the head without intravenous contrast. Radiation Dose : 1. Head: CT Dose: CTDI volume is 66.3 mGy. Dose-length product is 1290.0 mGy*cm The dose indicators for CT are the volume Computed Tomography (CT) Dose Index (CTDIvol) and the Dose Length Product (DLP), and are measured in units of mGy and mGy-cm, respectively. These indicators are not patient dose, but values generated from the CT scanner acquisition factors. The report includes radiation exposure data for exposures received during this examination. COMPARISON: CT HEAD WITHOUT CONTRAST on DOS: 10/02/24, CT HEAD WITHOUT CONTRAST on DOS: 04/28/24, CT HEAD WITHOUT CONTRAST on DOS: 12/09/23, CT HEAD WITHOUT CONTRAST on DOS: 04/13/23 FINDINGS: Motion artifact degrades fine detail. The cerebral parenchyma appears to be normal configuration and attenuation. The ventricles, cisterns, and sulci appear age-appropriate. There is no evidence for acute territorial infarct, hemorrhage, or mass effect. The orbits are normal. The visualized paranasal sinuses and mastoid air cells are clear. The soft tissues and osseous structures appear within normal limits. IMPRESSION: 1. No acute territorial infarct, intracranial hemorrhage, or mass effect. If clinical symptoms persist, MRI may be beneficial in further evaluation. Radiation optimization: All CT scans at this facility use at least one of these dose optimization techniques: automated exposure control mA and/or kV adjustment per patient size (includes targeted exams where dose is matched to clinical indication) or iterative reconstruction. ATED BY: VERONA HUTSON MD DICTATED DATE/TIME: 05/08/251924 SIGNED BY: VERONA HUTSON MD SIGNED DATE/TIME: 05/08/251924 CC: Discharged With: Self Critical Care Note Critical Care Time?: No I personally scribed for JORGE MCCABE DO ([email or web address]) on 05/08/25 at 19:27. Electronically submitted by Jasmine Canas ([email or web address]). I personally scribed for JORGE MCCABE DO ([email or web address]) on 05/08/25 at 19:45. Electronically submitted by Jasmine Canas ([email or web address]). I personally scribed for JORGE MCCABE DO ([email or web address]) on 05/08/25 at 20:00. Electronically submitted by Jasmine Canas ([email or web address]). JORGE MCCABE DO May 08, 2025 19:27
[2025-05-08 19:51] LABS: Alanine Aminotransferase 30 U/L (7-40); Albumin 4.4 g/dL (3.2-4.8); Alkaline Phosphatase 95 U/L (46-116); Anion Gap 8 (5-15); BUN/Creatinine Ratio 7.1 (10.0-20.0); Bilirubin, Total 0.6 mg/dL (0.2-1.0); Blood Urea Nitrogen 10 mg/dL (9-23); Calcium 9.2 mg/dL (8.7-10.4); Carbon Dioxide 29 mmol/L (20-31); Chloride 104 mmol/L (98-107); Glucose 101 mg/dL (74-106); Potassium 3.8 mmol/L (3.5-5.1); Sodium 141 mmol/L (136-145); Total Protein 7.1 g/dL (5.7-8.2)
[2025-05-08] MEDS: HYDROcodone-ACET 5/325MG TAB PO ONE (20:50)
[2025-05-08 20:58] VITALS: BP 155/104; PULSE 68; RESP 18; TEMP 98.6; O2SAT 99
--- NOTE | 2025-05-09 03:56 | ECG ---
[facility] [place] Date: 2025-05-08 Test Time: 18:41:59 Pat Name: [facility] Department: ED Room: Gender: M Speech Instructor: HUMPHREY : 1970 Requested By: JORGE MCCABE Order Number: [id number] Reading MD: Mariano Franco Measurements Intervals [place] Rate: 50 P: 170 CA: 154 QRS: 181 QRSD: 147 T: 9 QT: 485 QTc: 443 Interpretive Statements Ventricular-paced complexes No further rhythm analysis attempted due to paced rhythm Consider left ventricular hypertrophy Electronically Signed On 05-11-2025 10:30:24 PST by Mariano Franco Please click the below link to view image of tracing.
== END 2025-05-08 21:19 | disposition home or self-care (01) ==
LOC: ER 18:29
DX: R51.9 Headache, unspecified (principal); F10.90 Alcohol use, unspecified, uncomplicated; F17.210 Nicotine dependence, cigarettes, uncomplicated; F15.10 Other stimulant abuse, uncomplicated; F20.9 Schizophrenia, unspecified; F12.90 Cannabis use, unspecified, uncomplicated; E78.5 Hyperlipidemia, unspecified; J44.9 Chronic obstructive pulmonary disease, unspecified; I13.0 Hypertensive heart and chronic kidney disease with heart failure and stage 1 through stage 4 chronic kidney disease, or unspecified chronic kidney disease; E11.22 Type 2 diabetes mellitus with diabetic chronic kidney disease; N18.30 Chronic kidney disease, stage 3 unspecified; I50.9 Heart failure, unspecified
CPT/HCPCS: 36415; 70450; 80053; 84484; 85025; 85652; 93005